=== PATIENT | male | born 1965 | race Caucasian/White ===

== ENCOUNTER → 2018-01-30 10:29 | Outpatient (POV) | payer MEDICAID, SELFPAY ==
[2018-01-30 10:38] VITALS: BP 127/84; PULSE 105; RESP 21; O2SAT 97; BMI 38.1
--- NOTE | 2018-01-30 11:01 | HMH.PAINSOAP ---
[facility] Pain Management SOAP Note Subjective:: Patient is a pleasant 51-year-old white male who returns for follow-up after his second lumbar epidural steroid injection. Patient states that he had moderate relief. Patient states that he had pain relief for up to 4 weeks before returning. Patient states that has not completely returned. Patient is currently being medically managed on gabapentin 800 mg 1 p.o. 3 times daily by his primary care physician he states that this helps him greatly. He is having some trouble sleeping at night due to pain. Patient has tried tramadol in the past but has had some side effects to that. Patient is wondering about pain medication. We had a long discussion about exhausting conservative therapies first. Patient has tried muscle relaxants in the past with good relief. Patient has had Flexeril in the past with good relief. Patient is he would like to continue with a third lumbar epidural steroid injection to see if he can get maximal relief. Patient is also currently experiencing neck pain radiating down into both arms and creating numbness and tingling in all 5 digits of both hands. Patient states there is not much that relieves this. Patient rates his pain today a 5 out of 10. ROS General: no recent weight change, no fever, no sleep disturbances Respiratory: no cough, no shortness of air, no recurring pulmonary infections Cardiovascular/Peripheral Vascular: No chest pain, No palpitations, no edema, no shortness of breath. Gastrointestinal: no incontinence, normal bowel movements reported Genitourinary: no incontinence Musculoskeletal: Neck pain, bilateral arm pain, back pain, bilateral leg pain Psychiatric: normal mood/ affect, Neurological: [denies weakness in extremities], [denies balance issues] Objective:: Physical Exam General: Alert and oriented x3, no acute distress, pleasant and cooperative, [on room air] Lungs: Resps E/U, Symmetrical chest expansion, Eyes: PERRL Musculoskeletal: Flexion and extension of cervical and lumbar spine somewhat guarded secondary to pain, deep tendon reflexes normal, strength in upper and lower extremities [5/5], antalgic gait noted, positive straight leg test at 30? bilaterally. Neurological: speech clear, director medical writing equal, no gross sensory deficits Assessment:: Degenerative disc disease of the lumbar spine, lumbar postlaminectomy syndrome, lumbar radiculopathy, neck pain Plan:: We will plan another L4-L5 lumbar epidural steroid injection to finish off his round of free. Patient has had good relief from the previous ones. We also call him in Flexeril 10 mg 1 p.o. 3 times daily as needed. I am hoping that this will help him sleep at night. We had a long discussion about taking it and not driving or doing any activities until he knows how to fix them. Patient has tried and failed physical therapy in the past. Patient would also like to discuss his cervical neck pain I told him that we would begin this process after his follow-up for his third lumbar epidural steroid injection. This note was dictated using voice recognition software and may contain errors or omissions
--- NOTE | 2018-01-30 11:06 | P.CONS_ITS ---
[facility] Pain Management SOAP Note Subjective:: Patient is a pleasant 51-year-old white male who returns for follow-up after his second lumbar epidural steroid injection. Patient states that he had moderate relief. Patient states that he had pain relief for up to 4 weeks before returning. Patient states that has not completely returned. Patient is currently being medically managed on gabapentin 800 mg 1 p.o. 3 times daily by his primary care physician he states that this helps him greatly. He is having some trouble sleeping at night due to pain. Patient has tried tramadol in the past but has had some side effects to that. Patient is wondering about pain medication. We had a long discussion about exhausting conservative therapies first. Patient has tried muscle relaxants in the past with good relief. Patient has had Flexeril in the past with good relief. Patient is he would like to continue with a third lumbar epidural steroid injection to see if he can get maximal relief. Patient is also currently experiencing neck pain radiating down into both arms and creating numbness and tingling in all 5 digits of both hands. Patient states there is not much that relieves this. Patient rates his pain today a 5 out of 10. ROS General: no recent weight change, no fever, no sleep disturbances Respiratory: no cough, no shortness of air, no recurring pulmonary infections Cardiovascular/Peripheral Vascular: No chest pain, No palpitations, no edema, no shortness of breath. Gastrointestinal: no incontinence, normal bowel movements reported Genitourinary: no incontinence Musculoskeletal: Neck pain, bilateral arm pain, back pain, bilateral leg pain Psychiatric: normal mood/ affect, Neurological: [denies weakness in extremities], [denies balance issues] Objective:: Physical Exam General: Alert and oriented x3, no acute distress, pleasant and cooperative, [ on room air] Lungs: Resps E/U, Symmetrical chest expansion, Eyes: PERRL Musculoskeletal: Flexion and extension of cervical and lumbar spine somewhat guarded secondary to pain, deep tendon reflexes normal, strength in upper and lower extremities [5/5], antalgic gait noted, positive straight leg test at 30? bilaterally. Neurological: speech clear, personal lines account manager equal, no gross sensory deficits Assessment:: Degenerative disc disease of the lumbar spine, lumbar postlaminectomy syndrome, lumbar radiculopathy, neck pain Plan:: We will plan another L4-L5 lumbar epidural steroid injection to finish off his round of free. Patient has had good relief from the previous ones. We also call him in Flexeril 10 mg 1 p.o. 3 times daily as needed. I am hoping that this will help him sleep at night. We had a long discussion about taking it and not driving or doing any activities until he knows how to fix them. Patient has tried and failed physical therapy in the past. Patient would also like to discuss his cervical neck pain I told him that we would begin this process after his follow-up for his third lumbar epidural steroid injection. This note was dictated using voice recognition software and may contain errors or omissions
--- NOTE | 2018-01-30 16:50 | PC.PHONENOTE ---
called in Rx for Flexeril 10mg TID with 2 refills to [facility] in [place]
== END ==
PROVIDERS: Family Provider Family Medicine; PCP Family Medicine; Visit Provider Clinical Nurse Specialist Family Health
DX: M54.16 Radiculopathy, lumbar region (principal)
CPT/HCPCS: 99212

== ENCOUNTER → 2018-02-27 11:36 | Outpatient (CLI) | payer MEDICAID, SELFPAY ==
[2018-02-27 12:19] LABS: Alanine Aminotransferase 27 U/L (12-78); Albumin Level 4.4 gm/dL (3.4-5.0); Albumin/Globulin Ratio 0.9 (1.1-1.8); Alkaline Phosphatase 71 U/L (46-116); Anion Gap 15.2 mEq/L (5-15); Aspartate Amino Transferase 19 U/L (15-37); Bilirubin,Total 0.4 mg/dL (0.2-1.0); Blood Urea Nitrogen 31 mg/dL (7-18); Carbon Dioxide 28 mmol/L (21.0-32.0); Chloride 98 mmol/L (98-107); Chol/HDL Ratio 4.6 (1-3.5); Cholesterol 166 mg/dL (140-200); Creatinine,Serum 1.68 mg/dL (0.70-1.30); Estimated Glomerular Filt Rate 43 ml/min (>60); GFR (African American) 52 ML/MIN (>60); Globulin 4.8 gm/dl (1.3-3.2); Glucose 212 mg/dL (74-106); HDL Cholesterol 36 mg/dL (27-67); LDL Cholesterol 57 mg/dL (0-130); Sodium 135 mmol/L (136-145); Total Protein,Serum 9.2 gm/dL (6.4-8.2); Triglycerides 367 mg/dL (30-200); VLDL Cholesterol 73 mg/dL (0-40)
[2018-02-27 12:32] LABS: Potassium 6.2 mmoL/L (3.5-5.1)
[2018-02-27 19:56] LABS: Thyroid Stimulating Hormone 5.69 uIU/ml (0.358-3.740)
== END ==
PROVIDERS: Visit Provider Physician Assistant
DX: I25.10 Atherosclerotic heart disease of native coronary artery without angina pectoris (principal); E78.1 Pure hyperglyceridemia; R00.0 Tachycardia, unspecified
CPT/HCPCS: 36415; 80053; 80061; 84443; 93005

== ENCOUNTER → 2018-03-06 07:08 | Outpatient (CLI) | payer MEDICAID, SELFPAY ==
--- NOTE | 2018-03-06 07:13 | NM_ITS ---
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 Resting blood pressure is 122/90. Stress blood pressure 122/85. FINDINGS: Ejection fraction is calculated to be 46%. SPECT and polar map images reviewed. No fixed defects are evident. There is only slight decrease activity in the inferior wall on the stress images however, this may very well be related to diaphragmatic attenuation. Previously there were reversible defects within the apex and inferior wall. This is not present on today's exam IMPRESSION: 1. Low ejection fraction of 46% 2. No definite fixed or reversible defects that would indicate ischemia or infarction
--- NOTE | 2018-03-06 07:40 | HMH.ITSHM ---
METFORMIN GLIPIZIDE GLIXAMBA GABAPENTIN LISINOPRIL RASTUVASTATIN PROZAC
[2018-03-06 09:50] LABS: Anion Gap 15.8 mEq/L (5-15); Blood Urea Nitrogen 35 mg/dL (7-18); Carbon Dioxide 24 mmol/L (21.0-32.0); Chloride 102 mmol/L (98-107); Estimated Glomerular Filt Rate 53 ml/min (>60); GFR (African American) 64 ML/MIN (>60); Glucose 208 mg/dL (74-106); Potassium 4.8 mmoL/L (3.5-5.1); Sodium 137 mmol/L (136-145)
== END ==
PROVIDERS: Family Provider Family Medicine; PCP Family Medicine; Visit Provider Physician Assistant
DX: E78.5 Hyperlipidemia, unspecified (principal); I10 Essential (primary) hypertension; I25.10 Atherosclerotic heart disease of native coronary artery without angina pectoris
CPT/HCPCS: 36415; 78452; 80048; 93017; A9502; J2785

== ENCOUNTER → 2018-03-24 14:52 | Outpatient (CLI) | payer MEDICAID, SELFPAY | PROVIDERS: PCP Family Medicine; Visit Provider Family Medicine | DX: I10 Essential (primary) hypertension (principal); R06.83 Snoring ==

== ENCOUNTER → 2018-03-27 08:29 | Outpatient (POV) | payer MEDICAID, SELFPAY ==
[2018-03-27 09:25] VITALS: BP 118/79; PULSE 91; RESP 18; TEMP 36.6; O2SAT 99; BMI 40.6
--- NOTE | 2018-03-27 09:36 | P.CONS_ITS ---
[facility] Pain Management SOAP Note Subjective:: This patient is a pleasant 51-year-old white male who we are treating for low back pain with lumbar radiculopathy symptoms. He had good relief after 3 lumbar epidural steroid injections however it was only temporary. He continues to have pain down both legs right greater than left going all the way down to his feet. Pain is worse while walking. He has had previous surgery by Dr. Fisher approximately 2-3 years ago. He has significant spinal stenosis at L4-L5 and L5-S1. He does have facet hypertrophy at both these levels. Objective:: Alert and oriented ?3 no acute distress. Patient does have an antalgic gait. Motor strength of the lower extremities is 5/5. There is no gross sensory deficit. There is some tenderness in the lower lumbar spine. Assessment:: Post laminectomy syndrome lumbar spine with degenerative disc disease of lumbar spine with facet hypertrophy at L4-L5 and L5-S1 and lumbar radicular symptoms. Plan:: I do believe this patient would be a candidate for the mild procedure given his facet hypertrophy at L4-L5 and L5-S1. We will see if his insurance will approve this procedure. If not then we may seek approval for cord stimulator trial. This will help with his radicular symptoms. Our third option would be intrathecal therapy. We will follow-up with him in 2 weeks. We will formulate a treatment plan based on insurance approval at that time.
== END ==
PROVIDERS: Family Provider Family Medicine; PCP Family Medicine; Visit Provider Anesthesiology
DX: M54.16 Radiculopathy, lumbar region (principal)
CPT/HCPCS: 99212

== ENCOUNTER → 2018-04-10 08:48 | Outpatient (POV) | payer MEDICAID, SELFPAY ==
[2018-04-10 09:09] VITALS: BP 123/87; PULSE 108; RESP 20; TEMP 36.7; O2SAT 99; BMI 37.7
--- NOTE | 2018-04-10 09:41 | HMH.PAINSOAP ---
[facility] Pain Management SOAP Note Subjective:: Patient is a pleasant 51-year-old white male who we are treating for low back pain with lumbar radiculopathy symptoms. Patient has had surgery in the past with Dr. Fisher. Patient states most of his pain is in his bilateral legs. Patient states that it is worse in the left. Patient states that his pain is a 8 out of 10 today. Patient has not had any recent MRI imaging however his leg pain has worsened and traveled into the right side. Patient is having sometimes a weakness in his extremities now. Patient is on anticoagulation therapy. Patient has had injections however he is not had long-term relief with it. Patient and I did discuss neuro stimulation along with a mild procedure. I believe that it would be beneficial to get a new MRI and establish any new pathology. ROS General: no recent weight change, no fever, no sleep disturbances Respiratory: no cough, no shortness of air, no recurring pulmonary infections Cardiovascular/Peripheral Vascular: No chest pain, No palpitations, no edema, no shortness of breath. Gastrointestinal: no incontinence, normal bowel movements reported Genitourinary: no incontinence Musculoskeletal: Back pain, bilateral leg pain Psychiatric: normal mood/ affect Neurological: Patient has intermittent weakness in bilateral lower extremities, [denies balance issues] Objective:: Physical Exam General: Alert and oriented x3, no acute distress, pleasant and cooperative, [on room air] Lungs: Resps E/U, Symmetrical chest expansion Eyes: PERRL Musculoskeletal: Flexion and extension of lumbar spine somewhat guarded secondary to pain, deep tendon reflexes normal, strength in upper and lower extremities [5/5], slightly antalgic gait noted, straight leg raise test bilaterally at 30? Neurological: speech clear, electrical checkout mechanic equal, no gross sensory deficits Assessment:: Postlaminectomy syndrome of the lumbar spine with degenerative disc disease of the lumbar spine with facet hypertrophy at L4-L5 and L5-S1 and lumbar radicular symptoms, spinal stenosis Plan:: We will schedule MRI of the lumbar spine for the patient. I will review the results with him at his next visit. We will then discuss further treatment plan. Patient's tried and failed physical therapy, medications, anti-inflammatories, injections. This note was dictated using voice recognition software and may contain errors or omissions
--- NOTE | 2018-04-10 09:44 | P.CONS_ITS ---
[facility] Pain Management SOAP Note Subjective:: Patient is a pleasant 51-year-old white male who we are treating for low back pain with lumbar radiculopathy symptoms. Patient has had surgery in the past with Dr. Fisher. Patient states most of his pain is in his bilateral legs. Patient states that it is worse in the left. Patient states that his pain is a 8 out of 10 today. Patient has not had any recent MRI imaging however his leg pain has worsened and traveled into the right side. Patient is having sometimes a weakness in his extremities now. Patient is on anticoagulation therapy. Patient has had injections however he is not had long-term relief with it. Patient and I did discuss neuro stimulation along with a mild procedure. I believe that it would be beneficial to get a new MRI and establish any new pathology. ROS General: no recent weight change, no fever, no sleep disturbances Respiratory: no cough, no shortness of air, no recurring pulmonary infections Cardiovascular/Peripheral Vascular: No chest pain, No palpitations, no edema, no shortness of breath. Gastrointestinal: no incontinence, normal bowel movements reported Genitourinary: no incontinence Musculoskeletal: Back pain, bilateral leg pain Psychiatric: normal mood/ affect Neurological: Patient has intermittent weakness in bilateral lower extremities, [denies balance issues] Objective:: Physical Exam General: Alert and oriented x3, no acute distress, pleasant and cooperative, [ on room air] Lungs: Resps E/U, Symmetrical chest expansion Eyes: PERRL Musculoskeletal: Flexion and extension of lumbar spine somewhat guarded secondary to pain, deep tendon reflexes normal, strength in upper and lower extremities [5/5], slightly antalgic gait noted, straight leg raise test bilaterally at 30? Neurological: speech clear, skin care specialist equal, no gross sensory deficits Assessment:: Postlaminectomy syndrome of the lumbar spine with degenerative disc disease of the lumbar spine with facet hypertrophy at L4-L5 and L5-S1 and lumbar radicular symptoms, spinal stenosis Plan:: We will schedule MRI of the lumbar spine for the patient. I will review the results with him at his next visit. We will then discuss further treatment plan. Patient's tried and failed physical therapy, medications, anti- inflammatories, injections. This note was dictated using voice recognition software and may contain errors or omissions
== END ==
PROVIDERS: Family Provider Family Medicine; PCP Family Medicine; Visit Provider Clinical Nurse Specialist Family Health
DX: M54.16 Radiculopathy, lumbar region (principal); M48.00 Spinal stenosis, site unspecified
CPT/HCPCS: 99212

== ENCOUNTER → 2018-04-28 15:50 | Outpatient (CLI) | payer MEDICAID, SELFPAY ==
--- NOTE | 2018-04-28 15:52 | MR_ITS ---
MR lumbar spine wo con, MR 3-d myelogram/MRCP HISTORY: PT has neuropathy. Bilateral Leg pain, numbness and tingling. Prior back surgery ITS.REASON: BACK PAIN ORDERING PHYSICIAN: David Moreno MD PATIENT AGE: 52 years Comparison: MRI 05-03-14 TECHNIQUE: Standard multiplanar multiecho sequences are performed without contrast. 3-D MIP and myelographic images are also rendered and reviewed FINDINGS: There is normal alignment. The spinal cord ends at the T12-L1 level. There is mild lumbar scoliosis convex left. Multilevel lumbar spondylosis noted as described below. Along the superior edge of the image there is degenerative disc disease noted at T11-T12 which is not adequately included on the sagittal images and not included on axial images. There is narrowing of the canal at this level measuring approximately 9 mm. This was present previously. L1-L2: Mild degenerative disc disease with minimal left paracentral disc protrusion with mild left lateral recess narrowing. L2-L3: Mild facet and ligamentum flavum hypertrophy. L3-L4: Degenerative disc disease with broad-based bulging disc centrally and toward the left facet and ligamentum flavum hypertrophy. There is transverse canal narrowing of 9 mm. There are minimal endplate hypertrophic changes. There is moderate bilateral lateral recess and foraminal narrowing. The bulging disc has developed since the previous exam. The canal stenosis is worse on today's exam than when compared to the previous study. The ligamentum hypertrophic change slightly worse on the right. L4-5: Degenerative disc disease with broad-based bulging disc somewhat eccentric toward the right along with facet hypertrophic change. There is moderate to severe right-sided foraminal narrowing and moderate left foraminal narrowing. Small central disc protrusion is present. Prior laminectomy at L5. There is persistent canal stenosis at L4-5 at 9 mm L5-S1: Mild degenerative disc disease with minimal right paracentral disc protrusion not significantly changed along with mild facet and ligamentum flavum hypertrophy. Cannot adequately evaluate for epidural fibrosis on this unenhanced exam. IMPRESSION: 1. Abnormal MRI of the lumbar spine with multilevel lumbar spondylosis. Please see above for detailed description at each level 2. Degenerative disc disease L3-L4 with broad-based bulging disc centrally and toward the left facet and ligamentum flavum hypertrophy. There is transverse canal narrowing of 9 mm. There are minimal endplate hypertrophic changes. There is moderate bilateral lateral recess and foraminal narrowing. The bulging disc has developed since the previous exam. The canal stenosis is worse on today's exam than when compared to the previous study. The ligamentum hypertrophic change slightly worse on the right 3. Degenerative disc disease L4-5 with broad-based bulging disc somewhat eccentric toward the right along with facet hypertrophic change. There is moderate to severe right-sided foraminal narrowing and moderate left foraminal narrowing. Small central disc protrusion is present. Prior laminectomy at L5. There is persistent canal stenosis at L4-5 at 9 mm
== END ==
PROVIDERS: Family Provider Family Medicine; PCP Family Medicine; Visit Provider Anesthesiology
DX: M54.5 Low back pain (principal)
CPT/HCPCS: 72148; 76376

== ENCOUNTER → 2018-05-22 08:46 | Outpatient (POV) | payer MEDICAID, SELFPAY ==
[2018-05-22 09:10] VITALS: BP 139/99; PULSE 98; RESP 18; TEMP 36.7; O2SAT 95; BMI 29.9
--- NOTE | 2018-05-22 09:15 | HMH.PAINSOAP ---
[facility] Pain Management SOAP Note Subjective:: Patient is a pleasant 52-year-old white male who presents today for follow-up after MRI. Patient rates his pain an 8 out of 10 today. Patient states his pain is worsening. Patient's MRI does show worsening pathology. Patient's been seen by Dr. Fisher in the past. Patient would like to get a second opinion from a different neurosurgeon. I believe that this will be beneficial. Patient is on anticoagulation therapy. Patient has had injections however he has not had any long-term relief with it. Patient I did discuss neuro stimulation along with potentially the vertiflex procedure. However I feel like we need to consult a neurosurgeon prior to making any decision regarding this. ROS General: no recent weight change, no fever, no sleep disturbances Respiratory: no cough, no shortness of air, no recurring pulmonary infections Cardiovascular/Peripheral Vascular: No chest pain, No palpitations, no edema, no shortness of breath. Gastrointestinal: no incontinence, normal bowel movements reported Genitourinary: no incontinence Musculoskeletal: Back pain, bilateral leg pain Psychiatric: normal mood/ affect Neurological: [denies weakness in extremities], [denies balance issues] Objective:: Physical Exam General: Alert and oriented x3, no acute distress, pleasant and cooperative, [on room air] Lungs: Resps E/U, Symmetrical chest expansion, Eyes: PERRL Musculoskeletal: Flexion and extension of lumbar spine somewhat guarded secondary to pain, deep tendon reflexes normal, strength in upper and lower extremities [5/5], [abnormal gait noted] Neurological: speech clear, director machine equal, no gross sensory deficits Assessment:: Postlaminectomy syndrome of the lumbar spine with degenerative disc disease of the lumbar spine, facet arthropathy, lumbar radicular symptoms, spinal stenosis Plan:: We will send the patient to Dr. Johnson for second opinion. We will follow-up with him after this consultation. Patient's tried and failed physical therapy, medications, anti-inflammatories, injections. He may be a candidate for a vertiflex received her neurostimulator. This note was dictated using voice recognition software and may contain errors or omissions
--- NOTE | 2018-05-22 09:18 | P.CONS_ITS ---
[facility] Pain Management SOAP Note Subjective:: Patient is a pleasant 52-year-old white male who presents today for follow-up after MRI. Patient rates his pain an 8 out of 10 today. Patient states his pain is worsening. Patient's MRI does show worsening pathology. Patient's been seen by Dr. Fisher in the past. Patient would like to get a second opinion from a different neurosurgeon. I believe that this will be beneficial. Patient is on anticoagulation therapy. Patient has had injections however he has not had any long-term relief with it. Patient I did discuss neuro stimulation along with potentially the vertiflex procedure. However I feel like we need to consult a neurosurgeon prior to making any decision regarding this. ROS General: no recent weight change, no fever, no sleep disturbances Respiratory: no cough, no shortness of air, no recurring pulmonary infections Cardiovascular/Peripheral Vascular: No chest pain, No palpitations, no edema, no shortness of breath. Gastrointestinal: no incontinence, normal bowel movements reported Genitourinary: no incontinence Musculoskeletal: Back pain, bilateral leg pain Psychiatric: normal mood/ affect Neurological: [denies weakness in extremities], [denies balance issues] Objective:: Physical Exam General: Alert and oriented x3, no acute distress, pleasant and cooperative, [ on room air] Lungs: Resps E/U, Symmetrical chest expansion, Eyes: PERRL Musculoskeletal: Flexion and extension of lumbar spine somewhat guarded secondary to pain, deep tendon reflexes normal, strength in upper and lower extremities [5/5], [abnormal gait noted] Neurological: speech clear, assembler bonding equal, no gross sensory deficits Assessment:: Postlaminectomy syndrome of the lumbar spine with degenerative disc disease of the lumbar spine, facet arthropathy, lumbar radicular symptoms, spinal stenosis Plan:: We will send the patient to Dr. Johnson for second opinion. We will follow-up with him after this consultation. Patient's tried and failed physical therapy, medications, anti-inflammatories, injections. He may be a candidate for a vertiflex received her neurostimulator. This note was dictated using voice recognition software and may contain errors or omissions
--- NOTE | 2018-06-02 15:40 | PC.NURSE ---
pt informed of appointment with NEUROSURGERY,Scheduled june 26 at 830am. pt v/u
== END ==
PROVIDERS: Family Provider Family Medicine; PCP Family Medicine; Visit Provider Clinical Nurse Specialist Family Health
DX: M48.061 Spinal stenosis, lumbar region without neurogenic claudication (principal)
CPT/HCPCS: 99212

== ENCOUNTER → 2018-05-25 19:54 | Outpatient (CLI) | payer MEDICAID, SELFPAY | PROVIDERS: PCP Family Medicine; Visit Provider Family Medicine | DX: G47.33 Obstructive sleep apnea (adult) (pediatric) (principal); I10 Essential (primary) hypertension; R06.83 Snoring; E66.9 Obesity, unspecified; I25.10 Atherosclerotic heart disease of native coronary artery without angina pectoris; E11.9 Type 2 diabetes mellitus without complications | CPT/HCPCS: 95810 ==

== ENCOUNTER → 2018-11-27 13:37 | Outpatient (CLI) | payer MEDICAID, SELFPAY ==
--- NOTE | 2018-11-27 13:41 | XR_ITS ---
XR cervical spine 5V Ordering Physician: Dipak Barrientos MD Patient Age: 53 years: Male HISTORY: ITS.REASON: CERVICAL RADICULOPATHY Cervical related to myelopathy. No injury. TECHNIQUE: Five-view cervical spine series. COMPARISON :No previous studies for comparison. FINDINGS The cervical vertebral bodies are intact. With no fracture nor subluxation evident. Degenerative disc changes and cervical spondylosis evident. Disc space narrowing most evident C5/6. Minor posterior hypertrophic ridging at this level noted. Spurs yield mild encroachment upon the neural foramen bilaterally at C5-C6. Borderline narrowing C4/5.. Other disc spaces fairly well maintained. ,. Anterior marginal osteophytes most evident C6/7, C5/6 and to lesser degree C3/4 C2/3. The facets facets appear intact with normal relationships only mild degenerative changes. C1-C2 relationships appear normal. There is normal alignment C-spine with prevertebral soft tissues normal. Apices the lungs are clear. CABG noted. Dental disease noted. IMPRESSION: . ............ . Degenerative disc changes and cervical spondylosis C-spine, most evident at C5/6 . Mild posterior spurring yields mild bilateral foraminal encroachment at this level .
== END ==
PROVIDERS: PCP Family Medicine; Visit Provider Family Medicine
DX: M53.82 Other specified dorsopathies, cervical region (principal); M54.12 Radiculopathy, cervical region
CPT/HCPCS: 72050

== ENCOUNTER 2019-01-12 14:00 | Outpatient (RCR) | payer MEDICAID, SELFPAY ==
--- NOTE | 2018-12-08 14:37 | HMH.PTOPEV ---
PT Outpatient Evaluation Rehab PT Outpatient Evaluation Start: 12/08/18 13:40 Freq: Status: Active Protocol: Document 12/08/18 14:04 EMELYALEX (Rec: 12/08/18 14:36 EMELYROGELIONELSON [id number]) Electronically Signed By Angelito Oliveros, PT 12/08/18 14:04 Outpatient Therapy Subjective History Subjective History Patient is a 53 year old male presenting to outpatient PT with reports of chronic cervical spine pain with associated bilateral shoulder pain. Radiculopathy to bilateral hands as well. Most recent diagnostics indicate significant DDD pronounced at C 5/6 with multiple posterior bone spurs as well. Pt reports hx of R shoulder partial rotator cuff tear. He received injections previously that did not provide any relief. Comorbidities include hx of bypass x 5, stent placement x 5 and diabetes. Chief Complaint Pain Stiff Paresthesia Symptom Type Ache Throb Sharp Dull Burning Numbness Tingling Shooting Symptoms Relieved By Rest/Positioning Prescription Meds Symptoms Aggravated By Sitting Physical Activity Lifting Prior Functional Limitations None Current Functional Limitations Reaching Lifting Housework Driving Sleeping Recreation Activity Symptom Description Constant but Variable Level of pain today (0-10) 5 Pain scale - at its best (0-10) 4 Pain scale - at its worst (0-10) 9 Cervical Eval Palpation Cervical Muscles R Cervical Paraspinal L Cervical Paraspinal R CT Junction L CT Junction R Upper Trapezius L Upper Trapezius
== END 2019-01-12 14:05 | disposition home or self-care (01) ==
LOC: PT 14:00
PROVIDERS: Visit Provider Family Medicine
DX: M54.12 Radiculopathy, cervical region (principal); M53.82 Other specified dorsopathies, cervical region
CPT/HCPCS: 97010; 97012; 97014; 97110; 97163; G0283

== ENCOUNTER → 2020-02-02 10:54 | Outpatient (CLI) | payer SELFPAY ==
--- NOTE | 2020-02-02 12:23 | XR_ITS ---
PROCEDURE: XR FINGER LT MIN 2V Patient Age:54Y CLINICAL INDICATION: FELON OF FINGER Patient states he had a piece of metal go into his finger and it has been swollen and infected COMPARISON: No exams were available for comparison FINDINGS: soft tissue swelling of most pronounced at the tip and surrounding the distal phalanx of the long, 3rd finger. There is some irregularity in the contour of the soft tissues most evident on lateral view. Close inspection of bone at distal tuft reveals subtle discontinuity of cortex with suspect small less than 1 mm focal area erosion at the radial margin of distal tuft towards its base.-. This is suspect for a osseous involvement with the infection resulting in this small focal erosion.. Findings suspect for early osteomyelitis. MR may be of benefit to further evaluate. It could also reflect a site of bone injury and fracture but still osteomyelitis remains of concern also in this setting. No metallic foreign body is seen in this area on today's study. The middle phalanx appears intact. DIP and PIP joint appear intact. Mild arthritic changes at the 3rd MCP joint with minimal marginal osteophytes noted here IMPRESSION: 1. Prominent soft tissue swelling at the tip of 3rd finger-with mild irregularity of soft tissues here which may likely associated soft tissue injury and laceration. But no radiopaque foreign body evident 2. Suggestion small focal osseous erosion along radial aspect distal tuft-it is suspect for early osteomyelitis . Requires treatment and close follow-up. Consider hand consult or MRI for more further evaluation Dictated by: Esequiel Cowan MD 02/02/2020 22:11 Electronically signed by Esequiel Cowan MD in [place] 02/02/2020 22:11
== END ==
PROVIDERS: PCP Family Medicine; Visit Provider Family Medicine
DX: L03.019 Cellulitis of unspecified finger (principal)
CPT/HCPCS: 73140

== ENCOUNTER → 2020-11-01 11:13 | Outpatient (CLI) | payer MEDICAID, SELFPAY ==
--- NOTE | 2020-11-01 11:34 | XR_ITS ---
PROCEDURE: XR THORACIC SPINE 2V CLINICAL INDICATION: UPPER BACK PAIN ON RIGHT SIDE COMPARISON: No exams were available for comparison FINDINGS: Normal alignment. No fracture or dislocation. No lytic or blastic change. There is multilevel thoracic spondylosis with multilevel degenerative disc disease. Anterior osteophytes are present in the mid lower thoracic spine. Other findings:There are degenerative changes of the cervical spine also noted. There has been a prior median sternotomy IMPRESSION: Degenerative changes, no acute finding Dictated by: Damon Dowd MD 11/01/2020 15:38 Damon Dowd MD in [place] 11/01/2020 15:38
== END ==
PROVIDERS: PCP Family Medicine; Visit Provider Family Medicine
DX: M54.6 Pain in thoracic spine (principal)
CPT/HCPCS: 72070

== ENCOUNTER → 2021-08-31 08:27 | Outpatient (CLI) | payer OTHER, SELFPAY ==
[2021-08-31 10:11] LABS: Thyroid Stimulating Hormone 4.78 uIU/mL (0.465-4.68)
[2021-09-05 08:51] LABS: Testosterone, Total, LC/MS 234.3 ng/dL (264.0-916.0); Testosterone,Free 10.6 pg/mL (7.2-24.0)
== END ==
PROVIDERS: Visit Provider Urology
DX: E34.9 Endocrine disorder, unspecified (principal); N52.9 Male erectile dysfunction, unspecified
CPT/HCPCS: 36415; 84402; 84403; 84443

== ENCOUNTER → 2022-01-07 12:36 | Outpatient (CLI) | payer OTHER, SELFPAY ==
--- NOTE | 2022-01-07 | CA_ITS ---
APPROVED REPORT Exam: Pharmacologic Technologist: Myra Hardwick, Ht: 6 ft 2 in Wt: 298 lbs BSA: 2.58 m2 HR: 84 bpm BP: 150/89 mmHg Rhythm: NSR, NSSTTW ABNORMALITIES INF-LAT, FREQ PVCS Medical History Medical History: Diabetes Medications: Lisinopril,,,,, Asa,,,,, Metformin,,,,, Glipizide,,,,, INSULIN,,,,, Pregabalin,,,,, Testosterone,,,,, RoSUVASTATIN,,,,, Ergocalciferol,,,,, DulaGLUTIDE,,,,, EMpagliflozin,,,,, Allergies: No known drug allergies Cardiac Risk Factors: Diabetes Stress Test Details Test: Crowd ScienceISCAN HR Resting HR: 88 bpm Max Heart Rate (APMHR): 162.905270 bpm Max HR Achieved: 101 bpm Target HR (85% APMHR): 137.292809 bpm % of APMHR: 62.35 Recovery HR: 89 bpm BP Resting BP: 150/89 mmHg Max BP: 150/89 mmHg Recovery BP: 134.0/97.0 mmHg ECG Resting ECG: NSR, NSSTTW ABNORMALITIES INF-LAT, FREQ PVCS Clinical Reason for Termination: Completed Protocol Exercise duration: 04:01 min Highest Stage Achieved: Stress ECG Conclusion PT HAD NO SYMPTOMS. FREQ PVCS, TRIGEMINY <1.[address] SEGMENT CHANGES NON-DIAGNOSTIC Test Summary RECOVERY 04:00 . . 90 . 149/ 83 . . REST . . . . . . . Sitting REST 08:15 . . 88 . 150/ 89 . . Stage 1 . . . . . . . Cardiolite injected Stage 1 01:00 . . 95 . . . . Stage 2 01:00 . . 98 . 141/ 92 . . Stage 3 01:00 . . 95 . . . . Stage 4 01:00 . . 93 . 144/ 93 . . Stage 4 01:01 . . 93 . 144/ 93 . Stop exercise at 04:01 RECOVERY 01:00 . . 93 . . . . RECOVERY 02:00 . . 93 . 148/100 . . RECOVERY 03:00 . . 90 . 148/100 . . RECOVERY 04:00 . . 90 . 149/ 83 . . RECOVERY 04:46 . . 89 . 134/ 97 . . Electronically signed by : Sharan Mireles MD 01/08/2022 08:59:54
--- NOTE | 2022-01-07 12:36 | NM_ITS ---
APPROVED REPORT Exam: Nuclear Stress Test Indication: CAD, CABG, HTN, DM, High cholesterol Patient Location: Outpatient Stress Tech: Kelly Apontenkson [place] Tech:Giana Fry, ARRT, RT (R)(N) Ht: 6 ft 2 in Wt: 290 lbs HR: 84 bpm BP: 150/89 mmHg BSA: 2.54 m2 BMI: 37.2 History: CAD, CABG, HTN, DM, High cholesterol Procedure: Patient received a 0.4 mg of intravenous Lexiscan, resting heart rate 84 bpm, resting blood pressure 150/89 mmHg, with Lexiscan maximum heart rate achived was 94 bpm which is Less than 85 % of the maximum predicted heart rate and blood pressure was 144/93 mmHg. With Lexiscan, patient denied any complaint of chest pain. Electrocardiogram Resting electrocardiogram shows sinus rhythm nonspecific ST-T changes, with Lexiscan there is less than 1.[address] segment depression noted from the baseline EKG. The EKG portion of the Lexiscan is nondiagnostic. Cardiac Stress and Resting SPECT Images: Cardiac Stress and Resting SPECT images were obtained using technetium 99m Myoview 28.1 mCi stress and 10.57 mCi at rest. Gated SPECT for analysis of segmental wall motion and calculation of the ejection fraction also done. Cardiac stress and rest SPECT images show mixed ischemia and scar involving the inferior and posterior basal wall, computer derived ejection fraction is 42% with moderate inferior and posterior basal wall hypokinesis, right ventricle is mildly enlarged with normal contractility. Conclusion: 1. The EKG portion of the Lexiscan is nondiagnostic. 2. Scintigraphic evidence of mixed ischemia and scar involving the inferior and posterior basal wall, compared right ejection fraction is 42% with segmental wall motion abnormality described above, right ventricle is mildly enlarged with normal contractility. 3. Abnormal Lexiscan Myoview study. Electronically signed by : Sharan Mireles MD 01/08/2022 09:03:25
--- NOTE | 2022-01-07 15:38 | HMH.ITSHM ---
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 [TESTOSTERONE PREGABALIN LISINOPRIL INSULIN GLIPIZIDE VITAMIN D2 EMPAGLIFLOZIN DULOGLUTIDE CARVEDILOL ASA ROSUVASTATIN METFORMIN
== END ==
PROVIDERS: PCP Family Medicine; Visit Provider Nurse Practitioner Family
DX: R06.00 Dyspnea, unspecified (principal); R07.89 Other chest pain; R00.0 Tachycardia, unspecified; I25.10 Atherosclerotic heart disease of native coronary artery without angina pectoris; R94.31 Abnormal electrocardiogram [ECG] [EKG]; Z02.4 Encounter for examination for driving license; Z95.1 Presence of aortocoronary bypass graft
CPT/HCPCS: 78452; 93017; A9502; J2785

== ENCOUNTER → 2022-01-11 09:09 | Outpatient (CLI) | payer OTHER, SELFPAY ==
[2022-01-11 09:27] LABS: Coronavirus 19, PCR Not Detected (NotDetected); Influenza A, PCR Not Detected (NotDetected); Influenza B, PCR Not Detected (NotDetected)
[2022-01-11 10:10] LABS: Basophils # 0.1 K/mm3 (0-0.2); Eosinophils # 0.3 K/mm3 (0.0-0.4); Eosinophils % 3.8 % (0.1-12.0); Hematocrit 52.1 % (42.0-52.0); Hemoglobin 16.5 g/dL (14.1-18.0); Lymphocytes # 1.2 K/mm3 (0.7-4.5); Lymphocytes % 15.2 % (10-50); Mean Corpuscular HGB Conc 31.7 g/dL (31.8-35.4); Mean Corpuscular Hemoglobin 27.2 pg (27.0-31.2); Mean Platelet Volume 8.7 fl (7.4-10.4); Monocytes # 0.5 K/mm3 (0.1-1.0); Neutrophils # 5.5 K/mm3 (1.8-7.8); Neutrophils % 72.9 % (37.0-80.0); Platelet Count 206 K/mm3 (142-424); Red Blood Count 6.06 M/mm3 (4.60-6.20); Red Cell Distribution Width 15.8 % (11.5-17.5); White Blood Count 7.6 K/mm3 (4.8-10.8)
[2022-01-11 10:14] LABS: Chloride 98 mmol/L (98-107)
[2022-01-11 10:15] LABS: Potassium 4.4 mmoL/L (3.5-5.1); Sodium 137 mmol/L (136-145)
[2022-01-11 10:18] LABS: Anion Gap 11.4 mEq/L (5-15); Blood Urea Nitrogen 25 mg/dl (9-20); Calcium 9.3 mg/dl (8.4-10.2); Carbon Dioxide 32 mmol/L (22.0-30.0); Estimated Glomerular Filt Rate 57 ml/min (>60); GFR (African American) 69 ML/MIN (>60); Glucose 149 mg/dl (74-100)
== END ==
PROVIDERS: PCP Family Medicine; Visit Provider Physician Assistant
DX: Z01.812 Encounter for preprocedural laboratory examination (principal); Z11.52 Encounter for screening for COVID-19; R06.00 Dyspnea, unspecified; I20.8 Other forms of angina pectoris; R94.39 Abnormal result of other cardiovascular function study; R94.31 Abnormal electrocardiogram [ECG] [EKG]; E11.69 Type 2 diabetes mellitus with other specified complication; E78.2 Mixed hyperlipidemia; I10 Essential (primary) hypertension; Z95.1 Presence of aortocoronary bypass graft; Z79.4 Long term (current) use of insulin
CPT/HCPCS: 36415; 80048; 85025; C9803; U0003; U0005

== ENCOUNTER 2022-01-12 09:14 | Day surgery (SDC) | payer OTHER, SELFPAY ==
[2022-01-12] VITALS (14 sets, daily range): BP systolic 118–187; BP diastolic 82–125; PULSE 81–91; RESP 16–20; TEMP 36.6–36.9; O2SAT 93–100; BMI 38.9
--- NOTE | 2022-01-12 07:06 | IR_ITS ---
APPROVED REPORT Patient Location: Outpatient Child Development Instructor: SAMEER Medina RT (R) PROCEDURES Left heart catheterization Left ventriculogram Selective coronary angiogram Left internal mammary angiography Selective engagement of the saphenous vein graft to the circumflex artery Selective engage in the saphenous vein graft to the right coronary Bilateral selective renal angiography INDICATION Coronary artery disease, History of coronary bypass surgery, Abnormal Myoview, Renal insufficiency creatinine 1.3, Severe hypertension suspect renal artery stenosis Informed consent was obtained prior to the procedure. COMPLICATIONS None Estimated Blood Loss: Less than 10 mls TECHNIQUE One percent lidocaine used to anesthetize the right groin. The right femoral artery was accessed via the Seldinger technique and a 5 Polish sheath was placed in the right femoral artery. A JL 4, JR4 catheter were used to perform left heart catheterization, left ventriculogram selective coronary angiography as well as selective engagement of the 2 vein grafts and the left internal mammary artery. Because of the renal insufficiency and hypertension the JR4 catheter was used to perform bilateral selective renal angiography. ANGIOGRAPHIC RESULTS The left main artery Normal The left anterior descending artery Is proximally patent accompanied by MONTRELL II flow and then occluded at mid segment The circumflex artery Dominant and ostially occluded The right coronary artery Nondominant and ostially occluded The SPEAR ventriculogram reveals Dilated ventricle ejection fraction 40% The left ventricular end-diastolic pressure 20 mmHg MONTANO to LAD is widely patent Saphenous vein graft to the first obtuse marginal artery is widely patent. The skip graft portion is also widely patent to the second obtuse marginal artery Saphenous vein graft to the right coronary is widely patent. The distal right coronary artery is a small vessel but does receive antegrade flow from the vein graft Right renal artery singular normal Left renal artery singular and normal. There appears to be a mid segment nodularity which is not hypervascular IMPRESSION Coronary disease as described above Poorly controlled hypertension Mildly elevated LVEDP Abnormal angiographic appearance of the left kidney PLAN 1. Increase lisinopril 20 mg a day to lisinopril HCT 20/12.52 tablets daily 2. Increase carvedilol from 12.5 twice daily up to 25 mg p.o. twice daily 3. Continue with Crestor 40 mg daily 4. Continue medical management 5. Avoidance of diet Mountain Dew products 6. Obtain a renal ultrasound to rule out possible renal cell carcinoma Electronically signed by : Trace Salguero MD 01/12/2022 13:37:42
== END 2022-01-12 13:51 | disposition home or self-care (01) ==
LOC: CATHLAB 09:15
PROVIDERS: PCP Family Medicine; Visit Provider Internal Medicine
DX: I25.118 Atherosclerotic heart disease of native coronary artery with other forms of angina pectoris (principal); E11.69 Type 2 diabetes mellitus with other specified complication; E78.2 Mixed hyperlipidemia; I10 Essential (primary) hypertension; Z95.1 Presence of aortocoronary bypass graft; R94.31 Abnormal electrocardiogram [ECG] [EKG]; R94.39 Abnormal result of other cardiovascular function study; Z79.4 Long term (current) use of insulin; Z79.899 Other long term (current) drug therapy
CPT/HCPCS: 36252; 93459; 99152; C1725; C1760; C1769; C1894; J1644; Q9967

== ENCOUNTER → 2022-01-15 10:46 | Outpatient (CLI) | payer OTHER, SELFPAY ==
--- NOTE | 2022-01-15 10:47 | US_ITS ---
FINAL REPORT TECHNIQUE: Sonographic images were obtained of the retroperitoneum. CLINICAL HISTORY: I10 - Essential (primary) hypertension FINDINGS: The right kidney measures 11.4 cm. The left kidney measures 10.2 cm. There is no evidence of renal mass or hydronephrosis. The spleen is mildly enlarged measuring 14 cm. IMPRESSION: Mildly enlarged spleen at 14 cm. Reviewed, Interpreted and Dictated by Norm Mederos III, MD Transcribed by Yao De La Vega Authenticated by Norm Mederos III, MD on 01/15/2022 01:20:34 PM [facility]
== END ==
PROVIDERS: PCP Family Medicine; Visit Provider Internal Medicine
DX: E11.9 Type 2 diabetes mellitus without complications (principal); E78.5 Hyperlipidemia, unspecified; I10 Essential (primary) hypertension; I20.8 Other forms of angina pectoris; R06.00 Dyspnea, unspecified; R94.31 Abnormal electrocardiogram [ECG] [EKG]; R94.39 Abnormal result of other cardiovascular function study; Z95.1 Presence of aortocoronary bypass graft; Z79.4 Long term (current) use of insulin
CPT/HCPCS: 76770

== ENCOUNTER → 2022-02-13 11:05 | Outpatient (CLI) | payer OTHER, SELFPAY ==
--- NOTE | 2022-02-13 11:12 | XR_ITS ---
PROCEDURE INFORMATION: Exam: XR Left Foot Exam date and time: 02/13/2022 11:13 AM Age: 56 years old Clinical indication: Other: Open wound; Additional info: Open wound of left foot TECHNIQUE: Imaging protocol: XR Left foot. Views: 3 or more views. COMPARISON: VENOUS LOWER EXT LT 12/31/2016 2:20 PM FINDINGS: Bones/joints: No acute fracture. No dislocation. Soft tissues: Mild skin deformity along the plantar aspect distal metatarsal bones. No radiopaque foreign body. IMPRESSION: No acute osseous findings. Mild skin deformity along the plantar aspect distal metatarsal bones. No radiopaque foreign body.
== END ==
PROVIDERS: PCP Family Medicine; Referring Provider Family Medicine; Visit Provider Family Medicine
DX: S91.302A Unspecified open wound, left foot, initial encounter (principal)
CPT/HCPCS: 73630

== ENCOUNTER → 2022-02-18 12:56 | Outpatient (CLI) | payer OTHER, SELFPAY | PROVIDERS: Visit Provider Podiatrist | DX: Z51.89 Encounter for other specified aftercare (principal); E11.621 Type 2 diabetes mellitus with foot ulcer; L97.525 Non-pressure chronic ulcer of other part of left foot with muscle involvement without evidence of necrosis | CPT/HCPCS: 87070; 87077; 87186; 87205 ==

== ENCOUNTER → 2022-03-04 14:39 | Outpatient (CLI) | payer OTHER, SELFPAY ==
[2022-03-04 15:35] LABS: Basophils # 0.1 K/mm3 (0-0.2); Basophils % 1.2 % (0.1-2.0); Eosinophils # 0.2 K/mm3 (0.0-0.4); Eosinophils % 2.5 % (0.1-12.0); Hematocrit 49.7 % (42.0-52.0); Hemoglobin 15.9 g/dL (14.1-18.0); Lymphocytes % 11.3 % (10-50); Mean Corpuscular HGB Conc 32.1 g/dL (31.8-35.4); Mean Corpuscular Volume 84.1 fl (80-94); Mean Platelet Volume 9.8 fl (7.4-10.4); Monocytes # 0.6 K/mm3 (0.1-1.0); Monocytes % 6.7 % (1.7-9.3); Neutrophils # 6.8 K/mm3 (1.8-7.8); Neutrophils % 78.3 % (37.0-80.0); Platelet Count 219 K/mm3 (142-424); Red Blood Count 5.91 M/mm3 (4.60-6.20); Red Cell Distribution Width 17.1 % (11.5-17.5); White Blood Count 8.6 K/mm3 (4.8-10.8)
[2022-03-04 16:16] LABS: Chloride 103 mmol/L (98-107); Potassium 5.6 mmoL/L (3.5-5.1); Sodium 139 mmol/L (136-145)
[2022-03-04 16:19] LABS: Alanine Aminotransferase 24 U/L (12-78); Albumin Level 4.5 g/dl (3.5-5.0); Albumin/Globulin Ratio 1.5 (1.1-1.8); Alkaline Phosphatase 63 U/L (38-126); Anion Gap 16.6 mEq/L (5-15); Aspartate Amino Transferase 39 U/L (17-59); Bilirubin,Total 0.5 mg/dl (0.2-1.3); Blood Urea Nitrogen 38 mg/dl (9-20); Calcium 9.6 mg/dl (8.4-10.2); Carbon Dioxide 25 mmol/L (22.0-30.0); Estimated Glomerular Filt Rate 48 ml/min (>60); GFR (African American) 58 ML/MIN (>60); Globulin 3.1 g/dL (1.3-3.2); Glucose 242 mg/dl (74-100); Total Protein,Serum 7.6 g/dl (6.3-8.2)
[2022-03-04 16:25] LABS: C-Reactive Protein 10.1 mg/L (0-4)
[2022-03-04 16:49] LABS: Hemoglobin A1C 7.8 % (4.0-6.0)
[2022-03-04 17:23] LABS: Erythrocyte Sedimentation Rate 9 mm/hr (0-20)
== END ==
PROVIDERS: Visit Provider Podiatrist
DX: E11.628 Type 2 diabetes mellitus with other skin complications (principal); L03.116 Cellulitis of left lower limb; L08.9 Local infection of the skin and subcutaneous tissue, unspecified; Z79.84 Long term (current) use of oral hypoglycemic drugs
CPT/HCPCS: 80053; 83036; 85025; 85651; 86140

== ENCOUNTER → 2022-03-05 09:06 | Outpatient (CLI) | payer OTHER, SELFPAY ==
--- NOTE | 2022-03-05 09:06 | MR_ITS ---
FINAL REPORT CLINICAL HISTORY: left foot infection, pain. ulcer on plantar side of distal foot. hole, pain and burning. pt states he stepping on a piece of glass 1 month ago. FINDINGS: Multiplanar MR imaging of the left foot was performed with and without contrast. There is no evidence of fracture, bone bruise or marrow edema. There are no areas to suggest marrow replacement or osteomyelitis. No bony mass is identified. The musculature is intact. There are multiple hammertoes noted. A focus of magnetic susceptibility artifact seen overlying the plantar aspect of the 4th metatarsal head worrisome for foreign body. This is best seen on series 3, image number 19. There is forefoot soft tissue edema and contrast enhancement which is likely inflammatory. There is no focal fluid collection to suggest abscess. There are mild degenerative changes of the 1st MTP with several subchondral cysts. IMPRESSION: Findings worrisome at the plantar aspect of the 4th metatarsal head for foreign body with forefoot soft tissue edema and contrast enhancement, likely inflammatory. No evidence of abscess or osteomyelitis. Reviewed, Interpreted and Dictated by Norm Mederos III, MD Transcribed by Doris Mustafa Authenticated by Norm Mederos III, MD on 03/05/2022 11:28:21 AM [facility]
--- NOTE | 2022-03-05 10:15 | US_ITS ---
FINAL REPORT CLINICAL HISTORY: NON HEALING ULCER LT FOOT,DM,HLD,HTN,PVD,CAD,EX SMOKER FINDINGS: Ankle brachial indices were obtained bilaterally. The ABIs are normal measuring 1.29 on the right and 1.03 on the left. IMPRESSION: Normal ABIs bilaterally. Reviewed, Interpreted and Dictated by Norm Mederos III, MD Transcribed by Cortney Mobley Authenticated by Norm Mederos III, MD on 03/05/2022 12:17:56 PM [facility]
== END ==
PROVIDERS: PCP Family Medicine; Visit Provider Podiatrist
DX: M79.672 Pain in left foot (principal); L97.529 Non-pressure chronic ulcer of other part of left foot with unspecified severity; L08.9 Local infection of the skin and subcutaneous tissue, unspecified; R09.89 Other specified symptoms and signs involving the circulatory and respiratory systems; I73.9 Peripheral vascular disease, unspecified; E11.621 Type 2 diabetes mellitus with foot ulcer; E11.628 Type 2 diabetes mellitus with other skin complications; Z79.4 Long term (current) use of insulin
CPT/HCPCS: 73720; 93923; A9576

== ENCOUNTER → 2022-03-18 14:15 | Outpatient (CLI) | payer OTHER, SELFPAY ==
--- NOTE | 2022-03-18 14:21 | XR_ITS ---
FINAL REPORT CLINICAL HISTORY: HTN COMPARISON: 08/24/2019 FINDINGS: 2 views of the chest were obtained. The heart size is normal. The patient is status post median sternotomy. There is mild right base atelectasis or scarring. There are no pleural effusions. There is no pneumothorax. There are moderate degenerative changes of the thoracic spine. IMPRESSION: Mild right base atelectasis or scarring. Reviewed, Interpreted and Dictated by Norm Mederos III, MD Transcribed by Joan Swain Authenticated by Norm Mederos III, MD on 03/18/2022 03:40:09 PM [facility]
--- NOTE | 2022-03-18 14:51 | ECG_ITS ---
APPROVED REPORT Exam: Resting ECG HR:93 bpm ECG Measurements Heart Rate 93 AXES TX 176 P 59 QRSd 100 QRS 78 QT 341 T 182 QTc 391 Conclusion SINUS RHYTHM MODERATE T-WAVE ABNORMALITY, CONSIDER INFERIOR ISCHEMIA [-0.1+ mV T-WAVE IN II/aVF] ABNORMAL ECG UNCONFIRMED REPORT Electronically signed by : Tray Dill MD 03/20/2022 12:20:15
[2022-03-18 15:25] LABS: Basophils # 0.1 K/mm3 (0-0.2); Basophils % 1.5 % (0.1-2.0); Eosinophils # 0.3 K/mm3 (0.0-0.4); Eosinophils % 3.2 % (0.1-12.0); Hematocrit 46.4 % (42.0-52.0); Hemoglobin 15.1 g/dL (14.1-18.0); Lymphocytes # 1.1 K/mm3 (0.7-4.5); Lymphocytes % 14.1 % (10-50); Mean Corpuscular HGB Conc 32.6 g/dL (31.8-35.4); Mean Corpuscular Hemoglobin 27.4 pg (27.0-31.2); Mean Platelet Volume 8.9 fl (7.4-10.4); Monocytes # 0.4 K/mm3 (0.1-1.0); Monocytes % 5.2 % (1.7-9.3); Neutrophils # 5.8 K/mm3 (1.8-7.8); Platelet Count 192 K/mm3 (142-424); Red Blood Count 5.52 M/mm3 (4.60-6.20); Red Cell Distribution Width 17.4 % (11.5-17.5); White Blood Count 7.7 K/mm3 (4.8-10.8)
[2022-03-18 15:49] LABS: Alanine Aminotransferase 23 U/L (12-78); Albumin Level 4.4 g/dl (3.5-5.0); Albumin/Globulin Ratio 1.5 (1.1-1.8); Alkaline Phosphatase 60 U/L (38-126); Anion Gap 17.3 mEq/L (5-15); Aspartate Amino Transferase 30 U/L (17-59); Bilirubin,Total 0.6 mg/dl (0.2-1.3); Blood Urea Nitrogen 53 mg/dl (9-20); Calcium 9.4 mg/dl (8.4-10.2); Carbon Dioxide 21 mmol/L (22.0-30.0); Chloride 104 mmol/L (98-107); Estimated Glomerular Filt Rate 45 ml/min (>60); GFR (African American) 54 ML/MIN (>60); Globulin 2.9 g/dL (1.3-3.2); Glucose 289 mg/dl (74-100); Potassium 5.3 mmoL/L (3.5-5.1); Sodium 137 mmol/L (136-145); Total Protein,Serum 7.3 g/dl (6.3-8.2)
[2022-03-18 15:55] LABS: C-Reactive Protein 6.3 mg/L (0-4)
[2022-03-18 16:30] LABS: Erythrocyte Sedimentation Rate 8 mm/hr (0-20)
[2022-03-18 18:08] LABS: Hemoglobin A1C 7.9 % (4.0-6.0)
== END ==
PROVIDERS: PCP Family Medicine; Visit Provider Podiatrist
DX: E11.621 Type 2 diabetes mellitus with foot ulcer (principal); L97.523 Non-pressure chronic ulcer of other part of left foot with necrosis of muscle
CPT/HCPCS: 36415; 71046; 80053; 83036; 85025; 85651; 86140; 93005

== ENCOUNTER → 2022-03-22 09:43 | Outpatient (CLI) | payer OTHER, SELFPAY | PROVIDERS: Visit Provider Podiatrist | DX: Z01.812 Encounter for preprocedural laboratory examination (principal); Z11.52 Encounter for screening for COVID-19 | CPT/HCPCS: C9803; U0003; U0005 ==

== ENCOUNTER 2022-03-24 07:06 | Day surgery (SDC) | payer OTHER, SELFPAY ==
[2022-03-24 07:26] VITALS: BP 138/78; PULSE 82; RESP 16; TEMP 36.3; O2SAT 97; BMI 38.2
--- NOTE | 2022-03-24 08:40 | P.PN_ITS ---
[facility] Anesthesia Checklist - Patient Identification Patient Identification: Arm Band, Verbal (Name & ) - Structural Data Admitted From: Home Planned Operative Procedure/s: Removal of foreign body to left foot Consent for Planned Operative Procedure(s) Verified: Yes Verified Documents: Surgical Consent - NPO Status Verified Time NPO: 00:00 - Additional verifications Anesthesia Reactions: No Hx Blood Transfusions: No Blood Transfusion Reaction: No - Airway Assessment C-Spine Mobility Assessed: Yes TMJ Mobility Assessed: Yes Dentition: Good Dentition - Neurological Assessment Level of Consciousness: Awake, Alert, Appropriate - Anesthesia Plan Anesthesia Risk discussed: Yes ASA Class: III Anesthesia Type: MAC [facility] History I have reviewed the patient's past medical history: Yes Medical History: Reports:: Carotid Stenosis, Coronary Artery Disease, Diabetes Mellitus Type 2 Denies:: Cancer, Diabetes Mellitus Type 1, Internal Pacemaker, MRSA, Seizures *Have you ever received a pneumonia vaccine?: No *Have you received a flu vaccine this season?: Yes Other Medical History: Reports: Arthritis. Denies: Blood Transfusion Reaction Anesthesia experience/problems:: none Other Surgeries: Yes: No Previous Surgery, Appendectomy, CABG, Cardiac Catheterization, Coronary Stent. No: Pacemaker Amputation: No - *Social History Last grade of school completed: High school graduate Smoking Status: Never smoker Tobacco Type: cigarettes # Packs/Day (cigarettes): 1 #Yrs smoked (if former smoker): 30 Alcohol Intake: current Alcohol Intake Frequency:: a few times a month Substance Use Type: denies use *Occupational Status:: employed Housing: house Household Members: significant other *Travel in the last 8 weeks: None Family Hx:: Diabetes, Kidney Disease
--- NOTE | 2022-03-24 08:40 | HMH.OPNOTE ---
Date of procedure: 03/24/22 Pre-op Diagnosis:: 1. Left foot diabetic ulcer 2. Diabetic infection of left foot 3. Left foot retained deep foreign body 4. Cellulitis of left foot 5. Left foot pain 6. Type 2 diabetes mellitus with diabetic neuropathy, with long-term current use of insulin 7. PAD (peripheral artery disease) 8. Obesity, Class II, BMI 35-39.9 Post-op Diagnosis:: Same Procedure performed:: 1. Left foot wound debridement, ulcer excision 2. Left foot foreign body removal 3. Left foot incision and drainage 4. Delayed primary closure with adjacent soft tissue rearrangement 5. Left foot open bone biopsy Surgeon:: Bailey Vasquez DPM DIRECTOR SOFTWARE DEVELOPMENT:: Oli Samuel Anesthesia: MAC, local (20cc 0.5% marcaine plain) Estimated blood loss (mL): 30 Clinical Note:: Patient is a 56-year-old diabetic male with hemoglobin A1c of 7.9% who recalls stepping on glass exact date unknown, but suspects October or November. He saw PCP, Dr. Barrientos 02/13/22 and has been on oral antibiotics including Clinda, Levo x14d (02/18-03/04/22, ), Augmentin x14d (03/09-03/23/22). He has been doing Betadine dry sterile dressing changes at home. The wound has not has not fully closed. Imaging obtained. MRI confirms foreign body left sub 4-5th metatarsal and BOB to access healing potential reviewed. New images were discussed with the patient. We discussed conservative versus surgical treatment options. We discussed conservative care including continued oral vs IV antibiotics and local wound care versus surgical incision and drainage, wound debridement, ulcer excision, foreign body removal. Patient understands that they could have wound healing complications including delayed healing and infection. We discussed that if the wound does not heal, it is possible that they may need further debridement. Patient understands if infection spreads into the bone, it may warrant proximal amputation and could result in further loss of digits, loss of partial foot or loss of leg. We discussed the risks and benefits in great detail. Other surgical risks include: prolonged pain and swelling, further infection requiring oral or IV antibiotics, delay in healing of soft tissue or bone, nerve or blood vessel damage, CRPS/RSD, DVT, anesthesia complications, and even . All questions answered. Patient verbalized understanding. Consent obtained. Medical clearance per Dr. Barrientos. Cardiac clearance per Ori Stanley and Dr. Salguero. Operative findings:: Dorsal incision made over the left fourth MPJ. No tho purulence noted. Some serous fluid, deep wound culture taken. Plantar subfourth metatarsal ulcer noted, 1x0.5 x 1 cm full-thickness deeply to capsule over the fourth metatarsal bone. Ulcer excised full-thickness. A small black less than 0.3 cm object was noted deep in the wound bed. In discussion with the patient postoperatively suspicious for piece of metal. Bone appeared intact with no obvious signs of osteomyelitis noted. Operative note:: On this date and time patient was deemed an appropriate surgical candidate. With informed consent signed, the patient was taken to the operating theater. The patient was positioned supine. MAC anesthesia was induced. No tourniquet was inflated. The left extremity was prepped and draped in normal sterile fashion. Pre-op left lateral foot/ankle block given with 20cc 0.5% marcaine plain. IV Vanco, Clinda infused. Left foot incision and drainage: Attention was directed to the dorsal left fourth MPJ where a linear incision was mapped out. Dissection carried down full-thickness to the joint. No tho purulence noted. There is some serous drainage from the joint. Deep wound cultures taken. 15 blade used to make an incision in the joint capsule. No glass was noted. Wound was flushed with 1 L gentamicin irrigation and the pulse lavage. Wound reexplored and no signs of infection or foreign body noted dorsally. Left wound debridement, ulcer excision: Attention was dire
--- NOTE | 2022-03-24 10:06 | XR_ITS ---
FINAL REPORT CLINICAL HISTORY: FOREIGN BODY REMOVAL .14 fluoro FINDINGS: Fluoroscopic guidance was provided for the operating services. A single spot film was provided. 14 seconds of fluoroscopy time was utilized. IMPRESSION: 14 seconds of fluoroscopy time. Reviewed, Interpreted and Dictated by Marco Ariza MD Transcribed by Yao De La Vega Authenticated by Marco Ariza MD on 03/24/2022 11:37:01 AM [facility]
[2022-03-24 11:00] VITALS: BP 107/49; PULSE 91; RESP 16; TEMP 36.1; O2SAT 96
[2022-03-24 11:15] VITALS: BP 104/74; PULSE 86; RESP 16; TEMP 36.1; O2SAT 96
[2022-03-24 11:30] VITALS: BP 108/72; PULSE 81; RESP 18; TEMP 36.1; O2SAT 97
[2022-03-24 11:50] VITALS: BP 112/67; PULSE 83; RESP 18; TEMP 36.1; O2SAT 96
[2022-08-26 10:59] LABS: POC Glucose,Bedside 141 (70-110)
== END 2022-03-24 11:50 | disposition home or self-care (01) ==
LOC: OR 07:07
PROVIDERS: PCP Family Medicine; Visit Provider Podiatrist
PROC: (CPT 11043; principal; 2022-03-24 08:45)
DX: E11.621 Type 2 diabetes mellitus with foot ulcer (principal); L97.523 Non-pressure chronic ulcer of other part of left foot with necrosis of muscle; I25.10 Atherosclerotic heart disease of native coronary artery without angina pectoris; L03.116 Cellulitis of left lower limb; E11.628 Type 2 diabetes mellitus with other skin complications; Z79.4 Long term (current) use of insulin; Z79.899 Other long term (current) drug therapy
CPT/HCPCS: 11043; 14041; 20240; 73620; 76000; 82962; 87070; 87075; 87077; 87186; 87205; 88304; 96374; J3370

== ENCOUNTER → 2022-04-06 12:09 | Outpatient (CLI) | payer OTHER, SELFPAY ==
[2022-04-06 12:45] LABS: Basophils # 0.1 K/mm3 (0-0.2); Basophils % 0.9 % (0.1-2.0); Eosinophils # 0.3 K/mm3 (0.0-0.4); Eosinophils % 3.5 % (0.1-12.0); Hematocrit 44.9 % (42.0-52.0); Hemoglobin 15.6 g/dL (14.1-18.0); Lymphocytes # 0.9 K/mm3 (0.7-4.5); Lymphocytes % 12.2 % (10-50); Mean Corpuscular HGB Conc 34.7 g/dL (31.8-35.4); Mean Corpuscular Hemoglobin 28.3 pg (27.0-31.2); Mean Corpuscular Volume 81.5 fl (80-94); Mean Platelet Volume 8.8 fl (7.4-10.4); Monocytes # 0.5 K/mm3 (0.1-1.0); Monocytes % 6.4 % (1.7-9.3); Neutrophils # 5.9 K/mm3 (1.8-7.8); Neutrophils % 77.1 % (37.0-80.0); Platelet Count 237 K/mm3 (142-424); Red Cell Distribution Width 17.1 % (11.5-17.5); White Blood Count 7.7 K/mm3 (4.8-10.8)
[2022-04-06 13:06] LABS: Chloride 102 mmol/L (98-107)
[2022-04-06 13:07] LABS: Potassium 4.7 mmoL/L (3.5-5.1); Sodium 139 mmol/L (136-145)
[2022-04-06 13:09] LABS: Alanine Aminotransferase 31 U/L (12-78); Aspartate Amino Transferase 31 U/L (17-59); Bilirubin,Total 0.6 mg/dl (0.2-1.3); Blood Urea Nitrogen 24 mg/dl (9-20); Estimated Glomerular Filt Rate 69 ml/min (>60); GFR (African American) 83 ML/MIN (>60)
[2022-04-06 13:10] LABS: Albumin Level 4.4 g/dl (3.5-5.0); Albumin/Globulin Ratio 1.4 (1.1-1.8); Alkaline Phosphatase 78 U/L (38-126); Anion Gap 15.7 mEq/L (5-15); Calcium 10.5 mg/dl (8.4-10.2); Carbon Dioxide 26 mmol/L (22.0-30.0); Globulin 3.1 g/dL (1.3-3.2); Glucose 253 mg/dl (74-100); Total Protein,Serum 7.5 g/dl (6.3-8.2)
[2022-04-06 13:16] LABS: C-Reactive Protein 6.2 mg/L (0-4)
[2022-04-06 14:17] LABS: Erythrocyte Sedimentation Rate 54 mm/hr (0-20)
== END ==
PROVIDERS: Visit Provider Nurse Practitioner Family
DX: E11.40 Type 2 diabetes mellitus with diabetic neuropathy, unspecified (principal); E11.621 Type 2 diabetes mellitus with foot ulcer; L97.529 Non-pressure chronic ulcer of other part of left foot with unspecified severity; Z79.4 Long term (current) use of insulin; Z98.890 Other specified postprocedural states
CPT/HCPCS: 36415; 80053; 85025; 85651; 86140

== ENCOUNTER → 2022-04-15 13:20 | Outpatient (CLI) | payer OTHER, SELFPAY | PROVIDERS: Visit Provider Podiatrist | DX: M79.672 Pain in left foot (principal) ==

== ENCOUNTER → 2022-04-15 15:19 | Outpatient (CLI) | payer OTHER, SELFPAY ==
--- NOTE | 2022-04-15 15:25 | XR_ITS ---
FINAL REPORT CLINICAL HISTORY: left foot pain, DFU, infection COMPARISON: February 13, 2022 FINDINGS: LEFT FOOT: Three views of the left foot were obtained. There is no acute fracture or dislocation. There is mild degenerative change. There is osteopenia at the head of the 4th metatarsal and proximal 4th proximal phalanx with questionable erosions in this region. Calcaneal spurs are identified. There is no soft tissue abnormality. IMPRESSION: Osteopenia as above with questionable erosions. If indicated, MRI could further evaluate. Mild degenerative change peer Reviewed, Interpreted and Dictated by Norm Mederos III, MD Transcribed by Mari Brown Authenticated by Norm Mederos III, MD on 04/15/2022 04:37:00 PM [facility]
[2022-04-15 16:33] LABS: Basophils # 0.1 K/mm3 (0-0.2); Basophils % 1.3 % (0.1-2.0); Eosinophils # 0.2 K/mm3 (0.0-0.4); Eosinophils % 2.1 % (0.1-12.0); Hematocrit 44.9 % (42.0-52.0); Lymphocytes # 1.5 K/mm3 (0.7-4.5); Lymphocytes % 13.5 % (10-50); Mean Corpuscular HGB Conc 33.3 g/dL (31.8-35.4); Mean Corpuscular Hemoglobin 28.1 pg (27.0-31.2); Mean Corpuscular Volume 84.2 fl (80-94); Mean Platelet Volume 8.8 fl (7.4-10.4); Monocytes # 0.6 K/mm3 (0.1-1.0); Monocytes % 5.8 % (1.7-9.3); Neutrophils # 8.2 K/mm3 (1.8-7.8); Neutrophils % 77.2 % (37.0-80.0); Platelet Count 267 K/mm3 (142-424); Red Blood Count 5.34 M/mm3 (4.60-6.20); Red Cell Distribution Width 17.5 % (11.5-17.5); White Blood Count 10.7 K/mm3 (4.8-10.8)
[2022-04-15 17:13] LABS: Alanine Aminotransferase 28 U/L (12-78); Albumin Level 4.5 g/dl (3.5-5.0); Albumin/Globulin Ratio 1.5 (1.1-1.8); Alkaline Phosphatase 77 U/L (38-126); Anion Gap 18.7 mEq/L (5-15); Aspartate Amino Transferase 36 U/L (17-59); Bilirubin,Total 0.3 mg/dl (0.2-1.3); Blood Urea Nitrogen 26 mg/dl (9-20); Calcium 9.5 mg/dl (8.4-10.2); Carbon Dioxide 26 mmol/L (22.0-30.0); Chloride 99 mmol/L (98-107); Estimated Glomerular Filt Rate 52 ml/min (>60); GFR (African American) 63 ML/MIN (>60); Globulin 3.1 g/dL (1.3-3.2); Glucose 182 mg/dl (74-100); Potassium 4.7 mmoL/L (3.5-5.1); Sodium 139 mmol/L (136-145); Total Protein,Serum 7.6 g/dl (6.3-8.2)
[2022-04-15 17:18] LABS: C-Reactive Protein 2.9 mg/L (0-4)
[2022-04-15 17:43] LABS: Erythrocyte Sedimentation Rate 13 mm/hr (0-20)
[2022-04-15 18:48] LABS: Hemoglobin A1C 8.5 % (4.0-6.0)
== END ==
PROVIDERS: PCP Family Medicine; Visit Provider Podiatrist
DX: E11.621 Type 2 diabetes mellitus with foot ulcer (principal); E11.628 Type 2 diabetes mellitus with other skin complications; L08.9 Local infection of the skin and subcutaneous tissue, unspecified; L97.529 Non-pressure chronic ulcer of other part of left foot with unspecified severity; M79.672 Pain in left foot; T81.31XD Disruption of external operation (surgical) wound, not elsewhere classified, subsequent encounter; Z98.890 Other specified postprocedural states
CPT/HCPCS: 36415; 73630; 80053; 83036; 85025; 85651; 86140; 87070; 87077; 87081; 87186; 87205

== ENCOUNTER 2022-04-21 08:45 | Outpatient (CLI) | payer OTHER, SELFPAY ==
--- NOTE | 2022-04-21 | XR_ITS ---
FINAL REPORT CLINICAL HISTORY: picc line placement COMPARISON: March 18, 2022 FINDINGS: A portable view of the chest was obtained. There has been sternotomy. The left-sided PICC line tip is not well seen but likely terminates in the SVC. Cardiac and mediastinal silhouettes are within normal limits. The lungs are clear. There is no pleural effusion or pneumothorax. IMPRESSION: Poorly visualized left PICC line tip likely terminates in the SVC. Reviewed, Interpreted and Dictated by Luzmaria Hicks MD Transcribed by Yao De La Vega Authenticated by Luzmaria Hicks MD on 04/21/2022 02:36:12 PM [facility]
[2022-04-21 09:43] VITALS: BMI 33.6
[2022-04-21 11:11] VITALS: BP 113/79; PULSE 89; RESP 18; TEMP 36.4; O2SAT 100
[2022-04-21 11:17] LABS: Alanine Aminotransferase 26 U/L (12-78); Albumin Level 4.2 g/dl (3.5-5.0); Albumin/Globulin Ratio 1.3 (1.1-1.8); Alkaline Phosphatase 63 U/L (38-126); Anion Gap 13.1 mEq/L (5-15); Aspartate Amino Transferase 35 U/L (17-59); Basophils # 0.1 K/mm3 (0-0.2); Basophils % 1.3 % (0.1-2.0); Bilirubin,Total 0.4 mg/dl (0.2-1.3); Blood Urea Nitrogen 22 mg/dl (9-20); Calcium 9.5 mg/dl (8.4-10.2); Carbon Dioxide 27 mmol/L (22.0-30.0); Chloride 104 mmol/L (98-107); Creatine Kinase 315 U/L (55-170); Creatinine Clearance Estimated 123 mL/min (50-200); Eosinophils # 0.3 K/mm3 (0.0-0.4); Estimated Glomerular Filt Rate 69 ml/min (>60); GFR (African American) 83 ML/MIN (>60); Globulin 3.3 g/dL (1.3-3.2); Glucose 104 mg/dl (74-100); Hematocrit 42.8 % (42.0-52.0); Hemoglobin 14.3 g/dL (14.1-18.0); Lymphocytes # 1.2 K/mm3 (0.7-4.5); Lymphocytes % 13.2 % (10-50); Mean Corpuscular HGB Conc 33.4 g/dL (31.8-35.4); Mean Corpuscular Hemoglobin 28.3 pg (27.0-31.2); Mean Corpuscular Volume 84.5 fl (80-94); Mean Platelet Volume 8.5 fl (7.4-10.4); Monocytes # 0.5 K/mm3 (0.1-1.0); Monocytes % 5.4 % (1.7-9.3); Neutrophils # 7.2 K/mm3 (1.8-7.8); Neutrophils % 77.2 % (37.0-80.0); Platelet Count 195 K/mm3 (142-424); Potassium 4.1 mmoL/L (3.5-5.1); Red Blood Count 5.07 M/mm3 (4.60-6.20); Red Cell Distribution Width 17.8 % (11.5-17.5); Sodium 140 mmol/L (136-145); Total Protein,Serum 7.5 g/dl (6.3-8.2); White Blood Count 9.3 K/mm3 (4.8-10.8)
[2022-04-21 11:23] LABS: C-Reactive Protein 1.7 mg/L (0-4)
[2022-04-21 12:10] VITALS: BP 103/62; PULSE 84; TEMP 36.4; O2SAT 99
[2022-04-21 13:19] LABS: Erythrocyte Sedimentation Rate 70 mm/hr (0-20)
== END 2022-04-21 12:10 | disposition home or self-care (01) ==
LOC: INF 08:46
PROVIDERS: PCP Family Medicine; Visit Provider Podiatrist
DX: L03.116 Cellulitis of left lower limb (principal); Z86.14 Personal history of Methicillin resistant Staphylococcus aureus infection
CPT/HCPCS: 36569; 71045; 80053; 82550; 85025; 85651; 86140; 96365; C1751; G0463; J0878

== ENCOUNTER 2022-04-22 10:40 | Outpatient (CLI) | payer OTHER, SELFPAY ==
[2022-04-22 11:30] VITALS: BP 124/84; PULSE 72; TEMP 36.4; O2SAT 100
[2022-04-22 11:40] VITALS: BP 124/82; PULSE 73; O2SAT 99
== END 2022-04-22 11:40 | disposition home or self-care (01) ==
LOC: INF 10:41
PROVIDERS: PCP Family Medicine; Visit Provider Podiatrist
DX: L03.116 Cellulitis of left lower limb (principal); Z86.14 Personal history of Methicillin resistant Staphylococcus aureus infection
CPT/HCPCS: 96365; J0878

== ENCOUNTER 2022-04-23 10:18 | Outpatient (CLI) | payer OTHER, SELFPAY ==
[2022-04-23 10:45] VITALS: BP 95/73; PULSE 68; RESP 18; O2SAT 97
[2022-04-23 11:40] VITALS: BP 128/77; PULSE 94; RESP 18
== END 2022-04-23 11:40 | disposition home or self-care (01) ==
LOC: INF 10:18
PROVIDERS: PCP Family Medicine; Visit Provider Podiatrist
DX: L03.116 Cellulitis of left lower limb (principal); Z86.14 Personal history of Methicillin resistant Staphylococcus aureus infection
CPT/HCPCS: 96365; G0463; J0878

== ENCOUNTER 2022-04-24 09:30 | Outpatient (CLI) | payer OTHER, SELFPAY ==
[2022-04-24 09:50] VITALS: BP 127/64; PULSE 85; RESP 20; O2SAT 96
--- NOTE | 2022-04-24 11:10 | PC.NURSE ---
1000 pt old dressing to bottom or left foot was removed. cleansed with saline, collagen applied. 4x4 kerlix and tylor applied. pt tolerated well.
== END 2022-04-24 10:50 | disposition home or self-care (01) ==
LOC: INF 09:31
PROVIDERS: PCP Family Medicine; Visit Provider Podiatrist
DX: L03.116 Cellulitis of left lower limb (principal); Z86.14 Personal history of Methicillin resistant Staphylococcus aureus infection
CPT/HCPCS: 96365; G0463; J0878

== ENCOUNTER 2022-04-25 09:05 | Outpatient (CLI) | payer OTHER, SELFPAY ==
[2022-04-25 09:54] VITALS: BP 114/76; PULSE 87; RESP 20; TEMP 36.6; O2SAT 95
--- NOTE | 2022-04-25 10:20 | PC.NURSE ---
old dressing including partially dissolved collagen, new dressing with new collagen applied. pt tolerated well.
== END 2022-04-25 11:09 | disposition home or self-care (01) ==
LOC: INF 09:06
PROVIDERS: PCP Family Medicine; Visit Provider Podiatrist
DX: L03.116 Cellulitis of left lower limb (principal); Z86.14 Personal history of Methicillin resistant Staphylococcus aureus infection
CPT/HCPCS: 96365; G0463; J0878

== ENCOUNTER 2022-04-26 09:17 | Outpatient (CLI) | payer OTHER, SELFPAY ==
--- NOTE | 2022-04-26 10:03 | PC.NURSE ---
OLD DRESSING REMOVED. CLEANSED WITH NS AND DRIED. SMALL PIECE OF PUROCOL PLACED DIRECTLY OVER THE WOUND, COVERED WITH STERILE 4X4, KERLIX AND TALIB WRAP. PATIENT TOLERATED DRESSING CHANGE WELL.
== END 2022-04-26 11:15 | disposition home or self-care (01) ==
LOC: INF 09:18
PROVIDERS: PCP Family Medicine; Visit Provider Podiatrist
DX: L03.116 Cellulitis of left lower limb (principal); Z86.14 Personal history of Methicillin resistant Staphylococcus aureus infection
CPT/HCPCS: 96365; G0463; J0878

== ENCOUNTER 2022-04-27 10:13 | Outpatient (CLI) | payer OTHER, SELFPAY ==
[2022-04-27 10:19] VITALS: BMI 31.0
[2022-04-27 10:40] LABS: Basophils # 0.1 K/mm3 (0-0.2); Basophils % 1.5 % (0.1-2.0); Eosinophils # 0.3 K/mm3 (0.0-0.4); Eosinophils % 4.6 % (0.1-12.0); Hematocrit 44.6 % (42.0-52.0); Hemoglobin 14.8 g/dL (14.1-18.0); Lymphocytes # 1.1 K/mm3 (0.7-4.5); Lymphocytes % 15.4 % (10-50); Mean Corpuscular HGB Conc 33.1 g/dL (31.8-35.4); Mean Corpuscular Volume 84.5 fl (80-94); Mean Platelet Volume 8.4 fl (7.4-10.4); Monocytes # 0.4 K/mm3 (0.1-1.0); Monocytes % 5.5 % (1.7-9.3); Neutrophils # 5.2 K/mm3 (1.8-7.8); Platelet Count 199 K/mm3 (142-424); Red Blood Count 5.28 M/mm3 (4.60-6.20); Red Cell Distribution Width 17.6 % (11.5-17.5); White Blood Count 7.2 K/mm3 (4.8-10.8)
[2022-04-27 10:41] LABS: Chloride 105 mmol/L (98-107)
[2022-04-27 10:42] LABS: Sodium 139 mmol/L (136-145)
[2022-04-27 10:44] VITALS: BP 132/82; PULSE 83; TEMP 36.4; O2SAT 99
[2022-04-27 10:44] LABS: Alanine Aminotransferase 24 U/L (12-78); Alkaline Phosphatase 65 U/L (38-126); Aspartate Amino Transferase 40 U/L (17-59); Bilirubin,Total 0.7 mg/dl (0.2-1.3); Blood Urea Nitrogen 22 mg/dl (9-20); Creatinine Clearance Estimated 114 mL/min (50-200); Estimated Glomerular Filt Rate 69 ml/min (>60); GFR (African American) 83 ML/MIN (>60)
[2022-04-27 10:45] LABS: Albumin Level 4.4 g/dl (3.5-5.0); Albumin/Globulin Ratio 1.3 (1.1-1.8); Calcium 9.5 mg/dl (8.4-10.2); Carbon Dioxide 24 mmol/L (22.0-30.0); Creatine Kinase 416 U/L (55-170); Globulin 3.3 g/dL (1.3-3.2); Glucose 172 mg/dl (74-100); Total Protein,Serum 7.7 g/dl (6.3-8.2)
[2022-04-27 10:50] LABS: C-Reactive Protein 2.6 mg/L (0-4)
[2022-04-27 11:35] VITALS: BP 132/72; PULSE 81; O2SAT 99
[2022-04-27 11:37] LABS: Erythrocyte Sedimentation Rate 40 mm/hr (0-20)
== END 2022-04-27 11:35 | disposition home or self-care (01) ==
LOC: INF 10:13
PROVIDERS: PCP Family Medicine; Visit Provider Podiatrist
DX: L03.116 Cellulitis of left lower limb (principal); Z86.14 Personal history of Methicillin resistant Staphylococcus aureus infection; Z48.01 Encounter for change or removal of surgical wound dressing
CPT/HCPCS: 80053; 82550; 85025; 85651; 86140; 96365; G0463; J0878

== ENCOUNTER 2022-04-28 09:52 | Outpatient (CLI) | payer OTHER, SELFPAY ==
[2022-04-28 10:12] VITALS: BP 99/75; PULSE 88; RESP 18; TEMP 36.6; O2SAT 97
[2022-04-28 11:10] VITALS: BP 103/68; PULSE 90; RESP 18; O2SAT 98
== END 2022-04-28 11:10 | disposition home or self-care (01) ==
LOC: INF 09:52
PROVIDERS: PCP Family Medicine; Visit Provider Podiatrist
DX: L03.116 Cellulitis of left lower limb (principal); Z86.14 Personal history of Methicillin resistant Staphylococcus aureus infection
CPT/HCPCS: 96365; G0463; J0878

== ENCOUNTER 2022-04-29 09:47 | Outpatient (CLI) | payer OTHER, SELFPAY ==
[2022-04-29 10:03] VITALS: BP 96/77; PULSE 78; TEMP 36.4; O2SAT 99
[2022-04-29 10:45] VITALS: BP 103/84; PULSE 76; TEMP 36.5; O2SAT 99
== END 2022-04-29 10:45 | disposition home or self-care (01) ==
LOC: INF 09:47
PROVIDERS: Visit Provider Podiatrist
DX: L03.116 Cellulitis of left lower limb (principal); Z86.14 Personal history of Methicillin resistant Staphylococcus aureus infection
CPT/HCPCS: 96365; J0878

== ENCOUNTER 2022-04-30 09:34 | Outpatient (CLI) | payer OTHER, SELFPAY ==
[2022-04-30 09:55] VITALS: BP 97/76; PULSE 94; RESP 18; O2SAT 95
[2022-04-30 10:40] VITALS: BP 99/68; PULSE 90; RESP 16
--- NOTE | 2022-04-30 12:15 | PC.NURSE ---
1030-REMOVED DRESSING FROM PT'S LEFT FOOT AND CLEANED WOUND WITH NS. APPLIED XYLITOL SPRAY FOLLOWED BY KETOCONAZOLE 2% CREAM AND GENTAMICIN 0.1% CREAM TO WOUND. APPLIED COLLAGEN TO WOUND FOLLOWED WITH DRY 4X4, KERLEX, AND TALIB BANDAGE.
== END 2022-04-30 11:05 | disposition home or self-care (01) ==
LOC: INF 09:36
PROVIDERS: PCP Family Medicine; Visit Provider Podiatrist
DX: L03.116 Cellulitis of left lower limb (principal); Z86.14 Personal history of Methicillin resistant Staphylococcus aureus infection
CPT/HCPCS: 96365; G0463; J0878

== ENCOUNTER 2022-05-01 09:39 | Outpatient (CLI) | payer OTHER, SELFPAY ==
[2022-05-01 10:29] VITALS: BP 128/66; PULSE 85; RESP 16; TEMP 36.6; O2SAT 95
== END 2022-05-01 11:10 | disposition home or self-care (01) ==
LOC: INF 09:40
PROVIDERS: PCP Family Medicine; Visit Provider Podiatrist
DX: L03.116 Cellulitis of left lower limb (principal); Z86.14 Personal history of Methicillin resistant Staphylococcus aureus infection
CPT/HCPCS: 96365; 96367; G0463; J0878

== ENCOUNTER 2022-05-02 09:22 | Outpatient (CLI) | payer OTHER, SELFPAY | END 2022-05-02 11:05 | disposition home or self-care (01) | LOC: INF 09:23 | PROVIDERS: PCP Family Medicine; Visit Provider Podiatrist | DX: L03.116 Cellulitis of left lower limb (principal); Z86.14 Personal history of Methicillin resistant Staphylococcus aureus infection | CPT/HCPCS: 96365; 96367; G0463; J0878 ==

== ENCOUNTER 2022-05-03 09:01 | Outpatient (CLI) | payer OTHER, SELFPAY ==
[2022-05-03 09:06] VITALS: BP 125/75; PULSE 84; TEMP 36.4; O2SAT 99; BMI 31.0
[2022-05-03 09:24] LABS: Basophils # 0.1 K/mm3 (0-0.2); Basophils % 1.4 % (0.1-2.0); Eosinophils # 0.4 K/mm3 (0.0-0.4); Hematocrit 43.6 % (42.0-52.0); Hemoglobin 14.3 g/dL (14.1-18.0); Lymphocytes # 1.4 K/mm3 (0.7-4.5); Lymphocytes % 19.3 % (10-50); Mean Corpuscular HGB Conc 32.9 g/dL (31.8-35.4); Mean Corpuscular Hemoglobin 27.9 pg (27.0-31.2); Mean Corpuscular Volume 84.9 fl (80-94); Mean Platelet Volume 8.6 fl (7.4-10.4); Monocytes # 0.5 K/mm3 (0.1-1.0); Monocytes % 7.6 % (1.7-9.3); Neutrophils # 4.7 K/mm3 (1.8-7.8); Neutrophils % 66.7 % (37.0-80.0); Platelet Count 188 K/mm3 (142-424); Red Blood Count 5.13 M/mm3 (4.60-6.20); Red Cell Distribution Width 17.3 % (11.5-17.5)
[2022-05-03 09:32] LABS: Chloride 104 mmol/L (98-107); Potassium 4.3 mmoL/L (3.5-5.1); Sodium 139 mmol/L (136-145)
[2022-05-03 09:34] LABS: Blood Urea Nitrogen 28 mg/dl (9-20); Creatinine Clearance Estimated 96 mL/min (50-200); Estimated Glomerular Filt Rate 57 ml/min (>60); GFR (African American) 69 ML/MIN (>60)
[2022-05-03 09:35] LABS: Alanine Aminotransferase 31 U/L (12-78); Albumin Level 4.3 g/dl (3.5-5.0); Albumin/Globulin Ratio 1.3 (1.1-1.8); Alkaline Phosphatase 56 U/L (38-126); Anion Gap 12.3 mEq/L (5-15); Aspartate Amino Transferase 70 U/L (17-59); Bilirubin,Total 0.7 mg/dl (0.2-1.3); Calcium 9.9 mg/dl (8.4-10.2); Carbon Dioxide 27 mmol/L (22.0-30.0); Creatine Kinase 1243 U/L (55-170); Globulin 3.2 g/dL (1.3-3.2); Glucose 188 mg/dl (74-100); Total Protein,Serum 7.5 g/dl (6.3-8.2)
[2022-05-03 09:41] LABS: C-Reactive Protein 1.5 mg/L (0-4)
[2022-05-03 09:59] LABS: Erythrocyte Sedimentation Rate 20 mm/hr (0-20)
[2022-05-03 10:50] VITALS: BP 131/76; PULSE 86; RESP 18; TEMP 36.4; O2SAT 100
--- NOTE | 2022-05-03 11:04 | PC.NURSE ---
contacted [facility] office about elevated CPK of 1243. Andrzej in pharmacy called to request another CPK be drawn on Monday 05/07 to reevaluate. Pt did not complain of any muscle aches at this time.
== END 2022-05-03 10:50 | disposition home or self-care (01) ==
LOC: INF 09:02
PROVIDERS: PCP Family Medicine; Visit Provider Podiatrist
DX: L03.116 Cellulitis of left lower limb (principal); Z86.14 Personal history of Methicillin resistant Staphylococcus aureus infection; Z45.2 Encounter for adjustment and management of vascular access device; Z48.01 Encounter for change or removal of surgical wound dressing
CPT/HCPCS: 80053; 82550; 85025; 85651; 86140; 96365; G0463; J0878

== ENCOUNTER 2022-05-04 09:22 | Outpatient (CLI) | payer OTHER, SELFPAY ==
[2022-05-04 09:31] VITALS: BMI 31.0
[2022-05-04 09:56] LABS: Creatine Kinase 1289 U/L (55-170)
--- NOTE | 2022-05-04 10:14 | PC.NURSE ---
Andrzej in pharmacy was updated about most recent CPK. pt was ok for todays dose of daptomycin. ordered level be redrawn tomorrow prior to next dose.
[2022-05-04 10:15] VITALS: BP 132/84; PULSE 74; RESP 18; O2SAT 100
[2022-05-04 11:10] VITALS: BP 130/75; PULSE 74; RESP 18; O2SAT 100
== END 2022-05-04 11:10 | disposition home or self-care (01) ==
LOC: INF 09:22
PROVIDERS: PCP Family Medicine; Visit Provider Podiatrist
DX: L03.116 Cellulitis of left lower limb (principal); Z86.14 Personal history of Methicillin resistant Staphylococcus aureus infection; Z48.01 Encounter for change or removal of surgical wound dressing
CPT/HCPCS: 82550; 96365; G0463; J0878

== ENCOUNTER 2022-05-05 09:34 | Outpatient (CLI) | payer OTHER, SELFPAY ==
[2022-05-05 09:39] VITALS: BMI 31.0
[2022-05-05 10:12] LABS: Creatine Kinase 1579 U/L (55-170)
--- NOTE | 2022-05-05 10:15 | PC.NURSE ---
1015-notified Andrzej, pharmacist with cpk level 1579; will call back after he talks to .
--- NOTE | 2022-05-05 10:20 | PC.NURSE ---
1020-notified by Andrzej, pharmacist hold daptomycin dose today; pt to follow up with md in clinic tomorrow will wait for new orders.
== END 2022-05-05 10:25 | disposition home or self-care (01) ==
LOC: INF 09:35
PROVIDERS: PCP Family Medicine; Visit Provider Podiatrist
DX: L03.116 Cellulitis of left lower limb (principal); Z86.14 Personal history of Methicillin resistant Staphylococcus aureus infection
CPT/HCPCS: 36592; 82550

== ENCOUNTER 2022-05-07 09:05 | Outpatient (CLI) | payer OTHER, SELFPAY ==
[2022-05-07 09:13] VITALS: BMI 31.0
[2022-05-07 09:51] LABS: Creatine Kinase 838 U/L (55-170)
[2022-05-07 10:08] VITALS: BP 115/79; PULSE 88; RESP 18; O2SAT 98
[2022-05-07 11:00] VITALS: BP 138/78; PULSE 82; RESP 18
== END 2022-05-07 11:00 | disposition home or self-care (01) ==
LOC: INF 09:05
PROVIDERS: PCP Family Medicine; Visit Provider Podiatrist
DX: L03.116 Cellulitis of left lower limb (principal); Z86.14 Personal history of Methicillin resistant Staphylococcus aureus infection
CPT/HCPCS: 82550; 96365; J0878

== ENCOUNTER 2022-05-08 10:02 | Outpatient (CLI) | payer OTHER, SELFPAY ==
[2022-05-08 10:26] VITALS: BMI 38.2
[2022-05-08 11:12] VITALS: BP 136/95; PULSE 84; RESP 18; TEMP 36.9; O2SAT 97
[2022-05-08 11:17] VITALS: BP 136/95; PULSE 84; RESP 18; TEMP 36.9; O2SAT 97
== END 2022-05-08 11:20 | disposition home or self-care (01) ==
LOC: INF 10:02
PROVIDERS: PCP Family Medicine; Visit Provider Podiatrist
DX: L03.116 Cellulitis of left lower limb (principal); Z86.14 Personal history of Methicillin resistant Staphylococcus aureus infection
CPT/HCPCS: 96365; J0878

== ENCOUNTER → 2022-05-09 09:07 | Outpatient (CLI) | payer OTHER, SELFPAY ==
[2022-05-09 09:17] VITALS: BP 99/63; PULSE 94; RESP 18; TEMP 37.1; O2SAT 94; BMI 37.8
== END ==
PROVIDERS: PCP Family Medicine; Visit Provider Podiatrist
DX: L03.116 Cellulitis of left lower limb (principal); Z86.14 Personal history of Methicillin resistant Staphylococcus aureus infection
CPT/HCPCS: J0878

== ENCOUNTER 2022-05-10 08:57 | Outpatient (CLI) | payer OTHER, SELFPAY ==
[2022-05-10 09:01] VITALS: BMI 31.0
[2022-05-10 09:18] LABS: Basophils # 0.1 K/mm3 (0-0.2); Basophils % 1.3 % (0.1-2.0); Eosinophils # 0.4 K/mm3 (0.0-0.4); Eosinophils % 4.6 % (0.1-12.0); Hematocrit 45.1 % (42.0-52.0); Hemoglobin 14.7 g/dL (14.1-18.0); Lymphocytes # 1.3 K/mm3 (0.7-4.5); Lymphocytes % 15.3 % (10-50); Mean Corpuscular HGB Conc 32.6 g/dL (31.8-35.4); Mean Corpuscular Hemoglobin 27.9 pg (27.0-31.2); Mean Corpuscular Volume 85.6 fl (80-94); Mean Platelet Volume 8.6 fl (7.4-10.4); Monocytes # 0.6 K/mm3 (0.1-1.0); Monocytes % 6.9 % (1.7-9.3); Neutrophils # 5.9 K/mm3 (1.8-7.8); Neutrophils % 71.9 % (37.0-80.0); Platelet Count 221 K/mm3 (142-424); Red Blood Count 5.27 M/mm3 (4.60-6.20); Red Cell Distribution Width 16.9 % (11.5-17.5); White Blood Count 8.2 K/mm3 (4.8-10.8)
[2022-05-10 09:21] LABS: Chloride 104 mmol/L (98-107)
[2022-05-10 09:22] LABS: Potassium 4.6 mmoL/L (3.5-5.1); Sodium 141 mmol/L (136-145)
[2022-05-10 09:24] LABS: Alanine Aminotransferase 29 U/L (12-78); Anion Gap 15.6 mEq/L (5-15); Aspartate Amino Transferase 40 U/L (17-59); Blood Urea Nitrogen 23 mg/dl (9-20); Carbon Dioxide 26 mmol/L (22.0-30.0); Creatinine Clearance Estimated 96 mL/min (50-200); Estimated Glomerular Filt Rate 57 ml/min (>60); GFR (African American) 69 ML/MIN (>60)
[2022-05-10 09:25] LABS: Albumin Level 4.5 g/dl (3.5-5.0); Albumin/Globulin Ratio 1.3 (1.1-1.8); Alkaline Phosphatase 58 U/L (38-126); Bilirubin,Total 0.6 mg/dl (0.2-1.3); Calcium 10.1 mg/dl (8.4-10.2); Creatine Kinase 455 U/L (55-170); Globulin 3.4 g/dL (1.3-3.2); Glucose 267 mg/dl (74-100); Total Protein,Serum 7.9 g/dl (6.3-8.2)
[2022-05-10 09:30] VITALS: BP 125/79; PULSE 90; RESP 18; TEMP 36.4; O2SAT 96
[2022-05-10 09:30] LABS: C-Reactive Protein 2.2 mg/L (0-4)
[2022-05-10 10:15] LABS: Erythrocyte Sedimentation Rate 20 mm/hr (0-20)
[2022-05-10 10:20] VITALS: BP 124/78; PULSE 85; O2SAT 100
== END 2022-05-10 10:20 | disposition home or self-care (01) ==
LOC: INF 08:57
PROVIDERS: PCP Family Medicine; Visit Provider Podiatrist
DX: L03.116 Cellulitis of left lower limb (principal); Z86.14 Personal history of Methicillin resistant Staphylococcus aureus infection
CPT/HCPCS: 80053; 82550; 85025; 85651; 86140; 96365; J0878

== ENCOUNTER 2022-05-11 09:24 | Outpatient (CLI) | payer OTHER, SELFPAY ==
[2022-05-11 09:40] VITALS: BP 118/56; PULSE 91; RESP 20; TEMP 36.9; O2SAT 95
[2022-05-11 10:35] VITALS: BP 116/60; PULSE 84; RESP 20
== END 2022-05-11 10:35 | disposition home or self-care (01) ==
LOC: INF 09:25
PROVIDERS: Visit Provider Podiatrist
DX: L03.116 Cellulitis of left lower limb (principal); Z86.14 Personal history of Methicillin resistant Staphylococcus aureus infection
CPT/HCPCS: 96365; J0878

== ENCOUNTER 2022-05-12 09:13 | Outpatient (CLI) | payer OTHER, SELFPAY ==
[2022-05-12 09:30] VITALS: BP 109/72; PULSE 72; RESP 18; O2SAT 99
--- NOTE | 2022-05-12 09:42 | XR_ITS ---
FINAL REPORT CLINICAL HISTORY: WOUND, Infection COMPARISON: April 15, 2022 FINDINGS: 3 simulated weight-bearing views of the left foot were obtained. There is chronic appearing irregularity of the proximal 2nd, 3rd, and 4th metatarsals that may represent prior fractures. There is no acute fracture or dislocation. There are mild degenerative changes. There are multiple hammertoe deformities. There is calcaneal spurring. The soft tissues are unremarkable. IMPRESSION: Mild degenerative change with multiple hammertoe deformities. Reviewed, Interpreted and Dictated by Norm Mederos III, MD Transcribed by Yao De La Vega Authenticated and . [facility]
[2022-05-12 10:10] VITALS: BP 110/74; PULSE 75; O2SAT 99
== END 2022-05-12 10:10 | disposition home or self-care (01) ==
LOC: INF 09:13
PROVIDERS: PCP Family Medicine; Visit Provider Podiatrist
DX: L03.116 Cellulitis of left lower limb (principal); Z86.14 Personal history of Methicillin resistant Staphylococcus aureus infection
CPT/HCPCS: 73630; 96365; J0878

== ENCOUNTER 2022-05-13 09:10 | Outpatient (CLI) | payer OTHER, SELFPAY ==
[2022-05-13 09:16] VITALS: BMI 31.0
[2022-05-13 09:33] VITALS: BP 111/73; PULSE 83; RESP 18; TEMP 36.4; O2SAT 99
[2022-05-13 09:49] LABS: Creatine Kinase 535 U/L (55-170)
[2022-05-13 10:13] VITALS: BP 114/76; PULSE 79; RESP 16; TEMP 36.4; O2SAT 100
--- NOTE | 2022-05-13 10:35 | CT_ITS ---
FINAL REPORT TECHNIQUE: Thin section axial CT images with coronal and sagittal reformats were performed. 3D reformatted images were also submitted. This study was performed with techniques to keep radiation doses as low as reasonably achievable (ALARA). Individualized dose reduction techniques using automated exposure control or adjustment of mA and/or kV according to the patient''s size were employed. CLINICAL HISTORY: NON HEALING Infected wound. wound vac FINDINGS: CT LEFT FOOT WITHOUT CONTRAST There are no fractures. There is mild degenerative change. There are 2 bony erosions of the 4th metatarsal head which are worrisome for osteomyelitis. There are multiple hammertoes. There are calcaneal spurs. There are no masses or fluid collections. There are no soft tissue abnormalities. IMPRESSION: 2 bony erosions of the 4th metatarsal head, worrisome for osteomyelitis. Reviewed, Interpreted and Dictated by Norm Mederos III, MD Transcribed by Georgiana Dillard Authenticated and [facility]
== END 2022-05-13 10:15 | disposition home or self-care (01) ==
PROVIDERS: PCP Family Medicine; Visit Provider Podiatrist
DX: L03.116 Cellulitis of left lower limb (principal); M86.9 Osteomyelitis, unspecified; Z86.14 Personal history of Methicillin resistant Staphylococcus aureus infection
CPT/HCPCS: 73700; 82550; 96365; J0878

== ENCOUNTER 2022-05-14 09:28 | Outpatient (CLI) | payer OTHER, SELFPAY ==
[2022-05-14 09:50] VITALS: BP 119/72; PULSE 91; RESP 18; O2SAT 97
[2022-05-14 10:20] VITALS: BP 114/62; PULSE 94; RESP 16
== END 2022-05-14 10:20 | disposition home or self-care (01) ==
LOC: INF 09:29
PROVIDERS: PCP Family Medicine; Visit Provider Podiatrist
DX: L03.116 Cellulitis of left lower limb (principal); Z86.14 Personal history of Methicillin resistant Staphylococcus aureus infection
CPT/HCPCS: 96365; J0878

== ENCOUNTER 2022-05-15 09:35 | Outpatient (CLI) | payer OTHER, SELFPAY | END 2022-05-15 10:34 | disposition home or self-care (01) | LOC: INF 09:35 | PROVIDERS: PCP Family Medicine; Visit Provider Podiatrist | DX: L03.116 Cellulitis of left lower limb (principal); Z86.14 Personal history of Methicillin resistant Staphylococcus aureus infection | CPT/HCPCS: J0878 ==

== ENCOUNTER 2022-05-16 09:19 | Outpatient (CLI) | payer OTHER, SELFPAY | END 2022-05-16 10:25 | disposition home or self-care (01) | PROVIDERS: PCP Family Medicine; Visit Provider Podiatrist | DX: L03.116 Cellulitis of left lower limb (principal); Z86.14 Personal history of Methicillin resistant Staphylococcus aureus infection | CPT/HCPCS: J0878 ==

== ENCOUNTER 2022-05-17 12:20 | Outpatient (CLI) | payer OTHER, SELFPAY ==
[2022-05-17 12:26] VITALS: BMI 31.0
[2022-05-17 12:50] VITALS: BP 105/72; PULSE 78; RESP 18; TEMP 36.4; O2SAT 98
[2022-05-17 12:56] LABS: Hematocrit 43.2 % (42.0-52.0); Hemoglobin 14.3 g/dL (14.1-18.0); Mean Corpuscular Volume 83.4 fl (80-94); Red Blood Count 5.18 M/mm3 (4.60-6.20); White Blood Count 9.5 K/mm3 (4.8-10.8)
[2022-05-17 12:57] LABS: Basophils # 0.1 K/mm3 (0-0.2); Basophils % 1.1 % (0.1-2.0); Eosinophils # 0.3 K/mm3 (0.0-0.4); Eosinophils % 3.5 % (0.1-12.0); Lymphocytes # 1.1 K/mm3 (0.7-4.5); Lymphocytes % 11.5 % (10-50); Mean Corpuscular HGB Conc 33.2 g/dL (31.8-35.4); Mean Corpuscular Hemoglobin 27.7 pg (27.0-31.2); Monocytes # 0.7 K/mm3 (0.1-1.0); Monocytes % 7.1 % (1.7-9.3); Neutrophils # 7.3 K/mm3 (1.8-7.8); Neutrophils % 76.8 % (37.0-80.0); Platelet Count 214 K/mm3 (142-424); Red Cell Distribution Width 16.9 % (11.5-17.5)
[2022-05-17 13:07] LABS: Alanine Aminotransferase 26 U/L (12-78); Albumin Level 4.2 g/dl (3.5-5.0); Albumin/Globulin Ratio 1.2 (1.1-1.8); Alkaline Phosphatase 61 U/L (38-126); Anion Gap 11.3 mEq/L (5-15); Aspartate Amino Transferase 36 U/L (17-59); Bilirubin,Total 0.4 mg/dl (0.2-1.3); Blood Urea Nitrogen 26 mg/dl (9-20); Calcium 9.8 mg/dl (8.4-10.2); Carbon Dioxide 26 mmol/L (22.0-30.0); Chloride 105 mmol/L (98-107); Creatine Kinase 506 U/L (55-170); Creatinine Clearance Estimated 96 mL/min (50-200); Estimated Glomerular Filt Rate 57 ml/min (>60); GFR (African American) 69 ML/MIN (>60); Globulin 3.5 g/dL (1.3-3.2); Glucose 152 mg/dl (74-100); Potassium 4.3 mmoL/L (3.5-5.1); Sodium 138 mmol/L (136-145); Total Protein,Serum 7.7 g/dl (6.3-8.2)
[2022-05-17 13:12] LABS: C-Reactive Protein 8.1 mg/L (0-4)
[2022-05-17 13:20] LABS: Erythrocyte Sedimentation Rate 20 mm/hr (0-20)
[2022-05-17 13:32] VITALS: BP 107/71; PULSE 79; RESP 18; O2SAT 99
== END 2022-05-17 13:36 | disposition home or self-care (01) ==
LOC: INF 12:21
PROVIDERS: Visit Provider Podiatrist
DX: L03.116 Cellulitis of left lower limb (principal); Z20.822 Contact with and (suspected) exposure to COVID-19; Z86.14 Personal history of Methicillin resistant Staphylococcus aureus infection
CPT/HCPCS: 80053; 82550; 85025; 85651; 86140; 96365; C9803; J0878; U0003; U0005

== ENCOUNTER 2022-05-18 09:22 | Outpatient (CLI) | payer OTHER, SELFPAY ==
[2022-05-18 09:30] VITALS: BP 134/80; PULSE 82; RESP 18; O2SAT 99
[2022-05-18 10:25] VITALS: BP 133/71; PULSE 89; RESP 18
== END 2022-05-18 10:25 | disposition home or self-care (01) ==
LOC: INF 09:22
PROVIDERS: PCP Family Medicine; Visit Provider Podiatrist
DX: L03.116 Cellulitis of left lower limb (principal); Z86.14 Personal history of Methicillin resistant Staphylococcus aureus infection
CPT/HCPCS: 96365; J0878

== ENCOUNTER 2022-05-19 08:11 | Day surgery (SDC) | payer OTHER, SELFPAY ==
[2022-05-17 14:58] VITALS: BMI 38.9
[2022-05-19] VITALS (11 sets, daily range): BP systolic 118–139; BP diastolic 79–92; PULSE 88–103; RESP 16–18; TEMP 36.3–38; O2SAT 87–99
--- NOTE | 2022-05-19 09:32 | HMH.ANESCL ---
[facility] Anesthesia Checklist - Patient Identification Patient Identification: Arm Band, Verbal (Name & ) - Structural Data Admitted From: Home Planned Operative Procedure/s: Left Foot Wound Debridement Consent for Planned Operative Procedure(s) Verified: Yes Verified Documents: Surgical Consent - Chart Verification Results Verified: CBC, BMP - Additional verifications Anesthesia Reactions: No Hx Blood Transfusions: No Blood Transfusion Reaction: No - Airway Assessment C-Spine Mobility Assessed: Yes TMJ Mobility Assessed: Yes Dentition: Good Dentition - Neurological Assessment Level of Consciousness: Awake, Alert, Appropriate - Anesthesia Plan ASA Class: III Anesthesia Type: General w/block [facility] History I have reviewed the patient's past medical history: Yes Medical History: Reports:: Aneurysm, Carotid Stenosis, Coronary Artery Disease, Diabetes Mellitus Type 2, Hyperlipidemia, Hypertension, Peripheral Artery Disease, Supraventricular Tachycardia Denies:: Cancer, Diabetes Mellitus Type 1, Internal Pacemaker, MRSA, Seizures *Have you ever received a pneumonia vaccine?: No *Have you received a flu vaccine this season?: No Other Medical History: Reports: Arthritis. Denies: Blood Transfusion Reaction Anesthesia experience/problems:: none Other Surgeries: Yes: No Previous Surgery, Appendectomy, CABG, Cardiac Catheterization, Cardiac Surgery, Colonoscopy, Coronary Stent, Other (left foot I&D). No: Pacemaker Amputation: No Fractures: No - *Social History Smoking Status: Current every day smoker Tobacco Type: cigarettes # Packs/Day (cigarettes): 1 #Yrs smoked (if former smoker): 30 Alcohol Intake: current Alcohol Intake Frequency:: holidays/special occasions only Substance Use Type: denies use *Occupational Status:: employed Housing: house Household Members: none *Travel in the last 8 weeks: None Family Hx:: Diabetes, Kidney Disease
--- NOTE | 2022-05-19 12:00 | XR_ITS ---
FINAL REPORT CLINICAL HISTORY: Post op amp 4th metatarsal COMPARISON: May 12, 2022 FINDINGS: LEFT FOOT Three views of the left foot demonstrate interval postoperative changes from amputation of the 4th digit at the mid 4th metatarsal. There is mild degenerative change of the great toe. There are calcaneal spurs. The soft tissues are unremarkable. IMPRESSION: Postoperative change as above. Reviewed, Interpreted and Dictated by Norm Mederos III, MD Transcribed by Georgiana Dillard Authenticated and . [facility]
--- NOTE | 2022-05-19 12:05 | PC.NURSE ---
L pinky toe is light pink in color. OR nurse said toe was very pale immediately after surgery and has improved. toes and foot warm to touch and light pink in color. Pt denies pain at this time. radiology notified of 3 v xrays.
--- NOTE | 2022-05-19 12:11 | HMH.ANESI ---
[facility] Anesthesia Record Part I Intake, IV Amount: 800 Estimated blood loss (mL): 5 Urine output (mL): 0 Blood Pressure: 130/86 SaO2: 91 Pulse Rate: 101 Respiratory Rate: 16 Temperature: 98.2 F Patient is:: Drowsy, Stable Stable to PACU at:: 12:05
--- NOTE | 2022-05-19 12:26 | HMH.OPNOTE ---
Date of procedure: 05/19/22 Pre-op Diagnosis:: 1. Left foot osteomyelitis 2. MRSA (methicillin resistant staph aureus) culture positive 3. VRE (vancomycin resistant enterococcus) culture positive 4. Diabetic infection of left foot 5. DM left foot ulcer 6. Status post foot surgery: 03/24/22 7. Type 2 diabetes mellitus with diabetic neuropathy, with long-term current use of insulin 8. PAD (peripheral artery disease) 9. Non-compliance with treatment 10. Obesity, Class II, BMI 35-39.9 Post-op Diagnosis:: Same Procedure performed:: Modifier 78 1. Left 4th ray amputation (95741) 2. Left foot adjacent tissue transfer/rearrangment (48199) 3. Left foot open bone biopsy () 4. I&D foot bone cortex (20394) 5. Left foot ulcer excision 6. Left foot 5th metatarsal wound debridement 7. Nail debridement x10 Surgeon:: Bailey Vasquez DPM Anesthesia: GETA, local (20cc 0.5% marcaine plain) Estimated blood loss (mL): 10 Clinical Note:: Surgery, 03/24/22: Procedure performed:1. Left foot wound debridement, ulcer excision 2. Left foot foreign body removal 3. Left foot incision and drainage. 4.Delayed primary closure with adjacent soft tissue rearrangement 5. Left foot open bone biopsy. This is an unplanned return to the OR due to patient's noncompliance with postop protocol after prior procedure. Patient is a 56-year-old diabetic male who presents with left wound with osteomyelitis. We discussed conservative versus surgical treatment options. Conservative treatment options include local wound care, oral and IV antibiotics, change in shoe wear, taping/padding, and off-loading. He has failed oral antibiotics. Currently has PICC line with IV daptomycin started 04/21/2022. We discussed surgical intervention for amputation of the left fourth metatarsal head with possible toe. Patient understands that there is a chance that the toes can migrate to fill the gap or the foot may change shape after surgery. Patient also understands that they could have wound healing complications including delayed healing and infection. We discussed that if the wound does not heal, it is possible that they may need a more proximal amputation and could result in further loss of digits, loss of partial foot or loss of leg. We discussed the risks and benefits in great detail. Other surgical risks include: prolonged pain and swelling, further infection requiring oral or IV antibiotics, delay in healing of soft tissue or bone, nerve or blood vessel damage, CRPS/RSD, DVT, anesthesia complications, and even . All questions answered. Patient verbalized understanding. Consent obtained. Operative findings:: Left foot diabetic ulcer noted to the plantar side fourth metatarsal region. There is exposed fourth metatarsal head noted. The ulcer was fibrotic with yellow slough and predebridement measured over 5 x 2.5 x 1.5 cm, probe to bone fourth metatarsal. Base of the proximal phalanx had some cortical erosions. The fourth metatarsal head had cortical erosions. The neck was soft with changes consistent with osteomyelitis. Bone was soft and easy to break. Bone was cut to the level of the shaft. The margin was hard in texture. New abrasion noted to the left plantar lateral fifth metatarsal. It was sharply excisionally debrided with a 15 blade and forceps through skin into but not involving full-thickness subcutaneous level. Post: Wound 100% granular and measured 2 x 1.2 x 0.0 cm. Modifier: This is an unplanned return to the operating room due to complications and patient's noncompliance from surgery 03/24/2022. Case took 30 minutes longer than normal due to prior surgical fibrotic scar tissue requiring more extensive dissection and debridement, having to rearrange soft tissue to cover a large defect. Operative note:: On this date and time patient was deemed an appropriate surgical candidate. With informed consent signed, the patient was taken to the operating theater. The patient was positioned supine. Gene
[2022-05-19 13:16] LABS: POC Glucose,Bedside 154 (70-110)
--- NOTE | 2022-05-19 13:17 | SUR.OPER ---
1155 family given an update via Matilde Morris RN
[2022-05-21 08:26] VITALS: BP 130/85; PULSE 97; TEMP 36.8
--- NOTE | 2022-05-21 08:26 | P.PN_ITS ---
[facility] Anesthesia Record Part II Discharge Time: 12:34 Destination: Surgical Day Care (OP Surgery) PACU nurse assessment reviewed?: Yes Patient Condition:: Good Anesthesia Complications:: None Swallowing reflex intact?: Yes Cyanosis?: No Blood Pressure: 130/85 Pulse Rate: 97 Temperature: 98.2 F Mental Status: Alert & Oriented Pain level:: 0 Nausea and/or vomitting:: None Intake, IV Amount: 0
== END 2022-05-19 13:15 | disposition home or self-care (01) ==
LOC: OR 08:12
PROVIDERS: PCP Family Medicine; Visit Provider Podiatrist
PROC: (CPT 28810; principal; 2022-05-19 10:00)
DX: M86.172 Other acute osteomyelitis, left ankle and foot (principal); M86.672 Other chronic osteomyelitis, left ankle and foot; L97.524 Non-pressure chronic ulcer of other part of left foot with necrosis of bone; B95.62 Methicillin resistant Staphylococcus aureus infection as the cause of diseases classified elsewhere; E11.621 Type 2 diabetes mellitus with foot ulcer; Z91.19 Patient's noncompliance with other medical treatment and regimen; Z79.4 Long term (current) use of insulin; E11.69 Type 2 diabetes mellitus with other specified complication; Z16.21 Resistance to vancomycin; F17.210 Nicotine dependence, cigarettes, uncomplicated
CPT/HCPCS: 28810; 14301; 20240; 11042; 73630; 82962; 87077; 87186; 88304; 96374; J0878; J2405; J3370

== ENCOUNTER 2022-05-20 09:02 | Outpatient (CLI) | payer OTHER, SELFPAY ==
[2022-05-20 10:17] VITALS: BP 120/78; PULSE 89; RESP 18; TEMP 36.6; O2SAT 99
[2022-05-20 11:00] VITALS: BP 119/72; PULSE 84; RESP 18; TEMP 36.6; O2SAT 99
== END 2022-05-20 11:00 | disposition home or self-care (01) ==
LOC: INF 09:03
PROVIDERS: PCP Family Medicine; Visit Provider Podiatrist
DX: L03.116 Cellulitis of left lower limb (principal); Z86.14 Personal history of Methicillin resistant Staphylococcus aureus infection
CPT/HCPCS: 96365; G0463; J0878

== ENCOUNTER 2022-05-20 10:00 | Outpatient (RCR) | payer OTHER, SELFPAY ==
--- NOTE | 2022-04-20 09:29 | HMH.PTOPWND ---
Rehab Outpt Wound Evaluation Rehab OP Wound Evaluation Start: 04/20/22 09:20 Freq: Status: Active Protocol: Document 04/20/22 09:20 ABI (Rec: 04/20/22 09:29 PWKATHRINE [id number]) Electronically Signed By Woodrow Rouse, ARABELLA 04/20/22 09:20 Subjective/History History History This is the initial Wound care evaluation for Jewel Jara. Pt is a 56 y/o male referred to wound care s/p L foot I&D. Pt has diaetic neuropathy and believes he got a piece of gunpowder in his foot. Pt reports he was unaware of wound due to neuropathy. Pt states he had his girlfriend look at the bottom of his foot and that is when he became aware of wound. Pt states DPM surgically removed foreign body and has een seeing pt for follow up care Subjective Subjective Pt reports wound occurred last part of January to the best of his knowledge Wound Eval Wound Left Upper Distal Foot Wound Type Incision Wound Length (cm) 1.0 Wound Width (cm) 0.5 Wound Bed Appearance Beefy Red Percentage Granulated (%) 100 Primary Dressing Biosynthetic Dressing Comment purocol Wound Secondary Dressing Type Absorbant Pad Comment polymem dot Left Lower Proximal Foot Wound Type Diabetic Foot Ulcer Wound Length (cm) 3.5 Wound Width (cm) 2.0 Wound Depth (cm) 1.0 Wound Bed Appearance Dusky Red,Yellow Percentage of Slough (%) 100 Percentage of Eschar (Yellow) (%) 100 Wound Margins Description Well Defined Surrounding Tissue Appearance Shiny Drainage Description Serous Drainage Amount Scant Drainage Odor No Odor Dressing Status Soiled Wound Topical Solution/Irrigant Saline Irrigant Packing Type Impregnated Gauze Pads Comment tegederm ag mesh Primary Dressing Biosynthetic Dressing Comment pruocol Wound Secondary Dressing Type Absorbant Pad Comment optifoam SA 4x4 Wound Debridement Method Sharps Wound Debridement Amount of Tissue Minimal Removed Wound Debridement Res
== END 2022-05-20 10:05 | disposition home or self-care (01) ==
LOC: PT 10:00
PROVIDERS: PCP Family Medicine; Visit Provider Podiatrist
DX: E11.628 Type 2 diabetes mellitus with other skin complications (principal); L08.9 Local infection of the skin and subcutaneous tissue, unspecified; E11.621 Type 2 diabetes mellitus with foot ulcer; L97.529 Non-pressure chronic ulcer of other part of left foot with unspecified severity; Z98.890 Other specified postprocedural states
CPT/HCPCS: 97162; 97597; 97598; 97605

== ENCOUNTER 2022-05-21 09:53 | Outpatient (CLI) | payer OTHER, SELFPAY ==
[2022-05-21 09:55] VITALS: BMI 38.5
[2022-05-21 10:18] LABS: Creatine Kinase 415 U/L (55-170)
[2022-05-21 10:36] VITALS: BP 127/75; PULSE 82; RESP 16; TEMP 36.5; O2SAT 97
[2022-05-21 11:35] VITALS: BP 124/75; PULSE 85; RESP 18; TEMP 36.5; O2SAT 98
== END 2022-05-21 11:45 | disposition home or self-care (01) ==
LOC: INF 09:54
PROVIDERS: PCP Family Medicine; Visit Provider Podiatrist
DX: L03.116 Cellulitis of left lower limb (principal); Z86.14 Personal history of Methicillin resistant Staphylococcus aureus infection
CPT/HCPCS: 82550; 96365; J0878

== ENCOUNTER 2022-05-22 09:12 | Outpatient (CLI) | payer OTHER, SELFPAY ==
[2022-05-22 09:30] VITALS: BP 119/76; PULSE 94; RESP 20; TEMP 36.9; O2SAT 96
== END 2022-05-22 10:25 | disposition home or self-care (01) ==
LOC: INF 09:13
PROVIDERS: PCP Family Medicine; Visit Provider Podiatrist
DX: L03.116 Cellulitis of left lower limb (principal); Z86.14 Personal history of Methicillin resistant Staphylococcus aureus infection
CPT/HCPCS: 96365; J0878

== ENCOUNTER → 2022-05-23 08:46 | Outpatient (CLI) | payer OTHER, SELFPAY ==
[2022-05-23 09:17] VITALS: BP 118/87; PULSE 97; RESP 20; O2SAT 97; BMI 38.5
== END ==
PROVIDERS: PCP Family Medicine; Visit Provider Podiatrist
DX: L03.116 Cellulitis of left lower limb (principal); Z86.14 Personal history of Methicillin resistant Staphylococcus aureus infection
CPT/HCPCS: 96365; J0878

== ENCOUNTER 2022-05-24 09:03 | Outpatient (CLI) | payer OTHER, SELFPAY ==
[2022-05-24 09:07] VITALS: BMI 39.1
[2022-05-24 09:25] LABS: Basophils # 0.1 K/mm3 (0-0.2); Basophils % 1.1 % (0.1-2.0); Eosinophils # 0.5 K/mm3 (0.0-0.4); Eosinophils % 4.7 % (0.1-12.0); Hematocrit 45.8 % (42.0-52.0); Hemoglobin 14.6 g/dL (14.1-18.0); Lymphocytes # 1.3 K/mm3 (0.7-4.5); Lymphocytes % 11.2 % (10-50); Mean Corpuscular HGB Conc 31.8 g/dL (31.8-35.4); Mean Corpuscular Hemoglobin 27.2 pg (27.0-31.2); Mean Corpuscular Volume 85.7 fl (80-94); Mean Platelet Volume 8.8 fl (7.4-10.4); Monocytes # 0.7 K/mm3 (0.1-1.0); Neutrophils # 8.7 K/mm3 (1.8-7.8); Neutrophils % 77.1 % (37.0-80.0); Platelet Count 271 K/mm3 (142-424); Red Blood Count 5.34 M/mm3 (4.60-6.20); Red Cell Distribution Width 16.7 % (11.5-17.5); White Blood Count 11.3 K/mm3 (4.8-10.8)
[2022-05-24 09:33] LABS: Chloride 101 mmol/L (98-107); Potassium 4.2 mmoL/L (3.5-5.1)
[2022-05-24 09:34] LABS: Creatine Kinase 503 U/L (55-170)
[2022-05-24 09:35] LABS: Alanine Aminotransferase 24 U/L (12-78); Aspartate Amino Transferase 47 U/L (17-59); Blood Urea Nitrogen 28 mg/dl (9-20); Carbon Dioxide 27 mmol/L (22.0-30.0); Creatinine Clearance Estimated 89 mL/min (50-200); Estimated Glomerular Filt Rate 52 ml/min (>60); GFR (African American) 63 ML/MIN (>60)
[2022-05-24 09:36] LABS: Albumin Level 4.4 g/dl (3.5-5.0); Albumin/Globulin Ratio 1.3 (1.1-1.8); Alkaline Phosphatase 69 U/L (38-126); Bilirubin,Total 0.7 mg/dl (0.2-1.3); Globulin 3.4 g/dL (1.3-3.2); Glucose 195 mg/dl (74-100); Total Protein,Serum 7.8 g/dl (6.3-8.2)
[2022-05-24 09:42] LABS: C-Reactive Protein 30.3 mg/L (0-4)
[2022-05-24 09:55] LABS: Erythrocyte Sedimentation Rate 24 mm/hr (0-20)
[2022-05-24 10:02] LABS: Anion Gap 14.2 mEq/L (5-15); Sodium 138 mmol/L (136-145)
[2022-05-24 10:04] VITALS: BP 106/71; PULSE 89; RESP 16; TEMP 36.5; O2SAT 98
[2022-05-24 11:10] VITALS: BP 104/68; PULSE 84; RESP 16; TEMP 36.5; O2SAT 98
== END 2022-05-24 11:10 | disposition home or self-care (01) ==
LOC: INF 09:03
PROVIDERS: Visit Provider Podiatrist
DX: L03.116 Cellulitis of left lower limb (principal); Z86.14 Personal history of Methicillin resistant Staphylococcus aureus infection
CPT/HCPCS: 80053; 82550; 85025; 85651; 86140; 96365; G0463; J0878

== ENCOUNTER 2022-05-25 09:14 | Outpatient (CLI) | payer OTHER, SELFPAY ==
[2022-05-25 09:28] VITALS: BP 97/65; PULSE 83; RESP 18; TEMP 36.4; O2SAT 99
[2022-05-25 10:15] VITALS: BP 105/69; PULSE 88; RESP 18; O2SAT 99
== END 2022-05-25 10:15 | disposition home or self-care (01) ==
LOC: INF 09:14
PROVIDERS: Visit Provider Podiatrist
DX: L03.116 Cellulitis of left lower limb (principal); Z86.14 Personal history of Methicillin resistant Staphylococcus aureus infection
CPT/HCPCS: 96365; J0878

== ENCOUNTER 2022-05-26 09:01 | Outpatient (CLI) | payer OTHER, SELFPAY ==
[2022-05-26 09:30] VITALS: BP 93/66; PULSE 89; RESP 18; O2SAT 97
[2022-05-26 10:15] VITALS: BP 90/62; PULSE 91; RESP 16; O2SAT 96
== END 2022-05-26 10:30 | disposition home or self-care (01) ==
LOC: INF 09:02
PROVIDERS: PCP Family Medicine; Visit Provider Podiatrist
DX: L03.116 Cellulitis of left lower limb (principal); Z86.14 Personal history of Methicillin resistant Staphylococcus aureus infection
CPT/HCPCS: 96365; J0878

== ENCOUNTER 2022-05-27 12:01 | Outpatient (CLI) | payer OTHER, SELFPAY ==
[2022-05-27 12:15] VITALS: BP 96/63; PULSE 103; RESP 18; O2SAT 99
[2022-05-27 13:00] VITALS: BP 91/63; PULSE 100; RESP 18; O2SAT 98
== END 2022-05-27 13:00 | disposition home or self-care (01) ==
LOC: INF 12:01
PROVIDERS: PCP Family Medicine; Visit Provider Podiatrist
DX: L03.116 Cellulitis of left lower limb (principal); Z86.14 Personal history of Methicillin resistant Staphylococcus aureus infection
CPT/HCPCS: 96365; J0878

== ENCOUNTER 2022-05-28 08:49 | Outpatient (CLI) | payer OTHER, SELFPAY ==
[2022-05-28 08:53] VITALS: BP 88/62; PULSE 98; RESP 18; O2SAT 97; BMI 39.1
[2022-05-28 09:25] LABS: Creatine Kinase 688 U/L (55-170)
[2022-05-28 10:30] VITALS: BP 103/64; PULSE 95; RESP 18; O2SAT 99
== END 2022-05-28 10:30 | disposition home or self-care (01) ==
LOC: INF 08:49
PROVIDERS: PCP Family Medicine; Visit Provider Podiatrist
DX: L03.116 Cellulitis of left lower limb (principal); Z86.14 Personal history of Methicillin resistant Staphylococcus aureus infection
CPT/HCPCS: 82550; 96365; G0463; J0878

== ENCOUNTER 2022-05-29 09:41 | Outpatient (CLI) | payer OTHER, SELFPAY | END 2022-05-29 10:55 | disposition home or self-care (01) | PROVIDERS: PCP Family Medicine; Visit Provider Podiatrist | DX: L03.116 Cellulitis of left lower limb (principal); Z86.14 Personal history of Methicillin resistant Staphylococcus aureus infection | CPT/HCPCS: 96365; G0463; J0878 ==

== ENCOUNTER 2022-05-30 08:17 | Outpatient (CLI) | payer OTHER, SELFPAY ==
[2022-05-30 08:29] VITALS: BMI 38.5
== END 2022-05-30 09:21 | disposition home or self-care (01) ==
PROVIDERS: PCP Family Medicine; Visit Provider Podiatrist
DX: L03.116 Cellulitis of left lower limb (principal); Z86.14 Personal history of Methicillin resistant Staphylococcus aureus infection
CPT/HCPCS: 96365; G0463; J0878

== ENCOUNTER → 2022-05-31 08:53 | Outpatient (CLI) | payer OTHER, SELFPAY ==
[2022-05-31 09:15] VITALS: BP 136/81; PULSE 83; RESP 18; TEMP 36.9; O2SAT 97
[2022-05-31 10:10] VITALS: BP 135/84; PULSE 79; RESP 16; TEMP 36.8; O2SAT 97
== END ==
PROVIDERS: PCP Family Medicine; Visit Provider Podiatrist
DX: L03.116 Cellulitis of left lower limb (principal); Z86.14 Personal history of Methicillin resistant Staphylococcus aureus infection
CPT/HCPCS: 96365; G0463; J0878

== ENCOUNTER 2022-06-01 09:45 | Outpatient (CLI) | payer OTHER, SELFPAY ==
[2022-06-01 09:46] VITALS: BMI 39.1
[2022-06-01 10:04] LABS: Basophils # 0.1 K/mm3 (0-0.2); Basophils % 0.8 % (0.1-2.0); Eosinophils # 0.4 K/mm3 (0.0-0.4); Eosinophils % 4.8 % (0.1-12.0); Hemoglobin 14.2 g/dL (14.1-18.0); Lymphocytes # 1.1 K/mm3 (0.7-4.5); Lymphocytes % 12.4 % (10-50); Mean Corpuscular Hemoglobin 26.5 pg (27.0-31.2); Mean Corpuscular Volume 80.2 fl (80-94); Mean Platelet Volume 7.9 fl (7.4-10.4); Monocytes # 0.7 K/mm3 (0.1-1.0); Monocytes % 7.9 % (1.7-9.3); Neutrophils # 6.8 K/mm3 (1.8-7.8); Neutrophils % 74.1 % (37.0-80.0); Platelet Count 269 K/mm3 (142-424); Red Blood Count 5.37 M/mm3 (4.60-6.20); Red Cell Distribution Width 15.1 % (11.5-17.5); White Blood Count 9.2 K/mm3 (4.8-10.8)
[2022-06-01 10:10] LABS: Chloride 102 mmol/L (98-107)
[2022-06-01 10:11] LABS: Potassium 4.6 mmoL/L (3.5-5.1); Sodium 137 mmol/L (136-145)
[2022-06-01 10:13] LABS: Alanine Aminotransferase 29 U/L (12-78); Aspartate Amino Transferase 46 U/L (17-59); Blood Urea Nitrogen 26 mg/dl (9-20); Creatinine Clearance Estimated 113 mL/min (50-200); Estimated Glomerular Filt Rate 52 ml/min (>60); GFR (African American) 63 ML/MIN (>60)
[2022-06-01 10:14] LABS: Albumin Level 4.4 g/dl (3.5-5.0); Albumin/Globulin Ratio 1.2 (1.1-1.8); Alkaline Phosphatase 72 U/L (38-126); Anion Gap 13.6 mEq/L (5-15); Bilirubin,Total 0.5 mg/dl (0.2-1.3); Calcium 9.8 mg/dl (8.4-10.2); Carbon Dioxide 26 mmol/L (22.0-30.0); Creatine Kinase 584 U/L (55-170); Globulin 3.7 g/dL (1.3-3.2); Glucose 151 mg/dl (74-100); Total Protein,Serum 8.1 g/dl (6.3-8.2)
[2022-06-01 10:20] LABS: C-Reactive Protein 11.7 mg/L (0-4)
[2022-06-01 10:29] LABS: Erythrocyte Sedimentation Rate 13 mm/hr (0-20)
[2022-06-01 10:50] VITALS: BP 130/85; PULSE 95; RESP 18; O2SAT 99
[2022-06-01 11:30] VITALS: BP 149/91; PULSE 89; RESP 18; O2SAT 99
== END 2022-06-01 11:30 | disposition home or self-care (01) ==
LOC: INF 09:45
PROVIDERS: PCP Family Medicine; Visit Provider Podiatrist
DX: L03.116 Cellulitis of left lower limb (principal); Z86.14 Personal history of Methicillin resistant Staphylococcus aureus infection
CPT/HCPCS: 80053; 82550; 85025; 85651; 86140; 96365; G0463; J0878

== ENCOUNTER → 2022-06-01 15:40 | Outpatient (CLI) | payer OTHER, SELFPAY | PROVIDERS: PCP Family Medicine; Visit Provider Internal Medicine | DX: Z01.812 Encounter for preprocedural laboratory examination (principal); Z20.822 Contact with and (suspected) exposure to COVID-19; I73.9 Peripheral vascular disease, unspecified | CPT/HCPCS: C9803; U0003; U0005 ==

== ENCOUNTER 2022-06-02 08:09 | Day surgery (SDC) | payer OTHER, SELFPAY ==
[2022-06-02] VITALS (12 sets, daily range): BP systolic 107–163; BP diastolic 68–93; PULSE 85–94; RESP 18–19; TEMP 36.8; O2SAT 95–99; BMI 38.5
--- NOTE | 2022-06-02 | IR_ITS ---
APPROVED REPORT Patient Location: Outpatient PROCEDURES Right radial arterial access Catheter placed in the left external iliac artery Left external iliac artery antegrade angiogram with unilateral runoff to the left foot INDICATION Jackelin claudication class IV-V, Poorly healing left foot with previous amputation and gangrenous area, Osteomyelitis Informed consent was obtained prior to the procedure. COMPLICATIONS None Estimated Blood Loss: Less than 10 mls TECHNIQUE 1% lidocaine used anesthetize right anterior aspect of the right wrist. The right radial artery was accessed via the sounder technique and a 6 [place] hydrophilic sheath was placed in the right radial artery. An arterial cocktail using heparin lidocaine nitroglycerin and verapamil were administered intra-arterially. A PV multi curve was placed under fluoroscopic guidance into the left common and external iliac artery where unilateral runoff was performed. After perform unilateral runoff the apparatus was removed the sheath was removed and hemostasis was achieved using TR banding patient was transferred to the postop putting in stable condition ANGIOGRAPHIC RESULTS Left common internal and external iliac arteries are widely patent Left common femoral artery has a 20% eccentric stenosis Left profunda femoris artery is widely patent Left superficial femoral artery and left popliteal artery are widely patent Below the knee there is initially three-vessel runoff. The anterior and posterior tibialis arteries are patent as is the peroneal artery. The posterior tibialis artery and anterior tibialis artery are then subtotally occluded proximally and simply taper out into small vessels. The peroneal artery does provide inline flow into the left ankle. There are scant collaterals distally from the posterior and anterior tibialis artery at the ankle level IMPRESSION Peripheral artery disease as described above PLAN 1. Patient has small vessel diabetic vasculopathy not amenable to percutaneous revascularization. I do believe patient could tolerate a TMA and likely he will the incision site based on the single-vessel runoff in the left foot. 2. Aggressive risk factor modification 3. Xarelto 2.5 twice daily 4. LDL less than 55 to be achieved with high intensity statin 5. Aggressive risk factor modification 6. Continue wound care per foot and ankle surgery Electronically signed by : Trace Salguero MD 06/02/2022 13:43:42
[2022-06-02 14:21] LABS: CATHL Activated Clotting Time 253 SEC (74-125)
== END 2022-06-02 13:32 | disposition home or self-care (01) ==
LOC: CATHLAB 08:12
PROVIDERS: PCP Family Medicine; Visit Provider Internal Medicine
PROC: (CPT 36246; principal; 2022-06-02 10:15)
DX: I70.222 Atherosclerosis of native arteries of extremities with rest pain, left leg (principal); Z79.4 Long term (current) use of insulin; Z79.899 Other long term (current) drug therapy; I25.10 Atherosclerotic heart disease of native coronary artery without angina pectoris; E11.621 Type 2 diabetes mellitus with foot ulcer; M86.172 Other acute osteomyelitis, left ankle and foot; M86.672 Other chronic osteomyelitis, left ankle and foot; I77.1 Stricture of artery; I10 Essential (primary) hypertension; L97.528 Non-pressure chronic ulcer of other part of left foot with other specified severity
CPT/HCPCS: 36246; 75710; 85347; 96365; 99152; C1725; C1760; C1769; G0463; J0878; J1644; Q9966

== ENCOUNTER 2022-06-04 09:24 | Outpatient (CLI) | payer OTHER, SELFPAY | END 2022-06-04 10:00 | disposition home or self-care (01) | PROVIDERS: PCP Family Medicine; Visit Provider Podiatrist | DX: L03.116 Cellulitis of left lower limb (principal); Z86.14 Personal history of Methicillin resistant Staphylococcus aureus infection | CPT/HCPCS: G0463 ==

== ENCOUNTER 2022-06-05 09:50 | Outpatient (CLI) | payer OTHER, SELFPAY ==
[2022-06-05 10:41] VITALS: BP 110/92; PULSE 98; RESP 20; TEMP 36.8; O2SAT 97
--- NOTE | 2022-06-05 10:42 | PC.NURSE ---
DRESSING CHANGE WITH LOPLEX, 4X4, AND KERLIX PERFORMED ON LEFT FOOT. WOUND CLEANSED WITH BETADINE PRIOR TO NEW DRESSING. TOLERATED WELL.
== END 2022-06-05 10:40 | disposition home or self-care (01) ==
LOC: INF 09:50
PROVIDERS: PCP Family Medicine; Visit Provider Podiatrist
DX: L03.116 Cellulitis of left lower limb (principal); Z86.14 Personal history of Methicillin resistant Staphylococcus aureus infection; Z48.01 Encounter for change or removal of surgical wound dressing
CPT/HCPCS: G0463

== ENCOUNTER 2022-06-06 09:26 | Outpatient (CLI) | payer OTHER, SELFPAY ==
--- NOTE | 2022-06-06 09:40 | PC.NURSE ---
Old dressing removed from Lt foot 4th toe. Pacolet intact. Site irrigated with NS and cleaned with betadine and 4x4's. Site dried and Loplex dressing applied. 4x4's applied and Lt foot wrapped with kerlix and secured with tape. Site remained C/D/I
[2022-06-06 09:55] VITALS: BP 118/76; PULSE 88; RESP 18; TEMP 36.9; O2SAT 98
== END 2022-06-06 09:50 | disposition home or self-care (01) ==
LOC: INF 09:27
PROVIDERS: PCP Family Medicine; Visit Provider Podiatrist
DX: L03.116 Cellulitis of left lower limb (principal); Z86.14 Personal history of Methicillin resistant Staphylococcus aureus infection; Z48.01 Encounter for change or removal of surgical wound dressing
CPT/HCPCS: G0463

== ENCOUNTER 2022-06-07 12:27 | Outpatient (CLI) | payer OTHER, SELFPAY ==
[2022-06-07 12:47] VITALS: BMI 39.1
[2022-06-07 13:04] LABS: Basophils # 0.1 K/mm3 (0-0.2); Basophils % 1.1 % (0.1-2.0); Eosinophils # 0.3 K/mm3 (0.0-0.4); Eosinophils % 2.8 % (0.1-12.0); Hematocrit 44.7 % (42.0-52.0); Lymphocytes # 1.1 K/mm3 (0.7-4.5); Lymphocytes % 12.3 % (10-50); Mean Corpuscular HGB Conc 31.4 g/dL (31.8-35.4); Mean Corpuscular Hemoglobin 26.4 pg (27.0-31.2); Mean Corpuscular Volume 84.1 fl (80-94); Mean Platelet Volume 8.3 fl (7.4-10.4); Monocytes # 0.6 K/mm3 (0.1-1.0); Monocytes % 6.7 % (1.7-9.3); Neutrophils # 6.9 K/mm3 (1.8-7.8); Neutrophils % 77.1 % (37.0-80.0); Platelet Count 267 K/mm3 (142-424); Red Blood Count 5.32 M/mm3 (4.60-6.20); Red Cell Distribution Width 16.1 % (11.5-17.5)
[2022-06-07 13:16] LABS: Chloride 104 mmol/L (98-107); Potassium 4.7 mmoL/L (3.5-5.1); Sodium 137 mmol/L (136-145)
[2022-06-07 13:18] LABS: Blood Urea Nitrogen 27 mg/dl (9-20); Creatine Kinase 296 U/L (55-170); Creatinine Clearance Estimated 93 mL/min (50-200); Estimated Glomerular Filt Rate 42 ml/min (>60); GFR (African American) 50 ML/MIN (>60)
[2022-06-07 13:19] LABS: Alanine Aminotransferase 30 U/L (12-78); Albumin Level 4.3 g/dl (3.5-5.0); Albumin/Globulin Ratio 1.3 (1.1-1.8); Alkaline Phosphatase 70 U/L (38-126); Anion Gap 14.7 mEq/L (5-15); Aspartate Amino Transferase 48 U/L (17-59); Bilirubin,Total 0.7 mg/dl (0.2-1.3); Calcium 9.2 mg/dl (8.4-10.2); Carbon Dioxide 23 mmol/L (22.0-30.0); Globulin 3.4 g/dL (1.3-3.2); Glucose 141 mg/dl (74-100); Total Protein,Serum 7.7 g/dl (6.3-8.2)
[2022-06-07 13:24] LABS: C-Reactive Protein 3.7 mg/L (0-4)
[2022-06-07 13:33] LABS: Erythrocyte Sedimentation Rate 14 mm/hr (0-20)
== END 2022-06-07 13:28 | disposition home or self-care (01) ==
LOC: INF 12:27
PROVIDERS: PCP Family Medicine; Visit Provider Podiatrist
DX: L03.116 Cellulitis of left lower limb (principal); Z86.14 Personal history of Methicillin resistant Staphylococcus aureus infection; Z48.01 Encounter for change or removal of surgical wound dressing
CPT/HCPCS: 36592; 80053; 82550; 85025; 85651; 86140; G0463

== ENCOUNTER 2022-06-08 08:59 | Outpatient (CLI) | payer OTHER, SELFPAY | END 2022-06-08 09:45 | disposition home or self-care (01) | PROVIDERS: PCP Family Medicine; Visit Provider Podiatrist | DX: L03.116 Cellulitis of left lower limb (principal); Z86.14 Personal history of Methicillin resistant Staphylococcus aureus infection; Z48.01 Encounter for change or removal of surgical wound dressing | CPT/HCPCS: G0463 ==

== ENCOUNTER 2022-06-09 09:40 | Outpatient (CLI) | payer OTHER, SELFPAY | END 2022-06-09 10:31 | disposition home or self-care (01) | LOC: INF 09:40 | PROVIDERS: PCP Family Medicine; Visit Provider Podiatrist | DX: L03.116 Cellulitis of left lower limb (principal); Z86.14 Personal history of Methicillin resistant Staphylococcus aureus infection; Z48.01 Encounter for change or removal of surgical wound dressing | CPT/HCPCS: G0463 ==

== ENCOUNTER 2022-06-11 08:44 | Outpatient (CLI) | payer OTHER, SELFPAY | END 2022-06-11 09:30 | disposition home or self-care (01) | LOC: INF 08:45 | PROVIDERS: PCP Family Medicine; Visit Provider Podiatrist | DX: L03.116 Cellulitis of left lower limb (principal); Z86.14 Personal history of Methicillin resistant Staphylococcus aureus infection; Z48.01 Encounter for change or removal of surgical wound dressing | CPT/HCPCS: G0463 ==

== ENCOUNTER 2022-06-12 09:38 | Outpatient (CLI) | payer OTHER, SELFPAY | END 2022-06-12 10:15 | disposition home or self-care (01) | LOC: INF 09:38 | PROVIDERS: PCP Family Medicine; Visit Provider Podiatrist | DX: L03.116 Cellulitis of left lower limb (principal); Z86.14 Personal history of Methicillin resistant Staphylococcus aureus infection; Z48.01 Encounter for change or removal of surgical wound dressing | CPT/HCPCS: G0463 ==

== ENCOUNTER 2022-06-13 09:52 | Outpatient (CLI) | payer OTHER, SELFPAY | END 2022-06-13 10:35 | disposition home or self-care (01) | LOC: INF 09:53 | PROVIDERS: PCP Family Medicine; Visit Provider Podiatrist | DX: L03.116 Cellulitis of left lower limb (principal); Z86.14 Personal history of Methicillin resistant Staphylococcus aureus infection; Z48.01 Encounter for change or removal of surgical wound dressing | CPT/HCPCS: G0463 ==

== ENCOUNTER 2022-06-14 09:36 | Outpatient (CLI) | payer OTHER, SELFPAY ==
[2022-06-14 10:00] VITALS: BMI 37.3
[2022-06-14 10:34] LABS: Basophils # 0.1 K/mm3 (0-0.2); Basophils % 1.1 % (0.1-2.0); Eosinophils # 0.4 K/mm3 (0.0-0.4); Eosinophils % 4.5 % (0.1-12.0); Hematocrit 43.1 % (42.0-52.0); Hemoglobin 14.6 g/dL (14.1-18.0); Lymphocytes # 0.9 K/mm3 (0.7-4.5); Mean Corpuscular HGB Conc 33.8 g/dL (31.8-35.4); Mean Corpuscular Hemoglobin 26.9 pg (27.0-31.2); Mean Corpuscular Volume 79.6 fl (80-94); Mean Platelet Volume 7.1 fl (7.4-10.4); Monocytes # 0.5 K/mm3 (0.1-1.0); Monocytes % 6.3 % (1.7-9.3); Neutrophils # 6.6 K/mm3 (1.8-7.8); Neutrophils % 77.2 % (37.0-80.0); Platelet Count 169 K/mm3 (142-424); Red Blood Count 5.41 M/mm3 (4.60-6.20); Red Cell Distribution Width 15.2 % (11.5-17.5); White Blood Count 8.5 K/mm3 (4.8-10.8)
[2022-06-14 10:49] LABS: Chloride 103 mmol/L (98-107); Sodium 138 mmol/L (136-145)
[2022-06-14 10:50] LABS: Potassium 4.1 mmoL/L (3.5-5.1)
[2022-06-14 10:52] LABS: Alanine Aminotransferase 32 U/L (12-78); Albumin Level 4.4 g/dl (3.5-5.0); Alkaline Phosphatase 63 U/L (38-126); Aspartate Amino Transferase 39 U/L (17-59); Bilirubin,Total 0.5 mg/dl (0.2-1.3); Blood Urea Nitrogen 34 mg/dl (9-20); Creatinine Clearance Estimated 116 mL/min (50-200); Estimated Glomerular Filt Rate 57 ml/min (>60); GFR (African American) 69 ML/MIN (>60)
[2022-06-14 10:53] LABS: Albumin/Globulin Ratio 1.3 (1.1-1.8); Anion Gap 13.1 mEq/L (5-15); Calcium 9.9 mg/dl (8.4-10.2); Carbon Dioxide 26 mmol/L (22.0-30.0); Globulin 3.4 g/dL (1.3-3.2); Glucose 135 mg/dl (74-100); Total Protein,Serum 7.8 g/dl (6.3-8.2)
[2022-06-14 10:58] LABS: Creatine Kinase 115 U/L (55-170)
[2022-06-14 11:01] LABS: Erythrocyte Sedimentation Rate 12 mm/hr (0-20)
[2022-06-14 11:05] LABS: C-Reactive Protein 3.1 mg/L (0-4)
== END 2022-06-14 10:35 | disposition home or self-care (01) ==
PROVIDERS: PCP Family Medicine; Visit Provider Podiatrist
DX: L03.116 Cellulitis of left lower limb (principal); Z86.14 Personal history of Methicillin resistant Staphylococcus aureus infection; Z48.01 Encounter for change or removal of surgical wound dressing
CPT/HCPCS: 36592; 80053; 82550; 85025; 85651; 86140; G0463

== ENCOUNTER → 2022-06-14 15:53 | Outpatient (CLI) | payer OTHER, SELFPAY | PROVIDERS: PCP Family Medicine; Visit Provider Podiatrist | DX: E11.621 Type 2 diabetes mellitus with foot ulcer (principal); L97.529 Non-pressure chronic ulcer of other part of left foot with unspecified severity; Z20.822 Contact with and (suspected) exposure to COVID-19; Z79.4 Long term (current) use of insulin | CPT/HCPCS: 83036; C9803; U0003; U0005 ==

== ENCOUNTER 2022-06-16 07:13 | Day surgery (SDC) | payer OTHER, SELFPAY ==
[2022-06-15 10:04] VITALS: BMI 37.2
[2022-06-16] VITALS (10 sets, daily range): BP systolic 110–145; BP diastolic 65–97; PULSE 63–98; RESP 14–20; TEMP 36.1–36.3; O2SAT 94–98
[2022-06-16 07:47] LABS: POC Glucose,Bedside 102 (70-110)
--- NOTE | 2022-06-16 08:13 | HMH.ANESCL ---
[facility] Anesthesia Checklist - Patient Identification Patient Identification: Arm Band - Structural Data Admitted From: Home Planned Operative Procedure/s: Left Transmetatarsal Amputation Consent for Planned Operative Procedure(s) Verified: Yes Verified Documents: Surgical Consent, History and Physical - NPO Status Verified Time NPO: 00:00 - Additional verifications Anesthesia Reactions: No Hx Blood Transfusions: No Blood Transfusion Reaction: No - Airway Assessment C-Spine Mobility Assessed: Yes (mp2) TMJ Mobility Assessed: Yes Dentition: Good Dentition - Neurological Assessment Level of Consciousness: Awake, Alert - Anesthesia Plan Anesthesia Risk discussed: Yes Anesthesia Plan: Verified ASA Class: III Anesthesia Type: MAC [facility] History I have reviewed the patient's past medical history: Yes Medical History: Reports:: Aneurysm, Carotid Stenosis, Coronary Artery Disease, Diabetes Mellitus Type 2, Hyperlipidemia, Hypertension, MRSA, Peripheral Artery Disease, Supraventricular Tachycardia Denies:: Cancer, Diabetes Mellitus Type 1, Internal Pacemaker, Seizures *Have you ever received a pneumonia vaccine?: No *Have you received a flu vaccine this season?: No Other Medical History: Reports: Arthritis. Denies: Blood Transfusion Reaction Anesthesia experience/problems:: nac Other Surgeries: Yes: Appendectomy, CABG, Cardiac Catheterization, Cardiac Surgery, Colonoscopy, Coronary Stent, Other. No: Pacemaker Amputation: Yes (4th toe left foot) Fractures: No - *Social History Last grade of school completed: High school graduate Smoking Status: Never smoker Tobacco Type: cigarettes # Packs/Day (cigarettes): 1 #Yrs smoked (if former smoker): 30 Alcohol Intake: never Alcohol Intake Frequency:: holidays/special occasions only Substance Use Type: denies use *Occupational Status:: unemployed Housing: house Household Members: none *Travel in the last 8 weeks: None Family Hx:: Diabetes, Kidney Disease
[2022-06-16 08:24] LABS: POC Glucose,Bedside 79 (70-110)
--- NOTE | 2022-06-16 08:53 | XR_ITS ---
FINAL REPORT CLINICAL HISTORY: Post op TMA COMPARISON: 05/19/2022 FINDINGS: LEFT FOOT Three views were obtained. There is no acute fracture or dislocation. There has been interval amputation of the 1st, 2nd, 3rd, and 5th digits at the level of the metatarsals. A drain is present. IMPRESSION: Interval amputation as above. Reviewed, Interpreted and Dictated by Norm Mederos III, MD Transcribed by Cortney Mobley Authenticated and [facility]
[2022-06-16 09:24] LABS: POC Glucose,Bedside 159 (70-110)
--- NOTE | 2022-06-16 09:42 | XR_ITS ---
FINAL REPORT CLINICAL HISTORY: LEFT TRANSMETATARSAL AMPUTATION FINDINGS: FLUORO TIME PROCEDURE: Fluoroscopy in the operating room. Fluoroscopy time was provided by the radiology department for the clinical service. One spot film was obtained. Fluoroscopy exposure time: 0:05 minute IMPRESSION: See above Reviewed, Interpreted and Dictated by Norm Mederos III, MD Transcribed by Georgiana Dillard Authenticated and [facility]
--- NOTE | 2022-06-16 10:40 | SUR.OPER ---
1040-family updated at this time
--- NOTE | 2022-06-16 10:52 | P.PN_ITS ---
[facility] Anesthesia Record Part I Intake, IV Amount: 450 Estimated blood loss (mL): 25 Urine output (mL): 0 Blood Pressure: 145/97 SaO2: 94 Pulse Rate: 63 Respiratory Rate: 18 Temperature: 97.0 F Patient is:: Drowsy Stable to PACU at:: 10:47
--- NOTE | 2022-06-16 11:05 | HMH.OPNOTE ---
Date of procedure: 06/16/22 Pre-op Diagnosis:: 1. S/p left foot surgery, gangrene non-healing wound 2. Ulcer of left foot due to type 2 diabetes mellitus 3. Non-compliance with treatment 4. Hx of MRSA, VRE 5. Type 2 diabetes mellitus with diabetic neuropathy, with long-term current use of insulin 6. PAD, gangrene 7. Obesity, Class II, BMI 35-39.9 Post-op Diagnosis:: Same Procedure performed:: 1. Left TMA (transmetatarsal amputation) 2. Left open bone biospy 3. Left adjacent soft tissue rearrangement 4. Secondary wound closure with use of skin closure device (Suturegard Hemigard-adhesive suture retention device) 5. Application of MARINA drain Surgeon:: Bailey Vasquez DPM SENIOR SAS DEVELOPER:: Other ([place]ama) Anesthesia: local (25cc 0.5% marcaine plain), LMA Estimated blood loss (mL): 20 Clinical Note:: Patient is a 56-year-old diabetic male who presents with worsening gangrene to the left foot. He has had several surgical procedures including biopsies, debridement and partial fourth ray amputation, on 03/24/22 and 05/19/22. Unfortunately due to the circulation in his incision to the partial fourth ray amputation site has not healed and is now gangrene. He has a diabetic foot ulcer subfifth metatarsal. Patient has been noncompliant with weightbearing. He has had oral antibiotics, most recently Zyvox. He had PICC line with IV Dapto for MRSA and VRE. We discussed conservative versus surgical treatment options. Conservative treatment options include local wound care, oral and IV antibiotics, change in shoe wear, taping/padding, and off-loading. We discussed surgical intervention for transmetatarsal amputation. Patient understands that there is a chance that the foot may change shape after surgery. Patient understands that they could have wound healing complications including delayed healing and infection. We discussed that if the wound does not heal, it is possible that they may need a more proximal amputation and could result in further loss of partial foot or loss of leg. We discussed the risks and benefits in great detail. Other surgical risks include: prolonged pain and swelling, further infection requiring oral or IV antibiotics, delay in healing of soft tissue or bone, nerve or blood vessel damage, CRPS/RSD, DVT, anesthesia complications, and even . All questions answered. Patient verbalized understanding. Consent obtained. Pre-op labs: ESR, CRP, Ha1c, CBC, CMP, covid reviewed. Operative findings:: This is a return to the operating room for a nonhealing ulcer with gangrene of a prior left fourth partial ray amputation. Since that surgery there has been a new diabetic foot ulcer subfifth metatarsal. Some dusky discoloration along with dark black eschar. No purulent drainage. Mild maceration noted to plantar incision and interspace. There is an ulcer noted to left plantar lateral fifth metatarsal. Wound base 20% yellow, 80% brown/black eschar and measured 1.5 x 0.2 x 0.1cm. Toes removed without complication. No purulence or recurrent signs of osteomyelitis to the toes. Metatarsals were evaluated. Metatarsals 1, 2, 3 and 5 were within normal limits hard in texture and normal color. There is significant scarring over the prior amputation site with skin some skin contracture noted plantarly along previous fourth metatarsal amputation site. There was minimal bleeding distally. Once the TMA had been performed there was blood flow noted from the bone and the tissue. However no tourniquet was utilized and no electrocautery as a bleeding was minimal. Some of the small blood vessels were evaluated and noted to be clotted off by the end of the case. modifier: Case is related to a prior surgery. Patient's history of noncompliance, diabetes and peripheral arterial disease status post revascularization have contributed to the nonhealing incision and formation of a new diabetic wound. This case took 40-45 minutes longer than normal due to new diabetic ulcer, significant scar contracture a
[2022-06-16 11:08] LABS: POC Glucose,Bedside 106 (70-110)
[2022-06-16 11:08] LABS: POC Glucose,Bedside 73 (70-110)
--- NOTE | 2022-06-16 11:15 | SUR.PHASEI ---
1046- blood sugar taken via finger stick - 73 danielle administered 15ml of d50 and wanted to recheck in 15 minutes. 1103- blood sugar taken at this time- 106. padma Stapleton notified and is okay with this.
--- NOTE | 2022-06-16 11:56 | SUR.PHASEI ---
1120- detailed report called to kulwinder kendall in post op at this time.
[2022-06-17 07:18] VITALS: BP 145/95; PULSE 95; TEMP 36.2
--- NOTE | 2022-06-17 07:18 | HMH.ANESII ---
[facility] Anesthesia Record Part II Discharge Time: 11:16 Destination: Surgical Day Care (OP Surgery) PACU nurse assessment reviewed?: Yes Patient Condition:: Good Anesthesia Complications:: None Swallowing reflex intact?: Yes Cyanosis?: No Blood Pressure: 145/95 Pulse Rate: 95 Temperature: 97.2 F Mental Status: Alert & Oriented Pain level:: 0 Nausea and/or vomitting:: None Intake, IV Amount: 0
== END 2022-06-16 12:05 | disposition home or self-care (01) ==
LOC: OR 07:17
PROVIDERS: PCP Family Medicine; Visit Provider Podiatrist
PROC: (CPT 28805; principal; 2022-06-16 08:45)
DX: E11.621 Type 2 diabetes mellitus with foot ulcer (principal); E11.628 Type 2 diabetes mellitus with other skin complications; L98.493 Non-pressure chronic ulcer of skin of other sites with necrosis of muscle; Z79.01 Long term (current) use of anticoagulants; Z79.4 Long term (current) use of insulin; Z79.899 Other long term (current) drug therapy; T81.31XA Disruption of external operation (surgical) wound, not elsewhere classified, initial encounter; I25.10 Atherosclerotic heart disease of native coronary artery without angina pectoris; I10 Essential (primary) hypertension; I65.23 Occlusion and stenosis of bilateral carotid arteries; E11.40 Type 2 diabetes mellitus with diabetic neuropathy, unspecified; L03.116 Cellulitis of left lower limb; Z91.19 Patient's noncompliance with other medical treatment and regimen
CPT/HCPCS: 28805; 20240; 27685; 11981; 73620; 73630; 76000; 82962; 88304; 96374; J0878; J2405

== ENCOUNTER 2022-06-21 10:57 | Outpatient (CLI) | payer OTHER, SELFPAY ==
[2022-06-21 10:58] VITALS: BMI 37.3
[2022-06-21 11:19] LABS: Basophils % 0.4 % (0.1-2.0); Eosinophils # 0.2 K/mm3 (0.0-0.4); Eosinophils % 2.6 % (0.1-12.0); Hematocrit 33.8 % (42.0-52.0); Hemoglobin 11.3 g/dL (14.1-18.0); Lymphocytes # 0.9 K/mm3 (0.7-4.5); Lymphocytes % 9.7 % (10-50); Mean Corpuscular HGB Conc 33.6 g/dL (31.8-35.4); Mean Corpuscular Hemoglobin 26.5 pg (27.0-31.2); Mean Corpuscular Volume 78.9 fl (80-94); Monocytes # 0.5 K/mm3 (0.1-1.0); Monocytes % 5.1 % (1.7-9.3); Neutrophils # 7.5 K/mm3 (1.8-7.8); Neutrophils % 82.3 % (37.0-80.0); Platelet Count 211 K/mm3 (142-424); Red Blood Count 4.28 M/mm3 (4.60-6.20); Red Cell Distribution Width 15.7 % (11.5-17.5); White Blood Count 9.1 K/mm3 (4.8-10.8)
[2022-06-21 11:24] LABS: Chloride 102 mmol/L (98-107); Potassium 4.6 mmoL/L (3.5-5.1); Sodium 138 mmol/L (136-145)
[2022-06-21 11:27] LABS: Alanine Aminotransferase 23 U/L (12-78); Albumin Level 4.1 g/dl (3.5-5.0); Albumin/Globulin Ratio 1.1 (1.1-1.8); Alkaline Phosphatase 80 U/L (38-126); Anion Gap 15.6 mEq/L (5-15); Aspartate Amino Transferase 33 U/L (17-59); Bilirubin,Total 0.7 mg/dl (0.2-1.3); Blood Urea Nitrogen 30 mg/dl (9-20); Calcium 9.4 mg/dl (8.4-10.2); Carbon Dioxide 25 mmol/L (22.0-30.0); Creatine Kinase 138 U/L (55-170); Creatinine Clearance Estimated 94 mL/min (50-200); Estimated Glomerular Filt Rate 45 ml/min (>60); GFR (African American) 54 ML/MIN (>60); Globulin 3.6 g/dL (1.3-3.2); Glucose 125 mg/dl (74-100); Total Protein,Serum 7.7 g/dl (6.3-8.2)
[2022-06-21 11:33] LABS: C-Reactive Protein 94.9 mg/L (0-4)
[2022-06-21 11:56] LABS: Erythrocyte Sedimentation Rate 92 mm/hr (0-20)
== END 2022-06-21 11:15 | disposition home or self-care (01) ==
LOC: INF 10:58
PROVIDERS: PCP Family Medicine; Visit Provider Podiatrist
DX: L03.116 Cellulitis of left lower limb (principal); Z86.14 Personal history of Methicillin resistant Staphylococcus aureus infection; Z48.01 Encounter for change or removal of surgical wound dressing
CPT/HCPCS: 80053; 82550; 85025; 85651; 86140; G0463

== ENCOUNTER → 2022-06-28 16:47 | Outpatient (CLI) | payer MEDICAID, SELFPAY ==
[2022-06-28 11:38] LABS: Basophils # 0.1 K/mm3 (0-0.2); Basophils % 0.6 % (0.1-2.0); Eosinophils # 0.3 K/mm3 (0.0-0.4); Eosinophils % 3.3 % (0.1-12.0); Hemoglobin 11.8 g/dL (14.1-18.0); Lymphocytes % 10.1 % (10-50); Mean Corpuscular Hemoglobin 25.9 pg (27.0-31.2); Mean Corpuscular Volume 80.9 fl (80-94); Mean Platelet Volume 7.9 fl (7.4-10.4); Monocytes # 0.5 K/mm3 (0.1-1.0); Monocytes % 5.3 % (1.7-9.3); Neutrophils # 8.2 K/mm3 (1.8-7.8); Neutrophils % 80.7 % (37.0-80.0); Platelet Count 314 K/mm3 (142-424); Red Blood Count 4.58 M/mm3 (4.60-6.20); Red Cell Distribution Width 17.3 % (11.5-17.5); White Blood Count 10.2 K/mm3 (4.8-10.8)
[2022-06-28 11:44] LABS: Chloride 103 mmol/L (98-107); Potassium 4.4 mmoL/L (3.5-5.1); Sodium 139 mmol/L (136-145)
[2022-06-28 11:46] LABS: Blood Urea Nitrogen 36 mg/dl (9-20); Estimated Glomerular Filt Rate 45 ml/min (>60); GFR (African American) 54 ML/MIN (>60)
[2022-06-28 11:47] LABS: Alanine Aminotransferase 30 U/L (12-78); Albumin Level 4.4 g/dl (3.5-5.0); Albumin/Globulin Ratio 1.1 (1.1-1.8); Alkaline Phosphatase 125 U/L (38-126); Anion Gap 13.4 mEq/L (5-15); Aspartate Amino Transferase 36 U/L (17-59); Bilirubin,Total 0.3 mg/dl (0.2-1.3); Calcium 9.6 mg/dl (8.4-10.2); Carbon Dioxide 27 mmol/L (22.0-30.0); Glucose 95 mg/dl (74-100); Total Protein,Serum 8.4 g/dl (6.3-8.2)
[2022-06-28 11:53] LABS: C-Reactive Protein 56.6 mg/L (0-4)
[2022-06-28 13:13] LABS: Erythrocyte Sedimentation Rate 68 mm/hr (0-20)
== END ==
PROVIDERS: Visit Provider Podiatrist
DX: Z98.890 Other specified postprocedural states (principal)
CPT/HCPCS: 80053; 85025; 85651; 86140

== ENCOUNTER → 2022-07-12 15:23 | Outpatient (CLI) | payer MEDICAID, SELFPAY ==
--- NOTE | 2022-07-12 15:26 | XR_ITS ---
FINAL REPORT CLINICAL HISTORY: pain, wound COMPARISON: 06/16/2022 FINDINGS: LEFT FOOT Three views of the left foot were obtained. Postoperative changes are again seen from transmetatarsal amputation. The drain has been removed. A calcaneal spur is noted. Mild degenerative changes are seen. There is no acute bony erosion. There is soft tissue air in the distal foot of uncertain significance and may represent postoperative change or infection. IMPRESSION: Postoperative changes from transmetatarsal amputation with interval drain removal. Soft tissue air in the distal foot of uncertain significance, postoperative change versus infection. Reviewed, Interpreted and Dictated by Norm Mederos III, MD Transcribed by Joan Swain Authenticated and . [facility]
--- NOTE | 2022-07-12 16:08 | ECG_ITS ---
APPROVED REPORT Exam: Resting ECG HR:89 bpm ECG Measurements Heart Rate 89 AXES CA 179 P 45 QRSd 92 QRS 85 QT 344 T -31 QTc 391 Conclusion SINUS RHYTHM WITH OCCASIONAL VENTRICULAR PREMATURE COMPLEXES INCOMPLETE RIGHT BUNDLE BRANCH BLOCK [90+ ms QRS DURATION, TERMINAL R IN V1/V2, 40+ ms S IN I/aVL/V4/V5/V6] POSSIBLE INFERIOR MYOCARDIAL INFARCTION , OF INDETERMINATE AGE [30 ms Q WAVE IN II/aVF] ABNORMAL ECG UNCONFIRMED REPORT Electronically signed by : Tray Dill MD 07/13/2022 13:52:13
[2022-07-12 16:55] LABS: Basophils # 0.1 K/mm3 (0-0.2); Basophils % 0.7 % (0.1-2.0); Eosinophils # 0.3 K/mm3 (0.0-0.4); Eosinophils % 2.6 % (0.1-12.0); Hematocrit 41.9 % (42.0-52.0); Hemoglobin 12.7 g/dL (14.1-18.0); Lymphocytes # 1.1 K/mm3 (0.7-4.5); Lymphocytes % 11.4 % (10-50); Mean Corpuscular HGB Conc 30.3 g/dL (31.8-35.4); Mean Corpuscular Hemoglobin 25.3 pg (27.0-31.2); Mean Corpuscular Volume 83.3 fl (80-94); Mean Platelet Volume 8.1 fl (7.4-10.4); Monocytes # 0.6 K/mm3 (0.1-1.0); Monocytes % 6.3 % (1.7-9.3); Neutrophils # 7.6 K/mm3 (1.8-7.8); Neutrophils % 79.1 % (37.0-80.0); Platelet Count 326 K/mm3 (142-424); Red Blood Count 5.02 M/mm3 (4.60-6.20); Red Cell Distribution Width 17.9 % (11.5-17.5); White Blood Count 9.6 K/mm3 (4.8-10.8)
[2022-07-12 18:22] LABS: Alanine Aminotransferase 19 U/L (12-78); Albumin Level 4.2 g/dl (3.5-5.0); Albumin/Globulin Ratio 1.2 (1.1-1.8); Alkaline Phosphatase 92 U/L (38-126); Anion Gap 14.8 mEq/L (5-15); Aspartate Amino Transferase 26 U/L (17-59); Bilirubin,Total 0.3 mg/dl (0.2-1.3); Blood Urea Nitrogen 23 mg/dl (9-20); Calcium 9.6 mg/dl (8.4-10.2); Carbon Dioxide 28 mmol/L (22.0-30.0); Chloride 104 mmol/L (98-107); Estimated Glomerular Filt Rate 45 ml/min (>60); GFR (African American) 54 ML/MIN (>60); Globulin 3.4 g/dL (1.3-3.2); Glucose 99 mg/dl (74-100); Potassium 4.8 mmoL/L (3.5-5.1); Sodium 142 mmol/L (136-145); Total Protein,Serum 7.6 g/dl (6.3-8.2)
[2022-07-12 18:27] LABS: C-Reactive Protein 8.2 mg/L (0-4)
[2022-07-12 19:03] LABS: Erythrocyte Sedimentation Rate 65 mm/hr (0-20)
== END ==
PROVIDERS: PCP Family Medicine; Visit Provider Podiatrist
DX: Z98.890 Other specified postprocedural states (principal); Z20.822 Contact with and (suspected) exposure to COVID-19
CPT/HCPCS: 36415; 73630; 80053; 85025; 85651; 86140; 87070; 87077; 87186; 87205; 93005; C9803; U0003; U0005

== ENCOUNTER 2022-07-14 10:27 | Day surgery (SDC) | payer MEDICAID, SELFPAY ==
[2022-07-13 09:37] VITALS: BMI 37.2
[2022-07-14] VITALS (20 sets, daily range): BP systolic 89–168; BP diastolic 53–84; PULSE 89–98; RESP 9–19; TEMP 36.1–43; O2SAT 94–97
--- NOTE | 2022-07-14 11:51 | HMH.ANESCL ---
[facility] Anesthesia Checklist - Patient Identification Patient Identification: Arm Band - Structural Data Admitted From: Home Planned Operative Procedure/s: Left Foot Wound Debridement, Transmetatarsal Amputation Consent for Planned Operative Procedure(s) Verified: Yes Verified Documents: Surgical Consent, History and Physical - NPO Status Verified Time NPO: 00:00 - Additional verifications Anesthesia Reactions: No Hx Blood Transfusions: No Blood Transfusion Reaction: No - Airway Assessment C-Spine Mobility Assessed: Yes (mp2) TMJ Mobility Assessed: Yes Dentition: Good Dentition - Neurological Assessment Level of Consciousness: Awake, Alert - Anesthesia Plan Anesthesia Risk discussed: Yes Anesthesia Plan: Verified ASA Class: III Anesthesia Type: General [facility] History I have reviewed the patient's past medical history: Yes Medical History: Reports:: Aneurysm, Carotid Stenosis, Coronary Artery Disease, Diabetes Mellitus Type 2, Hyperlipidemia, Hypertension, Peripheral Artery Disease, Supraventricular Tachycardia Denies:: Cancer, Diabetes Mellitus Type 1, Internal Pacemaker, MRSA, Seizures *Have you ever received a pneumonia vaccine?: No *Have you received a flu vaccine this season?: Yes Other Medical History: Reports: Arthritis. Denies: Blood Transfusion Reaction Anesthesia experience/problems:: nac Other Surgeries: Yes: Appendectomy, CABG, Cardiac Catheterization, Cardiac Surgery, Colonoscopy, Coronary Stent, Other. No: Pacemaker Amputation: Yes (4th toe left foot) Fractures: No - *Social History Last grade of school completed: High school graduate Smoking Status: Never smoker Tobacco Type: cigarettes # Packs/Day (cigarettes): 1 #Yrs smoked (if former smoker): 30 Alcohol Intake: never Alcohol Intake Frequency:: holidays/special occasions only Substance Use Type: denies use *Occupational Status:: employed Housing: house Household Members: none *Travel in the last 8 weeks: None Family Hx:: No significant family history
--- NOTE | 2022-07-14 13:04 | XR_ITS ---
FINAL REPORT CLINICAL HISTORY: REVISIONAL 4th TRANSMETATARSAL AMPUTATION Fluoro time: 0.02 FINDINGS: FLUORO TIME PROCEDURE: Fluoroscopy in the operating room. Fluoroscopy time was provided by the radiology department for the clinical service. One spot film was obtained. Fluoroscopy exposure time: 0:02 minute IMPRESSION: See above Reviewed, Interpreted and Dictated by Norm Mederos III, MD Transcribed by Georgiana Dillard Authenticated and [facility]
--- NOTE | 2022-07-14 14:15 | XR_ITS ---
FINAL REPORT CLINICAL HISTORY: Post op revision TMA COMPARISON: 07/12/2022 FINDINGS: LEFT FOOT Three views of the left foot demonstrate interval postoperative changes with further resection of the metatarsals. There are mild degenerative changes and calcaneal spurs. Multiple antibiotic beads are now seen at the stump. IMPRESSION: Postoperative change as described. Reviewed, Interpreted and Dictated by Norm Mederos III, MD Transcribed by Georgiana Dillard Authenticated and . [facility]
--- NOTE | 2022-07-14 15:09 | HMH.ANESI ---
[facility] Anesthesia Record Part I Intake, IV Amount: 1,500 Estimated blood loss (mL): 0 Urine output (mL): 0 Blood Pressure: 125/83 SaO2: 94 Pulse Rate: 95 Respiratory Rate: 12 Temperature: 97.4 F Patient is:: Awake, Stable Stable to PACU at:: 15:05
[2022-07-14 15:23] LABS: POC Glucose,Bedside 97 (70-110)
--- NOTE | 2022-07-14 15:25 | HMH.OPNOTE ---
Date of procedure: 07/14/22 Pre-op Diagnosis:: Status post foot surgery on 05/19/22 Post op healing, wound dehiscence and gangrene Gangrene due to peripheral vascular disease Other chronic osteomyelitis of left foot Cellulitis of left foot Hx of MRSA PAD (peripheral artery disease) Type 2 diabetes mellitus with diabetic neuropathy, with long-term current use of insulin Non-compliance with treatment Obesity, Class II, BMI 35-39.9 Post-op Diagnosis:: Same Procedure performed:: Modifier 78 1. Left TMA (45916) revision 2. Left foot adjacent tissue transfer/rearrangment (42183) 3. Secondary closure of surgical wound (19007) 4. Left foot I&D bone cortex (26034) 5. Left dorsal foot wound debridement 6. Left foot open bone biopsy () 7. PMMA bead insertion (98473) 8. Application of wound vac (06446) Surgeon:: Bailey Vasquez DPM BLASTING MINER:: Oli Samuel Anesthesia: LMA Estimated blood loss (mL): 20 Clinical Note:: Patient is a 56-year-old diabetic male who presents with left TMA wound dehiscence with 2 new wound openings and gangrene. Explained these are tracks potential portals of infection and he can get recurrent cellulitis or OM if not closed/coverage. Discussed treatment including local wound care for surgical debridement with wound VAC application. He has agreed to surgery. Shira the need for possible oral versus IV antibiotics. History of multidrug-resistant bacteria and PICC line with daptomycin usage. Patient understands that there is a chance that the foot may change shape after surgery. Patient also understands that they could have wound healing complications including delayed healing and infection. We discussed that if the wound does not heal, it is possible that they may need a more proximal amputation and could result in further loss of partial foot or loss of leg. We discussed the risks and benefits in great detail. Other surgical risks include: prolonged pain and swelling, further infection requiring oral or IV antibiotics, delay in healing of soft tissue or bone, nerve or blood vessel damage, CRPS/RSD, DVT, anesthesia complications, and even . All questions answered. Patient verbalized understanding. Consent obtained. Pre-op labs: ESR, CRP, Ha1c, CBC, CMP, EKG, covid. Operative findings:: Hx surgery, 06/16/22: s/p 1. Left TMA, 2. Left open bone biospy, 3. Left adjacent soft tissue rearrangement, 4. Secondary wound closure with use of skin closure device (Suturegard Hemigard-adhesive suture retention device). This is an unplanned return to the OR due to patient's comorbidities including diabetes and PAD with previous revascularization attempt. Due to his poor circulation the flap and there is now gangrene. Left foot prior TMA with gangrene and wound dehiscence noted to the dorsal medial incisional flap. Ulcer noted to the inferior aspect of the prior flap 100% yellow fibrotic tissue and measuring approximately 3 x 1.5 x 0.1 cm. The dorsal medial wound dehiscence had gangrenous black eschar with necrotic yellow sloughing and probes to 1st metatarsal bone capsule. Lateral incision: 2.2 x 1.0 x 1.5cm, thru skin, subq, into deep fascia, 25% yellow and 75% brown-black tissue. Both ulcers excised full-thickness through skin subcu and deep fascia. Bone right under the medial wound appeared intact but was soft in texture. All previous sutures and aliyah were removed, flap reopened, ulcer was excised and nonviable tissue sharply excisionally debrided as above. Once all nonviable soft tissue was sharply excisionally debrided with 15 blade and forceps there is a large defect of over [id number] cm full-thickness extending to the metatarsal bones 1-5. No purulence noted from the bones. Resection of the meds 1?5, revisional transmetatarsal amputation due to diabetes, small vessel disease, peripheral arterial disease and history of cellulitis with osteomyelitis. Modifier: This case took 1 hour longer than normal due to the revisional nature including more extensive
--- NOTE | 2022-07-14 16:14 | SUR.PHASEI ---
1613- detailed report given to kulwinder arreaga in post op at this time. 1614- pt left in stable condition with kulwinder arreaga
[2022-07-14 22:54] LABS: POC Glucose,Bedside 121 (70-110)
[2022-07-15 08:04] VITALS: BP 98/64; PULSE 89; TEMP 36.2
--- NOTE | 2022-07-15 08:04 | P.PN_ITS ---
[facility] Anesthesia Record Part II Discharge Time: 16:13 Destination: Surgical Day Care (OP Surgery) PACU nurse assessment reviewed?: Yes Patient Condition:: Good Anesthesia Complications:: None Swallowing reflex intact?: Yes Cyanosis?: No Blood Pressure: 98/64 Pulse Rate: 89 Temperature: 97.2 F Mental Status: Alert & Oriented Pain level:: 4 Nausea and/or vomitting:: None Intake, IV Amount: 0
== END 2022-07-14 17:06 | disposition home or self-care (01) ==
LOC: OR 10:28
PROVIDERS: PCP Family Medicine; Visit Provider Podiatrist
PROC: (CPT 28805; principal; 2022-07-14 12:15)
DX: T81.31XA Disruption of external operation (surgical) wound, not elsewhere classified, initial encounter (principal); Z79.4 Long term (current) use of insulin; Z79.899 Other long term (current) drug therapy; I70.262 Atherosclerosis of native arteries of extremities with gangrene, left leg; E11.621 Type 2 diabetes mellitus with foot ulcer; E11.628 Type 2 diabetes mellitus with other skin complications; L03.116 Cellulitis of left lower limb; I25.10 Atherosclerotic heart disease of native coronary artery without angina pectoris; I10 Essential (primary) hypertension; I65.23 Occlusion and stenosis of bilateral carotid arteries; L98.493 Non-pressure chronic ulcer of skin of other sites with necrosis of muscle; Z91.19 Patient's noncompliance with other medical treatment and regimen; E11.40 Type 2 diabetes mellitus with diabetic neuropathy, unspecified; F17.210 Nicotine dependence, cigarettes, uncomplicated
CPT/HCPCS: 28805; 73620; 73630; 82962; 87070; 87077; 87186; 87205; 88304; 96374; C1713; J0878; J2405; J3370

== ENCOUNTER 2022-07-19 17:00 | Outpatient (RCR) | payer MEDICAID, SELFPAY ==
--- NOTE | 2022-07-15 15:14 | HMH.PTOPWND ---
Rehab Outpt Wound Evaluation Rehab OP Wound Evaluation Start: 07/15/22 15:07 Freq: Status: Active Protocol: Document 07/15/22 15:07 RHEAKATHRINE (Rec: 07/15/22 15:13 RHEAKATHRINE [id number]) Electronically Signed By Woodrow Rouse, ARABELLA 07/15/22 15:07 Subjective/History History History This is the initial wound clinic evaluation for Jewel Jara II. Pt is a 56 y/o male referred to PT wound clinic for wound care s/p L TMA, w/ post sugical I&D and recent bone biopsy. Pt had TMA ~ 3 weeks ago and developed necrotic flap which required surgical debridement and irrigation. Subjective Subjective Pt reports c/o TTP along incision and lower leg Wound Eval Wound Left Distal Foot Wound Type Incision Is This a Chronic Wound Yes Wound Length (cm) 16 Wound Width (cm) 1 Wound Bed Appearance Dusky Red,Yellow,Sutures, Necrotic Percentage Granulated (%) 50 Percentage of Slough (%) 50 Percentage of Eschar (Purple) (%) 25 Percentage of Necrosis ([place]) (%) 25 Wound Margins Description Well Defined Surrounding Tissue Appearance Purple,Indurated,Macerated Surrounding Tissue Temperature Cool Drainage Description Serosanguineous Drainage Amount Large Drainage Odor No Odor Dressing Status Changed Packing Type Woundvac Sponge Primary Dressing Silver Dressing Comment opticall ag Wound Secondary Dressing Type Film Dressing Comment woundvac film Wound Debridement Method Sharps Wound Debridement Amount of Tissue Minimal Removed Wound Debridement Result Yellow Sloughing Remains, Necrotic Tissue Remains Dressing Change Patient Tolerance Tolerated Well Wound Problems/Impairments Impairments Problems/Impairmments Palpation Tenderness,Wound Care Needs,Subjective C/O Pain ,Impaired Self Care/Self Management Prognosis Rehab Potential Poor Comment Pt has hx of non-compliance Clinical Impression Consistent with Diagnosis Yes Short Term Goals Number of Weeks 6 Decrease Wound Area Yes: 25 Decrease Yellow/White Slough % 10 Increase Red
== END 2022-07-19 17:05 | disposition home or self-care (01) ==
LOC: PT 17:00
PROVIDERS: PCP Family Medicine; Visit Provider Podiatrist
DX: L03.116 Cellulitis of left lower limb (principal); T81.31XA Disruption of external operation (surgical) wound, not elsewhere classified, initial encounter; E11.40 Type 2 diabetes mellitus with diabetic neuropathy, unspecified; I73.9 Peripheral vascular disease, unspecified; Z79.4 Long term (current) use of insulin; Z98.890 Other specified postprocedural states
CPT/HCPCS: 97163; 97597; 97598; 97605

== ENCOUNTER 2022-07-22 08:46 | Outpatient (CLI) | payer MEDICAID, SELFPAY ==
[2022-07-22 10:42] VITALS: BMI 38.1
--- NOTE | 2022-07-22 10:43 | XR_ITS ---
FINAL REPORT CLINICAL HISTORY: PICC line placement FINDINGS: A portable view of the chest was obtained. Comparison is made to a prior exam dated April 21, 2022. There is a new left PICC line with tip in the SVC. The patient is again noted to be status post median sternotomy. Cardiac and mediastinal silhouettes are within normal limits. The lungs are clear. There is no pleural effusion or pneumothorax. IMPRESSION: No acute process on this portable exam. New left PICC line with tip in the SVC. Reviewed, Interpreted and Dictated by Luzmaria Hicks MD Transcribed by Ibeth Baer Authenticated and [facility]
[2022-07-22 12:20] VITALS: BP 102/58; PULSE 81; RESP 18; TEMP 36.3; O2SAT 100
[2022-07-22 13:10] VITALS: BP 105/61; PULSE 83; RESP 18; O2SAT 99
== END 2022-07-22 13:10 | disposition home or self-care (01) ==
LOC: INF 08:47
PROVIDERS: PCP Registered Nurse; Visit Provider Podiatrist
DX: M86.672 Other chronic osteomyelitis, left ankle and foot (principal); Z89.512 Acquired absence of left leg below knee; Z48.01 Encounter for change or removal of surgical wound dressing
CPT/HCPCS: 36569; 71045; 96365; C1751; J0696

== ENCOUNTER 2022-07-23 09:42 | Outpatient (CLI) | payer MEDICAID, SELFPAY ==
[2022-07-23 10:05] VITALS: BP 99/72; PULSE 90; RESP 18; O2SAT 100
[2022-07-23 10:55] VITALS: BP 102/64; PULSE 85; RESP 18; O2SAT 99
== END 2022-07-23 10:55 | disposition home or self-care (01) ==
LOC: INF 09:42
PROVIDERS: PCP Family Medicine; Visit Provider Podiatrist
DX: M86.672 Other chronic osteomyelitis, left ankle and foot (principal)
CPT/HCPCS: 96365; J0696

== ENCOUNTER 2022-07-24 11:11 | Outpatient (CLI) | payer OTHER, SELFPAY | END 2022-07-24 12:40 | disposition home or self-care (01) | LOC: INF 11:13 | PROVIDERS: PCP Family Medicine; Visit Provider Podiatrist | DX: M86.172 Other acute osteomyelitis, left ankle and foot (principal) | CPT/HCPCS: 96365; G0463; J0696 ==

== ENCOUNTER 2022-07-26 10:31 | Outpatient (CLI) | payer OTHER, SELFPAY ==
[2022-07-26 10:35] VITALS: BMI 38.1
[2022-07-26 10:52] LABS: Basophils # 0.1 K/mm3 (0-0.2); Basophils % 0.6 % (0.1-2.0); Eosinophils # 0.3 K/mm3 (0.0-0.4); Eosinophils % 2.3 % (0.1-12.0); Hemoglobin 10.1 g/dL (14.1-18.0); Lymphocytes # 1.2 K/mm3 (0.7-4.5); Lymphocytes % 9.3 % (10-50); Mean Corpuscular HGB Conc 30.6 g/dL (31.8-35.4); Mean Corpuscular Hemoglobin 24.6 pg (27.0-31.2); Mean Corpuscular Volume 80.4 fl (80-94); Monocytes # 0.5 K/mm3 (0.1-1.0); Neutrophils # 10.5 K/mm3 (1.8-7.8); Neutrophils % 83.8 % (37.0-80.0); Platelet Count 542 K/mm3 (142-424); Red Blood Count 4.11 M/mm3 (4.60-6.20); Red Cell Distribution Width 18.2 % (11.5-17.5); White Blood Count 12.6 K/mm3 (4.8-10.8)
[2022-07-26 11:02] LABS: Anion Gap 12.9 mEq/L (5-15); Blood Urea Nitrogen 25 mg/dl (9-20); Carbon Dioxide 27 mmol/L (22.0-30.0); Chloride 102 mmol/L (98-107); Creatinine Clearance Estimated 81 mL/min (50-200); Estimated Glomerular Filt Rate 39 ml/min (>60); GFR (African American) 47 ML/MIN (>60); Glucose 117 mg/dl (74-100); Potassium 3.9 mmoL/L (3.5-5.1); Sodium 138 mmol/L (136-145)
[2022-07-26 11:07] LABS: C-Reactive Protein 117.4 mg/L (0-4)
[2022-07-26 11:17] VITALS: BP 78/53; PULSE 76; RESP 18; O2SAT 98
[2022-07-26 11:17] LABS: Erythrocyte Sedimentation Rate 118 mm/hr (0-20)
[2022-07-26 11:30] VITALS: BP 83/61; PULSE 75; RESP 18
--- NOTE | 2022-07-26 11:36 | PC.NURSE ---
1136-notified cardiology office of pt condition with symptomatic hypotension; spoke with kulwinder gunderson;pt to be seen when infusion complete
--- NOTE | 2022-07-26 11:40 | PC.NURSE ---
1140-called and left a message about pt foot; will wait for call back
[2022-07-26 11:55] VITALS: BP 95/56; PULSE 72; RESP 18; O2SAT 98
== END 2022-07-26 11:55 | disposition home or self-care (01) ==
LOC: INF 10:32
PROVIDERS: PCP Family Medicine; Visit Provider Podiatrist
DX: M86.672 Other chronic osteomyelitis, left ankle and foot (principal)
CPT/HCPCS: 80048; 85025; 85651; 86140; 96365; G0463; J0696

== ENCOUNTER 2022-07-26 12:33 | Inpatient (IN) | payer MEDICAID, SELFPAY ==
[2022-07-26] VITALS (11 sets, daily range): BP systolic 93–123; BP diastolic 53–84; PULSE 77–82; RESP 14–18; TEMP 36.6–37.2; O2SAT 95–100; BMI 36.6; BMI 34.0
--- NOTE | 2022-07-26 12:31 | ECG_ITS ---
APPROVED REPORT Exam: Resting ECG HR:81 bpm ECG Measurements Heart Rate 81 AXES VA 177 P 11 QRSd 97 QRS 11 QT 378 T 26 QTc 415 Conclusion SINUS RHYTHM WITH FREQUENT VENTRICULAR PREMATURE COMPLEXES NONSPECIFIC T-WAVE ABNORMALITY ABNORMAL RHYTHM ECG UNCONFIRMED REPORT Electronically signed by : Tray Dill MD 07/26/2022 20:07:29
--- NOTE | 2022-07-26 12:37 | PC.NURSE ---
Obtained ECG and gave pt a blanket and pillow
--- NOTE | 2022-07-26 12:46 | PC.NURSE ---
MANOJ HOWARD at for philip
--- NOTE | 2022-07-26 13:06 | HMH.EDGENADL ---
Discharge Plan Disposition Patient Disposition: Admitted As Inpatient Clinical Impressions Clinical Impression: Hypotension Discharge ED Provider: Henri Metcalf General Adult HPI General Stated complaint: Hypotension Time Seen by Provider: 07/26/22 12:40 History of Present Illness HPI narrative: This is a 56-year-old male with history of CAD, OR status post CABG currently on Eliquis and aspirin, diabetes status post left lower extremity amputations, hyperlipidemia, hypertension who is presenting with hypotension. Patient states that he was in an infusion clinic for antibiotics given concern for infection in his left foot. At infusion clinic he was noted to be hypotensive, so he was told to come to the ED for further evaluation. On arrival, patient denies any symptoms other than generalized fatigue. Related Data Home Medications Medication Instructions Recorded Confirmed metformin 1,000 mg tablet 1,000 mg PO BID Diabetes 01/10/19 07/26/22 rosuvastatin 40 mg tablet 40 mg PO HS Cholesterol 01/10/19 07/26/22 pregabalin 100 mg capsule 100 mg PO BID nerve pain 01/29/21 07/26/22 dulaglutide 1.5 mg/0.5 mL 1.5 mg SQ WEEKLY Diabetes 12/10/21 07/26/22 subcutaneous pen injector (Trulicity) insulin lispro protamine-lispro 40 - 50 unit SQ BID Diabetes 12/10/21 07/26/22 100 unit/mL (75-25) subcutaneous pen (Humalog Mix 75-25 KwikPen) carvedilol 25 mg tablet 25 mg PO BID blood pressure 06/02/22 07/26/22 cholecalciferol (vitamin D3) 1,250 1,250 mcg PO WEEKLY Supplement 06/07/22 07/26/22 mcg (50,000 unit) capsule ertugliflozin 15 mg tablet 15 mg PO DAILY Diabetes 06/07/22 07/26/22 (Steglatro) aspirin 81 mg tablet,delayed 81 mg PO DAILY Heart disease 07/14/22 07/26/22 release collagenase clostridium histo. 250 1 applic topical DAILY Pain 07/14/22 07/26/22 unit/gram topical ointment losartan 50 mg-hydrochlorothiazide 1 tab PO DAILY blood pressure 07/14/22 07/26/22 12.5 mg tablet nitroglycerin 0.2 mg/hr 1 patch transdermal DAILY Chest 07/14/22 07/26/22 transdermal 24 hour patch pain furosemide 40 mg tablet 40 mg PO DAILYP PRN Edema 07/26/22 07/26/22 rivaroxaban 2.5 mg tablet (Xarelto) 2.5 mg PO BID Blood thinner 07/26/22 07/26/22 Previous Rx's Medication Instructions Recorded promethazine 25 mg tablet 50 mg PO Q4-6H PRN nausea 2 weeks 06/28/22 #40 tabs hydrocodone 10 mg-acetaminophen 1 tab PO Q4-6H PRN pain 7 days #40 07/22/22 325 mg tablet tabs Allergies Allergy/AdvReac Type Severity Reaction Status Date / Time oxycodone Allergy Unknown Verified 07/26/22 12:13 allergy reaction PFSH PFSH Medical History (Updated 07/26/22 @ 17:24 by Dipak Barrientos MD) Abnormal cardiovascular stress test Abnormal electrocardiography Atypical angina CAD (coronary artery disease) Carotid stenosis Diabetes mellitus Dyspnea 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 HLD (hyperlipidemia) HTN (hypertension) Osteomyelitis of left foot Sinus tachycardia Surgical History (Updated 07/26/22 @ 16:53 by Cortney Hoang APRN) H/O colonoscopy H/O heart artery stent History of appendectomy History of lumbar laminectomy History of transmetatarsal amputation of left foot Hx of CABG Family History No significant family history Social History (Updated 07/26/22 @ 17:03 by Cortney Hoang APRN) Smoking Status: Former smoker pack-years: 30 second hand exposure: No alcohol intake: never substance use type: denies use current occupational status: employed and other Travel in the last 8 weeks: None household members: none housing: house lives independently: Yes marital status: education level: high school 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
[2022-07-26 13:18] LABS: Basophils # 0.1 K/mm3 (0-0.2); Basophils % 0.5 % (0.1-2.0); Eosinophils # 0.2 K/mm3 (0.0-0.4); Eosinophils % 1.5 % (0.1-12.0); Hematocrit 32.1 % (42.0-52.0); Hemoglobin 9.9 g/dL (14.1-18.0); Lymphocytes # 0.9 K/mm3 (0.7-4.5); Mean Corpuscular Hemoglobin 24.9 pg (27.0-31.2); Mean Corpuscular Volume 80.5 fl (80-94); Monocytes # 0.6 K/mm3 (0.1-1.0); Monocytes % 4.1 % (1.7-9.3); Neutrophils # 13.5 K/mm3 (1.8-7.8); Neutrophils % 87.9 % (37.0-80.0); Platelet Count 497 K/mm3 (142-424); Red Blood Count 3.98 M/mm3 (4.60-6.20); Red Cell Distribution Width 18.2 % (11.5-17.5); White Blood Count 15.4 K/mm3 (4.8-10.8)
[2022-07-26 13:19] LABS: Alanine Aminotransferase 58 U/L (12-78); Albumin Level 3.5 g/dl (3.5-5.0); Albumin/Globulin Ratio 0.9 (1.1-1.8); Alkaline Phosphatase 305 U/L (38-126); Aspartate Amino Transferase 61 U/L (17-59); Blood Urea Nitrogen 25 mg/dl (9-20); Calcium 8.8 mg/dl (8.4-10.2); Carbon Dioxide 27 mmol/L (22.0-30.0); Chloride 101 mmol/L (98-107); Creatinine Clearance Estimated 82 mL/min (50-200); Estimated Glomerular Filt Rate 39 ml/min (>60); GFR (African American) 47 ML/MIN (>60); Glucose 161 mg/dl (74-100); Sodium 136 mmol/L (136-145); Total Protein,Serum 7.5 g/dl (6.3-8.2)
[2022-07-26 13:20] LABS: Lactic Acid 1.8 mmol/L (0.7-2.1)
[2022-07-26 13:23] LABS: Bilirubin,Total 0.1 mg/dl (0.2-1.3)
[2022-07-26 13:25] LABS: MANUAL DIFFERENTIAL MANUAL DIFFERENTIAL (MANUAL DIFF)
--- NOTE | 2022-07-26 13:35 | PC.NURSE ---
Contacted lab and spoke with Anni regarding troponin add on
[2022-07-26 13:43] LABS: Coronavirus 19, PCR Not Detected (NotDetected); Influenza A, PCR Not Detected (NotDetected); Influenza B, PCR Not Detected (NotDetected)
[2022-07-26 13:59] LABS: Troponin I < 0.01 ng/ml (0.00-0.034)
[2022-07-26 14:13] LABS: Eosinophils % 1 % (0-3); Hypochromasia 2+; Lymphocytes % 9 % (10-50); Monocytes % 2 % (2-9); Neutrophils % 88 % (42-76); Platelet Estimate Slight Increase; Total Cells Counted 100
[2022-07-26 14:14] LABS: Microcytosis 1+
--- NOTE | 2022-07-26 14:23 | EXP.PHA.CONS ---
Pharmacy Consult Date: 07/26/22 Time: 14:23 Referring provider: DR. DOMINGUEZ Reason for Consult:: VANCOMYCIN DOSING Allergies Allergy/AdvReac Type Severity Reaction Status Date / Time oxycodone Allergy Unknown Verified 07/26/22 12:13 allergy reaction Home Medications Medication Instructions Recorded Confirmed Type metformin 1,000 mg tablet 1,000 mg PO BID DM 01/10/19 07/26/22 History rosuvastatin 40 mg tablet 40 mg PO HS Cholesterol 01/10/19 07/26/22 History pregabalin 100 mg capsule 100 mg PO BID Pain 01/29/21 07/26/22 History dulaglutide 1.5 mg/0.5 mL 0.5 ml SQ WEEKLY Diabetes 12/10/21 07/26/22 History subcutaneous pen injector (Trulicity) ergocalciferol (vitamin D2) 1,250 1,250 mcg PO WEEKLY Supplement 12/10/21 07/26/22 History mcg (50,000 unit) capsule insulin lispro protamine-lispro 40 - 50 unit SQ BID Diabetes 12/10/21 07/26/22 History 100 unit/mL (75-25) subcutaneous pen (Humalog Mix 75-25 KwikPen) carvedilol 25 mg tablet See Rx Instructions .Route 06/02/22 07/26/22 History .COMPLEX . cholecalciferol (vitamin D3) 1,250 1,250 mcg PO WEEKLY Supplement 06/07/22 07/26/22 History mcg (50,000 unit) capsule ertugliflozin 15 mg tablet 15 mg PO DAILY Diabetes 06/07/22 07/26/22 History (Steglatro) promethazine 25 mg tablet 50 mg PO Q4-6H PRN nausea 2 weeks 06/28/22 07/26/22 Rx #40 tabs aspirin 81 mg tablet,delayed See Rx Instructions .Route 07/14/22 07/26/22 History release .COMPLEX Blood thinner collagenase clostridium histo. 250 1 applic topical DAILY Pain 07/14/22 07/26/22 History unit/gram topical ointment losartan 50 mg-hydrochlorothiazide See Rx Instructions .Route 07/14/22 07/26/22 History 12.5 mg tablet .COMPLEX bp nitroglycerin 0.2 mg/hr 1 patch transdermal DAILY Chest 07/14/22 07/26/22 History transdermal 24 hour patch pain hydrocodone 10 mg-acetaminophen 1 tab PO Q4-6H PRN pain 7 days #40 07/22/22 07/26/22 Rx 325 mg tablet tabs New Prescriptions to Start Prescriptions: Height: 1.88 m Weight: 129.274 kg Laboratory Results:: Laboratory Results - last 24 hr 07/26/22 12:50: WBC 15.4 H, RBC 3.98 L, Hgb 9.9 L, Hct 32.1 L, MCV 80.5, MCH 24.9 L, MCHC 31.0 L, RDW 18.2 H, Plt Count 497 H, MPV 8.0, Neut % (Auto) 87.9 H, Lymph % (Auto) 6.0 L, [place] % (Auto) 4.1, Eos % (Auto) 1.5, Baso % (Auto) 0.5, Neut # (Auto) 13.5 H, Lymph # (Auto) 0.9, [place] # (Auto) 0.6, Eos # (Auto) 0.2, Baso # (Auto) 0.1, Total Counted 100, Neutrophils % (Manual) 88 H, Lymphocytes % (Manual) 9 L, Monocytes % (Manual) 2, Eosinophils % (Manual) 1, Platelet Estimate Slight increase, Hypochromasia 2+, Microcytosis 1+ 07/26/22 12:50: Sodium 136, Potassium 4.0, Chloride 101, Carbon Dioxide 27, Anion Gap 12.0, BUN 25 H, Creatinine 1.80 H, Estimated Creat Clear 82, Estimated GFR 39 L, Est GFR ( Amer) 47 L, Glucose 161 H D, Calcium 8.8, Total Bilirubin 0.1 L, AST 61 H, ALT 58, Alkaline Phosphatase 305 H, Total Protein 7.5, Albumin 3.5, Globulin 4.0 H, Albumin/Globulin Ratio 0.9 L 07/26/22 12:50: Lactate 1.8 07/26/22 12:50: Troponin I < 0.01 Medical History: Medical History (Updated 07/22/22 @ 12:35 by Elizabeth Tellez RN) Abnormal cardiovascular stress test Abnormal electrocardiography Atypical angina CAD (coronary artery disease) Carotid stenosis Diabetes mellitus Dyspnea 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 Drug
--- NOTE | 2022-07-26 14:27 | PC.NURSE ---
MANOJ HOWARD speaking with Dr. Barrientos at this time
--- NOTE | 2022-07-26 14:36 | PC.NURSE ---
Spoke with Joanne regarding patient admission
--- NOTE | 2022-07-26 15:27 | PC.NURSE ---
report called to floor
--- NOTE | 2022-07-26 15:34 | EXP.PHA.VTE ---
[facility] Pharmacy VTE Monitoring Patient Demographics Patient Allergies oxycodone Allergy (Verified 07/26/22 12:13) Unknown allergy reaction Height: 1.88 m Weight: 129.274 kg VTE Risk Labs: VTE Related Lab Results Hgb 9.9 g/dL (14.1-18.0) L 07/26/22 12:50 Hct 32.1 % (42.0-52.0) L 07/26/22 12:50 Plt Count 497 K/mm3 (142-424) H 07/26/22 12:50 BUN 25 mg/dl (9-20) H 07/26/22 12:50 Creatinine 1.80 mg/dl (0.66-1.25) H 07/26/22 12:50 Estimated Creat Clear 82 mL/min (50-200) 07/26/22 12:50 Prophylaxis VTE Prophylaxis Ordered?: Yes Types of VTE Prophylaxis: TEDS Knee High
--- NOTE | 2022-07-26 15:54 | PC.NURSE ---
pt transferred to floor per wheelchair
--- NOTE | 2022-07-26 16:34 | EXP.HP ---
History of Present Illness *Admission Date: 07/26/22 *Reason for visit:: Hypotension. *History of present illness: Mr. Jara is a 56-year-old male patient with a history of coronary artery disease CABG in October 2016, myocardial infarction status post stenting x4 in March 2016, diabetes mellitus type 2, hypertension, allergic rhinitis, and diabetic neuropathy who when receiving IV antibiotic infusion (cefepime )was noted to have a low systolic blood pressure in the 90s during infusion. He also experienced some left shoulder discomfort which lasted about 15 minutes. He was evaluated in the emergency room and was admitted for further evaluation and treatment. Following or podiatry notes: HPI Postoperative (podiatry) History of Present Illness Procedure: Left TMA revision, bone biopsy Date of surgery: 07/14/22 Pain scale (0-10): 9 Dressing: intact Activity: non-weight bearing Immobilization: pneumatic fracture boot Compliance: non-compliant Surgery, 07/14/22: S/p 1. Left TMA revision 2. Left foot adjacent tissue transfer/rearrangment 3. Secondary closure of surgical wound? 4. Left foot I&D bone cortex. 5. Left dorsal foot wound debridement 6.? Left foot open bone biopsy 7. PMMA bead insertion 8. Application of wound vac. Intraop Specimens: Left foot tissue/ulcer culture: Klebsiella pneumoniae, Klebsiella aerogenes Left 2-5th met bone culture: Enterobacter cloacae Left 1st met bone culture: Klebsiella aerogenes Left 1st met bone path: Bone with necrosis and acute inflammation compatible with osteomyelitis.? Background reactive and degenerative changes with fibrosis. Left 1st met proximal margin: Bone with reactive and degenerative changes without significant inflammation or atypia. 07/22/22: POV #1, POD #8 -seeing Alin at [facility] -presents with wound vac -reports pain to left foot, refill Logan -discussed compliance with WB status and treatment, presents PWB to foot in boot with crutches -discussed risk factors and tx options including: oral/IV abx, local wound care, [facility] W[facility], [facility] infusion dsg changes, off loading with fx boot vs total contact casting, immobilization, importance of minimizing activity, DM glucose control, PAD -skin cleansed. no debridement in office today -concern of dark skin/gangrenous changes along incision and wound -explained these are tracks/potential portals of infection and he can get recurrent cellulitis or OM if not closed/coverage -reviewed bone cultures and path: explained OM with new bacteria, so recommend PICC, IV abx -discussed tx including: local wound care vs surgical debridement with wound vac application. We have attempted this twice and both times the flap has failed due to small vessel disease -continue Nitro patches to dorsal left foot to try to help skin healing although not hopeful this will help -hold vac, resume daily betadine to dry out the incision/wound -discussed HBO referral, he has agreed to a consult however given new openings and concern for new infection not sure he will be a candidate, defer to HBO clinic -discussed with Dr Salguero, he agrees given gangrenous changes and that more debridement would cause extensive tissue loss and likely expose talus, patient is high risk for BKA [facility] Infusion: -PICC, IV Cefepime q24h x6 wks (07/22-09/02/22) -daily dressing changes: cleansed foot with wound lamp cleaner street light. Apply betadine soaked gauze (or ioplex), dry gauze, kerlix, secure with tape or Edgar -NWB to left foot with DME At the time of this exam patient is comfortable. He denies chest and left arm pain, shortness of breath, palpitations, and nausea. 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
--- NOTE | 2022-07-26 17:47 | PC.WOUNDNOTE ---
ABRASION NOTED TO RIGHT KNEE SCATTERED ABRASIONS NOTED TO RIGHT JOSHI. DRESSING NOTED TO AMPUTATION ON THE LEFT FOOT. DRESSING IS DUE TO BE CHANGED TOMORROW.
--- NOTE | 2022-07-26 21:09 | PC.NURSE ---
notified night watch at this time regarding xarelto order, 10 mg is smallest dose available, 2.5 mg is ordered. they say it is ok to give 1/4 of a 10 mg pill
[2022-07-27] VITALS: BP 137/84; PULSE 83; RESP 18; TEMP 37.2; O2SAT 97
[2022-07-27 04:00] VITALS: BP 119/57; PULSE 81; RESP 18; TEMP 37.2; O2SAT 97
--- NOTE | 2022-07-27 04:23 | PC.NURSE ---
pt c/o pain and nausea this shift, medicated prn per jan. he is A&OX4. lung sounds clear. remains on RA. SBP has been 115-137. no edema noted. voids per urinal independently. bandage noted to left foot, scabs noted to right knee, interiano, ankle, and toes. PICC in DUANE patent and flushes well. call light within reach, no needs at this time.
[2022-07-27 06:00] VITALS: BMI 34.6
[2022-07-27 06:31] LABS: Basophils # 0.1 K/mm3 (0-0.2); Basophils % 0.5 % (0.1-2.0); Eosinophils # 0.4 K/mm3 (0.0-0.4); Eosinophils % 3.4 % (0.1-12.0); Hematocrit 25.2 % (42.0-52.0); Lymphocytes # 1.4 K/mm3 (0.7-4.5); Lymphocytes % 11.2 % (10-50); Mean Corpuscular HGB Conc 30.2 g/dL (31.8-35.4); Mean Corpuscular Hemoglobin 24.1 pg (27.0-31.2); Mean Corpuscular Volume 79.6 fl (80-94); Monocytes # 0.7 K/mm3 (0.1-1.0); Neutrophils # 9.5 K/mm3 (1.8-7.8); Neutrophils % 78.9 % (37.0-80.0); Platelet Count 470 K/mm3 (142-424); Red Blood Count 3.16 M/mm3 (4.60-6.20); Red Cell Distribution Width 16.9 % (11.5-17.5)
[2022-07-27 06:37] LABS: Chloride 103 mmol/L (98-107)
[2022-07-27 06:38] LABS: Potassium 4.1 mmoL/L (3.5-5.1); Sodium 140 mmol/L (136-145)
[2022-07-27 06:41] LABS: Anion Gap 12.1 mEq/L (5-15); Blood Urea Nitrogen 25 mg/dl (9-20); Calcium 8.7 mg/dl (8.4-10.2); Carbon Dioxide 29 mmol/L (22.0-30.0); Creatinine Clearance Estimated 82 mL/min (50-200); Estimated Glomerular Filt Rate 42 ml/min (>60); GFR (African American) 50 ML/MIN (>60); Glucose 112 mg/dl (74-100)
[2022-07-27 06:48] LABS: Hemoglobin 7.8 g/dL (14.1-18.0)
[2022-07-27 07:58] VITALS: BP 96/55; PULSE 88; RESP 17; TEMP 37; O2SAT 96
--- NOTE | 2022-07-27 08:52 | EXP.ACUTE.PN ---
Subjective *Date: 07/27/22 *Time: 08:54 Interval history: Patient with no new complaints today, did not sleep well last night. Medical Exam Vital signs and Labs for Last 24 Hours: Temp Pulse Resp BP Pulse Ox 98.6 F 88 17 96/55 L 96 07/27/22 07:58 07/27/22 07:58 07/27/22 07:58 07/27/22 07:58 07/27/22 07:58 Laboratory Results - last 24 hr 07/26/22 12:50: WBC 15.4 H, RBC 3.98 L, Hgb 9.9 L, Hct 32.1 L, MCV 80.5, MCH 24.9 L, MCHC 31.0 L, RDW 18.2 H, Plt Count 497 H, MPV 8.0, Neut % (Auto) 87.9 H, Lymph % (Auto) 6.0 L, Woodruff % (Auto) 4.1, Eos % (Auto) 1.5, Baso % (Auto) 0.5, Neut # (Auto) 13.5 H, Lymph # (Auto) 0.9, Woodruff # (Auto) 0.6, Eos # (Auto) 0.2, Baso # (Auto) 0.1, Total Counted 100, Neutrophils % (Manual) 88 H, Lymphocytes % (Manual) 9 L, Monocytes % (Manual) 2, Eosinophils % (Manual) 1, Platelet Estimate Slight increase, Hypochromasia 2+, Microcytosis 1+ 07/26/22 12:50: Sodium 136, Potassium 4.0, Chloride 101, Carbon Dioxide 27, Anion Gap 12.0, BUN 25 H, Creatinine 1.80 H, Estimated Creat Clear 82, Estimated GFR 39 L, Est GFR ( Amer) 47 L, Glucose 161 H D, Calcium 8.8, Total Bilirubin 0.1 L, AST 61 H, ALT 58, Alkaline Phosphatase 305 H, Total Protein 7.5, Albumin 3.5, Globulin 4.0 H, Albumin/Globulin Ratio 0.9 L 07/26/22 12:50: Lactate 1.8 07/26/22 12:50: Troponin I < 0.01 07/26/22 13:35: SARS-CoV-2 (PCR) Not detected, Influenza A Untype (PCR) Not detected, Influenza Type B (PCR) Not detected 07/27/22 06:13: WBC 12.0 H, RBC 3.16 L, Hgb 7.8 L D, Hct 25.2 L, MCV 79.6 L, MCH 24.1 L, MCHC 30.2 L, RDW 16.9, Plt Count 470 H, MPV 7.0 L, Neut % (Auto) 78.9, Lymph % (Auto) 11.2, Woodruff % (Auto) 6.0, Eos % (Auto) 3.4, Baso % (Auto) 0.5, Neut # (Auto) 9.5 H, Lymph # (Auto) 1.4, Woodruff # (Auto) 0.7, Eos # (Auto) 0.4, Baso # (Auto) 0.1 07/27/22 06:13: Sodium 140, Potassium 4.1, Chloride 103, Carbon Dioxide 29, Anion Gap 12.1, BUN 25 H, Creatinine 1.70 H, Estimated Creat Clear 82, Estimated GFR 42 L, Est GFR ( Amer) 50 L, Glucose 112 H D, Calcium 8.7 I & O for Labs for Last 24 Hours: Intake & Output 07/24/22 07/25/22 07/26/22 07/27/22 23:59 23:59 23:59 23:59 Intake Total 248 / 248 360 / 360 Output Total 250 / 650 1250 / 1250 Balance -2 / -402 -890 / -890 Weight 265 lb 3 oz 269 lb 14.4 oz Constitutional: no acute distress Respiratory: CTA bilaterally Cardiac: Reg Rate and Rhythm GI: soft, tenderness or normal bowel sounds Assessment and Plan *Assessment and plan (1) Hypotension: Status: Acute Category: Medical Code(s): I95.9 - Hypotension, unspecified (2) Obesity, Class II, BMI 35-39.9: Status: Acute Category: Medical Code(s): E66.9 - Obesity, unspecified (3) Status post foot surgery: Status: Acute Category: Surgical Code(s): Z98.890 - Other specified postprocedural states (4) Ulcer of left foot due to type 2 diabetes mellitus: Status: Acute Category: Medical Code(s): E11.621 - Type 2 diabetes mellitus with foot ulcer; L97.529 - Non-pressure chronic ulcer of other part of left foot with unspecified severity (5) Left foot pain: Status: Acute Category: Medical Code(s): M79.672 - Pain in left foot (6) Diabetic infection of left foot: Status: Acute Category: Medical Code(s): E11.628 - Type 2 diabetes mellitus with other skin complications; L08.9 - Local infection of the skin and subcutaneous tissue, unspecified (7) PAD (peripheral artery disease): Status: Acute Category: Medical Code(s): I73.9 - Peripheral vascular disease, unspecified (8) Type 2 diabetes mellitus with diabetic neuropathy, with long-term current use of insulin: Status: Acute Category: Medical Code(s): E11.40 - Type 2 diabetes mellitus with diabetic neuropathy, unspecified; Z79.4 - snf (current) use of insulin (9) Chronic osteomyelitis of left foot: Status: Acute Category
--- NOTE | 2022-07-27 10:12 | PC.NURSE ---
Rounded on pt, cleaned and straightened room. Pt in bed sleeping, no needs voiced at this time.
[2022-07-27 12:01] LABS: POC Glucose,Bedside 147 (70-110)
[2022-07-27 12:09] LABS: Hematocrit 30.9 % (42.0-52.0)
--- NOTE | 2022-07-27 13:58 | PC.NURSE ---
Rounded on patient. No concerns at this time. CB in reach. Blood cinthya from picc per sterile technique and sent to lab, flushed picc with NS. Urinal emptied, 400 cc.
--- NOTE | 2022-07-27 14:48 | PC.WOUNDNOTE ---
L foot/amputation of toes and partial foot.
--- NOTE | 2022-07-27 14:57 | PC.NURSE ---
Addendum entered by Yelena Villareal RN 07/27/22 16:53: AFTER PODIATRY VIEWED THE PICTURE OF PT'S LLE WAS NOTIFIED PER PODIATRY THAT IT WAS BEST FOR PT NOT TO BE DISCHARGED AND TO STAY FOR A ORTHO CONSULT FOR POSSIBLE LBKA. DISCHARGE WAS CANCELLED AND ORTHO WAS NOTIFIED ABOUT CONSULT. XRAY ORDERED PER . Original Note: PT WILL BE DISCHARGED HOME. DRESSING WAS CHANGED TO PARTIAL AMPUTATION OF THE LEFT FOOT. PT HAS DISCOLORATION AND PURULENT DRAINAGE NOTED. (SEE PICTURE) NOTIFIED PODIATRY. PT WILL NEED TO CONTINUE WITH OUTPATIENT ANTIBIOTICS AND DAILY DRESSING CHANGES. BP BEFORE DISCHARGE WAS 100/69. PT HAS BEEN EATING AND DRINKING WELL.
[2022-07-27 16:00] VITALS: BP 135/71; PULSE 84; RESP 17; TEMP 36.8; O2SAT 98
--- NOTE | 2022-07-27 16:20 | XR_ITS ---
PROCEDURE INFORMATION: Exam: XR Left Foot Exam date and time: 07/27/2022 4:29 PM Age: 56 years old Clinical indication: Pain; Foot; Left; Prior surgery; Surgery date: 3-7 days post-operative; Additional info: Osteo TECHNIQUE: Imaging protocol: Radiologic exam of the Left foot. Views: 3 or more views. COMPARISON: CR XR FOOT LT MIN 3V 07/14/2022 3:19 PM Findings/impression: Compared with July 14, 2022, the wound VAC system has been removed there is no significant osseous irregularity or erosive changes to the osseous amputation stump. Antibiotic beads seen throughout the soft tissues stump with mild swelling and suspected residual soft tissue emphysema. No acute fracture, dislocation, or aggressive skeletal lesion. Mild soft tissue swelling at the ankle. Stable plantar calcaneal spur and posterior calcaneal enthesophyte.
--- NOTE | 2022-07-27 16:29 | XR_ITS ---
PROCEDURE INFORMATION: Exam: XR Left Ankle Exam date and time: 07/27/2022 4:29 PM Age: 56 years old Clinical indication: Pain; Ankle; Left; Additional info: Osteo TECHNIQUE: Imaging protocol: Radiologic exam of the Left ankle. Views: 3 or more views. COMPARISON: CR XR FOOT LT MIN 3V 07/14/2022 3:19 PM Findings/impression: Compared with July 14, 2022, the wound VAC system has been removed there is no significant osseous irregularity or erosive changes to the osseous amputation stump. Antibiotic beads seen throughout the soft tissues stump with mild swelling and suspected residual soft tissue emphysema. No acute fracture, dislocation, or aggressive skeletal lesion. Mild soft tissue swelling at the ankle. Stable plantar calcaneal spur and posterior calcaneal enthesophyte.
[2022-07-27 17:03] LABS: POC Glucose,Bedside 237 (70-110)
[2022-07-27 20:00] VITALS: BP 132/77; PULSE 85; RESP 18; TEMP 37.3; O2SAT 100
[2022-07-27 20:48] LABS: POC Glucose,Bedside 166 (70-110)
[2022-07-28] VITALS: BP 102/69; PULSE 87; RESP 18; TEMP 37; O2SAT 99
[2022-07-28 03:00] LABS: Vancomycin,Trough 13.6 ug/mL (5.0-10.0)
--- NOTE | 2022-07-28 03:45 | [facility].PHAINT ---
0331 pharmacy nightwatch notified of vancomycin trough 13.6; no changes in current vancomycin dosing, states to give dose as ordered.
[2022-07-28 04:00] VITALS: BP 139/84; PULSE 91; RESP 17; TEMP 36.9; O2SAT 98
--- NOTE | 2022-07-28 04:38 | PC.NURSE ---
Pt is alert and oriented x4, pt has complained of pain 2 times this shift, treated prn per jan. Pt has received IV antibiotics this shift through PICC in DUANE. Pt dressing on L foot, CDI. Pt has been NPO since midnight. Pt has been sleeping intermittenly throughout shift. Pt lung sounds are clear, bowel sounds active. Pt is ACHS FS, covered per protocol. Pt remains on RA, O2 sat >90%. Call light in reach and working.
[2022-07-28 05:42] LABS: POC Glucose,Bedside 118 (70-110)
--- NOTE | 2022-07-28 06:03 | PC.NURSE ---
no changes from previous assessment, pt complained of pain rated 9/10 and medicated x2, dressing to LLE intact, PICC line dressing CDI and patent, pt is alert and oriented x4; vital signs stable, no other issues noted at this time.
[2022-07-28 07:25] VITALS: BP 144/83; PULSE 88; RESP 17; TEMP 37.1; O2SAT 98
[2022-07-28 07:39] LABS: Vancomycin,Peak 33.8 ug/ml (11-39)
--- NOTE | 2022-07-28 07:52 | EXP.PHA.CONS ---
Pharmacy Consult Date: 07/28/22 Time: 07:53 Referring provider: DR. BARRIENTOS Reason for Consult:: VANCOMYCIN TROUGH AND PEAK LEVEL Allergies Allergy/AdvReac Type Severity Reaction Status Date / Time oxycodone Allergy Unknown Verified 07/26/22 12:13 allergy reaction Home Medications Medication Instructions Recorded Confirmed Type metformin 1,000 mg tablet 1,000 mg PO BID Diabetes 01/10/19 07/26/22 History rosuvastatin 40 mg tablet 40 mg PO HS Cholesterol 01/10/19 07/26/22 History pregabalin 100 mg capsule 100 mg PO BID nerve pain 01/29/21 07/26/22 History dulaglutide 1.5 mg/0.5 mL 1.5 mg SQ WEEKLY Diabetes 12/10/21 07/26/22 History subcutaneous pen injector (Trulicity) insulin lispro protamine-lispro 40 - 50 unit SQ BID Diabetes 12/10/21 07/26/22 History 100 unit/mL (75-25) subcutaneous pen (Humalog Mix 75-25 KwikPen) carvedilol 25 mg tablet 25 mg PO BID blood pressure 06/02/22 07/26/22 History cholecalciferol (vitamin D3) 1,250 1,250 mcg PO WEEKLY Supplement 06/07/22 07/26/22 History mcg (50,000 unit) capsule ertugliflozin 15 mg tablet 15 mg PO DAILY Diabetes 06/07/22 07/26/22 History (Steglatro) aspirin 81 mg tablet,delayed 81 mg PO DAILY Heart disease 07/14/22 07/26/22 History release collagenase clostridium histo. 250 1 applic topical DAILY Pain 07/14/22 07/26/22 History unit/gram topical ointment losartan 50 mg-hydrochlorothiazide 1 tab PO DAILY blood pressure 07/14/22 07/26/22 History 12.5 mg tablet nitroglycerin 0.2 mg/hr 1 patch transdermal DAILY Chest 07/14/22 07/26/22 History transdermal 24 hour patch pain hydrocodone 10 mg-acetaminophen 1 tab PO Q4-6H PRN pain 7 days #40 07/22/22 07/26/22 Rx 325 mg tablet tabs furosemide 40 mg tablet 40 mg PO DAILYP PRN Edema 07/26/22 07/26/22 History rivaroxaban 2.5 mg tablet (Xarelto) 2.5 mg PO BID Blood thinner 07/26/22 07/26/22 History ceftriaxone 2 gram intravenous 2 g IV Q24H #38 ea 07/27/22 Rx solution ondansetron HCl 4 mg tablet 4 mg PO Q8H PRN nausea and 07/27/22 Rx vomiting #30 tabs New Prescriptions to Start Prescriptions: ceftriaxone Dipak Barrientos ondansetron HCl Dipak Barrientos Height: 1.88 m Weight: 122.425 kg Laboratory Results:: Laboratory Results - last 24 hr 07/27/22 11:52: POC Glucose 147 H 07/27/22 12:00: Hgb 9.0 L D, Hct 30.9 L 07/27/22 16:56: POC Glucose 237 H 07/27/22 20:40: POC Glucose 166 H 07/28/22 01:30: Vancomycin Trough 13.6 H 07/28/22 05:35: POC Glucose 118 H 07/28/22 05:53: Vancomycin Peak 33.8 Medical History: Medical History (Updated 07/27/22 @ 08:53 by Dipak Barrientos MD) Abnormal cardiovascular stress test Abnormal electrocardiography Atypical angina CAD (coronary artery disease) Carotid stenosis Diabetes mellitus Dyspnea 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 RECOMMEND PATIENT CONTINUE CURRENT DOSE OF VANCOMYCIN AT 2,000MG EVERY 18 HOURS. PHARMACY WILL CONTINUE TO MONITOR AND WILL ADJUST DOSE APPROPRIATE. -GODFREY HAUSER, MANJINDERD
--- NOTE | 2022-07-28 07:56 | EXP.ACUTE.PN ---
Subjective *Date: 07/28/22 *Time: 08:00 Interval history: Discharge yesterday was canceled after podiatry evaluated wound. Pt noted to have what appears to be gangrene over his distal left foot surgical wound. Medical Exam Vital signs and Labs for Last 24 Hours: Temp Pulse Resp BP Pulse Ox 98.7 F 88 17 144/83 H 98 07/28/22 07:25 07/28/22 07:25 07/28/22 07:25 07/28/22 07:25 07/28/22 07:25 Laboratory Results - last 24 hr 07/27/22 11:52: POC Glucose 147 H 07/27/22 12:00: Hgb 9.0 L D, Hct 30.9 L 07/27/22 16:56: POC Glucose 237 H 07/27/22 20:40: POC Glucose 166 H 07/28/22 01:30: Vancomycin Trough 13.6 H 07/28/22 05:35: POC Glucose 118 H 07/28/22 05:53: Vancomycin Peak 33.8 I & O for Labs for Last 24 Hours: Intake & Output 07/25/22 07/26/22 07/27/22 07/28/22 23:59 23:59 23:59 23:59 Intake Total 248 / 248 1090 / 1090 350 / 350 Output Total 250 / 650 4125 / 4125 1000 / 1000 Balance -2 / -402 -3035 / -3035 -650 / -650 Weight 265 lb 3 oz 269 lb 14.4 oz 269 lb 14.4 oz Constitutional: no acute distress Respiratory: CTA bilaterally Cardiac: Reg Rate and Rhythm Comment:: Pictures of wound reviewed, see chart. Assessment and Plan *Assessment and plan (1) Hypotension: Status: Acute Category: Medical Code(s): I95.9 - Hypotension, unspecified (2) Obesity, Class II, BMI 35-39.9: Status: Acute Category: Medical Code(s): E66.9 - Obesity, unspecified (3) Status post foot surgery: Status: Acute Category: Surgical Code(s): Z98.890 - Other specified postprocedural states (4) Ulcer of left foot due to type 2 diabetes mellitus: Status: Acute Category: Medical Code(s): E11.621 - Type 2 diabetes mellitus with foot ulcer; L97.529 - Non-pressure chronic ulcer of other part of left foot with unspecified severity (5) Left foot pain: Status: Acute Category: Medical Code(s): M79.672 - Pain in left foot (6) Diabetic infection of left foot: Status: Acute Category: Medical Code(s): E11.628 - Type 2 diabetes mellitus with other skin complications; L08.9 - Local infection of the skin and subcutaneous tissue, unspecified (7) PAD (peripheral artery disease): Status: Acute Category: Medical Code(s): I73.9 - Peripheral vascular disease, unspecified (8) Type 2 diabetes mellitus with diabetic neuropathy, with long-term current use of insulin: Status: Acute Category: Medical Code(s): E11.40 - Type 2 diabetes mellitus with diabetic neuropathy, unspecified; Z79.4 - shelter (current) use of insulin (9) Chronic osteomyelitis of left foot: Status: Acute Category: Medical Code(s): M86.672 - Other chronic osteomyelitis, left ankle and foot (10) Non-compliance: Status: Acute Category: Medical Code(s): Z91.19 - Patient's noncompliance with other medical treatment and regimen (11) CAD (coronary artery disease): Status: Chronic Qualifiers: Associated angina: without angina Coronary Disease-Associated Artery/Lesion type: rincon artery [place] vs. transplanted heart: rincon heart Qualified Code(s): I25.10 - Atherosclerotic heart disease of rincon coronary artery without angina pectoris Category: Medical Code(s): I25.10 - Atherosclerotic heart disease of rincon coronary artery without angina pectoris (12) Hx of CABG: Status: Chronic Category: Surgical Code(s): Z95.1 - Presence of aortocoronary bypass graft (13) HLD (hyperlipidemia): Status: Acute Qualifiers: Hyperlipidemia type: mixed hyperlipidemia Qualified Code(s): E78.2 - Mixed hyperlipidemia Category: Medical Code(s): E78.5 - Hyperlipidemia, unspecified (14) HTN (hypertension): Status: Acute Qualifiers: Hypertension type: primary hypertension Qualified Code(s): I10 - Essential (prima
[2022-07-28 09:04] LABS: Basophils # 0.1 K/mm3 (0-0.2); Basophils % 0.9 % (0.1-2.0); Eosinophils # 0.3 K/mm3 (0.0-0.4); Eosinophils % 3.1 % (0.1-12.0); Hematocrit 31.7 % (42.0-52.0); Hemoglobin 9.8 g/dL (14.1-18.0); Lymphocytes # 1.1 K/mm3 (0.7-4.5); Lymphocytes % 10.1 % (10-50); Mean Corpuscular HGB Conc 30.9 g/dL (31.8-35.4); Mean Corpuscular Hemoglobin 24.9 pg (27.0-31.2); Mean Corpuscular Volume 80.6 fl (80-94); Mean Platelet Volume 7.6 fl (7.4-10.4); Monocytes # 0.5 K/mm3 (0.1-1.0); Monocytes % 4.4 % (1.7-9.3); Neutrophils # 8.8 K/mm3 (1.8-7.8); Neutrophils % 81.5 % (37.0-80.0); Platelet Count 474 K/mm3 (142-424); Red Blood Count 3.93 M/mm3 (4.60-6.20); Red Cell Distribution Width 18.2 % (11.5-17.5); White Blood Count 10.8 K/mm3 (4.8-10.8)
[2022-07-28 09:05] LABS: Chloride 104 mmol/L (98-107); Potassium 4.4 mmoL/L (3.5-5.1); Sodium 140 mmol/L (136-145)
[2022-07-28 09:07] LABS: Blood Urea Nitrogen 23 mg/dl (9-20)
[2022-07-28 09:08] LABS: Anion Gap 11.4 mEq/L (5-15); Calcium 9.1 mg/dl (8.4-10.2); Carbon Dioxide 29 mmol/L (22.0-30.0); Creatinine Clearance Estimated 100 mL/min (50-200); Estimated Glomerular Filt Rate 52 ml/min (>60); GFR (African American) 63 ML/MIN (>60); Glucose 121 mg/dl (74-100)
[2022-07-28 11:04] VITALS: BMI 34.4
[2022-07-28 11:35] LABS: POC Glucose,Bedside 167 (70-110)
--- NOTE | 2022-07-28 12:46 | PC.NURSE ---
Have called and spoke with Dr. Lopez's office and this am and they stated Dr. Lopez still have approx 4 pt's to see prior to seeing pt. Pt made aware and updated. Pt stated ok,he was going to take a nap. 1129.
--- NOTE | 2022-07-28 13:43 | EXP.ORTH.CON ---
History of Present Illness *Admission Date: 07/26/22 *Reason for visit:: left foot gangrene *History of present illness: Mr. Jara is a 56-year-old male patient admitted to the inpatient service after being found to have hypotension and concerning cardiac symptoms during IV cefepime infusion. Orthopedic services were consulted in regards to the patient's left foot wound/gangrene. He was previously under the care of Dr. Vasquez/podiatry services and the wound care clinic following multiple surgeries including transmetatarsal amputation of the left foot. He states that in January of this year he stepped on an object unknowingly, causing a small wound on the bottom of his left foot. The patient is diabetic and has peripheral neuropathy at baseline. He states that the wound failed to heal despite regular dressing changes and multiple debridements in addition to close follow-up with podiatry, resulting in progressive amputations/debridements. The patient has also undergone revascularization with Dr. Salguero/cardiology services. He has a PICC line and has been receiving IV cefepime infusions. This afternoon the patient is lying comfortably in bed and his sister is present at the bedside. He reports some left foot pain, but states that it is well controlled with as needed pain medication and rest. He denies any history of fevers, chills, or rigors. 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 His past medical history is significant for diabetes, peripheral artery disease, coronary artery disease, hypertension, and hyperlipidemia. He denies any other symptoms or concerns at this time. 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 HLD (hyperlipidemia) HTN (hypertension) Osteomyelitis of left foot Sinus tachycardia Surgical History (Updated 07/26/22 @ 16:53 by Cortney Hoang APRN) H/O colonoscopy H/O heart artery stent History of appendectomy History of lumbar laminectomy History of transmetatarsal amputation of left foot Hx of CABG Family History No significant family history Social History (Updated 07/26/22 @ 17:03 by SAHRA Pulido Smoking Status: Former smoker pack-years: 30 second hand exposure: No alcohol intake: never substance use type: denies use current occupational status: employed and other household members: none housing: house lives independently: Yes marital status: education level: high school 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 current occupational exposures/hazards: No caffeine: Yes Review of Systems Constitutional Constitutional: Denies headache(s) ENT Ears, Nose, Mouth, and Throat: Denies dizziness and Denies headache(s) *Musculoskeletal Musculoskeletal: Reports abnormal gait *Neurologic Neurologic: Reports abnormal gait, Denies abnormal speech, Denies dizziness, Denies headache(s) and Denies lack of coordination Meds Home Medications and Allergies Home Medications Medication Instructions Recorded Confirmed Type metformin 1,000 mg tablet 1,000 mg PO BID Diabetes 01/10/19 07/26/22 History rosuvastatin 40 mg tablet 40 mg PO HS Cholesterol 01/10/19 07/26/22 History pregabalin 100 mg capsule 100 mg PO BID nerve pain 01/29/21 07/26/22 History dulaglutide 1.5 mg/0.5 mL 1.5 mg SQ WEEKLY Diabetes 12/10/21 07/26/22 History subcutaneous pen injector (Trulicity) insulin lispro protamine-lispro 40 - 50 unit SQ BID Diabetes 12/10/21 07/26/22 History 100 unit/mL (75-25) subcutaneous pen (Humalog Mix 75-25 Louann) carvedilol 25 mg tablet 25 mg PO BID blood pressure 06/02/22 07/26/22 History cholecalciferol (vitamin D3) 1,25
--- NOTE | 2022-07-28 14:03 | PC.NURSE ---
Addendum entered by Garfield Jauregui RN 07/28/22 18:37: Spoke w/ Plant Electrical Engineer and she stated PICC dsg would need to be changed tuesday. Addendum entered by Garfield Jauregui RN 07/28/22 18:30: Did cleanse scab to R knee with betadine, and remove hanging part of scab and applied non adherent dsg and tegaderm. Original Note: Pt's blood thinners on hold at this time for surgery planned for tomorrow. Pt a/o. Pt also states PICC dsg was changed tuesday, which is cdi. CB in reach. Meds given per jan. Dsg is cdi to LLE at this time.
--- NOTE | 2022-07-28 14:12 | PC.NURSE ---
rounded on patient. no concerns or questions noted. removed tray from room, patient stated he didnt like his lunch offered something else but stated he had family bringing him something else. emptied urinal. encouraged him to ring out with any needs
[2022-07-28 15:31] VITALS: BP 114/66; PULSE 90; RESP 16; TEMP 37; O2SAT 98
[2022-07-28 16:01] LABS: POC Glucose,Bedside 145 (70-110)
[2022-07-28 18:16] LABS: Hemoglobin A1C 6.4 % (4.0-6.0)
[2022-07-28 20:00] VITALS: O2SAT 98
[2022-07-28 21:19] LABS: POC Glucose,Bedside 105 (70-110)
[2022-07-29] VITALS (24 sets, daily range): BP systolic 124–159; BP diastolic 77–106; PULSE 86–100; RESP 12–20; TEMP 36.2–43; O2SAT 92–100; BMI 34.9
--- NOTE | 2022-07-29 05:39 | PC.NURSE ---
pt was restless through the night, verbalized some mixed emotions about upcoming surgery today, no acute distress noted, fsbs below 150, VSS, dressing to LLE intact, PICC line to DUANE with dressing intact, labs obtained from picc this am, pt is alert and oriented x4, no other issues noted at this time.
[2022-07-29 07:13] LABS: POC Glucose,Bedside 106 (70-110)
[2022-07-29 07:40] LABS: Basophils % 0.4 % (0.1-2.0); Eosinophils # 0.3 K/mm3 (0.0-0.4); Eosinophils % 2.7 % (0.1-12.0); Hematocrit 31.3 % (42.0-52.0); Hemoglobin 9.6 g/dL (14.1-18.0); Lymphocytes # 1.5 K/mm3 (0.7-4.5); Lymphocytes % 14.4 % (10-50); Mean Corpuscular HGB Conc 30.5 g/dL (31.8-35.4); Mean Corpuscular Hemoglobin 24.4 pg (27.0-31.2); Mean Corpuscular Volume 80.1 fl (80-94); Mean Platelet Volume 8.6 fl (7.4-10.4); Monocytes # 0.6 K/mm3 (0.1-1.0); Monocytes % 5.8 % (1.7-9.3); Neutrophils # 7.8 K/mm3 (1.8-7.8); Neutrophils % 76.7 % (37.0-80.0); Platelet Count 483 K/mm3 (142-424); Red Blood Count 3.91 M/mm3 (4.60-6.20); Red Cell Distribution Width 18.1 % (11.5-17.5); White Blood Count 10.2 K/mm3 (4.8-10.8)
[2022-07-29 07:50] LABS: Alanine Aminotransferase 40 U/L (12-78); Albumin Level 3.3 g/dl (3.5-5.0); Albumin/Globulin Ratio 0.9 (1.1-1.8); Alkaline Phosphatase 205 U/L (38-126); Aspartate Amino Transferase 33 U/L (17-59); Blood Urea Nitrogen 22 mg/dl (9-20); Carbon Dioxide 29 mmol/L (22.0-30.0); Chloride 104 mmol/L (98-107); Creatinine Clearance Estimated 100 mL/min (50-200); Estimated Glomerular Filt Rate 52 ml/min (>60); GFR (African American) 63 ML/MIN (>60); Globulin 3.7 g/dL (1.3-3.2); Glucose 109 mg/dl (74-100); Sodium 139 mmol/L (136-145)
[2022-07-29 07:56] LABS: C-Reactive Protein 46.4 mg/L (0-4)
[2022-07-29 07:59] LABS: Bilirubin,Total 0.1 mg/dl (0.2-1.3)
--- NOTE | 2022-07-29 08:21 | EXP.PHA.PN ---
Subjective *Date: 07/29/22 *Time: 08:21 Medical Exam Vital signs and Labs for Last 24 Hours: Temp Pulse Resp BP Pulse Ox 98.2 F 89 17 150/100 H 92 L 07/29/22 04:00 07/29/22 04:00 07/29/22 04:00 07/29/22 04:00 07/29/22 04:00 Laboratory Results - last 24 hr 07/28/22 08:36: Hemoglobin A1c 6.4 H 07/28/22 08:39: WBC 10.8, RBC 3.93 L, Hgb 9.8 L, Hct 31.7 L, MCV 80.6, MCH 24.9 L, MCHC 30.9 L, RDW 18.2 H, Plt Count 474 H, MPV 7.6, Neut % (Auto) 81.5 H, Lymph % (Auto) 10.1, [place] % (Auto) 4.4, Eos % (Auto) 3.1, Baso % (Auto) 0.9, Neut # (Auto) 8.8 H, Lymph # (Auto) 1.1, [place] # (Auto) 0.5, Eos # (Auto) 0.3, Baso # (Auto) 0.1 07/28/22 08:39: Sodium 140, Potassium 4.4, Chloride 104, Carbon Dioxide 29, Anion Gap 11.4, BUN 23 H, Creatinine 1.40 H, Estimated Creat Clear 100, Estimated GFR 52 L, Est GFR ( Amer) 63 D, Glucose 121 H, Calcium 9.1 07/28/22 11:27: POC Glucose 167 H 07/28/22 15:52: POC Glucose 145 H 07/28/22 20:41: POC Glucose 105 07/29/22 05:42: WBC 10.2, RBC 3.91 L, Hgb 9.6 L, Hct 31.3 L, MCV 80.1, MCH 24.4 L, MCHC 30.5 L, RDW 18.1 H, Plt Count 483 H, MPV 8.6, Neut % (Auto) 76.7, Lymph % (Auto) 14.4, [place] % (Auto) 5.8, Eos % (Auto) 2.7, Baso % (Auto) 0.4, Neut # (Auto) 7.8, Lymph # (Auto) 1.5, [place] # (Auto) 0.6, Eos # (Auto) 0.3, Baso # (Auto) 0.0 07/29/22 05:42: Sodium 139, Potassium 4.0, Chloride 104, Carbon Dioxide 29, Anion Gap 10.0, BUN 22 H, Creatinine 1.40 H, Estimated Creat Clear 100, Estimated GFR 52 L, Est GFR ( Amer) 63, Glucose 109 H, Calcium 9.0, Total Bilirubin 0.1 L, AST 33 D, ALT 40 D, Alkaline Phosphatase 205 H, C-Reactive Protein 46.4 H D, Total Protein 7.0, Albumin 3.3 L, Globulin 3.7 H, Albumin/Globulin Ratio 0.9 L 07/29/22 05:51: POC Glucose 106 I & O for Labs for Last 24 Hours: Intake & Output 07/26/22 07/27/22 07/28/22 07/29/22 23:59 23:59 23:59 23:59 Intake Total 248 / 248 1090 / 1090 590 / 590 350 / 350 Output Total 250 / 650 4125 / 4125 2049 / 2049 250 / 250 Balance -2 / -402 -3035 / -3035 -1460 / -1460 100 / 100 Weight 120.287 kg 122.425 kg 122 kg 123.4 kg Microbiology Reports for the Last 24 Hours: Microbiology 07/26/22 12:50 Blood Blood Culture - Preliminary NO GROWTH AFTER 48 HOURS 07/26/22 12:50 Blood Blood Culture - Preliminary NO GROWTH AFTER 48 HOURS Assessment and Plan Assessment and plan all Dx Plan of Treatment: Rounded with Dr. Lopez; we have discussed the clinical findings with the patient and his sister. Today we have discussed all management options including surgical as well as nonsurgical and the associated risks/benefits of each. We have discussed that further surgical intervention for his left persistent foot wound/gangrene would likely be in the form of a BKA. We have discussed the proposed procedure, risks/benefits, alternatives, and expected perioperative course in detail. Risks discussed include but are not limited to infection, bleeding, injury to adjacent structures, incomplete return of function, poor wound healing, DVT, PE, stroke, and even . We have discussed that the patient is at higher risk of wound healing complications given his prior history, diabetes, poor circulation, and former smoking status. We have discussed that further surgery including an agnyn-[id number]-[id number] amputation may be necessary if he continues to have difficulty with wound healing. The patient and his sister seem to understand and accept these risks and wish to proceed with a left below the knee amputation performed by Dr. Lopez; further surgical recommendations per Dr. Lopez. All questions were answered and the patient and his sister verbalized a good understanding. The patient is on long-term anticoagulation with aspirin and Xarelto, hold 48 hours prior to surgery. Continue rest, ice, elevation, and as needed pain medication. Begin n.p.o. status after midnight and tentatively plan for surgery tomorrow afternoon. C
--- NOTE | 2022-07-29 09:19 | EXP.ACUTE.PN ---
Subjective *Date: 07/29/22 *Time: 09:23 Interval history: Patient with no new complaints today. Saw Ortho yesterday, planning left BKA this afternoon. Medical Exam Vital signs and Labs for Last 24 Hours: Temp Pulse Resp BP Pulse Ox 98.4 F 86 17 131/80 97 07/29/22 08:00 07/29/22 08:00 07/29/22 08:00 07/29/22 08:00 07/29/22 08:00 Laboratory Results - last 24 hr 07/28/22 08:36: Hemoglobin A1c 6.4 H 07/28/22 08:39: WBC 10.8, RBC 3.93 L, Hgb 9.8 L, Hct 31.7 L, MCV 80.6, MCH 24.9 L, MCHC 30.9 L, RDW 18.2 H, Plt Count 474 H, MPV 7.6, Neut % (Auto) 81.5 H, Lymph % (Auto) 10.1, [place] % (Auto) 4.4, Eos % (Auto) 3.1, Baso % (Auto) 0.9, Neut # (Auto) 8.8 H, Lymph # (Auto) 1.1, [place] # (Auto) 0.5, Eos # (Auto) 0.3, Baso # (Auto) 0.1 07/28/22 11:27: POC Glucose 167 H 07/28/22 15:52: POC Glucose 145 H 07/28/22 20:41: POC Glucose 105 07/29/22 05:42: WBC 10.2, RBC 3.91 L, Hgb 9.6 L, Hct 31.3 L, MCV 80.1, MCH 24.4 L, MCHC 30.5 L, RDW 18.1 H, Plt Count 483 H, MPV 8.6, Neut % (Auto) 76.7, Lymph % (Auto) 14.4, [place] % (Auto) 5.8, Eos % (Auto) 2.7, Baso % (Auto) 0.4, Neut # (Auto) 7.8, Lymph # (Auto) 1.5, [place] # (Auto) 0.6, Eos # (Auto) 0.3, Baso # (Auto) 0.0 07/29/22 05:42: Sodium 139, Potassium 4.0, Chloride 104, Carbon Dioxide 29, Anion Gap 10.0, BUN 22 H, Creatinine 1.40 H, Estimated Creat Clear 100, Estimated GFR 52 L, Est GFR ( Amer) 63, Glucose 109 H, Calcium 9.0, Total Bilirubin 0.1 L, AST 33 D, ALT 40 D, Alkaline Phosphatase 205 H, C-Reactive Protein 46.4 H D, Total Protein 7.0, Albumin 3.3 L, Globulin 3.7 H, Albumin/Globulin Ratio 0.9 L 07/29/22 05:42: Blood Type B Positive, Antibody Screen Positive 07/29/22 05:51: POC Glucose 106 I & O for Labs for Last 24 Hours: Intake & Output 07/26/22 07/27/22 07/28/22 07/29/22 23:59 23:59 23:59 23:59 Intake Total 248 / 248 1090 / 1090 590 / 590 350 / 350 Output Total 250 / 650 4125 / 4125 2050 / 205 250 / 250 Balance -2 / -402 -3035 / -3035 -1460 / -1460 100 / 100 Weight 265 lb 3 oz 269 lb 14.4 oz 268 lb 15.423 oz 272 lb 0.807 oz Microbiology Reports for the Last 24 Hours: Microbiology 07/26/22 12:50 Blood Blood Culture - Preliminary NO GROWTH AFTER 48 HOURS 07/26/22 12:50 Blood Blood Culture - Preliminary NO GROWTH AFTER 48 HOURS Constitutional: no acute distress and cooperative Respiratory: CTA bilaterally Cardiac: Reg Rate and Rhythm Assessment and Plan *Assessment and plan (1) Hypotension: Status: Acute Category: Medical Code(s): I95.9 - Hypotension, unspecified (2) Obesity, Class II, BMI 35-39.9: Status: Acute Category: Medical Code(s): E66.9 - Obesity, unspecified (3) Status post foot surgery: Status: Acute Category: Surgical Code(s): Z98.890 - Other specified postprocedural states (4) Ulcer of left foot due to type 2 diabetes mellitus: Status: Acute Category: Medical Code(s): E11.621 - Type 2 diabetes mellitus with foot ulcer; L97.529 - Non-pressure chronic ulcer of other part of left foot with unspecified severity (5) Left foot pain: Status: Acute Category: Medical Code(s): M79.672 - Pain in left foot (6) Diabetic infection of left foot: Status: Acute Category: Medical Code(s): E11.628 - Type 2 diabetes mellitus with other skin complications; L08.9 - Local infection of the skin and subcutaneous tissue, unspecified (7) PAD (peripheral artery disease): Status: Acute Category: Medical Code(s): I73.9 - Peripheral vascular disease, unspecified (8) Type 2 diabetes mellitus with diabetic neuropathy, with long-term current use of insulin: Status: Acute Category: Medical Code(s): E11.40 - Type 2 diabetes mellitus with diabetic neuropathy, unspecified; Z79.4 - salvage determiner (current) use of insulin (9) Chronic osteomyelitis of left foot: Status:
--- NOTE | 2022-07-29 09:42 | EXP.PHA.CONS ---
Pharmacy Consult Date: 07/29/22 Time: 09:43 Referring provider: DR. BARRIENTOS Reason for Consult:: VANCOMYCIN DOSE/RENAL FUNCTION CHANGE Allergies Allergy/AdvReac Type Severity Reaction Status Date / Time oxycodone Allergy Unknown Verified 07/26/22 12:13 allergy reaction Home Medications Medication Instructions Recorded Confirmed Type metformin 1,000 mg tablet 1,000 mg PO BID Diabetes 01/10/19 07/26/22 History rosuvastatin 40 mg tablet 40 mg PO HS Cholesterol 01/10/19 07/26/22 History pregabalin 100 mg capsule 100 mg PO BID nerve pain 01/29/21 07/26/22 History dulaglutide 1.5 mg/0.5 mL 1.5 mg SQ WEEKLY Diabetes 12/10/21 07/26/22 History subcutaneous pen injector (Trulicity) insulin lispro protamine-lispro 40 - 50 unit SQ BID Diabetes 12/10/21 07/26/22 History 100 unit/mL (75-25) subcutaneous pen (Humalog Mix 75-25 KwikPen) carvedilol 25 mg tablet 25 mg PO BID blood pressure 06/02/22 07/26/22 History cholecalciferol (vitamin D3) 1,250 1,250 mcg PO WEEKLY Supplement 06/07/22 07/26/22 History mcg (50,000 unit) capsule ertugliflozin 15 mg tablet 15 mg PO DAILY Diabetes 06/07/22 07/26/22 History (Steglatro) aspirin 81 mg tablet,delayed 81 mg PO DAILY Heart disease 07/14/22 07/26/22 History release collagenase clostridium histo. 250 1 applic topical DAILY Pain 07/14/22 07/26/22 History unit/gram topical ointment losartan 50 mg-hydrochlorothiazide 1 tab PO DAILY blood pressure 07/14/22 07/26/22 History 12.5 mg tablet nitroglycerin 0.2 mg/hr 1 patch transdermal DAILY Chest 07/14/22 07/26/22 History transdermal 24 hour patch pain hydrocodone 10 mg-acetaminophen 1 tab PO Q4-6H PRN pain 7 days #40 07/22/22 07/26/22 Rx 325 mg tablet tabs furosemide 40 mg tablet 40 mg PO DAILYP PRN Edema 07/26/22 07/26/22 History rivaroxaban 2.5 mg tablet (Xarelto) 2.5 mg PO BID Blood thinner 07/26/22 07/26/22 History ceftriaxone 2 gram intravenous 2 g IV Q24H #38 ea 07/27/22 Rx solution ondansetron HCl 4 mg tablet 4 mg PO Q8H PRN nausea and 07/27/22 Rx vomiting #30 tabs New Prescriptions to Start Prescriptions: ceftriaxone Dipak Barrientos ondansetron HCl Dipak Barrientos Height: 1.88 m Weight: 123.4 kg Laboratory Results:: Laboratory Results - last 24 hr 07/28/22 08:36: Hemoglobin A1c 6.4 H 07/28/22 11:27: POC Glucose 167 H 07/28/22 15:52: POC Glucose 145 H 07/28/22 20:41: POC Glucose 105 07/29/22 05:42: WBC 10.2, RBC 3.91 L, Hgb 9.6 L, Hct 31.3 L, MCV 80.1, MCH 24.4 L, MCHC 30.5 L, RDW 18.1 H, Plt Count 483 H, MPV 8.6, Neut % (Auto) 76.7, Lymph % (Auto) 14.4, [place] % (Auto) 5.8, Eos % (Auto) 2.7, Baso % (Auto) 0.4, Neut # (Auto) 7.8, Lymph # (Auto) 1.5, [place] # (Auto) 0.6, Eos # (Auto) 0.3, Baso # (Auto) 0.0 07/29/22 05:42: Sodium 139, Potassium 4.0, Chloride 104, Carbon Dioxide 29, Anion Gap 10.0, BUN 22 H, Creatinine 1.40 H, Estimated Creat Clear 100, Estimated GFR 52 L, Est GFR ( Amer) 63, Glucose 109 H, Calcium 9.0, Total Bilirubin 0.1 L, AST 33 D, ALT 40 D, Alkaline Phosphatase 205 H, C-Reactive Protein 46.4 H D, Total Protein 7.0, Albumin 3.3 L, Globulin 3.7 H, Albumin/Globulin Ratio 0.9 L 07/29/22 05:42: Blood Type B Positive, Antibody Screen Positive 07/29/22 05:51: POC Glucose 106 Medical History: Medical History (Updated 07/27/22 @ 08:53 by Dipak Barrientos MD) Abnormal cardiovascular stress test Abnormal electrocardiography Atypical angina CAD (coronary artery disease) Carotid stenosis Diabetes mellitus Dyspnea 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
[2022-07-29 10:04] LABS: Erythrocyte Sedimentation Rate > 140 mm/hr (0-20)
[2022-07-29 15:01] LABS: POC Glucose,Bedside 125 (70-110)
--- NOTE | 2022-07-29 15:01 | PC.NURSE ---
Addendum entered by Ree Lao RN 07/29/22 15:01: sister at bedside. no concerns from her. Original Note: rounded on patient. no concerns or questions. patient awaiting surgery. encouraged him to ring out with any needs or questions.
--- NOTE | 2022-07-29 15:50 | PC.NURSE ---
Pt is off the floor for procedure
[2022-07-29 16:42] LABS: POC Glucose,Bedside 102 (70-110)
--- NOTE | 2022-07-29 17:31 | EXP.ANES.CKL ---
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 HLD (hyperlipidemia) HTN (hypertension) Osteomyelitis of left foot Sinus tachycardia Surgical History (Updated 07/26/22 @ 16:53 by Cortney Hoang APRN) H/O colonoscopy H/O heart artery stent History of appendectomy History of lumbar laminectomy History of transmetatarsal amputation of left foot Hx of CABG Family History No significant family history Social History (Updated 07/26/22 @ 17:03 by Cortney Hoang APRN) Smoking Status: Former smoker pack-years: 30 second hand exposure: No alcohol intake: never substance use type: denies use current occupational status: employed and other Travel in the last 8 weeks: None household members: none housing: house lives independently: Yes marital status: education level: high school 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 Anesthesia Checklist Patient Identification Patient Identification: Arm Band and Verbal (Name & ) Structural Data Admitted From: Inpatient Planned Operative Procedure/s: Left BKA Consent for Planned Operative Procedure(s) Verified: Yes Verified Documents: Surgical Consent NPO Status Verified Time NPO: 00:00 Chart Verification Results Verified: H & H Additional verifications Anesthesia Reactions: No Hx Blood Transfusions: No Blood Transfusion Reaction: No Cephalosporin Allergy: No Airway Assessment C-Spine Mobility Assessed: Yes TMJ Mobility Assessed: Yes Dentition: Poor Dentition Neurological Assessment Level of Consciousness: Awake, Alert and Appropriate Psychosocial Assessment Concerns Regarding Surgery: none Anesthesia Plan Anesthesia Risk discussed: Yes ASA Class: III Anesthesia Type: General
--- NOTE | 2022-07-29 20:01 | P.PNANES_ITS ---
[facility] Anesthesia Record Part I Anesthesia Record I Intake, IV Amount: 1,100 Estimated blood loss (mL): 100 Urine output (mL): 0 Blood Pressure: 143/106 SaO2: 97 Pulse Rate: 100 Respiratory Rate: 12 Temperature: 98.7 F Patient is:: Drowsy Stable to PACU at:: 19:57
--- NOTE | 2022-07-29 20:10 | SUR.PHASEI ---
2008-fsbs 133
--- NOTE | 2022-07-29 20:11 | EXP.OP.NOTE ---
Date of procedure: 07/29/22 Pre-op Diagnosis:: 1.? Nonhealing postoperative wound, left foot 2.? Chronic osteomyelitis, left foot 3.? Peripheral vascular disease 4.? Diabetes mellitus with foot ulcer Post-op Diagnosis:: Same Procedure performed:: Below-knee amputation, left leg Surgeon:: Rohit Lopez MD [employer] Helper(s):: Lizzie De La Fuente PA-C BINDER SELECTOR:: Other (Ari Gómez) Anesthesia: LMA Estimated blood loss (mL): 50 Clinical Note:: Mr. Jara is a 56-year-old male patient admitted to the inpatient service after being found to have hypotension and concerning cardiac symptoms during IV cefepime infusion.? Orthopedic services were consulted in regards to the patient's left foot wound/gangrene.? He was previously under the care of Dr. Vasquez/podiatry services and the wound care clinic following multiple surgeries including transmetatarsal amputation of? the left foot.? He states that in January of this year he stepped on an object unknowingly, causing a small wound on the bottom of his left foot.? The patient is a known diabetic and has peripheral neuropathy at baseline.? The postoperative wound failed to heal despite regular dressing changes and multiple debridements in addition to close follow-up with podiatry, resulting in progressive amputations/debridements.? Postoperatively patient has been having problems with wound breakdown and infection, skin necrosis/gangrene. In spite of regular wound care, IV and oral antibiotics the surgical incision failed to heal and progressively getting worse.? The patient has also undergone revascularization with Dr. Salguero/cardiology services.? He has a PICC line and has been receiving IV cefepime infusions.? He denies any history of fevers, chills, or rigors.? 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 His past medical history is significant for diabetes, peripheral artery disease, coronary artery disease, hypertension, and hyperlipidemia. Following evaluation yesterday, I had a detailed discussion regarding management options with the patient and his sister. Patient elected to proceed with a left below-knee amputation. I have discussed about the procedure, risks and benefits and alternatives. The patient and his sister expressed a full understanding and wished to proceed. I told him that we would plan on doing a left below-knee amputation but if the circulation is poor at this level, we would go ahead and perform an above-knee amputation. The complications discussed include but are not limited to infection, bleeding, injury to nerves and blood vessels, wound healing problems, prolonged pain and swelling, tender scar, further infection requiring oral or IV antibiotics, phantom pain, CRPS (complex regional pain syndrome- pain, sensory and temperature changes, swelling and stiffness), incomplete relief of pain, incomplete return of function, DVT, PE, ring sequestrum, likely need for further surgery in future and anesthetic problems including stroke, heart attack, and . I have discussed how there is a small but real possibility of loss of use of the limb, loss of the limb (proximal amputation) or loss of life itself. I have also explained how additional surgery may be required if there are any complications. We have also discussed the postoperative management, recovery and rehabilitation and the likely need for physical therapy, prosthetic limb fitting, the possibility of stiffness, osteomyelitis, chronic pain and we've also discussed the option of nonsurgical treatment. Patient and sister understand and have asked appropriate questions. All their questions were answered, and they verbalized a good understanding. He desires to proceed with the below knee amputation of the left lower extremity. Patient understood the risks, agreed to proceed with surgery, signed the consent form and no guarantees or assurances were given or implied. Operative findings:: Healthy well perfused mus
[2022-07-29 20:16] LABS: POC Glucose,Bedside 133 (70-110)
--- NOTE | 2022-07-29 20:45 | SUR.PHASEI ---
2007 pt reports pain 10/10 ICD 9 CODER. Administered dilaudid 0.5 mg. ivp 2012 pt continues to report pain 8/10 ICD 9 CODER. Administered dilaudid 0.5 mg ivp 2022. Pt reports pain 8/10 ICD 9 CODER. Administered dilaudid 0.5 mg ivp 2032 pt reports pain 8/10 poultry offal worker. Administered dilaudid 0.5 mg ivp. Pt will not describe pain. 2049 Repositioned pt to help ease pain. Pt reported improvement. Is calm and joking with staff. 2050 Detailed Report to Anu Strange RN
--- NOTE | 2022-07-29 20:59 | PC.NURSE ---
PT ARRIVED TO FLOOR VIA BED FROM OR AT THIS TIME
--- NOTE | 2022-07-29 21:03 | SUR.PHASEI ---
2049 pt reported decrease of pain 7/10 [facility] OR MEDICAL 2053 pt reported pain of 6/10 after repositioning prior to transferring to med/surg floor. Pt appears stable and in no distress.
[2022-07-30] VITALS (8 sets, daily range): BP systolic 121–154; BP diastolic 63–94; PULSE 81–98; RESP 16–20; TEMP 36.2–37.1; O2SAT 96–99; BMI 34.9
--- NOTE | 2022-07-30 05:01 | PC.NURSE ---
pt has complained of pain to op site 09/06; dressing to RLE CDI; j/p to bulb with blood tinged drainage noted, aprox 60cc; VSS, PICC line intact to DUANE, dressing due to be changed today, pt up to bsc and transfers self well from bed to commode, pt is alert and oriented x4, no other issues or concerns at this time.
--- NOTE | 2022-07-30 06:49 | PC.NURSE ---
Notes 07/29/22 20:45 Phase I Recovery Note by Case,Sharmila 2007 pt reports pain 10/10 COAL TRAMMER. Administered dilaudid 0.5 mg. ivp 2012 pt continues to report pain 8/10 COAL TRAMMER. Administered dilaudid 0.5 mg ivp 2022. Pt reports pain 8/10 COAL TRAMMER. Administered dilaudid 0.5 mg ivp 2032 pt reports pain 8/10 impregnating helper. Administered dilaudid 0.5 mg ivp. Pt will not describe pain. 2049 Repositioned pt to help ease pain. Pt reported improvement. Is calm and joking with staff. 2050 Detailed Report to Anu Strange RN 1-MARINA Drain 500 ml at discharge
[2022-07-30 06:52] LABS: POC Glucose,Bedside 140 (70-110)
[2022-07-30 06:56] LABS: Basophils # 0.1 K/mm3 (0-0.2); Basophils % 0.6 % (0.1-2.0); Eosinophils # 0.1 K/mm3 (0.0-0.4); Eosinophils % 1.1 % (0.1-12.0); Hematocrit 30.9 % (42.0-52.0); Hemoglobin 9.2 g/dL (14.1-18.0); Lymphocytes # 1.2 K/mm3 (0.7-4.5); Lymphocytes % 9.8 % (10-50); Mean Corpuscular HGB Conc 29.8 g/dL (31.8-35.4); Mean Corpuscular Hemoglobin 24.4 pg (27.0-31.2); Mean Corpuscular Volume 81.8 fl (80-94); Mean Platelet Volume 7.7 fl (7.4-10.4); Monocytes # 0.6 K/mm3 (0.1-1.0); Monocytes % 4.8 % (1.7-9.3); Neutrophils # 10.1 K/mm3 (1.8-7.8); Neutrophils % 83.6 % (37.0-80.0); Platelet Count 423 K/mm3 (142-424); Red Blood Count 3.77 M/mm3 (4.60-6.20); Red Cell Distribution Width 18.5 % (11.5-17.5); White Blood Count 12.1 K/mm3 (4.8-10.8)
[2022-07-30 07:26] LABS: Chloride 106 mmol/L (98-107); Potassium 4.8 mmoL/L (3.5-5.1); Sodium 140 mmol/L (136-145)
[2022-07-30 07:29] LABS: Anion Gap 12.8 mEq/L (5-15); Blood Urea Nitrogen 22 mg/dl (9-20); Carbon Dioxide 26 mmol/L (22.0-30.0); Creatinine Clearance Estimated 100 mL/min (50-200); Estimated Glomerular Filt Rate 52 ml/min (>60); GFR (African American) 63 ML/MIN (>60)
[2022-07-30 07:30] LABS: Calcium 8.9 mg/dl (8.4-10.2); Glucose 129 mg/dl (74-100)
--- NOTE | 2022-07-30 08:11 | P.PNANES_ITS ---
[facility] Anesthesia Record Part II Anesthesia Record Part II Discharge Time: 20:54 Destination: Medical Surgical Department PACU nurse assessment reviewed?: Yes Patient Condition:: Good Anesthesia Complications:: None Swallowing reflex intact?: Yes Cyanosis?: No Blood Pressure: 133/77 Pulse Rate: 97 Temperature: 97.2 F Mental Status: Alert & Oriented Pain level:: 6 Nausea and/or vomitting:: Nauseated Intake, IV Amount: 0
--- NOTE | 2022-07-30 08:26 | PC.NURSE ---
Spoke to Dr. Barrientos about starting pts Xarelto back for VTE. He stated that it was fine to start it back. I informed pharmacy.
--- NOTE | 2022-07-30 08:28 | EXP.ACUTE.PN ---
Subjective *Date: 07/30/22 *Time: 08:31 Interval history: Patient had left BKA last night. He has had pain over night and states he needs more pain medications. Medical Exam Vital signs and Labs for Last 24 Hours: Temp Pulse Resp BP Pulse Ox FiO2 97.2 F L 97 H 18 133/77 98 99 07/30/22 08:18 07/30/22 08:18 07/30/22 08:00 07/30/22 08:18 07/30/22 08:00 07/29/22 21:15 Laboratory Results - last 24 hr 07/29/22 05:42: ESR > 140 H 07/29/22 05:42: Blood Type B Positive, Antibody Screen Positive 07/29/22 12:13: POC Glucose 125 H 07/29/22 16:27: POC Glucose 102 07/29/22 20:08: POC Glucose 133 H 07/30/22 05:25: WBC 12.1 H, RBC 3.77 L, Hgb 9.2 L, Hct 30.9 L, MCV 81.8, MCH 24.4 L, MCHC 29.8 L, RDW 18.5 H, Plt Count 423, MPV 7.7, Neut % (Auto) 83.6 H, Lymph % (Auto) 9.8 L, [place] % (Auto) 4.8, Eos % (Auto) 1.1, Baso % (Auto) 0.6, Neut # (Auto) 10.1 H, Lymph # (Auto) 1.2, [place] # (Auto) 0.6, Eos # (Auto) 0.1, Baso # (Auto) 0.1 07/30/22 05:25: Sodium 140, Potassium 4.8, Chloride 106, Carbon Dioxide 26, Anion Gap 12.8, BUN 22 H, Creatinine 1.40 H, Estimated Creat Clear 100, Estimated GFR 52 L, Est GFR ( Amer) 63, Glucose 129 H, Calcium 8.9 07/30/22 05:25: POC Glucose 140 H I & O for Labs for Last 24 Hours: Intake & Output 07/27/22 07/28/22 07/29/22 07/30/22 23:59 23:59 23:59 23:59 Intake Total 1090 / 1090 590 / 590 2075 / 2075 871 / 871 Output Total 4125 / 4125 2049 / 2049 700 / 700 790 / 790 Balance -3035 / -3035 -1460 / -1460 1375 / 1375 81 / 81 Weight 269 lb 14.4 oz 268 lb 15.423 oz 272 lb 0.807 oz 272 lb 0.807 oz Constitutional: no acute distress (uncomfortable due to pain) Respiratory: CTA bilaterally Cardiac: Reg Rate and Rhythm Comment:: dressing and tylor wrap over the BKA site Assessment and Plan *Assessment and plan (1) Hypotension: Status: Acute Category: Medical Code(s): I95.9 - Hypotension, unspecified (2) Obesity, Class II, BMI 35-39.9: Status: Acute Category: Medical Code(s): E66.9 - Obesity, unspecified (3) Status post foot surgery: Status: Acute Category: Surgical Code(s): Z98.890 - Other specified postprocedural states (4) Ulcer of left foot due to type 2 diabetes mellitus: Status: Acute Category: Medical Code(s): E11.621 - Type 2 diabetes mellitus with foot ulcer; L97.529 - Non-pressure chronic ulcer of other part of left foot with unspecified severity (5) Left foot pain: Status: Acute Category: Medical Code(s): M79.672 - Pain in left foot (6) Diabetic infection of left foot: Status: Acute Category: Medical Code(s): E11.628 - Type 2 diabetes mellitus with other skin complications; L08.9 - Local infection of the skin and subcutaneous tissue, unspecified (7) PAD (peripheral artery disease): Status: Acute Category: Medical Code(s): I73.9 - Peripheral vascular disease, unspecified (8) Type 2 diabetes mellitus with diabetic neuropathy, with long-term current use of insulin: Status: Acute Category: Medical Code(s): E11.40 - Type 2 diabetes mellitus with diabetic neuropathy, unspecified; Z79.4 - 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 transplanted heart: [place] heart Qualified Code(s): I25.10 - Atherosclerotic heart disease of [place] coronary artery without angina pectoris Category: Medical Code(s): I25.10 - Atherosclerotic heart disease
--- NOTE | 2022-07-30 11:09 | HMH.PTEV ---
Physical Therapy Evaluation Rehab PT IP Evaluation Start: 07/29/22 20:06 Freq: ONCE Status: Active Protocol: Document 07/30/22 10:00 ANKIT (Rec: 07/30/22 11:09 PHOGURPREET [id number]) Subjective/History History History 56 yowm adm to [facility] with chronic L LE osteomyelitis, now S/P L BKA. He reports has 2-3 steps to enter the home and was previously independent with all mobility. Has axillary crutches at home. Subjective Subjective Pt reports pain in L LE, but otherwise no c/o. Rehab PT IP Eval Objective Appearance Patient Behavior Appropriate Patient Orientation Person,Place,Time Difficulty following instructions none Speech Pattern Clear Ambulation Patient Able to Ambulate No Balance Ability to Arise Able, uses arms to help Sitting Balance Steady, safe Dynamic Sitting Balance Ability Good Dynamic Standing Balance Ability Good Transfers Bed Transfer Ability Supervision/Stand by Chair Transfer Ability Supervision/Stand by Sit to Stand Bed Transfer Ability Contact Guard/Hand Hold Sit to Stand Chair Transfer Ability Contact Guard/Hand Hold Rehab PT IP prob,goals,plan Problems Date of Evaluation: 07/30/22 PT IP Problems Bed Mobility,Transfers,Gait Rehab Potential Rehab Potential Good Equipment Needs Assistive Devices Wheelchair Plan PT Intervention Plan Bed Mobility,Transfers,Gait PT Plan Frequency BID Duration LOS Discharge Goals Bed Transfer Ability Supervision/Stand by Sit to Stand Chair Transfer Ability Supervision/Stand by Ambulation Assistive Device Rolling Walker Ambulation Distance (feet) 5 Discharge Plan PT Discharge Plan Pt is currently most appropriate for rehab placement, but could return home with assist if necessary. If he returns home, recommend BSC and WC for home use. G -code Required No Eval Complexity Eval Charge Codes 78091 - Moderate Complexity PHYSICIAN CERTIFICATION: I certify the specified therapy services for Jewel Jara II are required, authorized, and reviewed every 30 days.
[2022-07-30 11:10] LABS: Vancomycin,Trough 28.1 ug/mL (5.0-10.0)
--- NOTE | 2022-07-30 11:10 | PC.NURSE ---
Spoke with lab about pts vanc troph critical.
--- NOTE | 2022-07-30 11:11 | PC.NURSE ---
Called pharm and made aware of critical vanc troph
--- NOTE | 2022-07-30 11:18 | EXP.ORTH.PN ---
Subjective *Date: 07/30/22 *Time: 11:25 Interval history: Patient is 56-year-old male who underwent an uneventful left below the knee amputation performed by Dr. Lopez yesterday 07/29/2022. Today the patient is postop day #1. This morning he is lying comfortably in bed. He reports pain in his left residual limb as to be expected, but states that it is improved with rest and as needed pain medication. He reports that he does not have much of an appetite, but denies any episodes of nausea or vomiting. No history of fevers, chills, or rigors. He denies any other symptoms or concerns at this time. Ortho Exam (Inpt) Vital signs and Labs for Last 24 Hours: Temp Pulse Resp BP Pulse Ox FiO2 97.2 F L 97 H 18 133/77 98 99 07/30/22 08:18 07/30/22 08:18 07/30/22 08:00 07/30/22 08:18 07/30/22 08:00 07/29/22 21:15 Laboratory Results - last 24 hr 07/29/22 12:13: POC Glucose 125 H 07/29/22 16:27: POC Glucose 102 07/29/22 20:08: POC Glucose 133 H 07/30/22 05:25: WBC 12.1 H, RBC 3.77 L, Hgb 9.2 L, Hct 30.9 L, MCV 81.8, MCH 24.4 L, MCHC 29.8 L, RDW 18.5 H, Plt Count 423, MPV 7.7, Neut % (Auto) 83.6 H, Lymph % (Auto) 9.8 L, [place] % (Auto) 4.8, Eos % (Auto) 1.1, Baso % (Auto) 0.6, Neut # (Auto) 10.1 H, Lymph # (Auto) 1.2, [place] # (Auto) 0.6, Eos # (Auto) 0.1, Baso # (Auto) 0.1 07/30/22 05:25: Sodium 140, Potassium 4.8, Chloride 106, Carbon Dioxide 26, Anion Gap 12.8, BUN 22 H, Creatinine 1.40 H, Estimated Creat Clear 100, Estimated GFR 52 L, Est GFR ( Amer) 63, Glucose 129 H, Calcium 8.9 07/30/22 05:25: POC Glucose 140 H 07/30/22 10:27: Vancomycin Trough 28.1 H I & O for Labs for Last 24 Hours: Intake & Output 07/27/22 07/28/22 07/29/22 07/30/22 23:59 23:59 23:59 23:59 Intake Total 1090 / 1090 590 / 590 2074 / 2075 1111 / 1111 Output Total 4125 / 4125 2049 / 2049 700 / 700 790 / 790 Balance -3035 / -3035 -1460 / -1460 1375 / 1375 321 / 321 Weight 269 lb 14.4 oz 268 lb 15.423 oz 272 lb 0.807 oz 272 lb 0.807 oz Head: normocephalic and atraumatic Eyes: as per HPI ENT: normal exam Neck: normal inspection, full ROM, trachea midline and lymphadenopathy Respiratory: accessory muscle use, normal respiratory effort, able to speak in complete sentences and symmetric chest movement Cardiac: Reg Rate and Rhythm GI: soft and tenderness Comment:: Upon examination of the left residual limb: Dressings present are clean, dry, and intact. There is a surgical drain in place with approximately 25 cc of serosanguineous fluid present. Thigh is soft and nontender. Distal neurovascular status is grossly intact. Skin: intact, cyanosis, erythema, warm, lesions, jaundice or normal turgor Neuro: Cranial Nerve 2-12 Intact, Numbness, Motor Function Intact, Tingling, Sensory Function Intact, alert, awake, oriented x 3, tone normal and moves all extremities Assessment and Plan Assessment and plan all Dx Assessment and Plan All Dx:: Rounded with Dr. Lopez; overall the patient is doing well from an orthopedic standpoint this morning. Dressings present over the left residual limb are clean, dry, and intact. There is a surgical drain in place with approximately 25 cc of serosanguineous fluid present. Continue rest, ice, and as needed pain medication. Continue IV antibiotics. Plan to remove surgical drain prior to discharge. Keep sugar-tong splint in place for 2 weeks until patient is seen in the office for his first postoperative visit; plan for follow-up in our office in 2 weeks for wound inspection/reevaluation. Case management team coordinating discharge planning; patient has expressed an interest in placement for short-term rehabilitation. Continue medical management as per primary care team
--- NOTE | 2022-07-30 11:41 | EXP.PHA.CONS ---
Pharmacy Consult Date: 07/30/22 Time: 11:41 Referring provider: DR. BARRIENTOS Reason for Consult:: VANCOMYCIN LEVEL Allergies Allergy/AdvReac Type Severity Reaction Status Date / Time oxycodone Allergy Unknown Verified 07/26/22 12:13 allergy reaction Home Medications Medication Instructions Recorded Confirmed Type metformin 1,000 mg tablet 1,000 mg PO BID Diabetes 01/10/19 07/26/22 History rosuvastatin 40 mg tablet 40 mg PO HS Cholesterol 01/10/19 07/26/22 History pregabalin 100 mg capsule 100 mg PO BID nerve pain 01/29/21 07/26/22 History dulaglutide 1.5 mg/0.5 mL 1.5 mg SQ WEEKLY Diabetes 12/10/21 07/26/22 History subcutaneous pen injector (Trulicity) insulin lispro protamine-lispro 40 - 50 unit SQ BID Diabetes 12/10/21 07/26/22 History 100 unit/mL (75-25) subcutaneous pen (Humalog Mix 75-25 KwikPen) carvedilol 25 mg tablet 25 mg PO BID blood pressure 06/02/22 07/26/22 History cholecalciferol (vitamin D3) 1,250 1,250 mcg PO WEEKLY Supplement 06/07/22 07/26/22 History mcg (50,000 unit) capsule ertugliflozin 15 mg tablet 15 mg PO DAILY Diabetes 06/07/22 07/26/22 History (Steglatro) aspirin 81 mg tablet,delayed 81 mg PO DAILY Heart disease 07/14/22 07/26/22 History release collagenase clostridium histo. 250 1 applic topical DAILY Pain 07/14/22 07/26/22 History unit/gram topical ointment losartan 50 mg-hydrochlorothiazide 1 tab PO DAILY blood pressure 07/14/22 07/26/22 History 12.5 mg tablet nitroglycerin 0.2 mg/hr 1 patch transdermal DAILY Chest 07/14/22 07/26/22 History transdermal 24 hour patch pain hydrocodone 10 mg-acetaminophen 1 tab PO Q4-6H PRN pain 7 days #40 07/22/22 07/26/22 Rx 325 mg tablet tabs furosemide 40 mg tablet 40 mg PO DAILYP PRN Edema 07/26/22 07/26/22 History rivaroxaban 2.5 mg tablet (Xarelto) 2.5 mg PO BID Blood thinner 07/26/22 07/26/22 History ceftriaxone 2 gram intravenous 2 g IV Q24H #38 ea 07/27/22 Rx solution ondansetron HCl 4 mg tablet 4 mg PO Q8H PRN nausea and 07/27/22 Rx vomiting #30 tabs New Prescriptions to Start Prescriptions: ceftriaxone Dipak Barrientos ondansetron HCl Dipak Barrientos Height: 1.88 m Weight: 123.4 kg Laboratory Results:: Laboratory Results - last 24 hr 07/29/22 12:13: POC Glucose 125 H 07/29/22 16:27: POC Glucose 102 07/29/22 20:08: POC Glucose 133 H 07/30/22 05:25: WBC 12.1 H, RBC 3.77 L, Hgb 9.2 L, Hct 30.9 L, MCV 81.8, MCH 24.4 L, MCHC 29.8 L, RDW 18.5 H, Plt Count 423, MPV 7.7, Neut % (Auto) 83.6 H, Lymph % (Auto) 9.8 L, [place] % (Auto) 4.8, Eos % (Auto) 1.1, Baso % (Auto) 0.6, Neut # (Auto) 10.1 H, Lymph # (Auto) 1.2, [place] # (Auto) 0.6, Eos # (Auto) 0.1, Baso # (Auto) 0.1 07/30/22 05:25: Sodium 140, Potassium 4.8, Chloride 106, Carbon Dioxide 26, Anion Gap 12.8, BUN 22 H, Creatinine 1.40 H, Estimated Creat Clear 100, Estimated GFR 52 L, Est GFR ( Amer) 63, Glucose 129 H, Calcium 8.9 07/30/22 05:25: POC Glucose 140 H 07/30/22 10:27: Vancomycin Trough 28.1 H Medical History: Medical History (Updated 07/27/22 @ 08:53 by Dipak Barrientos MD) Abnormal cardiovascular stress test Abnormal electrocardiography Atypical angina CAD (coronary artery disease) Carotid stenosis Diabetes mellitus Dyspnea 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
--- NOTE | 2022-07-30 13:41 | SW/DCPLANNER ---
Addendum entered by Ree [place] 08/03/22 14:22: [facility] is able to accept this patient tomorrow. I will call and update patient/sister and I will inform [facility]. Addendum entered by Ree Alicia 08/03/22 10:29: Patient is residing with is sister at [address] in [facility] [phone]. I did speak with patient and his sister this AM via phone: they have expressed an interest in placement. I explained that patient will be [facility] pendin days and payment is monthly income minus $40. Patient is agreeable to placement under [facility] pending: patient information has been faxed to [facility] and [facility]. I have left a message with Dr Barrientos regarding situation. Addendum entered by Ree [place] 08/03/22 10:09: Patient information/order has been faxed to [facility]/ [facility]. Addendum entered by Ree [place] 07/30/22 14:04: Ro estrada/ [facility] stated that DME will be delivered to [facility] today. Original Note: I spoke with this patient regarding discharge plans. Patient stated that he is discharging home with his sister in [facility] at time of discharge. Patient expressed an interest in home health services:Michell estrada/ [facility] stated they could accept this patient in [facility] area at time of discharge. Patient stated that he will need a wheel chair and bedside commode at time of discharge: patient information/order has been faxed to [facility]. Discharge date is unknown at this time.
--- NOTE | 2022-07-30 13:42 | CARE MANAGER ---
Patient will require a w/c rather than a cane or walker, r/t recent BKA. He will also require a BSC due to distance to bathroom in the home.
[2022-07-30 17:01] LABS: POC Glucose,Bedside 128 (70-110)
--- NOTE | 2022-07-30 20:16 | PC.NURSE ---
Pt is A/ox4. He has tolerated diabetic diet well. He has gotten to the BSC to use the restroom just fine with help. I drained 50 MLs from his MARINA drain.
--- NOTE | 2022-07-30 21:03 | PC.NURSE ---
Pt's PICC line dressing was changed and dated.
[2022-07-31] VITALS: BP 123/71; PULSE 91; RESP 20; TEMP 36.6; O2SAT 96
[2022-07-31 00:11] LABS: POC Glucose,Bedside 139 (70-110)
[2022-07-31 04:00] VITALS: BP 145/57; PULSE 59; RESP 20; TEMP 36.9; O2SAT 96
[2022-07-31 05:00] VITALS: BMI 35.1
[2022-07-31 05:18] VITALS: PULSE 92
--- NOTE | 2022-07-31 05:31 | PC.NURSE ---
pt has c/o pain in left leg several times t/o the night, as well as nausea. medicated for pain and nausea per mar. he has used wheelchair to go to the toilet with standby assist, and used the bsc independently. he has not required insulin this shift. he is a&oX4, call light within reach, no needs at this time.
[2022-07-31 06:16] LABS: Basophils # 0.1 K/mm3 (0-0.2); Basophils % 0.7 % (0.1-2.0); Eosinophils # 0.3 K/mm3 (0.0-0.4); Eosinophils % 2.5 % (0.1-12.0); Hematocrit 31.7 % (42.0-52.0); Hemoglobin 9.5 g/dL (14.1-18.0); Lymphocytes # 1.3 K/mm3 (0.7-4.5); Lymphocytes % 11.3 % (10-50); Mean Corpuscular HGB Conc 30.1 g/dL (31.8-35.4); Mean Corpuscular Volume 79.7 fl (80-94); Mean Platelet Volume 7.5 fl (7.4-10.4); Monocytes # 0.5 K/mm3 (0.1-1.0); Monocytes % 4.5 % (1.7-9.3); Neutrophils # 9.4 K/mm3 (1.8-7.8); Neutrophils % 80.9 % (37.0-80.0); Platelet Count 440 K/mm3 (142-424); Red Blood Count 3.98 M/mm3 (4.60-6.20); Red Cell Distribution Width 18.3 % (11.5-17.5); White Blood Count 11.6 K/mm3 (4.8-10.8)
--- NOTE | 2022-07-31 06:17 | PC.NURSE ---
20 ml sanguineous drainage emptied from MARINA drain at this time
[2022-07-31 06:26] LABS: Anion Gap 11.3 mEq/L (5-15); Blood Urea Nitrogen 19 mg/dl (9-20); Calcium 8.8 mg/dl (8.4-10.2); Carbon Dioxide 26 mmol/L (22.0-30.0); Chloride 106 mmol/L (98-107); Creatinine Clearance Estimated 109 mL/min (50-200); Estimated Glomerular Filt Rate 57 ml/min (>60); GFR (African American) 69 ML/MIN (>60); Glucose 134 mg/dl (74-100); Potassium 4.3 mmoL/L (3.5-5.1); Sodium 139 mmol/L (136-145)
[2022-07-31 08:00] VITALS: BP 137/82; PULSE 95; RESP 16; TEMP 36.7; O2SAT 98
--- NOTE | 2022-07-31 08:52 | EXP.ACUTE.PN ---
Subjective *Date: 07/31/22 *Time: 08:57 Interval history: Patient continues to have some pain in his left leg, no other new complaints. Medical Exam Vital signs and Labs for Last 24 Hours: Temp Pulse Resp BP Pulse Ox FiO2 98.0 F 95 H 16 137/82 98 99 07/31/22 08:00 07/31/22 08:00 07/31/22 08:00 07/31/22 08:00 07/31/22 08:00 07/29/22 21:15 Laboratory Results - last 24 hr 07/30/22 10:27: Vancomycin Trough 28.1 H 07/30/22 16:48: POC Glucose 128 H 07/30/22 21:21: POC Glucose 139 H 07/31/22 06:07: WBC 11.6 H, RBC 3.98 L, Hgb 9.5 L, Hct 31.7 L, MCV 79.7 L, MCH 24.0 L, MCHC 30.1 L, RDW 18.3 H, Plt Count 440 H, MPV 7.5, Neut % (Auto) 80.9 H, Lymph % (Auto) 11.3, [place] % (Auto) 4.5, Eos % (Auto) 2.5, Baso % (Auto) 0.7, Neut # (Auto) 9.4 H, Lymph # (Auto) 1.3, [place] # (Auto) 0.5, Eos # (Auto) 0.3, Baso # (Auto) 0.1 07/31/22 06:07: Sodium 139, Potassium 4.3, Chloride 106, Carbon Dioxide 26, Anion Gap 11.3, BUN 19, Creatinine 1.30 H, Estimated Creat Clear 109, Estimated GFR 57 L, Est GFR ( Amer) 69, Glucose 134 H, Calcium 8.8 I & O for Labs for Last 24 Hours: Intake & Output 07/28/22 07/29/22 07/30/22 07/31/22 23:59 23:59 23:59 23:59 Intake Total 590 / 590 2075 / 2075 2609 / 2609 791 / 791 Output Total 2049 / 2049 700 / 700 1390 / 1540 620 / 620 Balance -1460 / -1460 1375 / 1375 1219 / 1069 171 / 171 Weight 268 lb 15.423 oz 272 lb 0.807 oz 272 lb 0.807 oz 273 lb 12.8 oz Constitutional: no acute distress (uncomfortable due to pain) Respiratory: CTA bilaterally Cardiac: Reg Rate and Rhythm Comment:: dressing and tylor wrap over the BKA site Assessment and Plan *Assessment and plan (1) Hypotension: Status: Acute Category: Medical Code(s): I95.9 - Hypotension, unspecified (2) Obesity, Class II, BMI 35-39.9: Status: Acute Category: Medical Code(s): E66.9 - Obesity, unspecified (3) Status post foot surgery: Status: Acute Category: Surgical Code(s): Z98.890 - Other specified postprocedural states (4) Ulcer of left foot due to type 2 diabetes mellitus: Status: Acute Category: Medical Code(s): E11.621 - Type 2 diabetes mellitus with foot ulcer; L97.529 - Non-pressure chronic ulcer of other part of left foot with unspecified severity (5) Left foot pain: Status: Acute Category: Medical Code(s): M79.672 - Pain in left foot (6) Diabetic infection of left foot: Status: Acute Category: Medical Code(s): E11.628 - Type 2 diabetes mellitus with other skin complications; L08.9 - Local infection of the skin and subcutaneous tissue, unspecified (7) PAD (peripheral artery disease): Status: Acute Category: Medical Code(s): I73.9 - Peripheral vascular disease, unspecified (8) Type 2 diabetes mellitus with diabetic neuropathy, with long-term current use of insulin: Status: Acute Category: Medical Code(s): E11.40 - Type 2 diabetes mellitus with diabetic neuropathy, unspecified; 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 transplanted heart: [place] heart Qualified Code(s): I25.10 - Atherosclerotic heart disease of [place] coronary artery without angina pectoris Category: Medical Code(s): I25.10 - Atherosclerotic heart disease of [place] coronary artery without angina pectoris (12) Hx of CABG: Status: Chronic Category: Surgical Code(s): Z95.1 - Pres
--- NOTE | 2022-07-31 10:19 | PC.NURSE ---
Pt has had 2 unmeasured voids since 0830 this morning
[2022-07-31 16:00] VITALS: BP 130/77; PULSE 101; RESP 18; TEMP 37; O2SAT 97
[2022-07-31 17:20] LABS: POC Glucose,Bedside 205 (70-110)
--- NOTE | 2022-07-31 19:05 | PC.NURSE ---
Pt is A/Ox4. He has complained of pain in the BKA. He has slept a few hours today. He also ate a diabetic diet and has tolerated it well.
[2022-07-31 20:00] VITALS: BP 131/62; PULSE 95; RESP 20; TEMP 37; O2SAT 97
[2022-08-01] VITALS: BP 111/61; PULSE 95; RESP 20; TEMP 37.1; O2SAT 99
[2022-08-01 04:00] VITALS: BP 142/76; PULSE 91; RESP 20; TEMP 36.8; O2SAT 94
[2022-08-01 04:36] VITALS: BMI 34.8
--- NOTE | 2022-08-01 04:37 | PC.NURSE ---
pt has c/o pain in left leg several times t/o the night, and was medicated per jan. he has used wheelchair to go to the toilet independently. he is a&oX4, call light within reach, no needs at this time.
--- NOTE | 2022-08-01 05:28 | PC.NURSE ---
10 ml sanguineous drainage drained from MARINA drain to left BKA
--- NOTE | 2022-08-01 07:50 | EXP.ACUTE.PN ---
Subjective *Date: 08/01/22 *Time: 07:53 Interval history: Patient states his pain is better today, no new complaints. Medical Exam Vital signs and Labs for Last 24 Hours: Temp Pulse Resp BP Pulse Ox FiO2 98.2 F 91 H 20 142/76 H 94 L 99 08/01/22 04:00 08/01/22 04:00 08/01/22 04:00 08/01/22 04:00 08/01/22 04:00 07/29/22 21:15 Laboratory Results - last 24 hr 07/31/22 17:03: POC Glucose 205 H I & O for Labs for Last 24 Hours: Intake & Output 07/29/22 07/30/22 07/31/22 08/01/22 23:59 23:59 23:59 23:59 Intake Total 2075 / 2075 2609 / 2609 1751 / 1751 446 / 446 Output Total 700 / 700 1390 / 1540 845 / 845 210 / 210 Balance 1375 / 1375 1219 / 1069 906 / 906 236 / 236 Weight 272 lb 0.807 oz 272 lb 0.807 oz 273 lb 12.8 oz 271 lb 9 oz Microbiology Reports for the Last 24 Hours: Microbiology 07/26/22 12:50 Blood Blood Culture - Final NO GROWTH AFTER 5 DAYS 07/26/22 12:50 Blood Blood Culture - Final NO GROWTH AFTER 5 DAYS Constitutional: no acute distress (uncomfortable due to pain) Respiratory: CTA bilaterally Cardiac: Reg Rate and Rhythm Comment:: dressing and tylor wrap over the BKA site Assessment and Plan *Assessment and plan (1) Hypotension: Status: Acute Category: Medical Code(s): I95.9 - Hypotension, unspecified (2) Obesity, Class II, BMI 35-39.9: Status: Acute Category: Medical Code(s): E66.9 - Obesity, unspecified (3) Status post foot surgery: Status: Acute Category: Surgical Code(s): Z98.890 - Other specified postprocedural states (4) Ulcer of left foot due to type 2 diabetes mellitus: Status: Acute Category: Medical Code(s): E11.621 - Type 2 diabetes mellitus with foot ulcer; L97.529 - Non-pressure chronic ulcer of other part of left foot with unspecified severity (5) Left foot pain: Status: Acute Category: Medical Code(s): M79.672 - Pain in left foot (6) Diabetic infection of left foot: Status: Acute Category: Medical Code(s): E11.628 - Type 2 diabetes mellitus with other skin complications; L08.9 - Local infection of the skin and subcutaneous tissue, unspecified (7) PAD (peripheral artery disease): Status: Acute Category: Medical Code(s): I73.9 - Peripheral vascular disease, unspecified (8) Type 2 diabetes mellitus with diabetic neuropathy, with long-term current use of insulin: Status: Acute Category: Medical Code(s): E11.40 - Type 2 diabetes mellitus with diabetic neuropathy, unspecified; Z79.4 - penitentiary (current) use of insulin (9) Chronic osteomyelitis of left foot: Status: Acute Category: Medical Code(s): M86.672 - Other chronic osteomyelitis, left ankle and foot (10) Non-compliance: Status: Acute Category: Medical Code(s): Z91.19 - Patient's noncompliance with other medical treatment and regimen (11) CAD (coronary artery disease): Status: Chronic Qualifiers: Associated angina: without angina Coronary Disease-Associated Artery/Lesion type: [place] artery [place] vs. transplanted heart: [place] heart Qualified Code(s): I25.10 - Atherosclerotic heart disease of [place] coronary artery without angina pectoris Category: Medical Code(s): I25.10 - Atherosclerotic heart disease of [place] coronary artery without angina pectoris (12) Hx of CABG: Status: Chronic Category: Surgical Code(s): Z95.1 - Presence of aortocoronary bypass graft (13) HLD (hyperlipidemia): Status: Acute Qualifiers: Hyperlipidemia type: mixed hyperlipidemia Qualified Code(s): E78.2 - Mixed hyperlipidemia Category: Medical Code(s): E78.5 - Hyperlipidemia, unspecified (14) HTN (hypertension): Status: Acute Qualifiers: Hypertension type: primary hyperten
[2022-08-01 08:00] VITALS: BP 128/74; PULSE 90; RESP 20; TEMP 36.8; O2SAT 97
--- NOTE | 2022-08-01 09:07 | PC.NURSE ---
pt had 1 unmeasured void
--- NOTE | 2022-08-01 11:55 | PC.NURSE ---
dressing change completed to left bka. MARINA drain removed. pt tolerated well. aware. pt will be discahrged with home health. has bedside commode and wheelchair and will be staying @ his sisters house. home health will be there tuesday. I have educated him on follow up appts and medication management. PICC to E remains intact
--- NOTE | 2022-08-01 12:28 | PC.NURSE ---
pt is being discahrged from [facility]. Took all belongings with him and voiced understanding of all disachrge education and follow up appts.
--- NOTE | 2022-08-02 15:16 | EXP.DC.SUM ---
General Admission date:: 07/27/22 Discharge date: 08/01/22 HPI HPI HPI: Mr. Jara is a 56-year-old male patient with a history of coronary artery disease CABG in October 2016, myocardial infarction status post stenting x4 in March 2016, diabetes mellitus type 2, hypertension, allergic rhinitis, and? diabetic neuropathy who when receiving IV antibiotic infusion (cefepime )was noted to have a low systolic blood pressure in the 90s during infusion.? He also experienced some left shoulder discomfort which lasted about 15 minutes.? He was evaluated in the emergency room and was admitted for further evaluation and treatment. Following are podiatry notes: HPI Postoperative (podiatry) History of Present Illness Procedure: Left TMA revision, bone biopsy Date of surgery: 07/14/22 Pain scale (0-10): 9 Dressing: intact Activity: non-weight bearing Immobilization: pneumatic fracture boot Compliance: non-compliant Surgery, 07/14/22: S/p 1. Left TMA revision 2. Left foot adjacent tissue transfer/rearrangment 3. Secondary closure of surgical wound? 4. Left foot I&D bone cortex. 5. Left dorsal foot wound debridement 6.? Left foot open bone biopsy 7. PMMA bead insertion 8. Application of wound vac. Intraop Specimens: Left foot tissue/ulcer culture: Klebsiella pneumoniae, Klebsiella aerogenes Left 2-5th met bone culture: Enterobacter cloacae Left 1st met bone culture: Klebsiella aerogenes Left 1st met bone path: Bone with necrosis and acute inflammation compatible with osteomyelitis.? Background reactive and degenerative changes with fibrosis. Left 1st met proximal margin: Bone with reactive and degenerative changes without significant inflammation or atypia. 07/22/22: POV #1, POD #8 -seeing Alin at [facility] -presents with wound vac -reports pain to left foot, refill [place] -discussed compliance with WB status and treatment, presents PWB to foot in boot with crutches -discussed risk factors and tx options including: oral/IV abx, local wound care, [facility] WCC, [facility] infusion dsg changes, off loading with fx boot vs total contact casting, immobilization, importance of minimizing activity, DM glucose control, PAD -skin cleansed. no debridement in office today -concern of dark skin/gangrenous changes along incision and wound -explained these are tracks/potential portals of infection and he can get recurrent cellulitis or OM if not closed/coverage -reviewed bone cultures and path: explained OM with new bacteria, so recommend PICC, IV abx -discussed tx including: local wound care vs surgical debridement with wound vac application. We have attempted this twice and both times the flap has failed due to small vessel disease -continue Nitro patches to dorsal left foot to try to help skin healing although not hopeful this will help -hold vac, resume daily betadine to dry out the incision/wound -discussed [facility] referral, he has agreed to a consult however given new openings and concern for new infection not sure he will be a candidate, defer to HBO clinic -discussed with Dr Salguero, he agrees given gangrenous changes and that more debridement would cause extensive tissue loss and likely expose talus, patient is high risk for BKA [facility] Infusion: -PICC, IV Cefepime q24h x6 wks (07/22-09/02/22) -daily dressing changes: cleansed foot with wound cesspool cleaner. Apply betadine soaked gauze (or ioplex), dry gauze, kerlix, secure with tape or Edgar -NWB to left foot with DME At the time of this exam after admission from the ER patient was comfortable.? He denied chest and left arm pain, shortness of breath, palpitations, and nausea. The following is Note by orthopedic consult: Mr. Jara is a 56-year-old male patient admitted to the inpatient service after being found to have hypotension and concerning cardiac symptoms during IV cefepime infusion. Orthopedic services were consulted in regards to the patient's left foot wound/gangrene. He was previously under the care of Dr. Vasquez/podiatry services and the [facility]
== END 2022-08-01 12:35 | disposition home health service (06) | DRG 240 ==
LOC: ER 13:29 → 2ND 15:25
PROVIDERS: Nurse Practitioner Family; Orthopaedic Surgery; Admitting Provider Family Medicine; Emergency Provider Emergency Medicine; Visit Provider Family Medicine
PROC: 0Y6H0Z3 Detachment at Right Lower Leg, Low, Open Approach (ICD-10-PCS; CPT 27880; principal; 2022-07-29 15:15)
DX: E11.52 Type 2 diabetes mellitus with diabetic peripheral angiopathy with gangrene (principal); I96 Gangrene, not elsewhere classified; M86.672 Other chronic osteomyelitis, left ankle and foot; L97.529 Non-pressure chronic ulcer of other part of left foot with unspecified severity; M79.672 Pain in left foot; E11.621 Type 2 diabetes mellitus with foot ulcer; E11.628 Type 2 diabetes mellitus with other skin complications; L08.9 Local infection of the skin and subcutaneous tissue, unspecified; E11.40 Type 2 diabetes mellitus with diabetic neuropathy, unspecified; Z91.19 Patient's noncompliance with other medical treatment and regimen; I25.10 Atherosclerotic heart disease of native coronary artery without angina pectoris; E11.69 Type 2 diabetes mellitus with other specified complication; Z87.891 Personal history of nicotine dependence; Z95.1 Presence of aortocoronary bypass graft; Z95.5 Presence of coronary angioplasty implant and graft; I95.9 Hypotension, unspecified; E78.2 Mixed hyperlipidemia
CPT/HCPCS: 27880 ×2; 36415; 73610; 73630; 80048; 80053; 80202; 82962; 83036; 83605; 84484; 85007; 85014; 85018; 85025; 85651; 86140; 86850; 86870; 87040; 88307; 88311; 93005; 96365; 97162; 99285; C1713; C9803; G0463; J0696; J2405; J3370; U0003; U0005

== ENCOUNTER → 2022-08-04 15:47 | Outpatient (CLI) | payer MEDICAID, SELFPAY ==
[2022-08-04 16:51] LABS: Basophils # 0.1 K/mm3 (0-0.2); Basophils % 0.5 % (0.1-2.0); Eosinophils # 0.2 K/mm3 (0.0-0.4); Hematocrit 32.7 % (42.0-52.0); Hemoglobin 9.6 g/dL (14.1-18.0); Lymphocytes # 0.9 K/mm3 (0.7-4.5); Lymphocytes % 8.9 % (10-50); Mean Corpuscular HGB Conc 29.5 g/dL (31.8-35.4); Mean Corpuscular Hemoglobin 23.8 pg (27.0-31.2); Mean Corpuscular Volume 80.6 fl (80-94); Mean Platelet Volume 8.1 fl (7.4-10.4); Monocytes # 0.5 K/mm3 (0.1-1.0); Monocytes % 4.9 % (1.7-9.3); Neutrophils # 8.1 K/mm3 (1.8-7.8); Neutrophils % 83.8 % (37.0-80.0); Platelet Count 401 K/mm3 (142-424); Red Blood Count 4.05 M/mm3 (4.60-6.20); Red Cell Distribution Width 18.5 % (11.5-17.5); White Blood Count 9.6 K/mm3 (4.8-10.8)
[2022-08-04 17:13] LABS: Anion Gap 12.5 mEq/L (5-15); Blood Urea Nitrogen 24 mg/dl (9-20); Calcium 8.9 mg/dl (8.4-10.2); Carbon Dioxide 27 mmol/L (22.0-30.0); Chloride 103 mmol/L (98-107); Estimated Glomerular Filt Rate 48 ml/min (>60); GFR (African American) 58 ML/MIN (>60); Glucose 82 mg/dl (74-100); Potassium 4.5 mmoL/L (3.5-5.1); Sodium 138 mmol/L (136-145)
== END ==
PROVIDERS: PCP Family Medicine; Visit Provider Family Medicine
DX: E11.621 Type 2 diabetes mellitus with foot ulcer (principal); L97.529 Non-pressure chronic ulcer of other part of left foot with unspecified severity; Z79.4 Long term (current) use of insulin
CPT/HCPCS: 80048; 85025

== ENCOUNTER → 2022-08-17 08:29 | Outpatient (CLI) | payer MEDICAID, SELFPAY ==
--- NOTE | 2022-08-17 08:35 | XR_ITS ---
FINAL REPORT CLINICAL HISTORY: left BKA, post op X 3 weeks COMPARISON: August 24, 2019 FINDINGS: LEFT KNEE 3 views of the left knee were obtained. There is an overlying bandage. There has been interval below-knee amputation. Surgical clips are seen adjacent to the resected tibia. There may be some small bony fragments distal to the resected fibula. There is no acute fracture or dislocation. Visualized joint spaces are normally aligned. There is a moderate chondrocalcinosis in the joint space. IMPRESSION: Postoperative changes from interval below-knee amputation. Reviewed, Interpreted and Dictated by Marco Ariza MD Transcribed by Georgiana Dillard Authenticated and [facility]
== END ==
PROVIDERS: PCP Family Medicine; Visit Provider Orthopaedic Surgery
DX: M25.562 Pain in left knee (principal); Z89.512 Acquired absence of left leg below knee
CPT/HCPCS: 73562

== ENCOUNTER 2022-08-31 13:48 | Outpatient (RCR) | payer MEDICAID, SELFPAY ==
--- NOTE | 2022-08-31 14:48 | HMH.PTOPEV ---
PT Outpatient Evaluation Rehab PT Outpatient Evaluation Start: 08/31/22 14:27 Freq: Status: Active Protocol: Document 08/31/22 14:27 ZEN (Rec: 08/31/22 14:48 ZEN [id number]) E-signed By Dez Gastelum, PT Outpatient Therapy Subjective History Subjective History Pt presents s/p left BKA ~ 6 weeks post-op. Pt reports h/o DM neuropathy, left foot wound occurred and worsened without his knowledge. Pt reports failed surgical debridement, failed Left 5th toe amputation , and failed 1st-4th left toe amputation d/t poor circulation. Pt reports left BKA has healed well since sx., small 'dog-ear' artifact on medial aspect of left LE stump , 'that I hope goes down'. Pt reports intermittent LLE phantom limb pain, and appt tomorrow for stump shinker and prothesis for LLE. PMH:DM , right SH RTC tear Chief Complaint Pain,Paresthesia Symptom Type Ache,Sharp,Dull,Stabbing Symptoms Relieved By Rest/Positioning,Prescription Meds Symptoms Aggravated By Standing,Walking Prior Functional Limitations Standing,Walking Current Functional Limitations Standing,Walking Symptom Description Constant but Variable Level of pain today (0-10) 4 Pain scale - at its best (0-10) 3 Pain scale - at its worst (0-10) 8 Hip/Knee Eval Assistive Device Assistive Devices Wheelchair Palpation Tenderness left Knee Palpation Finding Tenderness Knee Palpation Overall Comment distal aspect BKA stump 2-3/4 MMT Hip Flexion Strength Grade 4 Good Hip Abduction Strength Grade 4 Good Hip Adduction Strength Grade 4 Good Hip Extension Strength Grade 4 Good Knee Extension Strength Grade 4 Good Knee Flexion Strength Grade 4 Good ROM Knee Flexion Active Range of Motion ( 0-125 degrees) Outpatient Therapy Assessment Impairments Problems/Impairmments Palpation Tenderness,Impaired Range of Motion,Impaired Strength,Impaired Walking, Impaired Standing,Impaired Driving,Increased Edema, Subjective C/O Pain,Impaired Self Care/Self Ma
== END 2022-08-31 13:50 | disposition home or self-care (01) ==
LOC: PT 13:48
PROVIDERS: PCP Family Medicine; Visit Provider Family Medicine
DX: S88.112A Complete traumatic amputation at level between knee and ankle, left lower leg, initial encounter (principal)
CPT/HCPCS: 97163

== ENCOUNTER 2022-08-31 13:50 | Outpatient (RCR) | payer OTHER, SELFPAY | END 2022-08-31 13:55 | disposition home or self-care (01) | LOC: OT 13:50 | PROVIDERS: PCP Family Medicine; Visit Provider Family Medicine | DX: S88.112A Complete traumatic amputation at level between knee and ankle, left lower leg, initial encounter (principal) ==

== ENCOUNTER 2023-03-22 07:38 | Day surgery (SDC) | payer OTHER, SELFPAY ==
[2023-03-22 08:27] VITALS: BP 133/88; PULSE 89; RESP 18; TEMP 36.1; O2SAT 97; BMI 38.5
[2023-03-22 09:21] VITALS: BP 132/84; PULSE 83; RESP 17; O2SAT 99
[2023-03-22 09:30] VITALS: BP 123/85; PULSE 80; RESP 16; O2SAT 98
[2023-03-22 09:35] VITALS: BP 137/76; PULSE 78; RESP 16; O2SAT 100
[2023-03-22 09:40] VITALS: BP 129/74; PULSE 79; RESP 17; O2SAT 100
[2023-03-22 09:44] VITALS: BP 121/78; PULSE 83; RESP 17; TEMP 36.3; O2SAT 97
[2023-03-22 13:20] LABS: POC Glucose,Bedside 117 (70-110)
== END 2023-03-22 09:44 | disposition home or self-care (01) ==
PROVIDERS: PCP Family Medicine; Visit Provider Ophthalmology
PROC: (CPT 66984; principal; 2023-03-22 10:00)
DX: E11.36 Type 2 diabetes mellitus with diabetic cataract (principal); H25.9 Unspecified age-related cataract
CPT/HCPCS: 66984; 82962; V2632

== ENCOUNTER 2023-04-05 07:48 | Day surgery (SDC) | payer OTHER, SELFPAY ==
[2023-04-05] VITALS (7 sets, daily range): BP systolic 129–151; BP diastolic 66–90; PULSE 80–85; RESP 17–18; TEMP 36.2–36.4; O2SAT 94–97; BMI 38.5
[2023-04-05 09:02] LABS: POC Glucose,Bedside 122 (70-110)
== END 2023-04-05 10:00 | disposition home or self-care (01) ==
PROVIDERS: PCP Family Medicine; Visit Provider Ophthalmology
PROC: (CPT 66984; principal; 2023-04-05 10:00)
DX: E11.36 Type 2 diabetes mellitus with diabetic cataract (principal); H25.9 Unspecified age-related cataract
CPT/HCPCS: 66984; 82962; V2632

== ENCOUNTER → 2023-09-16 07:39 | Outpatient (CLI) | payer OTHER, SELFPAY ==
--- NOTE | 2023-09-16 07:42 | FL_ITS ---
FINAL REPORT CLINICAL HISTORY: . dysphagia, gastric bypass may 2023 4:19 fluoro time 6752.77DAP FINDINGS: UPPER GI SERIES (SINGLE CONTRAST) AND SMALL BOWEL FOLLOW THROUGH HISTORY: Status post gastric bypass in May 2023, epigastric pain now after eating. TECHNIQUE: The patient ingested thick and thin barium contrast. Additional barium was administered for small bowel follow-through. Spot and overhead films were performed. A total of 66 images were saved. FINDINGS: UPPER GI: The esophagus demonstrates no morphologic abnormalities. No mucosal defects are seen. There is esophageal dysmotility. There are postoperative changes of gastric bypass. There is no evidence of leak. No G-G fistula is identified. There is gastroesophageal reflux to the midesophagus. 13 mm barium tablet passes easily through the esophagus and into the stomach. SBFT: The hearing aid assembly supervisor film demonstrates moderate stool in the right colon. The transit time to the colon is normal. Contrast reaches the colon at 30 minutes. The mucosal fold pattern is normal. Spot images of the terminal ileum are grossly unremarkable. FLUOROSCOPY TIME: 4 minutes 19 seconds. Radiation exposure in Total DAP: 6752.77 uGym2 IMPRESSION: Esophageal dysmotility. Postoperative changes of gastric bypass without evidence of leak or G-G fistula. Gastroesophageal reflux. Otherwise, unremarkable upper GI and small bowel follow-through. Reviewed, Interpreted and Dictated by Norm Mederos III, MD Transcribed by Edwige Andino PA-C Authenticated and [facility]
== END ==
PROVIDERS: PCP Family Medicine; Visit Provider Nurse Practitioner Family
DX: R13.10 Dysphagia, unspecified (principal)
CPT/HCPCS: 74246; 74248

== ENCOUNTER → 2023-10-05 11:54 | Outpatient (CLI) | payer OTHER, SELFPAY ==
[2023-10-05 12:23] LABS: Basophils % 0.6 % (0.1-2.0); Eosinophils # 0.2 K/mm3 (0.0-0.4); Eosinophils % 3.2 % (0.1-12.0); Hematocrit 39.2 % (42.0-52.0); Hemoglobin 13.2 g/dL (14.1-18.0); Lymphocytes # 1.2 K/mm3 (0.7-4.5); Lymphocytes % 18.3 % (10-50); Mean Corpuscular HGB Conc 33.7 g/dL (31.8-35.4); Mean Corpuscular Hemoglobin 30.3 pg (27.0-31.2); Mean Platelet Volume 9.3 fl (7.4-10.4); Monocytes # 0.4 K/mm3 (0.1-1.0); Monocytes % 6.3 % (1.7-9.3); Neutrophils # 4.8 K/mm3 (1.8-7.8); Neutrophils % 71.6 % (37.0-80.0); Platelet Count 169 K/mm3 (142-424); Red Blood Count 4.35 M/mm3 (4.60-6.20); White Blood Count 6.7 K/mm3 (4.8-10.8)
[2023-10-05 13:07] LABS: Hemoglobin A1C 5.9 % (4.0-6.0)
[2023-10-05 13:39] LABS: Alanine Aminotransferase 56 U/L (12-78); Albumin Level 3.5 g/dl (3.5-5.0); Alkaline Phosphatase 106 U/L (38-126); Anion Gap 12.8 mEq/L (5-15); Aspartate Amino Transferase 68 U/L (17-59); Bilirubin,Indirect 0.4 mg/dL (0.0-0.9); Bilirubin,Total 0.4 mg/dl (0.2-1.3); Bilirubin,Unconjugated 0.3 mg/dL (0.0-1.1); Blood Urea Nitrogen 14 mg/dl (9-20); Calcium 8.6 mg/dl (8.4-10.2); Carbon Dioxide 25 mmol/L (22.0-30.0); Chloride 110 mmol/L (98-107); Chol/HDL Ratio 3.2 (1-3.5); Cholesterol 81 mg/dl (140-200); Estimated Glomerular Filt Rate 57 ml/min (>60); GFR (African American) 68 ML/MIN (>60); Glucose 97 mg/dl (74-100); HDL Cholesterol 25 mg/dl (40-60); Magnesium 1.3 mg/dl (1.6-2.3); Potassium 3.8 mmoL/L (3.5-5.1); Sodium 144 mmol/L (136-145); Total Protein,Serum 6.4 g/dl (6.3-8.2); Triglycerides 165 mg/dl (30-150); VLDL Cholesterol 33 mg/dL (0-40)
[2023-10-05 13:55] LABS: Direct LDL Cholesterol < 30.00 mg/dL (100-129)
[2023-10-05 13:56] LABS: Free T4 (Free Thyroxine) 0.88 ng/dl (0.78-2.19)
[2023-10-05 14:09] LABS: Thyroid Stimulating Hormone 2.25 uIU/mL (0.465-4.68)
== END ==
PROVIDERS: PCP Family Medicine; Visit Provider Physician Assistant
DX: I25.10 Atherosclerotic heart disease of native coronary artery without angina pectoris (principal); I11.9 Hypertensive heart disease without heart failure; E78.5 Hyperlipidemia, unspecified; I73.9 Peripheral vascular disease, unspecified; R09.89 Other specified symptoms and signs involving the circulatory and respiratory systems; E11.9 Type 2 diabetes mellitus without complications; Z87.891 Personal history of nicotine dependence; E66.9 Obesity, unspecified; Z68.33 Body mass index [BMI] 33.0-33.9, adult; Z79.84 Long term (current) use of oral hypoglycemic drugs
CPT/HCPCS: 36415; 80048; 80061; 80076; 83036; 83735; 84439; 84443; 85025

== ENCOUNTER → 2023-10-07 13:49 | Outpatient (CLI) | payer OTHER, SELFPAY ==
--- NOTE | 2023-10-07 14:05 | CA_ITS ---
FINAL REPORT TECHNIQUE: Real-time imaging was performed of the extracranial carotid arteries in transverse and longitudinal planes, with color duplex evaluation of blood flow velocity. Spectral analysis was performed. The cervical vertebral arteries were also examined. CLINICAL HISTORY: PVD, Bilateral bruit COMPARISON: None FINDINGS: NASCET technique is utilized for stenosis evaluation. Right carotid system (centimeters/second): CCA: 86 ICA: 64 ECA: 74 Vertebral artery: Antegrade ICA/CCA ratio: 0.8 Mild plaque is identified at the bifurcation. Left carotid system (centimeters/second): CCA: 84 ICA: 77 ECA: 81 Vertebral artery: Antegrade ICA/CCA ratio: 1.1 Mild plaque is identified at the bifurcation. IMPRESSION: 0-29% right ICA stenosis. 0-29% left ICA stenosis. Bilateral antegrade flow vertebral arteries. Reviewed, Interpreted and Dictated by Marco Ariza MD Transcribed by Arlene Fabian Authenticated and [facility]
== END ==
PROVIDERS: PCP Family Medicine; Visit Provider Physician Assistant
DX: R09.89 Other specified symptoms and signs involving the circulatory and respiratory systems (principal); I25.10 Atherosclerotic heart disease of native coronary artery without angina pectoris; I10 Essential (primary) hypertension; E78.5 Hyperlipidemia, unspecified; I73.9 Peripheral vascular disease, unspecified; E11.9 Type 2 diabetes mellitus without complications; E66.9 Obesity, unspecified; Z68.33 Body mass index [BMI] 33.0-33.9, adult; Z79.84 Long term (current) use of oral hypoglycemic drugs
CPT/HCPCS: 93880

== ENCOUNTER 2024-07-06 11:52 | Outpatient (CLI) | payer OTHER, SELFPAY ==
[2024-07-06 12:22] LABS: Basophils % 0.4 % (0.1-2.0); Eosinophils # 0.1 K/mm3 (0.0-0.4); Eosinophils % 0.8 % (0.1-12.0); Hematocrit 41.6 % (42.0-52.0); Hemoglobin 13.1 g/dL (14.1-18.0); Lymphocytes # 0.7 K/mm3 (0.7-4.5); Lymphocytes % 10.9 % (10-50); Mean Corpuscular HGB Conc 31.3 g/dL (31.8-35.4); Mean Corpuscular Hemoglobin 27.5 pg (27.0-31.2); Mean Corpuscular Volume 87.7 fl (80-94); Mean Platelet Volume 8.7 fl (7.4-10.4); Monocytes # 0.3 K/mm3 (0.1-1.0); Monocytes % 4.4 % (1.7-9.3); Neutrophils # 5.4 K/mm3 (1.8-7.8); Neutrophils % 83.6 % (37.0-80.0); Platelet Count 157 K/mm3 (142-424); Red Blood Count 4.75 M/mm3 (4.60-6.20); Red Cell Distribution Width 17.2 % (11.5-17.5); White Blood Count 6.4 K/mm3 (4.8-10.8)
[2024-07-06 13:28] LABS: Albumin Level 3.7 g/dl (3.5-5.0); Chloride 112 mmol/L (98-107)
[2024-07-06 13:29] LABS: Potassium 3.2 mmoL/L (3.5-5.1); Sodium 141 mmol/L (136-145)
[2024-07-06 13:31] LABS: Alanine Aminotransferase 35 U/L (12-78); Anion Gap 7.2 mEq/L (5-15); Aspartate Amino Transferase 37 U/L (17-59); Bilirubin,Unconjugated 0.2 mg/dL (0.0-1.1); Blood Urea Nitrogen 21 mg/dl (9-20); Carbon Dioxide 25 mmol/L (22.0-30.0); Estimated Glomerular Filt Rate 48 ml/min (>60); GFR (African American) 58 ML/MIN (>60); Total Protein,Serum 6.5 g/dl (6.3-8.2)
[2024-07-06 13:32] LABS: Alkaline Phosphatase 100 U/L (38-126); Bilirubin,Direct 0.4 mg/dl (0.0-0.4); Bilirubin,Indirect 0.2 mg/dL (0.0-0.9); Bilirubin,Total 0.6 mg/dl (0.2-1.3); Calcium 8.6 mg/dl (8.4-10.2); Chol/HDL Ratio 2.8 (1-3.5); Cholesterol 74 mg/dl (140-200); Glucose 90 mg/dl (74-100); HDL Cholesterol 26 mg/dl (40-60); Magnesium 1.3 mg/dl (1.6-2.3); Triglycerides 120 mg/dl (30-150); VLDL Cholesterol 24 mg/dL (0-40)
[2024-07-06 13:49] LABS: Direct LDL Cholesterol < 30.00 mg/dL (100-129); Troponin I < 0.01 ng/ml (0.00-0.034)
[2024-07-06 13:52] LABS: Free T4 (Free Thyroxine) 0.71 ng/dl (0.78-2.19)
[2024-07-06 14:07] LABS: Thyroid Stimulating Hormone 1.32 uIU/mL (0.465-4.68)
[2024-07-18 03:27] LABS: 1,25 Dihydroxy Vitamin D 75 pg/mL (.); 1,25-Dihydroxy, Vitamin D-2 <10 pg/mL (.); 1,25-Dihydroxy, Vitamin D-3 69 pg/mL (.)
== END 2024-07-06 23:59 | disposition home or self-care (01) ==
LOC: LAB 11:53
PROVIDERS: PCP Family Medicine; Visit Provider Physician Assistant
DX: I11.9 Hypertensive heart disease without heart failure (principal); I25.10 Atherosclerotic heart disease of native coronary artery without angina pectoris; G47.33 Obstructive sleep apnea (adult) (pediatric); I73.9 Peripheral vascular disease, unspecified; E78.2 Mixed hyperlipidemia; R94.31 Abnormal electrocardiogram [ECG] [EKG]; E11.9 Type 2 diabetes mellitus without complications; Z79.84 Long term (current) use of oral hypoglycemic drugs; Z87.891 Personal history of nicotine dependence
CPT/HCPCS: 36415; 80048; 80061; 80076; 82652; 83735; 84439; 84443; 84484; 85025

== ENCOUNTER 2024-07-09 13:35 | Outpatient (CLI) | payer OTHER, SELFPAY ==
--- NOTE | 2024-07-09 13:35 | CA_ITS ---
APPROVED REPORT EXAM: Comprehensive 2D, Doppler, and color-flow Echocardiogram Senior Mechanical Technician: Latisha Carcamo RT(R) Ht: 6 ft 2 in Wt: 222lbs BSA: 2.27 BP: 96/71 mmHg Indications: CP, ex smoker, fatigue, HTN, DM, SOB, CABG x 5, HELGA, dizziness 2D Dimensions Left Atrium 4.28 cm M: 3.0 - 4.0 LA Volume 45.20 mL LVOT 2.37 cm (M/F) 1.5-2.5 LA Volume Index 19.91 mL/m2 (M/F) 16-34 EF AP4 56.00 % GL Strain -19.7 % M-Mode Dimensions RVDd 2.85 cm (0.9-2.6) LVDd 5.09 cm (3.5-5.7) Ao Diam 3.20 cm (2.0-3.7) LVDs 3.88 cm (3.5-5.7) IVSd 1.12 cm (0.6-1.1) PWd 0.93 cm (0.6-1.1) EF (Teich) 47.20% FS 23.80% EDV (Teich) 123.20 mL TAPSE 1.60 (<1.7) ESV (Teich) 65.10 mL LV Diastology E Decel Time 150 (160-240 msec) E/A Ratio 0.8 MED E' 8.5 (>= 7 cm/sec) E'/MED E' Ratio 9.45 (<= 14) LAT E' 15.1 (>= 10 cm/sec) E/LAT E' Ratio 5.32 (<= 14) Aortic Valve LVOT Max 96.0 (70-110 cm/s) GIANCARLO Index 1.01 cm2/m2 LVOT VTI 20.77 cm AoV Peak Derrek. 230.0 (50-130 cm/s) AO Mean GR. 10.40 (<5 mmHg) AO VTI 39.8 (18-25 cm) GIANCARLO (VTI) 2.30 (2.5-4.5 cm2) Mitral Valve MV E Max Derrek. 80.0 (40-130 cm/s) MV A Velocity 105.0 (40-130 cm/s) E/A Ratio 0.77 MV Decel. Time 150 (160-240 ms) Left Ventricle The left ventricle is normal size. The left ventricular systolic function is normal. The left ventricular ejection fraction is within the normal range. There is increased LV wall thickness. There is normal LV segmental wall motion. Transmitral Doppler flow pattern suggests impaired LV relaxation. LVEF is 55%. Right Ventricle The right ventricle is normal size. The right ventricular systolic function is normal. Atria Left atrium is mildly dilated. Right atrium is mildly dilated. There is no Doppler evidence of interatrial shunt. Aortic Valve The aortic valve is moderately thickened. The aortic valve is possibly bicuspid. Mild aortic stenosis. Mean AV gradient 11 mmHg. Max AV gradient 25 mmHg. Peak velocity 2.8 m/s. GIANCARLO by continuity equation is 1.8 cm2. Trace aortic regurgitation. Mitral Valve The mitral valve is mildly thickened. No evidence of mitral valve stenosis. Trace mitral regurgitation. Tricuspid Valve The tricuspid valve leaflets are thin and pliable. Trace tricuspid regurgitation. There is insufficient TR jet to estimate RVSP. Pulmonic Valve The pulmonary valve is normal in structure. Trace pulmonic regurgitation. Great Vessels The aortic root is normal in size. The ascending aorta is not well visualized. IVC is normal in size and collapses >50% with inspiration. Pericardium There is no pericardial effusion. Other Information Study Quality: Technically Difficult Conclusion Technically difficult study due to poor accoustic windows. Normal biventricular systolic function. Mild biatrial dilation. Possibly bicuspid, and moderately thickened AV. Mild (mean AV gradient 11 mmHg. Max AV gradient 25 mmHg. Peak velocity 2.8 m/s. GIANCARLO by continuity equation is 1.8 cm2). Electronically signed by : Leeann Ram MD 07/11/2024 11:52:44
== END 2024-07-09 23:59 | disposition home or self-care (01) ==
LOC: RT 13:35
PROVIDERS: PCP Family Medicine; Visit Provider Internal Medicine
DX: I25.10 Atherosclerotic heart disease of native coronary artery without angina pectoris (principal); R42 Dizziness and giddiness; R53.83 Other fatigue; R94.31 Abnormal electrocardiogram [ECG] [EKG]; Z87.891 Personal history of nicotine dependence
CPT/HCPCS: 93306

== ENCOUNTER 2025-07-05 09:56 | Outpatient (CLI) | payer OTHER, SELFPAY ==
--- OUTSIDE RECORDS SUMMARY | 2024-12-17 10:45 | XMS_ITS ---
Author Organization [facility] Address [address] [phone] Care Team Providers Care Motor Tune Up Specialist Name Role Phone Dipak Barrientos Primary Care Provider [phone] Allergies No Known Allergies Reason For Referral Diagnosis 1 Unspecified hearing loss (H91.90) Referral Organization [facility] Referring Provider First Name Dipak Referring Provider Last Name Iliana Referring Provider Speciality Family Pra ctice Referred Provider Specialty Audiologists General Notes Steffi Samuel 12/19/19 25 1:37:03 PM > [facility] [place] [place] Referral Priority Routine REASON FOR VISIT Ringing in ear Medications Medication SIG (Take, Route, Frequency, Duration) Notes Start Date End Date Status Pregabalin 150 MG 1 cap(s) orally 2 ti mes a day 12/06/2024 Active Montelukast Sodium 10 mg 1 tablet Orally Once a day; Duration: 30 days Active Vitamin D3 1.25 MG (40980 UT) TAKE ONE CAPSULE BY MOUTH ONCE [...] Problem Status W/U Status Risk Notes Problem Unspecified hearing loss (H91.90) Active confirmed Vital Signs Blood pressure systolic 120 mm Hg 12/17/19 Blood pressure diastolic 70 mm Hg 025 Heart Rate 83 /min 12/17/2024 Height 73 in 12/17/2024 Weight 238.2 lbs 12/17/2024 BMI 31.42 kg/m2 12/17/2024 Encounters Encounter Location Date Provider Diagnosis [facility] [address] [place], [place] [phone] 12/17/2024 Dipak Barrientos Unspecified hearing loss H91.90 ; Type 2 diabetes mellitus without complication, unspecified whether senior care insulin use E11.9 ; Coronary artery disease involving [place] coronary artery of [place] heart without angina pectoris I25.10 and Chronic diarrhea K52.9 Assessments Encounter Date Diagnosis (ICD Code) Assessment Notes Treatment Notes Treatment Clinical Notes Section Notes 12/17/2024 Unspecified hearing loss (ICD-10 - H91.90) 12/17/2024 Type 2 diabetes mellitus without complication, unspecified whether senior care insulin use (ICD-10 - E11.9) 12/17/2024 Coronary artery disease involving [place] coronary artery of [place] heart without angina pectoris (ICD-10 - I25.10) [...] phone to repo rt test results, Reason: Progress Notes * Shantanu JARAneDOB:1965 (59 yo M)Acc No.[id number]:12/17/2024 Progress Notes Patient: Jewel ESPINO Provider: Hans Barrientos M.D. :1965 A ge:59 Y S ex:Male Date:12/17/2024 Address:[address] [place] [address], [place], [id number] Subjective: * Chief Complaints: * 1 . [...] - Dr. Fisher 05/2014, Open Heart Surgery- [place] 11/16/2016, Laminectomy, L4-L5, 08/2018, LT TMA Revision 07/14/2022, left BKA 08/19, Bariatric surgey . * Hospitalization/Major Diagno stic Procedure: B ack Pain- [facility] 02/26/2014, Shoulder- [facility] 01/15/2016. * Family History: F ather: [...] day , Taking Vitamin D3 1.25 MG (52647 UT) Capsule TAKE ONE CAPSULE BY MOUTH ONCE A WEEK , Taking Montelukast Sodium 10 mg Tablet 1 tablet Orally Once a day , Taking Pregabalin 150 MG Capsule 1 cap(s) orally 2 times a day , Medication List reviewed and reconciled with the patient * Allergies: N .K.D.A. Objective: * Vitals: W t:238.2, Temp:97.8, BP:120/70, HR:83, Nurse:ANA PAULA, Ht: 73, BMI:31.42. * Examination: E NT/Respiratory: General Appearance: N AD. E ars: a uditory canals normal bilaterally, TM's WNL. H eart : R RR. L ungs: c lear to auscultation bilaterally. A bdomen : BS present, soft, nontender. Assessment: * Assessment: 1. U nspecified hearing loss - H91.90 (Primary) 2 . T ype 2 diabetes mellitus without complication, unspecified whether continuous churn buttermaker insulin use - E11.9 3 . C oronary artery disease involving [place] coronary artery of [place] heart without angina pectoris - I25.10 4 . C hronic diarrhea - K52.9 Plan: * Treatment: 2. T ype 2 diabetes mellitus without complication, unspecified whether continuous churn buttermaker insulin use Stop metFORMIN HCl ER (MOD) Tablet Extended Release 24 Hour, 1000 MG, 1 tab(s), orally, Two times a day; S tart Jardiance Tablet, 25 MG, 1 tablet, Orally, Once a day, 30 day(s), 30, Refills 5.? * Follow Up: v ia phone to report test results * Images: Billing Information: * Visit Code: 28246 Office Visit, Est Pt., Level 3. * Procedure Codes: * Electronic signature of Valentina Barrientos MD on 07/05/2025 at 09:58 AM EDT Sign off status: Pending * Provider: Hans Barrientos M.D. Date: 0 12/17/2024 Generated for Lena canales/Faenriqueg/eTransmitting on: 0 07/05/2025 09:58 AM EDT History and Physical Notes * HPI (History [...] Referred Provider Not es 12/17/2024 Dipak Barrientos ,
--- OUTSIDE RECORDS SUMMARY | 2025-01-23 07:15 | XMS_ITS ---
Author Organization [facility] Address [address] [facility] 36 [facility] [address] [place] [phone] Care Team Providers Care Explosive Ordnance Manager Name Role Phone Dipak Barrientos Primary Care [...] 0.1 Performing Lab: Notes/Report: Test performed by [facility] [address] [place] [address] , [address], [place] [address] James Alonso MD, Supervisor Fish Hatchery CLIA: [id number] Protein 7.2 6.0-8.3 g/dL Albumin 4.2 3.5-5.3 [...] day 01/23/2025 Active Vitamin D3 1.25 MG (00474 UT) TAKE ONE CAPSULE BY MOUTH ONCE [...] Encounter Location Date Provider Diagnosis A-[facility] 1210 [facility] [address], [place] [phone] 01/23/2025 Dipak Barrientos Type 2 diabetes mellitus without complication, unspecified whether 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 Patient already has Rx at home for Flexeril 01/23/2025 [facility] use of drug (ICD-10 - Z79.899) Plan [...] Details Follow Up: 3 Months fasting, Reason: Progress Notes * Shantanu JARAneDOB:1965 (59 yo M)Acc No.[id number]:01/23/2025 Progress Notes Patient: Jewel ESPINO Provider: Hans Barrientos M.D. :1965 A ge:59 Y S ex:Male Date:01/23/2025 Address:[address] [place] [address] [place], [id number] Subjective: * Chief Complaints: * 1 . [...] Hospitalization/Major Diagno stic Procedure: B ack Pain- [facility] ER 02/26/2014, Shoulder- [facility] ER 01/15/2016. * Family History: F ather: [...] day , Taking Vitamin D3 1.25 MG (67670 UT) Capsule TAKE ONE CAPSULE BY MOUTH [...] complication, unspecified whether senior care insulin use - E11.9 (Primary) 2 . [...] day.Patient already has Rx at home for Flexeril??4.?[facility] use of drug?LAB: P-Hepatic Function Panel (Collection [...] 3036 GLYCATED HEMOGLOBIN TEST, Modifiers: QW , 36315 GLUCOSE TEST, 3044F HG A1C LEVEL LT 7.0%, 3075F SYST BP GE 130 - 139MM HG, 3078F DIAST BP < 80 MM HG * Follow Up: 3 Months fasting * Images: Billing Information: * Visit Code: 12602 Office Visit, Est Pt., Level 4. * Procedure Codes: 10139 GLYCATED HEMOGLOBIN TEST. Modifiers: QW 33826 GLUCOSE TEST. 3044F HG A1C LEVEL LT 7.0%. 3075F SYST BP GE 130 - 139MM HG. 3078F DIAST BP < 80 MM HG. * Electronic signature of Valentina Barrientos MD on 07/05/2025 at 09:58 AM EDT Sign off status: Pending * Provider: Hans Barrientos M.D. Date: 0 01/23/2025 Generated for Lena canales/Emily/Benyitting on: 0 07/05/2025 09:58 AM EDT History [...]
--- OUTSIDE RECORDS SUMMARY | 2025-02-04 10:00 | XMS_ITS ---
Author Organization [facility] Address [address] [id number] Care Team Providers Care Electrician Rectifier Maintenance Name Role Phone Enmanuel Barrientosian Primary Care [...] day 12/06/2024 Active Vitamin D3 1.25 MG (81261 UT) TAKE ONE CAPSULE BY MOUTH ONCE [...] 02/04/2025 Encounters Encounter Location Date Provider Diagnosis [facility] [address] [place] [id number] 02/04/2025 Dipak Barrientos 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 Z02.4 Assessments Encounter Date Diagnosis (ICD Code) Assessment Notes Treatment Notes Treatment Clinical Notes Section Notes 02/04/2025 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 ro[place] license (ICD-10 - Z02.4) Plan Of Treatment Next Appt Details Follow Up: prn, Reason: Progress Notes * PASTOR ErnstOB:1965 (59 yo M)Acc No.[id number]:02/04/2025 Physical Patient: Shantanu ESPINOne Provider: Hans Barrientos M.D. :1965 A ge:59 Y S ex:Male Date:02/04/2025 Address:[address] [place] [address] [id number] Subjective: * Chief Complaints: * [...] Hospitalization/Major Diagno stic Procedure: B ack Pain- [facility] ER 02/26/2014, Shoulder- [facility] ER 01/15/2016. * Family History: F ather: [...] period , Taking Vitamin D3 1.25 MG (89991 UT) Capsule TAKE ONE CAPSULE BY MOUTH [...] Procedure Codes: 8 1002 Urinalysis, no micro, 27327 VISUAL ACUITY SCREEN * Follow Up: p rn * Images: Billing Information: * Visit Code: 17791 Preventive Care Est Pt Age 40-64. * Procedure Codes: 46593 Urinalysis, [place] micro. 85756 VISUAL ACUITY SCREEN. * Electronic signature of Valentina Barrientos MD on 07/05/2025 at 09:58 AM EDT Sign off status: Pending * Provider: Hans Barrientos M.D. Date: 0 02/04/2025 Generated for Lena canales/Emily/Lory on: 0 07/05/2025 09:58 AM EDT History [...]
--- OUTSIDE RECORDS SUMMARY | 2025-07-05 09:59 | XMS_ITS ---
Author Organization [facility] Care Team Providers Care Assembler Semiconductor Name Role Phone Dipak Barrientos Unavailable Unavailable Randall Turner Unavailable Unavaila ble Allergies and adverse reactions Code CodeSystem Substance Reaction Severity StartDate Concern Status 7804 RXNORM oxyCODONE Unknown 08/04/2022 active Care Team Name Role Address Phone Organization Dates Dipak Barrientos PCP [address], [place], [address], [place] (Office): [facility] 08/04/2022 - 08/30/2022 Randall Turner [address], [place], [address], [place] (Office): [facility] 08/04/2022 - 08/30/2022 Immunizations Immunization Status Vaccine Details Vaccine Code CodeSystem Date Notes Influenza completed Influenza, high-dose, split virus, quadrivalent, injectable, preservative free lotNumber: [id number] expiry: 05/27/2023 Mfg: concha jacobs Given 0.5 ml Right Deltoid intramuscularly 197 CVX created date: 08/25/2022 consent date: 08/25/2022 administer ed date: 08/25/2022 Influenza completed Influenza, high-dose, split virus, quadrivalent, injectable, preservative free 197 CVX created date: 08/04/2022 administer ed date: 08/10/2021 TB 1 Step Mantoux (PPD) completed tuberculin skin test; unspecified formulation lotNumber: [id number] expiry: 03/19/2023 Mfg: Sandfi-pasteur Given 0.1 ml Right Forearm intradermally 98 CVX created date: 08/04/2022 consent date: 08/04/2022 administer ed date: 08/04/2022 neg TB 2 Step Mantoux Skin Test completed tuberculin skin test; unspecified formulation lotNumber: [id number] expiry: 01/30/2024 Mfg: sanofi pasteur inc. Given 0.1 ml Left Forearm intradermally Step 1 of Multi-step 98 CVX created date: 08/12/2022 consent date: 08/12/2022 administer ed date: 08/12/2022 Educated by Pema Gaviria LPN on 08/12/2022 Prevnar 13 cancelled pneumococcal conjugate vaccine, 13 valent 133 CVX created date: 08/25/2022 consent date: 08/25/2022 TDap completed Diphtheria and Tetanus Toxoids and Acellular Pertussis Adsorbed, Inactivated Poliovirus, Haemophilus b Conjugate (Meningococcal Protein Conjugate), and Hepatitis B (Recombinant) Vaccine. 146 CVX created date: 08/04/2022 administer ed date: 01/23/2020 Zostavax completed zoster vaccine recombinant 187 CVX created date: 08/04/2022 administer ed date: 12/08/2018 Hepatitis A completed hepatitis A vaccine, adult dosage 52 CVX created date: 08/04/2022 administer ed date: 12/08/2018 Mental Status Section Date Assessment Total Score Description 08/30/2022 BIMS 15 cognitively int act CAM 0 No delirium ind icated PHQ-9 00 08/10/2022 BIMS 15 cognitively int act CAM 0 No delirium ind icated PHQ-9 02 minimal depress ion Problems Problem # Description Date of onset Resolved Date Code CodeSystem Concern Status 1 ACQUIRED ABSENCE OF LEFT LEG BELOW KNEE 08/04/[address] active 2 ATHEROSCLEROTIC HEART DISEASE OF [place] CORONARY ARTERY WITHOUT ANGINA PECTORIS 08/04/[address] active 3 ENCOUNTER FOR ORTHOPEDIC AFTERCARE FOLLOWING SURGICAL AMPUTATION 08/04/[address] active 4 ESSENTIAL (PRIMARY) HYPERTENSION 08/04/[address] active 5 HYPERLIPIDEMIA, UNSPECIFIED 08/04/[address] active 6 HYPOTENSION, UNSPECIFIED 08/04/[address] active 7 INFECTION FOLLOWING A PROCEDURE, DEEP INCISIONAL SURGICAL SITE, SUBSEQUENT ENCOUNTER 08/04/[address] active 8 OBESITY, UNSPECIFIED 08/04/[address] active 9 OTHER CHRONIC OSTEOMYELITIS, LEFT ANKLE AND FOOT 08/04/[address] active 10 PATIENT'S NONCOMPLIANCE WITH OTHER MEDICAL TREATMENT AND REGIMEN 08/04/[address] active 11 PRESENCE OF AORTOCORONARY BYPASS GRAFT 08/04/[address] active 12 TYPE 2 DIABETES MELLITUS WITH DIABETIC NEUROPATHY, UNSPECIFIED 08/04/[address] active 13 TYPE 2 DIABETES MELLITUS WITH DIABETIC PERIPHERAL ANGIOPATHY WITH GANGRENE 08/04/[address] active 14 TYPE 2 DIABETES MELLITUS WITH FOOT ULCER 08/04/[address] active 15 TYPE 2 DIABETES MELLITUS WITH OTHER DIABETIC NEUROLOGICAL COMPLICATION 08/04/[address] active 16 TYPE 2 DIABETES MELLITUS WITH OTHER SKIN COMPLICATIONS 08/04/[address] active Reason for Referral No Reasons for Referral Entered Social History Social History Observation Description Start Date End Date Code Code System Current Smoking Status Tobacco smoking consumption unknown 286411764 SNOMED CT Sex Assigned At Male 1965 16672-7 [facility] Gender Identity Vital Signs Code Code System Vitals Name Values and Units Timing Information 2339-0 [facility] Blood Sugar Wfkvu=224.0 Units=mg/dL 08/30/2022 03286-4 [facility] Pain Level Value=0.0 08/30/2022 8310-5 [facility] Body Temperature Value=97.3 Units= F 08/30/2022 92180-1 [facility] O2 % BldC Oximetry Value=96.0 Units= % 08/30/2022 86771-7 [facility] Weight Btejw=629.0 Units=Lbs 12/2021 9279-1 [facility] Respiratory Rate Value=20.0 Units=/m in 08/26/2022 8462-4 [facility] Blood Pressure-Diastolic Value=72 Un its=mmHg 08/26/2022 8480-6 [facility] Blood Pressure-Systolic Wkgww=781 Un its=mmHg 08/26/2022 8867-4 [facility] Heart rate Value=82.0 Units=/min 8302-2 [facility] Height Value=74.0 Units=Inches 08/04/2022
--- OUTSIDE RECORDS SUMMARY | 2025-07-05 09:59 | XMS_ITS | Encounter Summary ---
Author Organization [facility] Address [address] [place] [address] Care Team Providers Care Melter Supervisor Name Role Phone Dipak Barrientos MD Primary Care Provider + [phone] Reason for Visit * Reason Comments Med Refill Encounter Details Date Type Department Care Team (Late st Contact Info) Description 05/01/2024 [facility] [address] [place] [address] Mabel Chapman, CIRCULAR SAWYER STONE [address] [facility] [address] [place] [address] Social History Tobacco Use Types Packs/Day Years Used Date Smoking Tobacco: Former Cigarettes Q uit: 2014 Smokeless Tobacco: Never Alcohol Use Standard Drinks/Week Comments No 0 (1 standard drink = 0.6 oz pur e alcohol) Sex and Gender Information Value Date Recorded Sex Assigned at Not on file Legal Sex Male 8:00 PM EDT Gender Identity Not on file Sexual Orientation Not on file documented as of this encounter Miscellaneous Notes * Telephone Encounter - Antoni Reyes, PharmD - 05/01/2024 2:37 PM EDT Refill request does not meet protocol. Sending to clinic for review. Additional info: Latest clinic note says patient is only using metformin, please review if appropriate to refill insulin documented in this encounter Plan of Treatment Not on file documented as of this encounter Visit Diagnoses Not on filedocumented in this encounter Additional Health Concerns Assessment Noted Time A fall risk assessment has been complete d for the patient 12/15/2022 3:05 PM EST A Body Mass Index follow-up plan has been documented for the patient 03/29/2024 8:41 AM EDT documented as of this encounter Care Teams Melter Supervisor Relationship Specialty Start Date End Date Dipak Barrientos MD [address] [place] [address] PCP - General 04/10/21 documented as of this encounter
--- OUTSIDE RECORDS SUMMARY | 2025-07-05 09:59 | XMS_ITS | Patient Health Record ---
Author Organization [facility] Address [address] [facility] [address] [facility] [address] [place] [id number] Care Team Providers Care Picc Nurse Name Role Phone Dipak Barrientos Primary Care [...] 0.1 Performing Lab: Notes/Report: Test performed by [employer] ([employer] [address] [place] [address] , [address], [place] [address] James Alonso MD, Vmware Administrator CLIA: [id number] Protein 7.2 6.0-8.3 g/dL Albumin 4.2 3.5-5.3 g/dL Alkaline Phosphatase 113 40-129 IU/L ALT (SGPT) 26 <5-55 IU/L AST (SGOT) 32 <5-46 IU/L Bilirubin, Total 0.3 <0.2-1.2 mg/dL Bilirubin, Direct 0.2 <0.07-0.2 mg/dL Bilirubin, Indirect 0.1 0.2-1.3 mg/dL Urinalysis - Inhouse Reviewed date:02/04/2025 03:27:19 PM Interpretation: Performing Lab: Notes/Report: Color/Clarity yellow/clear Leuk Neg Nitrite Neg Urobili 3.2 Protein 1+ pH 5.5 Blood Trace-Lysed Sp. Gr. 1.015 Ketone Neg Bili Neg Gluc 2+ Glycohemoglobin A1c (in hous e) Reviewed date:08/06/2024 03:07:18 PM Interpretation:5.8 Performing Lab: Notes/Report: 5.8 glycohemoglobin 5.8% 5 - 6.5 % Glucose (In-House) Reviewed date:08/06/2024 03:07:18 PM Interpretation:111 Performing Lab: Notes/Report: 111 blood glucose 111 74 - 106 mg/dL Medications Medication SIG (Take, Route, Frequency, Duration) Notes Start Date End Date Status Vitamin D3 1.25 MG (51064 UT) TAKE ONE CAPSULE BY MOUTH ONCE A WEEK; Duration: 28 Active Terbinafine HCl 250 MG 1 tablet Orally O nce a day; Duration: 90 days Active Pregabalin 150 MG 1 cap(s) orally 2 ti mes a day; Duration: 30 days 06/05/2025 Active Dexcom G7 Heel Nailing Machine Operator - as directed; Durati on: 90 days Active Jardiance 25 MG 1 tablet Orally Once a day; Duration: 30 days Active Dexcom G7 Sensor - as directed; Duratio n: 30 days Active Cetirizine HCl 10 mg TAKE ONE TABLET BY MOUTH EVERY DAY; Duration: 30 Active Rosuvastatin Calcium 40 MG 1 tab(s) oral ly once a day (at bedtime) Active Nortriptyline HCl 50 MG 1 cap(s) Orally Two times a day Active Montelukast Sodium 10 mg TAKE ONE TABLET BY MOUTH EVERY DAY; Duration: 30 Active Metoprolol Succinate ER 50 MG 1 tablet Orally Once a day; Duration: 30 day(s) Active Cyclobenzaprine HCl 5 MG 1 tablet as nee ded Orally Three times a day 01/23/2025 Active Nitroglycerin 0.2 MG/HR apply 1 PATCH to pically EVERY DAY allow FOR nitrate-free interval of approximately 10-12 hours PER 24 hour period; Duration: 30 Active Immunizations Vaccine Route Administration Date Status Comme nts Fluzone Quad (6months&older) IM Intramuscular 08/10/2021 Administered given by Jerry Lala Hepatitis A (adult) IM Intramuscular 12/08/2018 Administered Shingrix IM Intramuscular 12/08/2018 Administered Tetanus Tdap-Adacel (over 7yrs) IM Intramuscular 01/23/2020 Administered Problems Problem Type SNOMED Code ICD Code Onset Dates Problem Status W/U Status Risk Notes Problem Tobacco abuse (1524573549) Tobacco abuse (Z72.0) Active confirmed Problem Hypothyroidism (63760962) Hypothyroidism (acquired) (E03.9) Active confirmed Problem Essential hypertension (20228508) Essential hypertension (I10) Active confirmed Problem Morbid obesity (683914479) Morbid obesity (E66.01) Active confirmed Problem Diabetic neuropathy (660413716) Diabetic neuropathy (E11.40) Active confirmed Problem Sciatica (90155897) Lumbago with sciatica, right side (M54.41) Active confirmed Problem Neurologic disorder associated with type II diabetes mellitus (424748938) Type 2 diabetes mellitus with other diabetic neurological complication (E11.49) Active confirmed Problem Mixed hyperlipidemia (246556367) Mixed hyperlipidemia (E78.2) Active confirmed Problem Hyperlipidemia (70349610) Other hyperlipidemia (E78.4) Active confirmed Problem Primary insomnia (5129313) Primary insomnia (F51.01) Active confirmed Problem Chronic pain (95192154) Other chronic pain (G89.29) Active confirmed Problem Sciatica (66375982) Lumbago with sciatica, left side (M54.42) Active confirmed Problem Chronic osteomyelitis of ankle and/or foot (481416238) Other chronic osteomyelitis, left ankle and foot (M86.672) Active confirmed Problem Encounter for orthopedic aftercare following surgical amputation (Z47.81) Active confirmed Problem Amputated below knee (147147222) Acquired absence of left leg below knee (Z89.512) Active confirmed Problem Degeneration of lumbar intervertebral disc (75660066) Lumbar degenerative disc disease (M51.36) Active confirmed Problem Mood disorder (18672862) Mood disorder (F39) Active confirmed Problem Acquired hypothyroidism (926775827) Acquired hypothyroidism (E03.9) Active confirmed Problem Atherosclerotic heart disease of [place] coronary artery without angina pectoris (521946661585599) Coronary artery disease involving [place] coronary artery of [place] heart without angina pectoris (I25.10) Active confirmed Problem Erectile dysfunction (disorder) (319572293) Erectile dysfunction, unspecified erectile dysfunction type (N52.9) Active confirmed Problem Polyneuropathy due to type 2 diabetes mellitus (326449397) Diabetic polyneuropathy associated with type 2 diabetes mellitus (E11.42) Active confirmed Problem Diabetes mellitus type 2 (disorder) (70588136) DM2 (diabetes mellitus, type 2) (E11.9) Active confirmed Problem Dyslipidemia (881568835) Dyslipidemia (E78.5) Active confirmed Problem Atherosclerotic heart disease of [place] coronary artery without angina pectoris (788711382325544) Arteriosclerosis of coronary artery (I25.10) Active confirmed Problem Allergic rhinitis (47552553) Allergic rhinitis, unspecified allergic rhinitis trigger, unspecified rhinitis seasonality (J30.9) Active confirmed Problem Polyneuropathy due to type 2 diabetes mellitus (849324880) Type 2 diabetes mellitus with diabetic polyneuropathy, without long-term current use of insulin (E11.42) Active confirmed Problem Lower urinary tract symptoms due to benign prostatic hypertrophy (78850215574138) Benign prostatic hyperplasia with lower urinary tract symptoms (N40.1) Active confirmed Problem Sleep apnea (19887633) Sleep apnea in adult (G47.30) Active confirmed Problem History of coronary artery bypass grafting (304599950) History of coronary artery bypass graft (Z95.1) Active confirmed Problem Obesity (848264097) Non morbid obesity (E66.9) Active confirmed Problem Type II diabetes mellitus without complication (985479711) Type 2 diabetes mellitus without complication, unspecified whether longwall shearer operator insulin use (E11.9) Active confirmed Problem Cellulitis of finger (76163615) Felon of finger (L03.019) Active confirmed Problem Amputated below knee (663696605) 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) Active confirmed Problem Hearing loss (60027693) Unspecified hearing loss (H91.90) Active confirmed Vital Signs Heart Rate 99 /min 02/04/2025 Blood pressure diastolic 94 mm Hg 02/04/2025 Height 73 in 02/04/2025 Blood pressure systolic 142 mm Hg 02/04/2025 Weight 235 lbs 02/04/2025 BMI 31.00 kg/m2 02/04/2025 Encounters Encounter Location Date Provider Diagnosis [facility] [address] [facility] [address] [place] [id number] 08/03/2024 Dipak Barrientos Type 2 diabetes lizeth itus with diabetic polyneuropathy, without long-term current use of insulin E11.42 ; Allergic rhinitis, unspecified allergic rhinitis trigger, unspecified rhinitis seasonality J30.9 and Status post below-knee amputation of left lower extremity Z89.512 [facility] [address] [place], [place] [id number] 08/13/2024 Dipak [place]bury Superficial foreign body of unspecified finger, initial encounter S60.459A [facility] [address] [place], [place] [id number] 12/17/2024 Dipak [place] Unspecified hearing loss H91.90 ; Type 2 diabetes mellitus without complication, unspecified whether mcc insulin use E11.9 ; Coronary artery disease involving [place] coronary artery of [place] heart without angina pectoris I25.10 and Chronic diarrhea K52.9 [facility] [address] [place], [place] [id number] 01/23/2025 Dipak [place] Type 2 diabetes lizeth itus without complication, unspecified whether longwall shearer operator insulin use E11.9 ; Onycholysis L60.1 ; Neck muscle spasm M62.838 and MCFP use of drug Z79.899 [facility] [address] [place], [place] [id number] 02/04/2025 Dipak Danbury 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 Z02.4 [facility] [address] [place], [place] [id number] 06/05/2025 Dipak Danbury [facility] [address] [place], [place] [id number] 09/08/2024 Dipak [place] Diabetic polyneuropa thy associated with type 2 diabetes mellitus E11.42 [facility] [address] [place], [place] [id number] 12/06/2024 Dipak [place] Diabetic polyneuropa thy associated with type 2 diabetes mellitus E11.42 [facility] [address] [place], [place] [id number] 12/18/2024 Dipak [place] [facility] [address] [place] [id number] 01/24/2025 Dipak [place] [facility] [address] [place] [id number] 02/27/2025 Dipak [place] [facility] [address] [place] [id number] 02/27/2025 Dipak [place] [facility] [address] [place], [place] [id number] 03/04/2025 Dipak [place] Diabetic polyneuropa thy associated with type 2 diabetes mellitus E11.42 [facility] [address] [place], [place] [id number] 06/03/2025 Dipak [place] Diabetic polyneuropa thy associated with type 2 diabetes mellitus E11.42 Assessments Encounter Date Diagnosis (ICD Code) Assessment Notes Treatment Notes Treatment Clinical Notes Section Notes 08/13/2024 Superficial foreign body of unspecified finger, initial encounter (ICD-10 - S60.459A) Area prepped with alcohol, #11 blade and fine tweezers used to remove the metal 09/08/2024 Diabetic polyneuropathy associated with type 2 diabetes mellitus (ICD-10 - E11.42) 12/06/2024 Diabetic polyneuropathy associated with type 2 diabetes mellitus (ICD-10 - E11.42) 12/17/2024 Type 2 diabetes mellitus without complication, unspecified whether mcc insulin use (ICD-10 - E11.9) 12/17/2024 Unspecified hearing loss (ICD-10 - H91.90) 01/23/2025 Onycholysis (ICD-10 - L60.1) 01/23/2025 Type 2 diabetes mellitus without complication, unspecified whether longwall shearer operator insulin use (ICD-10 - E11.9) 02/04/2025 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 [place] license (ICD-10 - Z02.4) 03/04/2025 Diabetic polyneuropathy associated with type 2 diabetes mellitus (ICD-10 - E11.42) 06/03/2025 Diabetic polyneuropathy associated with type 2 diabetes mellitus (ICD-10 - E11.42) 08/03/2024 Allergic rhinitis, unspecified allergic rhinitis trigger, unspecified rhinitis seasonality (ICD-10 - J30.9) 08/03/2024 Type 2 diabetes mellitus with diabetic polyneuropathy, without long-term current use of insulin (ICD-10 - E11.42) 08/03/2024 Status post below-knee amputation of left [...] independent function and improved quality of life. 01/23/2025 Neck muscle spasm (ICD-10 - M62.838) Home exercise program provided to patient, heating pad to affected areas 2 to 3 times a day. 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 (ICD-10 - Z79.899) Plan Of Treatment No Information Insurance Providers Payer Name Payer Address Payer Phone Subscriber Number Group Number Insured Name Patient Relationship to Insured Coverage Start Date Coverage End Date [employer] [facility] [id number] [place], [place] [id number] Jewel Jara Self - patient is the insured Medications Administered Medication Instructions Date of Administration Dosage Notes rocephin one gram IM 01/23/2020 1 g Medical (General) History Medical History History ICD Code Coronary Artery Disease, CABG, 10/2016 Myocardial Infarction s/p Stenting x 4 V essels, 03/2016 Type 2 Diabetes Hypertension Allergic Rhinitis Cardiac Stress Test EF = 46%, 03/06/2018 Diabetic Neuropathy Surgical History Surgery Date(Month/Year) Stents x4 06/2008 Appendectomy Heart Cath 09/13/2013 Lumbar Laminectomy - Dr. Fisher 05/2014 Open Heart Surgery- [facility] 11/16/2016 Laminectomy, L4-L5, [place] 08/2018 LT TMA Revision 07/14/2022 left BKA 07/2022 Bariatric surgey Hospitalization History Reason Date(Month/Year) Back Pain- [facility] ER 02/26/2014 Shoulder- [facility] ER 01/15/2016
--- OUTSIDE RECORDS SUMMARY | 2025-07-05 09:59 | XMS_ITS | Encounter Summary ---
Author Organization [facility] Address [address] [place] [address] Care Team Providers Care Mission Analyst Name Role Phone Dipak Barrientos MD Primary Care Provider + [phone] Reason for Visit * Reason Comments Med Refill Encounter Details Date Type Department Care Team (Late st Contact Info) Description 05/09/2025 Refill [facility] [address] [place] [address] Cyndee Wright P, EGGS INSPECTOR [address] [facility] [address] [place] [address] Type 2 diabetes mellitus with other specified complication, without long-term current use of insulin (CMS/HCC) Social History Tobacco Use Types Packs/Day Years Used Date Smoking Tobacco: Former Cigarettes Q uit: 2015 Smokeless Tobacco: Never Alcohol Use Standard Drinks/Week Comments No 0 (1 standard drink = 0.6 oz pur e alcohol) Sex and Gender Information Value Date Recorded Sex Assigned at Not on file Legal Sex Male 8:00 PM EDT Gender Identity Not on file Sexual Orientation Not on file documented as of this encounter Plan of Treatment Not on file documented as of this encounter Visit Diagnoses Diagnosis Type 2 diabetes mellitus with other specified complication, without long-term current use of insulin (CMS/HCC) documented in this encounter Additional Health Concerns Assessment Noted Time A fall risk assessment has been complete d for the patient 12/15/2022 3:05 PM EST A Body Mass Index follow-up plan has been documented for the patient 03/29/2024 8:41 AM EDT documented as of this encounter Care Teams Mission Analyst Relationship Specialty Start Date End Date Dipak Barrientos MD [address] [facility] [address] [place] [id number] PCP - General 04/10/21 documented as of this encounter
--- OUTSIDE RECORDS SUMMARY | 2025-07-05 09:59 | XMS_ITS | Clinical Summary ---
Author Organization [facility] Address [address] [place] [address] Care Team Providers Care Director [facility] Name Role Phone Dipak Barrientos MD Primary Care Provider [phone] Allergies Active Allergy Reactions Criticality Noted Date Comments Metoprolol Unknown - Patient st ates they do not know rxn details Low 06/26/2018 Oxycodone Itching Medium 08/04/2022 Medications Continuous Blood Gluc Bottled Beverage Inspector (Dexcom G6 unit assembler) device As directed. 01/07/20 21 Active lisinopril 20 MG tablet Take by mouth. 10/11/20 18 Active pregabalin (Lyrica) 100 MG capsule Take by mouth 2 (two) times a day. 01/07/20 21 Active tiZANidine (Zanaflex) 4 MG tablet Take by mouth 3 (three) times a day. 10/11/20 18 Active tamsulosin (Flomax) 0.4 MG 24 hr capsule Take 0.4 mg by mouth every night. 10/02/20 21 Active Xarelto 2.5 MG tablet Take 1 tablet (2.5 mg) by mouth 2 (two) times a day. 05/17/20 21 Active furosemide (Lasix) 40 MG tablet Take 1 tablet (40 mg) by mouth 1 (one) time each day if needed. 09/02/20 21 Active Vitamin D3 1.25 MG (78342 UT) capsule Take 1 capsule (50,000 Units) by mouth 1 (one) time per week. 09/18/20 21 Active ergocalciferol 1.25 MG (56049 UT) capsule Take 1 capsule by mouth 1 (one) time per week. 11/23/20 21 Active testosterone cypionate (Depo-Testosteron e) 200 MG/ML injection INJECT 2 ML (400 MG) INTRAMUSCULARLY EVERY MONTH 06/29/20 22 Active promethazine (Phenergan) 25 MG tablet TAKE TWO TABLETS BY MOUTH EVERY 4 TO 6 HOURS NEEDED FOR NAUSEA 06/28/20 22 Active nitroglycerin (Nitrodur) 0.2 MG/HR patch apply 1 PATCH topically EVERY DAY allow FOR nitrate-free interval of approximately 10-12 hours PER 24 hour period 06/28/20 22 Active losartan-hydroCHL OROthiazide (Hyzaar) 50-12.5 MG tablet Take 1 tablet by mouth 1 (one) time each day. 06/24/20 22 Active HYDROcodone-aceta minophen (Ellinger) 10-325 MG tablet TAKE ONE TABLET BY MOUTH EVERY 4 TO 6 HOURS NEEDED FOR PAIN MAY CAUSE DROWSINESS 06/28/20 22 Active Trulicity 1.5 MG/0.5ML solution pen-injector inj. pen INJECT 1.5 MG SUBCUTANEOUSLY ONCE A WEEK 06/21/20 22 Active carvedilol (Coreg) 25 MG tablet Take 25 mg by mouth 2 (two) times a day. 06/23/20 22 Active Aspirin Low Dose 81 MG EC tablet Take 81 mg by mouth 1 (one) time each day. 06/24/20 22 Active pen needle, diabetic (B-D UF III MINI PEN NEEDLES) 31G X 5 MM miscIndications:T ype 2 diabetes mellitus without complication, with long-term current use of insulin USE TWICE DAILY 200 each 1 08/22/20 23 Active metFORMIN (Glucophage) 500 MG tablet Take 1 tablet (500 mg) by mouth 2 (two) times a day with meals. 180 tablet 3 03/29/20 24 Active Continuous Blood Gluc Sensor (Dexcom G6 Sensor) miscIndications:T ype 2 diabetes mellitus with other specified complication, without long-term current use of insulin (CMS/HCC) USE DIRECTED TO TEST BLOOD GLUCOSE LEVEL CHANGE SENSOR EVERY 10 DAYS 9 each 3 03/29/20 24 Active Continuous Blood Gluc Transmit (Dexcom G6 transmitter) miscIndications:T ype 2 diabetes mellitus with other specified complication, without long-term current use of insulin (CMS/HCC) Use as instructed change transmitter every 90 days. 1 each 3 03/29/20 24 Active rosuvastatin (Crestor) 40 MG tabletIndications :Type 2 diabetes mellitus without complication, with long-term current use of insulin,Hyperlipi demia, unspecified hyperlipidemia type TAKE ONE TABLET BY MOUTH EVERY DAY 30 tablet 11/03/20 24 Active Active Problems Problem Noted Date Diagnosed Date Type 2 diabetes mellitus with other specified co mplication 10/05/2021 Assessment & Plan (10/05/2021 12:32 PM EST): Continue jardiance, metformin trulicity. Stop glipizide and lantus. Start premix insulin 36 units bid. Advised must check bg bid. Reviewed low tx. Met education to work with titration. rto 2 m, call sooner prn. Would like to see bmp before metformin refill Hyperlipidemia 10/05/2021 Assessment & Plan (10/05/2021 9:18 AM EST): Request lipid from PCP. Advised continue statin. Class 2 severe obesity with serious comorbidity and body mass index (BMI) of 37.0 to 37.9 in adult 10/05/2021 Assessment & Plan (10/05/2021 9:17 AM EST): Impacts insulin resistance. Advise wt loss through caloric restriction. Discussed ways to eat healthier on the road Neuropathy associated with endocrine disorder Assessment & Plan (10/05/2021 9:16 AM EST): Advised daily foot check. On lourdes through pcp. Hypertension 10/05/2021 Assessment & Plan (10/05/2021 9:15 AM EST): bp controlled. A little low end. If experiencing orthostasis he will call. Continue acei Abnormal TSH 10/05/2021 Assessment & Plan (10/05/2021 9:20 AM EST): Working with PCP. Encounters Date Type Department Care Team Description 05/09/2025 Refill [facility] [address] [place] [address] Wright, Cyndee P, TRANSCRIPTION SPECIALIST Type 2 diabetes mellitus with other specified complication, without long-term current use of insulin (CMS/HCC) [facility] [address] [place] [id number] Cyndee Wright Lavern, TRANSCRIPTION SPECIALIST Type 2 diabetes mellitus with other specified complication, without long-term current use of insulin (CMS/HCC) from Last 3 Months Family History Medical History Relation Name Comments Cardiac disorder Other 1 Diabetes Other 2 Hypertension Other 3 Relation Name Status Comments Other 1 Other 2 Other 3 Social History Tobacco Use Types Packs/Day Years Used Date Smoking Tobacco: Former Cigarettes Q uit: 2014 Smokeless Tobacco: Never Tobacco Cessation:Counseling Given: Not Answered Alcohol Use Standard Drinks/Week Comments No 0 (1 standard drink = 0.6 oz pur e alcohol) Sex and Gender Information Value Date Recorded Sex Assigned at Not on file Legal Sex Male 8:00 PM EDT Gender Identity Not on file Sexual Orientation Not on file Last Filed Vital Signs Vital Sign Reading Time Taken Comments Blood Pressure 139/85 03/29/2024 7:51 AM EDT Pulse 79 03/29/2024 7:51 AM EDT Temperature 36.8 C (98.3 F) 01/07/2021 9:27 AM EST Respiratory Rate 16 09/06/2018 1:14 PM EDT Oxygen Saturation - - Inhaled Oxygen Concentration - - Weight 109 kg (240 lb 8.4 oz) 03/29/2024 7:51 AM EDT Height 188 cm (6' 2 ) 03/29/2024 7:51 AM EDT Body Mass Index 30.88 03/29/2024 7:51 AM EDT Plan of Treatment Health Maintenance Due Date Last Done Comments [facility]-Depression Screening 1963 [facility]-HIV Screening 1963 [facility]-Hepatitis C Screening 1963 [facility]-/Child/Adol SDOH Screenings 1963 Diabetes: Dental Exam 1973 [facility]- SDOH Screenings 1981 [facility]-Adult SDOH Screenings 1981 [facility]-Pneumococcal Vaccine: 50+ Years (1 of 2 - PCV) 1982 CT Colonography 2008 Colonoscopy 2008 FIT-DNA 2008 FIT 2008 FOBT 2008 Sigmoidoscopy 2008 [facility]-Colorectal Cancer Screening 2008 [facility]-Zoster Vaccines (1 of 2) 2013 [id number] Vaccine (1 - season) 2024 [facility]-Diabetes: Hemoglobin A1C 09/26/202412/2023, 12/15/2022, 07/13/2022, Additional history exists [facility]-Influenza Vaccine (#1) 2025 08/10/2021 [facility]-DTaP,Tdap,and Td Vaccines (2 - Td or Tdap) 01/23/2030 01/23/2020 [facility]-RSV Vaccine: 60+ Years or (1 - 1-dose 75+ series) 2038 [facility]-Hepatitis A Vaccines Aged Out 12/08/2018 No longer eligible based on patient's age to complete this topic [facility]-Obesity Intervention Completed 024, 01/20/2023, 12/15/2022, Additional history exists HPV Vaccines Aged Out No longer eligi ble based on patient's age to complete this topic [facility]-HIB Vaccines Aged Out No longer e ligible based on patient's age to complete this topic [facility]-IPV Vaccines Aged Out No longer e ligible based on patient's age to complete this topic [facility]-Rotavirus Vaccines Aged Out No lo nger eligible based on patient's age to complete this topic Procedures Procedure Name Priority Date/Time Associated Diagnosis Comments POCT GLYCOSYLATED HEMOGLOBIN (HGB A1C) Routine 03/29/2024 8:05 AM EDT from Last 3 Months or Most Recently Relevant to Health Maintenance Results * POCT glycosylated hemoglobin (Hb A1C) docked device (03/29/2024 8:05 AM EDT) POCT Hemoglobin A1C 6.1 <5.7% Non-Diabet ic [facility] Kit Lot Number [id number] [facility] Kit Expiration Date 12/2025 [facility] Blood Venous blood specimen / Unknown 03/29/2024 8:05 AM EDT Cyndee Lavern Pereiras TRANSCRIPTION SPECIALIST POINT OF CARE TEST ENTER /EDIT ORDERABLES Final Result [facility] [address] [place] [address] from Last 3 Months or Most Recently Relevant to Health Maintenance Insurance [employer] [facility] MEDICAID Care Teams Director [facility] Relationship Specialty Start Date End Date Dipak Barrientos MD [address] [facility] [address] [place] [address] PCP - General 04/10/21
--- NOTE | 2025-07-05 10:15 | CA_ITS ---
APPROVED REPORT EXAM: Comprehensive 2D, Doppler, and color-flow Echocardiogram Lead Painter: Amy Marroquin, LISA, RVS Ht: 6 ft 2 in Wt: 234lbs BSA: 2.32 BP: 131/88 mmHg Indications: SOB, Fatigue, CAD-CABG x 5, DM, Ex-smoker, HTN, HLD, Mild /sclerotic AoV 2D Dimensions IVSd 1.13 cm M: 0.6-1.2 LVEF (Visual) 55.00 % PWd 1.13 cm M: 0.6 - 1.2 LA Volume 65.50 mL LVDd 4.77 cm M: 4.2 - 5.9 LA Volume Index 28.11 mL/m2 (M/F) 16-34 LVDs 3.14 cm M: 2.5 - 4.0 M-Mode Dimensions LA Diam 4.35 cm (1.9-4.0) EPSs 1.26 cm TAPSE 1.11 (<1.7) LV Diastology E Decel Time 203 (160-240 msec) E/A Ratio 0.67 MED A' 7.90 cm/s LAT A' 8.30 cm/s Aortic Valve AoV Peak Derrek. 167.0 (50-130 cm/s) AO Peak GR. 11.20 mmHg AO Mean GR. 6.70 (<5 mmHg) AO VTI 35.9 (18-25 cm) Mitral Valve MV A Velocity 92.0 (40-130 cm/s) E/A Ratio 0.67 Left Ventricle The left ventricle is normal size. Left ventricular systolic function is normal. The left ventricular ejection fraction is within the normal range. There is increased left ventricular wall thickness. There is normal LV segmental wall motion. Transmitral Doppler flow pattern suggests impaired LV relaxation. LVEF is 60% Right Ventricle The right ventricle is normal size. The right ventricular systolic function is normal. Atria The left atrium is mildly dilated. The right atrium is mildly dilated. There is no color Doppler evidence of interatrial shunt. Aortic Valve The aortic valve is mildly thickened, cannot rule out bicuspid aortic valve. Borderline aortic stenoss is present. Peak velocity 2.0 m/s. Mean AV gradient 10 mmHg. Max AV gradient 18 mmHg. No aortic regurgitation is present. Mitral Valve The mitral valve is normal in structure. No evidence of mitral valve stenosis. Trace mitral regurgitation is present. Tricuspid Valve The tricuspid valve leaflets are thin and pliable. Trace tricuspid regurgitation. There is insufficient TR jet to estimate RVSP. Pulmonic Valve The pulmonary valve is grossly normal in structure. Trace pulmonic valve regurgitation is present. Great Vessels The aortic root is normal in size. IVC is normal in size and collapses >50% with inspiration. Pericardium There is no pericardial effusion. Other Information Study Quality: Fair Conclusion Normal biventricular systolic function. Mild biatrial dilation. Borderline (peak velocity 2.0 m/s. Mean AV gradient 10 mmHg. Max AV gradient 18 mmHg). Electronically signed by : Leeann Ram MD 07/05/2025 14:35:59
== END 2025-07-05 23:59 | disposition home or self-care (01) ==
LOC: RT 09:56
PROVIDERS: PCP Family Medicine; Visit Provider Physician Assistant
DX: I35.1 Nonrheumatic aortic (valve) insufficiency (principal); I11.9 Hypertensive heart disease without heart failure; I35.8 Other nonrheumatic aortic valve disorders; I25.10 Atherosclerotic heart disease of native coronary artery without angina pectoris; E78.5 Hyperlipidemia, unspecified; E11.9 Type 2 diabetes mellitus without complications; Z95.1 Presence of aortocoronary bypass graft; Z87.891 Personal history of nicotine dependence
CPT/HCPCS: 93306

== ENCOUNTER 2025-08-06 07:08 | Outpatient (CLI) | payer OTHER, SELFPAY ==
--- OUTSIDE RECORDS SUMMARY | 2024-12-17 10:45 | XMS_ITS ---
Author Organization [facility] Address [address] [phone] Care Team Providers Care Radio Broadcaster Name Role Phone Dipak Barrientos Primary Care Provider Allergies No Known Allergies Reason For Referral Diagnosis 1 Unspecified hearing loss (H91.90) Referral Organization [facility] Referring Provider First Name Dipak Referring Provider Last Name Iliana Referring Provider Speciality Family Pra ctice Referred Provider Specialty Audiologists General Notes Steffi Samuel 12/19/19 25 1:37:03 PM > faxed to [facility] in [place], [place] Referral Priority Routine REASON FOR VISIT Ringing in ear Medications Medication SIG (Take, Route, Frequency, Duration) Notes Start Date End Date Status Pregabalin 150 MG 1 cap(s) orally 2 ti mes a day 12/06/2024 Active Montelukast Sodium 10 mg 1 tablet Orally Once a day; Duration: 30 days Active Vitamin D3 1.25 MG (87514 UT) TAKE ONE CAPSULE BY MOUTH ONCE [...] W/U Status Risk Notes Problem Hearing loss (10792635) Unspecified hearing loss (H91.90) Active confirmed Vital Signs Blood pressure systolic 120 mm Hg 12/17/19 Blood pressure diastolic 70 mm Hg 025 Heart Rate 83 /min 12/17/2024 Height 73 in 12/17/2024 Weight 238.2 lbs 12/17/2024 BMI 31.42 kg/m2 12/17/2024 Encounters Encounter Location Date Provider Diagnosis [facility] [address] [facility] [address] [place] [id number] 12/17/2024 Dipak Barrientos Unspecified hearing loss H91.90 ; Type 2 diabetes mellitus without complication, unspecified whether care home insulin use E11.9 ; Coronary artery disease involving [place] coronary artery of [place] heart without angina pectoris I25.10 and Chronic diarrhea K52.9 Assessments Encounter Date Diagnosis (ICD Code) Assessment Notes Treatment Notes Treatment Clinical Notes Section Notes 12/17/2024 Unspecified hearing loss (ICD-10 - H91.90) 12/17/2024 Type 2 diabetes mellitus without complication, unspecified whether care home insulin use (ICD-10 - E11.9) 12/17/2024 Coronary artery disease involving [place] coronary artery of [place] heart without angina pectoris (ICD-10 - I25.10) [...] rt test results, Reason: Provider Name:Dipak simmons, 01/09/2026 11:45:00 AM, [address] [facility] [address] [facility], [address], [place], [id number], Progress Notes * Ernst JARAOB:1965 (59 yo M)Acc No.[id number]:12/17/2024 Progress Notes Patient: Jewel ESPINO Provider: Hans Barrientos M.D. :1965 A ge:59 Y S ex:Male Date:12/17/2024 Address:[address] [place] [address] [address] , [place], [id number] Subjective: * Chief Complaints: * 1 . [...] - Dr. Fisher 05/2014, Open Heart Surgery- [place] 11/16/2016, Laminectomy, L4-L5, 08/2018, LT TMA Revision 07/14/2022, left BKA 08/19, Bariatric surgey . * Hospitalization/Major Diagno stic Procedure: B ack Pain- [facility] 02/26/2014, Shoulder- [facility] 01/15/2016. * Family History: F ather: [...] day , Taking Vitamin D3 1.25 MG (18034 UT) Capsule TAKE ONE CAPSULE BY MOUTH ONCE A WEEK , Taking Montelukast Sodium 10 mg Tablet 1 tablet Orally Once a day , Taking Pregabalin 150 MG Capsule 1 cap(s) orally 2 times a day , Medication List reviewed and reconciled with the patient * Allergies: N .K.D.A. Objective: * Vitals: W t:238.2, Temp:97.8, BP:120/70, HR:83, Nurse:[facility], Ht: 73, BMI:31.42. * Examination: E NT/Respiratory: General Appearance: N AD. E ars: a uditory canals normal bilaterally, TM's WNL. H eart : R RR. L ungs: c lear to auscultation bilaterally. A bdomen : BS present, soft, nontender. Assessment: * Assessment: 1. U nspecified hearing loss - H91.90 (Primary) 2 . T ype 2 diabetes mellitus without complication, unspecified whether exterminator helper insulin use - E11.9 3 . C oronary artery disease involving [place] coronary artery of [place] heart without angina pectoris - I25.10 4 . C hronic diarrhea - K52.9 Plan: * Treatment: 2. T ype 2 diabetes mellitus without complication, unspecified whether exterminator helper insulin use Stop metFORMIN HCl ER (MOD) Tablet Extended Release 24 Hour, 1000 MG, 1 tab(s), orally, Two times a day; S tart Jardiance Tablet, 25 MG, 1 tablet, Orally, Once a day, 30 day(s), 30, Refills 5.? * Follow Up: v ia phone to report test results * Images: Billing Information: * Visit Code: 30834 Office Visit, Est Pt., Level 3. * Procedure Codes: * Electronic signature of Valentina Barrientos MD on 08/06/2025 at 07:11 AM EDT Sign off status: Pending * Provider: Hans Barrientos M.D. Date: 0 12/17/2024 Generated for Lena canales/Emily/Benyitting on: 0 08/06/2025 07:11 AM EDT History and Physical Notes * [...]
--- OUTSIDE RECORDS SUMMARY | 2025-01-23 07:15 | XMS_ITS ---
Author Organization [facility] Address [address] [facility] [address] [place] [phone] Care Team Providers Care Machine Cementer And Folder Name Role Phone Dipak Barrientos Primary Care [...] 0.1 Performing Lab: Notes/Report: Test performed by [facility] [address] [place] [address] , [address], [place] [address] James Alonso MD, File Clerk Data Entry CLIA: [id number] Protein 7.2 6.0-8.3 g/dL Albumin 4.2 3.5-5.3 [...] day 01/23/2025 Active Vitamin D3 1.25 MG (48451 UT) TAKE ONE CAPSULE BY MOUTH ONCE [...] Encounter Location Date Provider Diagnosis A-Aniyah 1210 [facility] [address], [place] [phone] 01/23/2025 Dipak Barrientos Type 2 diabetes mellitus without complication, unspecified whether mcc insulin use E11.9 ; Onycholysis L60.1 ; Neck muscle spasm M62.838 and snf use of drug Z79.899 Assessments Encounter Date [...] has Rx at home for Flexeril 01/23/2025 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 :1965 A ge:59 Y S ex:Male Date:01/23/2025 Address:[address] [place], [place] [phone] Subjective: * Chief Complaints: * 1 . [...] Hospitalization/Major Diagno stic Procedure: B ack Pain- [facility] 02/26/2014, Shoulder- [facility] 01/15/2016. * Family History: F [...] day , Taking Vitamin D3 1.25 MG (48567 UT) Capsule TAKE ONE CAPSULE BY MOUTH [...] 2 diabetes mellitus without complication, unspecified whether mcc insulin use - E11.9 (Primary) 2 . [...] day.Patient already has Rx at home for Flexeril??4.?termite technician use of drug?LAB: P-Hepatic Function Panel (Collection [...] P rotein 7.2 6.0-8.3 - g/dL * LuisaSravani 01/24/2025 8:44: 46 AM >See phone encounter * Procedure Codes: 8 3036 GLYCATED HEMOGLOBIN TEST, Modifiers: QW , 09565 GLUCOSE TEST, 3044F HG A1C LEVEL LT 7.0%, 3075F SYST BP GE 130 - 139MM HG, 3078F DIAST BP < 80 MM HG * Follow Up: 3 Months fasting * Images: Billing Information: * Visit Code: 32103 Office Visit, Est Pt., Level 4. * Procedure Codes: 73835 GLYCATED HEMOGLOBIN TEST. Modifiers: QW 30835 GLUCOSE TEST. 3044F HG A1C LEVEL LT 7.0%. 3075F SYST BP GE 130 - 139MM HG. 3078F DIAST BP < 80 MM HG. * Electronic signature of Valentina Barrientos MD on 08/06/2025 at 07:11 AM EDT Sign off status: Pending * Provider: Hans Barrientos M.D. Date: 0 01/23/2025 Generated for Lena canales/Emily/Lory on: 0 08/06/2025 07:11 AM EDT History [...]
--- OUTSIDE RECORDS SUMMARY | 2025-02-04 10:00 | XMS_ITS ---
Author Organization [facility] Address [address] [phone] Care Team Providers Care Food Counselor Name Role Phone Enmanuel Barrientosian Primary Care [...] day 12/06/2024 Active Vitamin D3 1.25 MG (19147 UT) TAKE ONE CAPSULE BY MOUTH ONCE [...] 02/04/2025 Encounters Encounter Location Date Provider Diagnosis [facility] [address] [place] [address] [address] [facility] [address] [place] [phone] 02/04/2025 Dipak Barrientos 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 Z02.4 Assessments Encounter Date Diagnosis (ICD Code) Assessment Notes Treatment Notes Treatment Clinical Notes Section Notes 02/04/2025 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 robert license (ICD-10 - Z02.4) Plan Of Treatment Next Appt Details Follow Up: prn, Reason: Provider Name:Dipak Roberto , 01/09/2026 11:45:00 AM, [address] [facility], [address], [place], [id number], Progress Notes * Shantanu JARAneDOB:1965 (59 yo M)Acc No.[id number]:02/04/2025 Physical Patient: Jewel ESPINO Provider: Hans Barrientos M.D. :1965 A ge:59 Y S ex:Male Date:02/04/2025 Address:[address] [place], [place] [phone] Subjective: * Chief Complaints: * 1 . [...] Hospitalization/Major Diagno stic Procedure: B ack Pain- [facility] ER 02/26/2014, Shoulder- [facility] ER 01/15/2016. * Family History: [...] period , Taking Vitamin D3 1.25 MG (96249 UT) Capsule TAKE ONE CAPSULE BY MOUTH [...] * Vitals: W t:235, Temp:98.0, BP:142/94, HR:99, Nurse:kk, Ht: 73, Visual Acuity: Left eye:20/25, Right [...] Procedure Codes: 8 1002 Urinalysis, no micro, 43978 VISUAL ACUITY SCREEN * Follow Up: p rn * Images: Billing Information: * Visit Code: 56947 Preventive Care Est Pt Age 40-64. * Procedure Codes: 41384 Urinalysis, no micro. 29084 VISUAL ACUITY SCREEN. * Electronic signature of Valentina Barrientos MD on 08/06/2025 at 07:12 AM EDT Sign off status: Pending * Provider: Hans Barrientos M.D. Date: 0 02/04/2025 Generated for Shannoni ng/Yasmeeng/eTransmitting on: 0 08/06/2025 07:12 AM EDT History and Physical Notes * [...]
--- OUTSIDE RECORDS SUMMARY | 2025-07-09 05:30 | XMS_ITS ---
Author Organization [facility] Address [address] [facility] [address] [place] [id number] Care Team Providers Care Document Analyst Name Role Phone OxfordEnmanuel ewingian Primary Care Provider [phone] Allergies No Known Allergies Results Component [...] 42 Performing Lab: Notes/Report: Test performed by [facility] , [address], [place] [address] James Alonso MD, Ground Crew Chief CLIA: [id number] Sodium 142 135-145 mmol/L Potassium 4.5 3.5-5.3 [...] Interpretation:Normal Performing Lab: Notes/Report: Test performed by [facility], [address] , [address], [place] [address] James Alonso MD, Ground Crew Chief CLIA: [id number] Cholesterol 90 <200 mg/dL Triglycerides 96 <150 [...] Interpretation:Normal Performing Lab: Notes/Report: Test performed by [facility] [address] [place] [address] , [address], [place] [address] James Alonso MD, Ground Crew Chief CLIA: [id number] PSA 0.57 <4.00 ng/mL Please note this is an ultrasensitive PSA assay with a lower limit of detection of 0.014 ng/mL. This test is performed by the Liliya ECLIA methodology. Values obtained with different assay methods or kits cannot be directly compared. P-TSH reflex to FT4 Reviewed date:07/10/2025 12:41:38 PM Interpretation:Normal Performing Lab: Notes/Report: Test performed by [facility] [address] [place] [address] , [address], [place] [address] James Alonso MD, Ground Crew Chief CLIA: [id number] TSH reflex to FT4 4.58 0.43-5.25 mU/L P-Microalbumin/Creatinine, R andom Urine Sample Reviewed date:07/10/2025 12:41:38 PM Interpretation:a/c 66 Performing Lab: Notes/Report: Test performed by [facility] [address] [place] [address] , [address], [place] [address] James Alonso MD, Ground Crew Chief CLIA: [id number] Albumin/Creatinine Ratio, Urine 66 0-30 ug/m g [...] Duratio n: 30 days Active Dexcom G7 Cleaning Attendant - as directed; Durati on: 90 days Active Nitroglycerin 0.2 MG/HR apply 1 PATCH to pically EVERY DAY allow FOR nitrate-free interval of approximately 10-12 hours PER 24 hour period; Duration: 30 Active Vitamin D3 1.25 MG (85612 UT) TAKE ONE CAPSULE BY MOUTH ONCE [...] 07/09/2025 Encounters Encounter Location Date [facility] [address] [phone] 07/09/2025 Dipak Barrientos DM2 (diabetes mellit , [...] Follow Up: 6 Months, Reason: Provider Name:Dipak Roberto , 01/09/2026 11:45:00 AM, [address] [facility] 36 [facility], [address], [place], [place], [id number], Progress Notes * Shantanu JARAneDOB:1965 (59 yo M)Acc No.[id number]:07/09/2025 Progress Notes Patient: Jewel ESPINO Provider: Hans Barrientos M.D. :1965 A ge:59 Y S ex:Male Date:07/09/2025 Address:[address] [place], [place] [id number] Subjective: * Chief Complaints: * 1 . [...] due to not being able to get [employer] to connect to his phone. c/o [...] - Dr. 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 * Hospitalization/Major Diagno stic Procedure: B ack Pain- [facility] ER 02/26/2014, Shoulder- [facility] ER 01/15/2016. * Family History: F [...] day , Taking Vitamin D3 1.25 MG (43615 UT) Capsule TAKE ONE CAPSULE BY MOUTH ONCE A WEEK , Taking Cetirizine HCl 10 mg Tablet TAKE ONE TABLET BY MOUTH EVERY DAY , Taking Montelukast Sodium 10 mg Tablet TAKE ONE TABLET BY MOUTH EVERY DAY , Taking Dexcom G7 Cleaning Attendant - Device as directed , Taking Dexcom [...] icroalbumin, Urine, Random 4.8 - mg/dL * MaryLatisha chahal 07/10/2025 1 2:41:28 PM EDT > See [...] * Procedure Codes: 8 2950 GLUCOSE TEST, 05668 GLYCATED HEMOGLOBIN TEST, Modifiers: QW , 3051F HG A1C>EQUAL 7.0%<8.0%, 1036F TOBACCO NON-USER, 3074F SYST BP LT 130 MM HG, 3079F DIAST BP 80-89 MM HG * Follow Up: 6 Months * Images: Billing Information: * Visit Code: 82035 Office Visit, Est Pt., Level 4. * Procedure Codes: 88301 GLUCOSE TEST. [address]355 GLYCATED HEMOGLOBIN TEST. Modifiers: QW 3051F HG A1C>EQUAL 7.0%<8.0%. 1036F TOBACCO NON-USER. 3074F SYST BP LT 130 MM HG. 3079F DIAST BP 80-89 MM HG. * Electronic signature of Valentina Barrientos MD on 08/06/2025 at 07:11 AM EDT Sign off status: Pending * Provider: Hans Barrientos M.D. Date: 0 07/09/2025 Generated for Lena canales/Emily/Benyitting on: 0 08/06/2025 07:11 AM EDT History and Physical Notes * HPI (History of Present Illness) Category Sub-Category Detail Notes Category Not es Endocrinology Recent Blood Sugars Pt here to kenny gillisk up on DM 2. Pt states he [...]
--- OUTSIDE RECORDS SUMMARY | 2025-07-16 10:19 | XMS_ITS ---
Author Organization [facility] Address 1210 [facility] 36 [facility] [address] [place] [id number] Care Team Providers Care Vessel Builder Name Role Phone Dipak Barrientos Primary Care Provider [phone] REASON FOR VISIT due col,LDCT Encounters Encounter Location Date Provider Diagnosis [facility] [address] [place] [id number] 07/16/2025 Dipak Barrientos Encounter for screen ing colonoscopy Z12.11 and Encounter for screening for lung cancer Z12.2 Assessments Encounter Date Diagnosis (ICD Code) Assessment Notes Treatment Notes Treatment Clinical Notes Section Notes 07/16/2025 Encounter for screening colonoscopy (ICD-10 - Z12.11) 07/16/2025 Encounter for screening for lung cancer (ICD-10 - Z12.2) Plan Of Treatment Pending Test Test Name Order Date colonoscopy 07/16/2025 CT Scan : Chest, low dose 07/16/2025 Next Appt Details Provider Name:Dipak Roberto ry, 01/09/2026 11:45:00 AM, 1210 [facility] 36 [facility], [address], [place], [id number], Progress Notes * Shantanu JARAneDOB:1965 (59 yo M)Acc No.[id number]:07/16/2025 Patient: Jewel ESPINO :1965 A ge:59 Y S ex:Male Address:[address] , [place], [address] Subjective: * Chief Complaints: * d ue col,LDCT * Medical History: * Surgical History: * Hospitalization/Major Diagno stic Procedure: * Medications: Objective: * Vitals: * Physical Examination: Assessment: * Assessment: 1. E ncounter for screening colonoscopy - Z12.11 (Primary) 2 . E ncounter for screening for lung cancer - Z12.2 Plan: * Treatment: 2.?Encounter for screening for lung cancer?Imaging: CT Scan : Chest, low dose* Linda Jimenez 07/18/2025 11:0 9:11 AM EDT >sent to [facility] for referral to [facility] * Procedure Codes: * true * Date: Generated for Lena canales/Emily/eTransmitting on: 0 08/06/2025 07:11 AM EDT
--- NOTE | 2025-08-06 07:11 | CT_ITS ---
FINAL REPORT TECHNIQUE: Thin section axial images were obtained through the lungs using a low-dose technique per lung cancer screening protocol. Reconstruction images were obtained using the axial data. Exam was performed using dose reduction technique. This study was performed with techniques to keep radiation doses as low as reasonably achievable (ALARA). Individualized dose reduction techniques using automated exposure control or adjustment of mA and/or kV according to the patient's size were employed. CLINICAL HISTORY: SCREENING former smoker, quit 11 years ago. smoked 1.5 ppd x 30 years COMPARISON: None FINDINGS: CTDLvol: 2.90 DLP: 104.20 Former smoker who quit 11 years ago 45 pack year history Lungs: No acute pulmonary abnormality. No suspicious nodules. Lymph nodes: No thoracic lymphadenopathy. Mediastinum: Heart size is normal. Prominent coronary artery calcifications are identified. Pleura/pericardium: No pleural or pericardial effusion. Other: No acute abnormality in the upper abdomen. Postoperative changes of a gastric bypass procedure are present. IMPRESSION: No suspicious pulmonary nodule or mass. Lung RADS: 1S, the S designation for severe coronary artery calcifications. Recommendation: 12-month follow-up LDCT. Reviewed, Interpreted and Dictated by Luzmaria Hicks MD Transcribed by Arlene Fabian Authenticated and [facility]
--- OUTSIDE RECORDS SUMMARY | 2025-08-06 07:12 | XMS_ITS ---
Author Organization [facility] Care Team Providers Care Airport Representative Name Role Phone Dipak Barrientos Unavailable Unavailable Randall Turner Unavailable Unavaila ble Allergies and adverse reactions Code CodeSystem Substance Reaction Severity StartDate Concern Status 7804 RXNORM oxyCODONE Unknown 08/04/2022 active Care Team Name Role Address Phone Organization Dates Dipak Barrientos PCP [address], [place], [address], [place] (Office): [facility] 08/04/2022 - 08/30/2022 Randall Turner [address], [place], [address], [place] (Office): [facility] 08/04/2022 - 08/30/2022 Immunizations Immunization Status Vaccine Details Vaccine Code CodeSystem Date Notes Influenza completed Influenza, high-dose, split virus, quadrivalent, injectable, preservative free lotNumber: [id number] expiry: 05/27/2023 Mfg: concha jacobs Given 0.5 ml Right Deltoid intramuscularly 197 CVX created date: 08/25/2022 consent date: 08/25/2022 administer ed date: 08/25/2022 Influenza completed Influenza, high-dose, split virus, quadrivalent, injectable, preservative free 197 CVX created date: 08/04/2022 administer ed date: 08/10/2021 TB 1 Step Mantoux (PPD) completed tuberculin skin test; unspecified formulation lotNumber: [id number] expiry: 03/19/2023 Mfg: Sandfi-pasteur Given 0.1 ml Right Forearm intradermally 98 CVX created date: 08/04/2022 consent date: 08/04/2022 administer ed date: 08/04/2022 neg TB 2 Step Mantoux Skin Test completed tuberculin skin test; unspecified formulation lotNumber: [id number] expiry: 01/30/2024 Mfg: sanofi pasteur [employer] Given [...] OF LEFT LEG BELOW KNEE 08/04/[address] active 2 ATHEROSCLEROTIC HEART DISEASE OF [place] CORONARY ARTERY WITHOUT ANGINA PECTORIS 08/04/[address] active 3 ENCOUNTER FOR ORTHOPEDIC AFTERCARE FOLLOWING SURGICAL AMPUTATION 08/04/[address] active 4 ESSENTIAL (PRIMARY) HYPERTENSION 08/04/[address] active 5 HYPERLIPIDEMIA, UNSPECIFIED 08/04/[address] active 6 HYPOTENSION, UNSPECIFIED 08/04/[address] active 7 INFECTION FOLLOWING A PROCEDURE, DEEP INCISIONAL SURGICAL SITE, SUBSEQUENT ENCOUNTER 08/04/[address] active 8 OBESITY, UNSPECIFIED 08/04/[address] active 9 OTHER CHRONIC OSTEOMYELITIS, LEFT ANKLE AND FOOT 08/04/[address] active 10 PATIENT'S NONCOMPLIANCE WITH OTHER MEDICAL TREATMENT AND REGIMEN 08/04/[address] active 11 PRESENCE OF AORTOCORONARY BYPASS GRAFT 08/04/[address] active 12 TYPE 2 DIABETES MELLITUS WITH DIABETIC NEUROPATHY, UNSPECIFIED 08/04/[address] active 13 TYPE 2 DIABETES MELLITUS WITH DIABETIC PERIPHERAL ANGIOPATHY WITH GANGRENE 08/04/[address] active 14 TYPE 2 DIABETES MELLITUS WITH FOOT ULCER 08/04/[address] active 15 TYPE 2 DIABETES MELLITUS WITH OTHER DIABETIC NEUROLOGICAL COMPLICATION 08/04/[address] active 16 TYPE 2 DIABETES MELLITUS WITH OTHER SKIN COMPLICATIONS 08/04/[address] active Reason for Referral No Reasons for Referral Entered Social History Social History Observation Description Start Date End Date Code Code System Current Smoking Status Tobacco smoking consumption unknown 764537079 SNOMED CT Sex Assigned At Male 1965 71881-2 [facility] Gender Identity Vital Signs Code Code System Vitals Name Values and Units Timing Information 2339-0 [facility] Blood Sugar Pqowe=769.0 Units=mg/dL 08/30/2022 94332-0 [facility] Pain Level Value=0.0 08/30/2022 8310-5 [facility] Body Temperature Value=97.3 Units= F 08/30/2022 74872-1 [facility] O2 % BldC Oximetry Value=96.0 Units= % 08/30/2022 98632-1 [facility] Weight Omqwc=890.0 Units=Lbs 12/2021 9279-1 [facility] Respiratory Rate Value=20.0 Units=/m in 08/26/2022 8462-4 [facility] Blood Pressure-Diastolic Value=72 Un its=mmHg 08/26/2022 8480-6 [facility] Blood Pressure-Systolic Xyrze=025 Un its=mmHg 08/26/2022 8867-4 [facility] Heart rate Value=82.0 Units=/min 8302-2 [facility] Height Value=74.0 Units=Inches 08/04/2022
--- OUTSIDE RECORDS SUMMARY | 2025-08-06 07:12 | XMS_ITS | Patient Health Record ---
Author Organization [facility] Address [address] [facility] [address] [facility] [address] [place] [id number] Care Team Providers Care Stacker And Sorter Operator Name Role Phone Dipak Barrientos Primary Care Provider [phone] Allergies No Known Allergies Results Component [...] 0.1 Performing Lab: Notes/Report: Test performed by [facility], [facility] [address] [place] [address] , [address], [place] [address] James Alonso MD, Transit Police Officer CLIA: [id number] Protein 7.2 6.0-8.3 g/dL Albumin 4.2 3.5-5.3 g/dL Alkaline Phosphatase 113 40-129 IU/L ALT (SGPT) 26 <5-55 IU/L AST (SGOT) 32 <5-46 IU/L Bilirubin, Total 0.3 <0.2-1.2 mg/dL Bilirubin, Direct 0.2 <0.07-0.2 mg/dL Bilirubin, Indirect 0.1 0.2-1.3 mg/dL Glucose (In-House) Reviewed date:07/09/2025 11:15:46 PM Interpretation: Performing Lab: Notes/Report: blood glucose 143 74 - 106 mg/dL Glycohemoglobin A1c (in hous e) Reviewed date:07/09/2025 11:15:34 PM Interpretation:7.4 Performing Lab: Notes/Report: 7.4 glycohemoglobin 7.4% 5 - 6.5 % P-Comprehensive Metabolic Pa frederic (CMP) Reviewed date:07/10/2025 12:41:38 PM Interpretation:gluc 139, bun 24, Cr 1.8, gfr 42 Performing Lab: Notes/Report: Test performed by [facility] [address] [place] [address] , [address], [place] [address] James Alonso MD, Transit Police Officer CLIA: [id number] Sodium 142 135-145 mmol/L Potassium 4.5 3.5-5.3 [...] Interpretation:Normal Performing Lab: Notes/Report: Test performed by [facility] [address] [place] [address] , [address], [place] [address] James Alonso MD, Transit Police Officer CLIA: [id number] Cholesterol 90 <200 mg/dL Triglycerides 96 <150 [...] Interpretation:Normal Performing Lab: Notes/Report: Test performed by [facility], [address] , [address], [place] [address] James Alonso MD, Transit Police Officer CLIA: [id number] PSA 0.57 <4.00 ng/mL Please note this is an ultrasensitive PSA assay with a lower limit of detection of 0.014 ng/mL. This test is performed by the Lili[employer] ECLIA methodology. Values obtained with different assay methods or kits cannot be directly compared. P-TSH reflex to FT4 Reviewed date:07/10/2025 12:41:38 PM Interpretation:Normal Performing Lab: Notes/Report: Test performed by [facility], [facility] [address] [place] [address] , [address], [place] [address] James Alonso MD, Transit Police Officer CLIA: [id number] TSH reflex to FT4 4.58 0.43-5.25 mU/L P-Microalbumin/Creatinine, R andom Urine Sample Reviewed date:07/10/2025 12:41:38 PM Interpretation:a/c 66 Performing Lab: Notes/Report: Test performed by [facility] [address] [place] [address] , [address], [place] [address] James Alonso MD, Transit Police Officer CLIA: [id number] Albumin/Creatinine Ratio, Urine 66 0-30 ug/mg Microalbumin, Urine, Random 4.8 Creatinine, Urine 72.7 Urinalysis - Inhouse Reviewed date:02/04/2025 03:27:19 PM Interpretation: Performing Lab: Notes/Report: Color/Clarity yellow/clear Leuk Neg Nitrite Neg Urobili 3.2 Protein 1+ pH 5.5 Blood Trace-Lysed Sp. Gr. 1.015 Ketone Neg Bili Neg Gluc 2+ Medications Medication SIG (Take, Route, Frequency, Duration) Notes Start Date End Date Status Nitroglycerin 0.2 MG/HR apply 1 PATCH to pically EVERY DAY allow FOR nitrate-free interval of approximately 10-12 hours PER 24 hour period; Duration: 30 Active Terbinafine HCl 250 MG 1 tablet Orally O nce a day; Duration: 90 days Active Losartan Potassium 25 MG 1 tablet Orally Once a day; Duration: 90 days 07/10/2025 Active Cetirizine HCl 10 mg TAKE ONE TABLET BY MOUTH EVERY DAY; Duration: 90 days Active Rosuvastatin Calcium 40 MG 1 tab(s) oral ly once a day (at bedtime); Duration: 90 days Active Vitamin D3 1.25 MG (44383 UT) TAKE ONE CAPSULE BY MOUTH ONCE A WEEK; Duration: 28 Active Nortriptyline HCl 50 MG 1 cap(s) Orally Two times a day; Duration: 90 days Active Cyclobenzaprine HCl 5 MG 1 tablet as nee ded Orally Three times a day 01/23/2025 Active Metoprolol Succinate ER 50 MG 1 tablet Orally Once a day; Duration: 90 days Active Pregabalin 150 MG 1 cap(s) orally 2 ti mes a day; Duration: 30 days 06/05/2025 Active Dexcom G7 Sensor - as directed; Duratio n: 30 days Active Jardiance 25 MG 1 tablet Orally Once a day; Duration: 90 days Active Dexcom G7 Gas Controller - as directed; Durati on: 90 days Active Montelukast Sodium 10 mg TAKE ONE TABLET BY MOUTH EVERY DAY; Duration: 90 days Active Immunizations Vaccine Route Administration Date Status Comme nts Fluzone Quad (6months&older) IM Intramuscular 08/10/2021 Administered given by Jerry Lala Hepatitis A (adult) IM Intramuscular 12/08/2018 Administered Shingrix IM Intramuscular 12/08/2018 Administered Tetanus Tdap-Adacel (over 7yrs) IM Intramuscular 01/23/2020 Administered Problems Problem Type SNOMED Code ICD Code Onset Dates Problem Status W/U Status Risk Notes Problem Tobacco abuse (6926933623) Tobacco abuse (Z72.0) Active confirmed Problem Hypothyroidism (38694539) Hypothyroidism (acquired) (E03.9) Active confirmed Problem Essential hypertension (84708042) Essential hypertension (I10) Active confirmed Problem Morbid obesity (343962256) Morbid obesity (E66.01) Active confirmed Problem Diabetic neuropathy (379793411) Diabetic neuropathy (E11.40) Active confirmed Problem Sciatica (67227435) Lumbago with sciatica, right side (M54.41) Active confirmed Problem Neurologic disorder associated with type II diabetes mellitus (288435203) Type 2 diabetes mellitus with other diabetic neurological complication (E11.49) Active confirmed Problem Mixed hyperlipidemia (240401464) Mixed hyperlipidemia (E78.2) Active confirmed Problem Hyperlipidemia (70678059) Other hyperlipidemia (E78.4) Active confirmed Problem Primary insomnia (2736273) Primary insomnia (F51.01) Active confirmed Problem Chronic pain (96459952) Other chronic pain (G89.29) Active confirmed Problem Sciatica (55252255) Lumbago with sciatica, left side (M54.42) Active confirmed Problem Chronic osteomyelitis of ankle and/or foot (639564007) Other chronic osteomyelitis, left ankle and foot (M86.672) Active confirmed Problem Encounter for orthopedic aftercare following surgical amputation (Z47.81) Active confirmed Problem Amputated below knee (613614649) Acquired absence of left leg below knee (Z89.512) Active confirmed Problem Degeneration of lumbar intervertebral disc (94314386) Lumbar degenerative disc disease (M51.36) Active confirmed Problem Mood disorder (89149276) Mood disorder (F39) Active confirmed Problem Acquired hypothyroidism (232802144) Acquired hypothyroidism (E03.9) Active confirmed Problem Atherosclerotic heart disease of [place] coronary artery without angina pectoris (078927857046006) Coronary artery disease involving [place] coronary artery of [place] heart without angina pectoris (I25.10) Active confirmed Problem Erectile dysfunction (disorder) (355491106) Erectile dysfunction, unspecified erectile dysfunction type (N52.9) Active confirmed Problem Polyneuropathy due to type 2 diabetes mellitus (927347482) Diabetic polyneuropathy associated with type 2 diabetes mellitus (E11.42) Active confirmed Problem Diabetes mellitus type 2 (disorder) (38284401) DM2 (diabetes mellitus, type 2) (E11.9) Active confirmed Problem Dyslipidemia (233115495) Dyslipidemia (E78.5) Active confirmed Problem Atherosclerotic heart disease of [place] coronary artery without angina pectoris (678409871898715) Arteriosclerosis of coronary artery (I25.10) Active confirmed Problem Allergic rhinitis (89810597) Allergic rhinitis, unspecified allergic rhinitis trigger, unspecified rhinitis seasonality (J30.9) Active confirmed Problem Polyneuropathy due to type 2 diabetes mellitus (644394968) Type 2 diabetes mellitus with diabetic polyneuropathy, without long-term current use of insulin (E11.42) Active confirmed Problem Lower urinary tract symptoms due to benign prostatic hypertrophy (04959323060333) Benign prostatic hyperplasia with lower urinary tract symptoms (N40.1) Active confirmed Problem Sleep apnea (91749809) Sleep apnea in adult (G47.30) Active confirmed Problem History of coronary artery bypass grafting (417238163) History of coronary artery bypass graft (Z95.1) Active confirmed Problem Obesity (008749989) Non morbid obesity (E66.9) Active confirmed Problem Type II diabetes mellitus without complication (984218504) Type 2 diabetes mellitus without complication, unspecified whether half-way insulin use (E11.9) Active confirmed Problem Cellulitis of finger (42898538) Felon of finger (L03.019) Active confirmed Problem Amputated below knee (307186799) 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) Active confirmed Problem Hearing loss (59730817) Unspecified hearing loss (H91.90) Active confirmed Vital Signs Heart Rate 96 /min 07/09/2025 Blood pressure diastolic 84 mm Hg 07/09/2025 Height 73 in 07/09/2025 Blood pressure systolic 122 mm Hg 07/09/2025 Weight 230.2 lbs 07/09/2025 BMI 30.37 kg/m2 07/09/2025 Encounters Encounter Location Date Provider [facility] [facility] [address] [place] [id number] 08/13/2024 Dipak [place] Superficial foreign body of unspecified finger, initial encounter S60.459A [facility] [address] [place] [id number] 12/17/2024 Dipak [place] Unspecified hearing loss H91.90 ; Type 2 diabetes mellitus without complication, unspecified whether half-way insulin use E11.9 ; Coronary artery disease involving [place] coronary artery of [place] heart without angina pectoris I25.10 and Chronic diarrhea K52.9 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 [address] [place] [address] [place] [id number] 07/09/2025 Dipak [place] DM2 (diabetes mellit , type 2) E11.9 ; Type 2 diabetes mellitus with diabetic polyneuropathy, without long-term current use of insulin E11.42 ; Essential hypertension I10 ; Mixed hyperlipidemia E78.2 and Prostate cancer screening Z12.5 [facility] [address] [place], [place] [id number] 07/10/2025 Dipak San [place] [facility] [address] [place], [place] [id number] 09/08/2024 Dipak [place] Diabetic polyneuropa thy associated with type 2 diabetes mellitus E11.42 [facility] [address] [place], [place] [id number] 12/06/2024 Dipak [place] Diabetic polyneuropa thy associated with type 2 diabetes mellitus E11.42 [facility] [address] [place], [place] [id number] 12/18/2024 Dipak [place] [facility] [address] [place], [place] [id number] 01/24/2025 Dipak [place] [facility] [address] [place] [id number] 02/27/2025 Dipak San [place] [facility] [address] [place] [id number] 02/27/2025 Dipak [place] [facility] [address] [place], [place] [id number] 03/04/2025 Dipak [place] Diabetic polyneuropa thy associated with type 2 diabetes mellitus E11.42 [facility] [address] [place], [place] [id number] 06/03/2025 Dipak [place] Diabetic polyneuropa thy associated with type 2 diabetes mellitus E11.42 [facility] [address] [place] [id number] 06/05/2025 Dipak San German [facility] [address] [place], [place] [id number] 07/16/2025 Dipak San German Encounter for screen ing colonoscopy Z12.11 and [...] half-way insulin use (ICD-10 - E11.9) 12/17/2024 Unspecified hearing loss (ICD-10 - H91.90) 01/23/2025 Onycholysis (ICD-10 - L60.1) 01/23/2025 Type 2 diabetes mellitus without complication, unspecified whether intermediate project manager insulin use (ICD-10 - E11.9) 02/04/2025 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 [place] license (ICD-10 - Z02.4) 03/04/2025 Diabetic polyneuropathy associated with type 2 diabetes mellitus (ICD-10 - E11.42) 06/03/2025 Diabetic polyneuropathy associated with type 2 diabetes mellitus (ICD-10 - E11.42) 07/09/2025 DM2 (diabetes mellitus, type 2) (ICD-10 - E11.9) 07/09/2025 Type 2 diabetes mellitus with diabetic polyneuropathy, without long-term current use of insulin (ICD-10 - E11.42) 07/16/2025 Encounter for screening colonoscopy (ICD-10 - Z12.11) 07/16/2025 Encounter for screening for lung cancer (ICD-10 - Z12.2) 07/09/2025 Essential hypertension (ICD-10 - I10) 01/23/2025 Neck muscle spasm (ICD-10 - M62.838) Home exercise program provided to patient, heating pad to affected areas 2 to 3 times a day. 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 use of drug (ICD-10 - Z79.899) 07/09/2025 Mixed hyperlipidemia (ICD-10 - E78.2) 07/09/2025 Prostate cancer screening (ICD-10 - Z12.5) Plan Of Treatment Pending Test Test Name Order Date colonoscopy 07/16/2025 CT Scan : Chest, low dose 07/16/2025 Next Appt Details Provider Name:Dipak Roberto ry, 01/09/2026 11:45:00 AM, [address], [place], [id number], Insurance Providers Payer Name Payer Address Payer Phone Subscriber Number Group Number Insured Name Patient Relationship to Insured Coverage Start Date Coverage End Date [employer] [facility] [address] [place], [place] [id number] Jewel Jara Self - patient is the [...] 07/2022 Bariatric surgey Hospitalization History Reason Date(Month/Year) Shoulder- [facility] 01/15/2016 Back Pain- [facility] 02/26/2014
== END 2025-08-06 23:59 | disposition home or self-care (01) ==
LOC: RAD 07:09
PROVIDERS: PCP Family Medicine; Visit Provider Family Medicine
DX: I25.10 Atherosclerotic heart disease of native coronary artery without angina pectoris (principal); Z12.2 Encounter for screening for malignant neoplasm of respiratory organs; Z87.891 Personal history of nicotine dependence
CPT/HCPCS: 71271

== ENCOUNTER 2025-09-18 07:49 | Day surgery (SDC) | payer OTHER, SELFPAY ==
[2025-09-13 14:44] VITALS: BMI 29.5
--- NOTE | 2025-09-17 17:29 | EXP.HP ---
History of Present Illness *Admission Date: 09/18/25 *History of present illness: Mr. Jara is a 59-year-old gentleman who is here for initial screening colonoscopy. The examination is deemed medically necessary for screening colonoscopy. The patient has been seen, interviewed and examined prior to the procedure by both myself and the anesthesia provider. [facility] Disclaimer: The information contained in this section may have been updated after the patient was seen, as this information can be updated by other users. 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 Contusion of knee, left Head contusion Cervical strain, acute Contusion of rib on left side Surgical History History of left below knee amputation History of lumbar laminectomy H/O heart artery stent History of appendectomy H/O colonoscopy History of transmetatarsal amputation of left foot Hx of CABG Family History Other Family history of diabetes mellitus type II No significant family history Social History Smoking Status: Former smoker tobacco type: cigarettes packs per day: 1 second hand exposure: No alcohol intake: never substance use type: denies use current occupational status: employed and disabled Travel in the last 8 weeks?: None household members: none housing: house lives independently: Yes marital status: education level: high school service: No 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 current occupational exposures/hazards: No caffeine: Yes special marge needs: No agree to transfusion: No do you feel safe at home: Yes victim of physical abuse: No victim of emotional abuse: No victim of sexual abuse: No would you like helpful sources: No Have you lived/traveled outside US in past 30 days?: No Contact w/someone who lives/traveled outside US past 30 days?: No Exposure to someone with infectious disease in past 14 days?: No Do you have a fever (greater than 100.4 F or 38 C)?: No Have you tested positive for COVID-19?: No Exposed to someone with COVID-19 in past 14 days?: No Do you have a sore throat?: No Do you have a cough?: No Do you have any weakness?: No Are you experiencing any nausea/vomitting?: No Do you have any diarrhea?: No Are you experiencing any unusual bleeding?: No Do you have any muscle aches/pain?: No Do you have any abdominal pain?: No Are you experiencing loss of taste or smell?: No Other Medical History Have you received the Flu Vaccine for this season: No Have you received the Pneumonia Vaccine: Yes Review of Systems Review of Systems Review of systems (narrative): Negative *Cardiovascular Comments: Negative *Gastrointestinal Comments: Negative *Genitourinary Comments: Negative *Musculoskeletal Comments: Negative *Neurologic Comments: Negative Meds Home Medications and Allergies Home Medications ?Medication ?Instructions ?Recorded ?Confirmed ?Type cholecalciferol (vitamin D3) 1,250 1,250 mcg PO WEEKLY Supplement 06/07/22 09/18/25 History mcg (50,000 unit) capsule blood-glucose sensor (Dexcom G6 #1 ea 08/13/24 09/18/25 History Sensor device) pregabalin 150 mg capsule 150 mg PO BID 08/13/24 09/18/25 History bisoprolol fumarate 5 mg tablet 5 mg PO DAILY #90 tabs 12/10/24 09/18/25 Rx rosuvastatin 40 mg tablet 40 mg PO HS Cholesterol #90 tabs 12/10/24 09/18/25 Rx rivaroxaban 2.5 mg tablet (Xarelto) 2.5 mg PO BID Blood thinner #180 04/02/25 09/18/25 Rx tabs empagliflozin 25 mg tablet 25 mg PO DAILY 06/26/25 09/18/25 History (Jardiance) New Prescriptions to Start Prescriptions: Allergies Allergy/AdvReac Type Severity Reaction Status Date / Time oxycodone Allergy Mild itching Verified 09/18/25 08:16 Exam *Routine HEENT Exam Head: Present normocephalic Eye: Present EOMI and PERRL ENT: Present mucous membranes moist *Routine Neck Exam Neck: Present supple *Routine Respiratory Exam Respiratory: Present CTA bilaterally *Routine Cardiovascular Exam Cardiovascular: Present RRR *Routine Abdominal Exam Abdominal: Present soft and normoactive bowel sounds; Absent tenderness *Routine Rectal Exam Rectal:: deferred *Routine Genitalia Exam Genitalia:: deferred *Routine Extremities Exam Extremities: Absent cyanosis, clubbing or edema *Routine Skin Exam Skin: Present warm; Absent rash *Routine Neurological Exam Neurological: Present alert and oriented X3 Assessment and Plan *Assessment and plan (1) Screening for colon cancer: Status: Acute Category: Medical Code(s): Z12.11 - Encounter for screening for malignant neoplasm of colon Plan A/P: 1. Screening for colon cancer is the preprocedural diagnosis. The patient will be anesthetized/sedated using MAC sedation. The patient has been seen and examined. Cardiac and lung assessment prior to the examination is stable. Proceed with planned screening colonoscopy.
--- NOTE | 2025-09-18 06:52 | HMH.PROCNOTE ---
[facility] Procedure Note Date: 09/18/25 Time: 09:34 Procedure Note:: Colonoscopy Procedure Report: Colonoscopy with cold snare polypectomy and EMR (endoscopic mucosal resection (submucosal injection of Eleview, snare cautery, soft coagulation and Endo Clip placement)) Endoscopist: Jose Alfredo Ornelas II, MD Referring physician: Dipak Barrientos MD Date of Procedure: September 18, 2025 Equipment: Olympus [id number] adult colonoscope Sedation: MAC sedation Indication: Mr. Jara is a 59-year-old gentleman who is here for initial screening colonoscopy. The patient reports no abdominal pain, weight loss, change in his bowel habits or rectal bleeding. He reports no family history of colon cancer. The examination is deemed medically necessary for screening colonoscopy. Procedure: Prior to the procedure, a history and physical exam was performed, and patient's medications and allergies were reviewed. The risks, benefits and alternatives of the sedation and procedure were discussed with the patient. All questions were answered and informed consent was obtained. The patient was brought to the procedure room. Patient identification and proposed procedure were verified by the physician and the nurse. The patient was placed in a left lateral decubitus position and the scope was passed under direct vision. Throughout the procedure, the patient's blood pressure, pulse, and oxygen saturations were monitored continuously. The colonoscopy was accomplished without difficulty. The patient tolerated the procedure well. Findings: On digital rectal examination there was normal rectal tone. There were no external hemorrhoids. The colonoscope was introduced through the anal canal to the rectum and advanced to the cecum. The ileocecal valve and appendiceal orifice were identified. The scope was advanced a short distance into the ileum which appeared grossly normal. The scope was then withdrawn into the colon. The cecum, ascending and transverse colon and mucosa were grossly normal. There were 2 diminutive polyps in the descending (4 mm) and sigmoid (6 mm) which were both removed via cold snare polypectomy. There was a larger 21 mm polyp in the lower sigmoid/rectosigmoid that was sessile and lobular but not pedunculated. The base of the polyp was injected submucosally with Eleview (10 mm) to lift the polyp. After lifting the polyp, snare cautery was utilized to remove the polyp in its entirety. Next, soft coagulation was utilized to coagulate the polypectomy margin. Lastly, 2 endoclips were placed across the polypectomy site for closure. There were scattered diverticuli throughout the descending and sigmoid colon (LEFT colon). The rectum itself was normal. Upon retroflexion within the rectum there were grade 1-2 internal hemorrhoids. The preparation was excellent throughout with [place] Preparation Score of 9. The cecal time was 18 minutes. Impression: 1. Large 21 mm lower sigmoid/rectosigmoid polyp 2. 2 additional diminutive colon polyps 3. Left-sided diverticulosis 4. Grade 1-2 internal hemorrhoids Plan: I will follow-up the polyp histology and recommend sigmoidoscopy in 6 months to ensure no residual adenoma at the rectosigmoid polypectomy site. I would recommend repeat screening colonoscopy in 3 years.
[2025-09-18 08:22] VITALS: BP 139/101; PULSE 90; RESP 18; TEMP 36.1; O2SAT 98
[2025-09-18 08:24] LABS: POC Glucose,Bedside 101 gm/dL (70-110)
[2025-09-18] MEDS: LACTATED RINGERS 1000ML 1,000 ML 50 ML IV (08:28)
--- NOTE | 2025-09-18 08:34 | P.PNANES_ITS ---
[facility] Disclaimer: The information contained in this section may have been updated after the patient was seen, as this information can be updated by other users. 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 Contusion of knee, left Head contusion Cervical strain, acute Contusion of rib on left side Surgical History History of left below knee amputation History of lumbar laminectomy H/O heart artery stent History of appendectomy H/O colonoscopy History of transmetatarsal amputation of left foot Hx of CABG Family History Other Family history of diabetes mellitus type II No significant family history Social History Smoking Status: Former smoker tobacco type: cigarettes packs per day: 1 second hand exposure: No alcohol intake: never substance use type: denies use current occupational status: employed and disabled Travel in the last 8 weeks?: None household members: none housing: house lives independently: Yes marital status: education level: high school service: No 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 current occupational exposures/hazards: No caffeine: Yes special marge needs: No agree to transfusion: No do you feel safe at home: Yes victim of physical abuse: No victim of emotional abuse: No victim of sexual abuse: No would you like helpful sources: No Have you lived/traveled outside [place] in past 30 days?: No Contact w/someone who lives/traveled outside US past 30 days?: No Exposure to someone with infectious disease in past 14 days?: No Do you have a fever (greater than 100.4 F or 38 C)?: No Have you tested positive for COVID-19?: No Exposed to someone with COVID-19 in past 14 days?: No Do you have a sore throat?: No Do you have a cough?: No Do you have any weakness?: No Are you experiencing any nausea/vomitting?: No Do you have any diarrhea?: No Are you experiencing any unusual bleeding?: No Do you have any muscle aches/pain?: No Do you have any abdominal pain?: No Are you experiencing loss of taste or smell?: No [facility] Anesthesia Checklist Patient Identification Patient Identification: Arm Band and Verbal (Name & ) Structural Data Admitted From: Home Planned Operative Procedure/s: colonscopy Consent for Planned Operative Procedure(s) Verified: Yes Verified Documents: Surgical Consent and History and Physical NPO Status Verified Time NPO: 00:00 Additional verifications Anesthesia Reactions: No Hx Blood Transfusions: No Blood Transfusion Reaction: No Previous Colonoscopy: Yes Airway Assessment Mallampati Score:: Class II Dentition: Good Dentition Neurological Assessment Level of Consciousness: Awake, Alert and Appropriate Hx Seizures: No Numbness or tingling in extremities: No Anesthesia Plan Anesthesia Risk discussed: Yes Anesthesia Plan: Verified ASA Class: III Anesthesia Type: MAC
[2025-09-18 09:38] VITALS: BP 94/70; PULSE 76; RESP 16; TEMP 36.1; O2SAT 97
[2025-09-18 09:48] VITALS: BP 98/72; PULSE 73; RESP 16; TEMP 36.1; O2SAT 96
[2025-09-18 09:58] VITALS: BP 103/71; PULSE 74; RESP 16; TEMP 36.1; O2SAT 97
[2025-09-18 10:08] VITALS: BP 113/79; PULSE 80; RESP 16; TEMP 36.1; O2SAT 98
== END 2025-09-18 10:29 | disposition home or self-care (01) ==
PROVIDERS: PCP Family Medicine; Visit Provider Internal Medicine Gastroenterology
PROC: 0DJD8ZZ Inspection of Lower Intestinal Tract, Via Natural or Artificial Opening Endoscopic (ICD-10-PCS; CPT 45378; principal; 2025-09-18 09:30)
DX: Z12.11 Encounter for screening for malignant neoplasm of colon (principal); D12.5 Benign neoplasm of sigmoid colon; D12.7 Benign neoplasm of rectosigmoid junction; K63.5 Polyp of colon; K64.0 First degree hemorrhoids; K64.1 Second degree hemorrhoids; K57.30 Diverticulosis of large intestine without perforation or abscess without bleeding; I10 Essential (primary) hypertension; I35.0 Nonrheumatic aortic (valve) stenosis; I25.119 Atherosclerotic heart disease of native coronary artery with unspecified angina pectoris; E11.621 Type 2 diabetes mellitus with foot ulcer; L97.529 Non-pressure chronic ulcer of other part of left foot with unspecified severity; E78.5 Hyperlipidemia, unspecified; Z87.891 Personal history of nicotine dependence; Z79.01 Long term (current) use of anticoagulants; Z79.84 Long term (current) use of oral hypoglycemic drugs; Z88.5 Allergy status to narcotic agent
CPT/HCPCS: 45385; 82962; J2003; J2704; J7120

== ENCOUNTER 2025-11-20 11:06 | Outpatient (CLI) | payer OTHER, SELFPAY ==
--- OUTSIDE RECORDS SUMMARY | 2024-08-03 05:45 | XMS_ITS ---
Author Organization [facility] Address [address] [place] [id number] Care Team Providers Care Drawer In Dobby Loom Name Role Phone Dipak Barrientos Primary Care Provider Allergies No Known Allergies Results Component Value Reference Range Notes Glucose (In-House) Reviewed date:08/06/2024 03:07:18 PM Interpretation:111 Performing Lab: Notes/Report: 111 blood glucose 111 74 - 106 mg/dL Glycohemoglobin A1c (in hous e) Reviewed date:08/06/2024 03:07:18 PM Interpretation:5.8 Performing Lab: Notes/Report: 5.8 glycohemoglobin 5.8% 5 - 6.5 % REASON FOR VISIT refill; check up; paperwork Medications Medication SIG (Take, Route, Frequency, Duration) Notes Start Date End Date Status tiZANidine HCl 4 MG 2 tab(s) orally ever y 8 hours; Duration: 30 day(s) Activ e Fluticasone Propionate 50 MCG/ACT 1 spray in each nostril Nasally Once a day 08/03/2024 Active Cetirizine HCl 10 mg TAKE ONE TABLET BY MOUTH EVERY DAY Active Rosuvastatin Calcium 40 MG 1 tab(s) oral ly once a day (at bedtime) Active Wheelchair - as directed Activ e Nitroglycerin 0.2 MG/HR apply 1 PATCH to pically EVERY DAY allow FOR nitrate-free interval of approximately 10-12 hours PER 24 hour period; Duration: 30 Active Pregabalin 150 MG 1 cap(s) orally 2 ti mes a day 06/06/2024 Active metFORMIN HCl ER (MOD) 1000 MG 1 tab(s) orally Two times a day Active Vitamin D3 1.25 MG (69597 UT) TAKE ONE CAPSULE BY MOUTH ONCE A WEEK; Duration: 28 days Active Montelukast Sodium 10 mg TAKE ONE TABLET BY MOUTH EVERY DAY Active Mupirocin 2 % 1 application Bulk Loader ally Twice a day 06/10/2023 Active Problems Problem Type SNOMED Code ICD Code Onset Dates Problem Status W/U Status Risk Notes Problem Amputated below knee ([id number]) 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) Active confirmed Vital Signs Blood pressure systolic 142 mm Hg 08/03/20 24 Blood pressure diastolic 84 mm Hg 024 Heart Rate 96 /min 08/03/2024 Height 73 in 08/03/2024 Weight 225.8 lbs 08/03/2024 BMI 29.79 kg/m2 08/03/2024 Encounters Encounter Location Date Provider Diagnosis [facility] [address] [facility] [address] [place], [place] [id number] 08/03/2024 Dipak Iliana Type 2 diabetes mellitus with diabetic polyneuropathy, without long-term current use of insulin E11.42 ; Allergic rhinitis, unspecified allergic rhinitis trigger, unspecified rhinitis seasonality J30.9 and Status post below-knee amputation of left lower extremity Z89.512 Assessments Encounter Date Diagnosis (ICD Code) Assessment Notes Treatment Notes Treatment Clinical Notes Section Notes 08/03/2024 Type 2 diabetes mellitus with diabetic polyneuropathy, without long-term current use of insulin (ICD-10 - E11.42) 08/03/2024 Allergic rhinitis, unspecified allergic rhinitis trigger, unspecified rhinitis seasonality (ICD-10 - J30.9) 08/03/2024 Status post below-knee amputation of left lower extremity (ICD-10 - Z89.512) Patient continues to ambulate at a K3 level in home and community. Since his original prosthesis was supplied, patients residual limb has undergone significant anatomical changes resulting in a poorly fitting socket. Patient has lost 32 lbs since delivery of his current socket, wears in excess of 10 ply socks and is developing a callus at the distal tibia. Multiple attempts have been made to adjust the current socket, however the socket is unable to be further modified to improve pain or socket fit. Patient will require a new alignable system due to alignment, limb length, and component height changes that cannot be accounted for with previous system. Patient is indicated for Left Transtibial Replacement Socket and supplies to return to independent function and improved quality of life. Plan Of Treatment Medication Medication Name Sig Start Date Stop Date Notes Fluticasone Propionate 50 MCG/ACT 1 spray in each nostril Nasally Once a day 08/03/2024 Cetirizine HCl 10 mg TAKE ONE TABLET BY MOUTH EVERY DAY metFORMIN HCl ER (MOD) 1000 MG 1 tab(s) orally Two times a day Montelukast Sodium 10 mg TAKE ONE TABLET BY MOUTH EVERY DAY Treatment Notes Assessment Notes Status post below-knee amput ation of left lower extremity Patient continues to ambulate at a K3 le sandrita in home and community. Since his original prosthesis was supplied, patients residual limb has undergone significant anatomical changes resulting in a poorly fitting socket. Patient has lost 32 lbs since delivery of his current socket, wears in excess of 10 ply socks and is developing a callus at the distal tibia. Multiple attempts have been made to adjust the current socket, however the socket is unable to be further modified to improve pain or socket fit. Patient will require a new alignable system due to alignment, limb length, and component height changes that cannot be accounted for with previous system. Patient is indicated for Left Transtibial Replacement Socket and supplies to return to independent function and improved quality of life. Next Appt Details Follow Up: 6 Months, Reason: Provider Name:Dipak simmons, 11/20/2025 10:45:00 AM, [address] [place] [address], [address], [place], [place], [phone], Provider Name:Dipak simmons, 01/09/2026 11:45:00 AM, [address] [place] [address], [facility] [address], [place], [place], [phone], Progress Notes * Shantanu JARAneDOB:1965 (59 yo M)Acc No.[id number]:08/03/2024 Progress Notes Patient: Jewel ESPINO Provider: Hans Barrientos M.D. :1965 A ge:58 Y S ex:Male Date:08/03/2024 Address:[address] [place] [address] [id number] Subjective: * Chief Complaints: * 1 . Refill; check up; paperwork. * HPI: C ardiology: 58 year old male presents with c/o Blood Pressure Elevated P t here to f/u on hypertension, states he is doing well and does not have any concerns. c/o Hyperlipidemia P t is fasting today. E ndocrinology: c/o Recent Blood Sugars P t here to f/u on DM 2. * ROS: D ERMATOLOGY: no R kady. n o H vidal. G ASTROENTEROLOGY: no N ausea. n o V omiting. U ROLOGY: no D ifficulty urinating. n o B lood in urine. * Medical History: C oronary Artery Disease, CABG, 10/2016, Myocardial Infarction s/p Stenting x 4 Vessels, 03/2016, Type 2 Diabetes, Hypertension, Allergic Rhinitis, Cardiac Stress Test EF = 46%, 03/06/2018, Diabetic Neuropathy. * Surgical History: S tents x4 06/2008, Appendectomy , Heart Cath 09/13/2013, Lumbar Laminectomy - Dr. Fisher 05/2014, Open Heart Surgery- [facility] 11/16/2016, Laminectomy, L4-L5, 08/2018, LT TMA Revision 07/14/2022, left BKA 08/19, Bariatric surgey . * Hospitalization/Major Diagno stic Procedure: B ack Pain- [facility] 02/26/2014, Shoulder- [facility] ER 01/15/2016. * Family History: F ather: . M other: alive, heart disease, hypertension, diabetes. S iblings: diabetes. C hildren: diabetes. 4 sister(s) . 1 son(s) , 2 daughter(s) . . * Social History: C URRENT TOBACCO USE S moking Status: P atient does NOT smoke, F ormer Smoker:?Yes Pt states that he smoked 1/2 to 3/4 a pack a day for 20 years, Q uit smokin 01/11/16. C affeine: yes, frequency:4-6 pops. Past smoking status: yes, PPD: , years: ,determination:, 1 ppd. Alcohol: No. * Medications: T aking Wheelchair - Miscellaneous as directed , Taking metFORMIN HCl ER (MOD) 1000 MG Tablet Extended Release 24 Hour 1 tab(s) orally Two times a day , Taking Rosuvastatin Calcium 40 MG Tablet 1 tab(s) orally once a day (at bedtime) , Taking tiZANidine HCl 4 MG Tablet 2 tab(s) orally every 8 hours , Taking Mupirocin 2 % Ointment 1 application Externally Twice a day , Taking Nitroglycerin 0.2 MG/HR Patch 24 Hour apply 1 PATCH topically EVERY DAY allow FOR nitrate-free interval of approximately 10-12 hours PER 24 hour period , Taking Pregabalin 150 MG Capsule 1 cap(s) orally 2 times a day , Taking Vitamin D3 1.25 MG (60606 UT) Capsule TAKE ONE CAPSULE BY MOUTH ONCE A WEEK , Taking Cetirizine HCl 10 mg Tablet TAKE ONE TABLET BY MOUTH EVERY DAY , Taking Montelukast Sodium 10 mg Tablet TAKE ONE TABLET BY MOUTH EVERY DAY , Medication List reviewed and reconciled with the patient * Allergies: N .K.D.A. Objective: * Vitals: W t:225.8, Temp:97.9, BP:142/84, HR:96, Nurse:marsha, Ht: 73, BMI:29.79. * Examination: E ndocrinology: General Appearance: N AD. H eart: R SR. L ungs:?clear to auscultation. E xtremities: l eft leg prosthesis in place. ? Assessment: * Assessment: 1. T ype 2 diabetes mellitus with diabetic polyneuropathy, without long-term current use of insulin - E11.42 (Primary) 2 . A llergic rhinitis, unspecified allergic rhinitis trigger, unspecified rhinitis seasonality - J30.9 3 . S tatus post below-knee amputation of left lower extremity - Z89.512 Plan: * Treatment: Value Reference Range b lood glucose 111 74 - 106 mg/dL * Jessica Gan 08/03/2024 11:28:36 AM > , Provider reviewed results while patient in office. ?LAB: Glycohemoglobin A1c (in house) (Collection Date & Time - 08/03/2024)? 5.8* Value Reference Range g lycohemoglobin 5.8% 5 - 6.5 % * Jessica Gan 08/03/2024 11:38:16 AM > , Provider reviewed results while patient in office. 2.?Allergic rhinitis, unspecified allergic rhinitis trigger, unspecified rhinitis seasonality? Start Fluticasone Propionate Suspension, 50 MCG/ACT, 1 spray in each nostril, Nasally, Once a day, 1, Refills 2;?Continue Montelukast Sodium Tablet, 10 mg, TAKE ONE TABLET BY MOUTH EVERY DAY; Continue Cetirizine HCl Tablet, 10 mg, TAKE ONE TABLET BY MOUTH EVERY DAY.??3.?Status post below-knee amputation of left lower extremity? Notes: Patient continues to ambulate at a K3 level in home and community. Since his original prosthesis was supplied, patients residual limb has undergone significant anatomical changes resulting in a poorly fitting socket. Patient has lost 32 lbs since delivery of his current socket, wears in excess of 10 ply socks and is developing a callus at the distal tibia. Multiple attempts have been made to adjust the current socket, however the socket is unable to be further modified to improve pain orsocket fit. Patient will require a new alignable system due to alignment, limb length, and component height changes that cannot be accounted for with previous system. Patient is indicated for Left Transtibial Replacement Socket and supplies to return to independent function and improved quality of life.?? * Procedure Codes: 3 6416 CAPILLARY BLOOD DRAW, 73527 GLUCOSE TEST, 91736 GLYCATED HEMOGLOBIN TEST, Modifiers: QW * Follow Up: 6 Months * Images: Billing Information: * Visit Code: 57997 Office Visit, Est Pt., Level 4. * Procedure Codes: 58190 CAPILLARY BLOOD DRAW. 66447 GLUCOSE TEST. 34213 GLYCATED HEMOGLOBIN TEST. Modifiers: QW * Electronic signature of Valentina Barrientos MD on 11/20/2025 at 11:10 AM EST Sign off status: Pending * Provider: Hans Barrientos M.D. Date: 0 08/03/2024 Generated for Lena canales/Emily/Lory on: 1 01/21/2025 11:10 AM EST History and Physical Notes * HPI (History of Present Illness) Category Sub-Category Detail Notes Category Not es Endocrinology Recent Blood Sugars Pt here to f/u on DM 2 Cardiology Blood Pressure Elevated Pt here to f/u on hypertension, states he is doing well and does not have any concerns Hyperlipidemia Pt is fasting today Examination Category Sub-Category Detail Notes Category Not es Endocrinology Heart: RSR Lungs: clear to auscultatio n Extremities: left leg prosthesis in place General Appearance: NAD
--- OUTSIDE RECORDS SUMMARY | 2024-08-13 07:30 | XMS_ITS ---
Author [facility] Address [address] [id number] Care Team Providers Care Community Administrator Name Role Phone Dipak Barrientos Primary Care Provider Allergies No Known Allergies REASON FOR VISIT something in his finger Medications Medication SIG (Take, Route, Frequency, Duration) Notes Start Date End Date Status Wheelchair - as directed Activ e Cetirizine HCl 10 mg TAKE ONE TABLET BY MOUTH EVERY DAY Active Mupirocin 2 % 1 application Music Composition Teacher ally Twice a day 06/10/2023 Active tiZANidine HCl 4 MG 2 tab(s) orally ever y 8 hours; Duration: 30 day(s) Activ e Rosuvastatin Calcium 40 MG 1 tab(s) oral ly once a day (at bedtime) Active Montelukast Sodium 10 mg TAKE ONE TABLET BY MOUTH EVERY DAY Active metFORMIN HCl ER (MOD) 1000 MG 1 tab(s) orally Two times a day Active Fluticasone Propionate 50 MCG/ACT 1 spray in each nostril Nasally Once a day 08/03/2024 Active Vitamin D3 1.25 MG (06194 UT) TAKE ONE CAPSULE BY MOUTH ONCE A WEEK; Duration: 28 days Active Pregabalin 150 MG 1 cap(s) orally 2 ti mes a day 06/06/2024 Active Nitroglycerin 0.2 MG/HR apply 1 PATCH to pically EVERY DAY allow FOR nitrate-free interval of approximately 10-12 hours PER 24 hour period; Duration: 30 Active Vital Signs Blood pressure systolic 138 mm Hg 08/13/20 24 Blood pressure diastolic 80 mm Hg 024 Heart Rate 88 /min 08/13/2024 Height 73 in 08/13/2024 Weight 223.2 lbs 08/13/2024 BMI 29.44 kg/m2 08/13/2024 Encounters Encounter Location Date Provider Diagnosis [facility] [address] [place] [id number] 08/13/2024 Dipak Barrientos Superficial foreign body of unspecified finger, initial encounter S60.459A Assessments Encounter Date Diagnosis (ICD Code) Assessment Notes Treatment Notes Treatment Clinical Notes Section Notes 08/13/2024 Superficial foreign body of unspecified finger, initial encounter (ICD-10 - S60.459A) Area prepped with alcohol, #11 blade and fine tweezers used to remove the metal Plan Of Treatment Treatment Notes Assessment Notes Superficial foreign body of unspecified finger, initial encounter Area prepped with alcohol, #11 blade and fine tweezers used to remove the metal Next Appt Details Follow Up: prn, Reason: Provider Name:Dipak Burdick Christinehonorio troy, 11/20/2025 10:45:00 AM, [address], [address], [place], [id number], Provider Name:Dipak T Pardeep simmons, 01/09/2026 11:45:00 AM, [address] [facility], [address], [place], [place], [phone], Progress Notes * PASTOR ErnstOB:1965 (59 yo M)Acc No.[id number]:08/13/2024 Progress Notes Patient: Jewel ESPINO Provider: Hans Barrientos M.D. :1965 A ge:58 Y S ex:Male Date:08/13/2024 Address:[address] [place] [address] [address] , [place], [id number] Subjective: * Chief Complaints: * 1 . Something in his finger. * HPI: D ermatology: 58 year old male presents with c/o requests removal P t complains of something in his lt index finger. States he is unsure what it is but would like assistance with removing it. * ROS: D ERMATOLOGY: no R kady. [...] - Dr. Fisher 05/2014, Open Heart Surgery- [facility] 11/16/2016, Laminectomy, L4-L5, [place] 08/2018, LT TMA Revision 07/14/2022, left BKA 08/19, Bariatric surgey . * Hospitalization/Major Diagno stic Procedure: B ack Pain- [facility] ER 02/26/2014, Shoulder- [facility] 01/15/2016. * Family History: F [...] Wheelchair - Miscellaneous as directed , Taking Rosuvastatin Calcium 40 MG Tablet [...] day , Taking Vitamin D3 1.25 MG (18073 UT) Capsule TAKE ONE CAPSULE BY MOUTH ONCE A WEEK , Taking Fluticasone Propionate 50 MCG/ACT Suspension 1 spray in each nostril Nasally Once a day , Taking metFORMIN HCl ER (MOD) 1000 MG Tablet Extended Release 24 Hour 1 tab(s) orally Two times a day , Taking Montelukast Sodium 10 mg Tablet TAKE ONE TABLET BY MOUTH EVERY DAY , Taking Cetirizine HCl 10 mg Tablet TAKE ONE TABLET BY MOUTH EVERY DAY , Medication List reviewed and reconciled with the patient * Allergies: N .K.D.A. Objective: * Vitals: W t:223.2, Temp:97.8, BP:138/80, HR:88, Nurse:marsha, Ht: 73, BMI:29.44. * Examination: G eneral Examination: General Appearance: N AD. S kin: p almar surface of left index finger distal phalanx with a small sliver of medial in the skin. Assessment: * Assessment: 1. S uperficial foreign body of unspecified finger, initial encounter - S60.459A (Primary) Plan: * Treatment: * Procedure Codes: 1 0120 REMOVAL OF FOREIGN BODY, SKIN, SIMPLE * Follow Up: p rn * Images: Billing Information: * Visit Code: * Procedure Codes: 49613 REMOVAL OF FOREIGN BODY, SKIN, SIMPLE. * Electronic signature of Valentina Barrientos MD on 11/20/2025 at 11:09 AM EST Sign off status: Pending * Provider: Hans Barrientos M.D. Date: 0 08/13/2024 Generated for Lena canales/Emily/Benyitting on: 01/21/2025 11:09 AM EST History and Physical Notes * HPI (History of Present Illness) Category Sub-Category Detail Notes Category Not es Dermatology requests removal Pt complains of something in his lt index finger. States he is unsure what it is but would like assistance with removing it Examination Category Sub-Category Detail Notes Category Not es General Examination General Appearance: NAD Skin: palmar surface of le ft index finger distal phalanx with a small sliver of medial in the skin
--- OUTSIDE RECORDS SUMMARY | 2024-12-17 09:45 | XMS_ITS ---
Author Organization [facility] Address [address] [id number] Care Team Providers Care Wood Boatbuilder Apprentice Name Role Phone Dipak Barrientos Primary Care Provider Allergies No Known Allergies Reason For Referral Diagnosis 1 Unspecified hearing loss (H91.90) Referral Organization [facility] Referring Provider First Name Dipak Referring Provider Last Name Iliana Referring Provider Speciality Family Pra ctice Referred Provider Specialty Audiologists General Notes Steffi Samuel 12/19/19 25 1:37:03 PM > faxed to [facility] in [place], [place] Referral Priority Routine REASON FOR VISIT Ringing in ear Medications Medication SIG (Take, Route, Frequency, Duration) Notes Start Date End Date Status Pregabalin 150 MG 1 cap(s) orally 2 ti mes a day 12/06/2024 Active Montelukast Sodium 10 mg 1 tablet Orally Once a day; Duration: 30 days Active Vitamin D3 1.25 MG (50255 UT) TAKE ONE CAPSULE BY MOUTH ONCE A WEEK; Duration: 28 days Active Fluticasone Propionate 50 MCG/ACT 1 spray in each nostril Nasally Once a day 08/03/2024 Active Nitroglycerin 0.2 MG/HR apply 1 PATCH to pically EVERY DAY allow FOR nitrate-free interval of approximately 10-12 hours PER 24 hour period; Duration: 30 Active Wheelchair - as directed Activ e Nortriptyline HCl 50 MG 1 cap(s) Orally Two times a day Active Metoprolol Succinate ER 50 MG 1 tablet Orally Once a day; Duration: 30 day(s) Active Jardiance 25 MG 1 tablet Orally Once a day; Duration: 30 day(s) 12/17/2024 Active Rosuvastatin Calcium 40 MG 1 tab(s) oral ly once a day (at bedtime) Active Problems Problem Type SNOMED Code ICD Code Onset Dates Problem Status W/U Status Risk Notes Problem Hearing loss (16763086) Unspecified hearing loss (H91.90) Active confirmed Vital Signs Blood pressure systolic 120 mm Hg 12/17/19 25 Blood pressure diastolic 70 mm Hg 025 Heart Rate 83 /min 12/17/2024 Height 73 in 12/17/2024 Weight 238.2 lbs 12/17/2024 BMI 31.42 kg/m2 12/17/2024 Encounters Encounter Location Date Provider Diagnosis [facility] [address] [facility] [address] [place] [id number] 12/17/2024 Dipak Barrientos Unspecified hearing loss H91.90 ; Type 2 diabetes mellitus without complication, unspecified whether half-way insulin use E11.9 ; Coronary artery disease involving [place] coronary artery of [place] heart without angina pectoris I25.10 and Chronic diarrhea K52.9 Assessments Encounter Date Diagnosis (ICD Code) Assessment Notes Treatment Notes Treatment Clinical Notes Section Notes 12/17/2024 Unspecified hearing loss (ICD-10 - H91.90) 12/17/2024 Type 2 diabetes mellitus without complication, unspecified whether half-way insulin use (ICD-10 - E11.9) 12/17/2024 Coronary artery disease involving [place] coronary artery of [place] heart without angina pectoris (ICD-10 - I25.10) 12/17/2024 Chronic diarrhea (ICD-10 - K52.9) Plan Of Treatment Medication Medication Name Sig Start Date Stop Date Notes Jardiance 25 MG 1 tablet Orally Once a day; Duration: 30 day(s) 12/17/2024 metFORMIN HCl ER (MOD) 1000 MG 1 tab(s) orally Two times a day Referrals Referral Date Details 12/17/2024 12/17/2024 Next Appt Details Follow Up: via phone to repo rt test results, Reason: Provider Name:Dipak simmons, 11/20/2025 10:45:00 AM, [address] [facility], [address], [place], [phone], Provider Name:Dipak simmons, 01/09/2026 11:45:00 AM, [address] [facility], [address], [place], [phone], Progress Notes * Shantanu JARAneDOB:1965 (59 yo M)Acc No.[id number]:12/17/2024 Progress Notes Patient: Jewel ESPINO Provider: Hans Barrientos M.D. :1965 A ge:59 Y S ex:Male Date:12/17/2024 Address:[address] [place] [address] [place] , [id number] Subjective: * Chief Complaints: * 1 . Ringing in ear. * HPI: E NT/respiratory: 59 year old male presents with c/o ear pain f or 1 month P t is here today for ringing in the ear. Pt sts he thinks he may have tinnitus, pt sts the ringing is in both ears. Pt sts the ringing has been going on for a month or two now or longer. * ROS: D ERMATOLOGY: no R kady. n o H vidal. G ASTROENTEROLOGY: no N ausea. n o V omiting. D iarrhea y es.? U ROLOGY: no D ifficulty urinating. n [...] - Dr. Fisher 05/2014, Open Heart Surgery- [place] 11/16/2016, Laminectomy, L4-L5, 08/2018, LT TMA Revision 07/14/2022, left BKA 08/19, Bariatric surgey . * Hospitalization/Major Diagno stic Procedure: B ack Pain- [facility] ER 02/26/2014, Shoulder- [facility] ER 01/15/2016. * Family History: F [...] ppd. Alcohol: No. * Medications: T aking Metoprolol Succinate ER 50 MG Tablet Extended Release 24 Hour 1 tablet Orally Once a day , Taking Nortriptyline HCl 50 MG Capsule 1 cap(s) Orally Two times a day , Taking Wheelchair - Miscellaneous as directed , Taking Rosuvastatin Calcium 40 MG Tablet 1 tab(s) orally once a day (at bedtime) , Taking Nitroglycerin 0.2 MG/HR Patch 24 Hour apply 1 PATCH topically EVERY DAY allow FOR nitrate-free interval of approximately 10-12 hours PER 24 hour period , Taking Fluticasone Propionate 50 MCG/ACT Suspension 1 spray in each nostril Nasally Once a day , Taking metFORMIN HCl ER (MOD) 1000 MG Tablet Extended Release 24 Hour 1 tab(s) orally Two times a day , Taking Vitamin D3 1.25 MG (35694 UT) Capsule TAKE ONE CAPSULE BY MOUTH ONCE A WEEK , Taking Montelukast Sodium 10 mg Tablet 1 tablet Orally Once a day , Taking Pregabalin 150 MG Capsule 1 cap(s) orally 2 times a day , Medication List reviewed and reconciled with the patient * Allergies: N .K.D.A. Objective: * Vitals: W t:238.2, Temp:97.8, BP:120/70, HR:83, Nurse:MM, Ht: 73, BMI:31.42. * Examination: E NT/Respiratory: General Appearance: N AD. E ars: a uditory canals normal bilaterally, TM's WNL. H eart : R RR. L ungs: c lear to auscultation bilaterally. A bdomen : BS present, soft, nontender. Assessment: * Assessment: 1. U nspecified hearing loss - H91.90 (Primary) 2 . T ype 2 diabetes mellitus without complication, unspecified whether half-way insulin use - E11.9 3 . C oronary artery disease involving [place] coronary artery of [place] heart without angina pectoris - I25.10 4 . C hronic diarrhea - K52.9 Plan: * Treatment: 2. T ype 2 diabetes mellitus without complication, unspecified whether meat butcher insulin use Stop metFORMIN HCl ER (MOD) Tablet Extended Release 24 Hour, 1000 MG, 1 tab(s), orally, Two times a day; S tart Jardiance Tablet, 25 MG, 1 tablet, Orally, Once a day, 30 day(s), 30, Refills 5.? * Follow Up: v ia phone to report test results * Images: Billing Information: * Visit Code: 48333 Office Visit, Est Pt., Level 3. * Procedure Codes: * Electronic signature of Valentina Barrientos MD on 11/20/2025 at 11:09 AM EST Sign off status: Pending * Provider: Hans Barrientos M.D. Date: 0 12/17/2024 Generated for Shannoni ally/Emily/eTransmitting on: 01/21/2025 11:09 AM EST History and Physical Notes * HPI (History of Present Illness) Category Sub-Category Detail Notes Category Not es ENT/respiratory ear pain Pt is here today for ringing in the ear. Pt sts he thinks he may have tinnitus, pt sts the ringing is in both ears. Pt sts the ringing has been going on for a month or two now or longer Examination Category Sub-Category Detail Notes Category Not es ENT/Respiratory Ears: auditory canals normal bilaterally, TM's WNL Heart : RRR Lungs: clear to auscultatio n bilaterally Abdomen : BS present, soft, no ntender General Appearance: NAD Consultation Request Notes Referral Date Referring Provider Referred Provider Not es 12/17/2024 Dipak Barrientos
--- OUTSIDE RECORDS SUMMARY | 2025-01-23 06:15 | XMS_ITS ---
Author Organization [facility] Address [address] [facility] [address] [place] [id number] Care Team Providers Care Weaver Tire Cord Name Role Phone Enmanuel Barrientosian Primary Care Provider [phone] Allergies No Known Allergies Results Component Value Reference Range Notes Glucose (In-House) Reviewed date:01/23/2025 12:56:36 PM Interpretation: Performing Lab: Notes/Report: blood glucose 157 74 - 106 mg/dL Glycohemoglobin A1c (in hous e) Reviewed date:01/24/2025 08:44:56 AM Interpretation:6.7 Performing Lab: Notes/Report: 6.7 glycohemoglobin 6.7% 5 - 6.5 % P-Hepatic Function Panel Reviewed date:01/24/2025 08:44:56 AM Interpretation:bili indirect 0.1 Performing Lab: Notes/Report: Test performed by [facility] [address] [place] [address] , [address], [place] [address] James Alonso MD, Floor Tiling Professional CLIA: [id number] Protein 7.2 6.0-8.3 g/dL Albumin 4.2 3.5-5.3 g/dL Alkaline Phosphatase 113 40-129 IU/L ALT (SGPT) 26 <5-55 IU/L AST (SGOT) 32 <5-46 IU/L Bilirubin, Total 0.3 <0.2-1.2 mg/dL Bilirubin, Direct 0.2 <0.07-0.2 mg/dL Bilirubin, Indirect 0.1 0.2-1.3 mg/dL REASON FOR VISIT Stiff Neck Medications Medication SIG (Take, Route, Frequency, Duration) Notes Start Date End Date Status Metoprolol Succinate ER 50 MG 1 tablet Orally Once a day; Duration: 30 day(s) Active Wheelchair - as directed Activ e Nortriptyline HCl 50 MG 1 cap(s) Orally Two times a day Active Rosuvastatin Calcium 40 MG 1 tab(s) oral ly once a day (at bedtime) Active Terbinafine HCl 250 MG 1 tablet Orally O nce a day 01/23/2025 Active Pregabalin 150 MG 1 cap(s) orally 2 ti mes a day 12/06/2024 Active Cetirizine HCl 10 mg TAKE ONE TABLET BY MOUTH EVERY DAY; Duration: 30 Active Montelukast Sodium 10 mg TAKE ONE TABLET BY MOUTH EVERY DAY; Duration: 30 Active Jardiance 25 MG 1 tablet Orally Once a day 12/17/2024 Active Cyclobenzaprine HCl 5 MG 1 tablet as nee ded Orally Three times a day 01/23/2025 Active Vitamin D3 1.25 MG (41908 UT) TAKE ONE CAPSULE BY MOUTH ONCE A WEEK; Duration: 28 days Active Nitroglycerin 0.2 MG/HR apply 1 PATCH to pically EVERY DAY allow FOR nitrate-free interval of approximately 10-12 hours PER 24 hour period; Duration: 30 Active Fluticasone Propionate 50 MCG/ACT 1 spray in each nostril Nasally Once a day 08/03/2024 Active Vital Signs Blood pressure systolic 130 mm Hg 01/23/20 25 Blood pressure diastolic 70 mm Hg 025 Heart Rate 99 /min 01/23/2025 Height 73 in 01/23/2025 Weight 237 lbs 01/23/2025 BMI 31.26 kg/m2 01/23/2025 Encounters Encounter Location Date Provider Diagnosis [facility] [address]10 [facility] [place] [address], [place] [phone] 01/23/2025 Dipak Barrientos Type 2 diabetes mellitus without complication, unspecified whether halfway insulin use E11.9 ; Onycholysis L60.1 ; Neck muscle spasm M62.838 and FPC use of drug Z79.899 Assessments Encounter Date Diagnosis (ICD Code) Assessment Notes Treatment Notes Treatment Clinical Notes Section Notes 01/23/2025 Type 2 diabetes mellitus without complication, unspecified whether ferry terminal supervisor insulin use (ICD-10 - E11.9) 01/23/2025 Onycholysis (ICD-10 - L60.1) 01/23/2025 Neck muscle spasm (ICD-10 - M62.838) Home exercise program provided to patient, heating pad to affected areas 2 to 3 times a day. 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 Patient already has Rx at home for Flexeril Next Appt Details Follow Up: 3 Months fasting, Reason: Provider Name:Dipak simmons, 11/20/2025 10:45:00 AM, [address], [place], [place], [id number], Provider Name:Dipak simmons, 01/09/2026 11:45:00 AM, [address], [place], [place], [id number], Progress Notes * Shantanu JARAValentinOB:1965 (59 yo M)Acc No.[id number]:01/23/2025 Progress Notes Patient: Jewel ESPINO Provider: Hans Barrientos M.D. :1965 A ge:59 Y S ex:Male Date:01/23/2025 Address:[address] [place] [address] [place] , [id number] Subjective: * Chief Complaints: * 1 . Stiff Neck. * HPI: N marlee: 59 year old male presents with c/o pain f or 4 weeks?Pt complains of neck pain for about a month. Pt states pain and stiffness is so bad that it is causing his rt ear to ache . * ROS: D ERMATOLOGY: no R kady. [...] - Dr. Fisher 05/2014, Open Heart Surgery- [place] 11/16/2016, Laminectomy, L4-L5, [facility] 08/2018, LT TMA Revision 07/14/2022, left BKA 07/2022, Bariatric surgey . * Hospitalization/Major Diagno stic Procedure: B ack Pain- [facility] 02/26/2014, Shoulder- [facility] ER 01/15/2016. * Family History: F [...] ppd. Alcohol: No. * Medications: T aking Jardiance 25 MG Tablet 1 tablet Orally Once a day , Taking Metoprolol Succinate ER 50 MG Tablet Extended [...] nostril Nasally Once a day , Taking Vitamin D3 1.25 MG (95057 UT) Capsule TAKE ONE CAPSULE BY MOUTH ONCE A WEEK , Taking Pregabalin 150 MG Capsule 1 cap(s) orally 2 times a day , Taking Montelukast Sodium 10 mg Tablet TAKE ONE TABLET BY MOUTH EVERY DAY , Taking Cetirizine HCl 10 mg Tablet TAKE ONE TABLET BY MOUTH EVERY DAY , Medication List reviewed and reconciled with the patient * Allergies: N .K.D.A. Objective: * Vitals: W t:237, Temp:97.8, BP:130/70, HR:99, Nurse:marsha, Ht: 73, BMI:31.26. * Examination: E ndocrinology: General Appearance: N AD. H eart: R SR. L ungs:?clear to auscultation. E xtremities: l eft leg prosthesis in place. S kin: r ight 4 th and 5 th finger nails are thickened and discolored yellow distally. N marlee: Vertebral spine tenderness: a bsent. P araspinal muscle spasm: present bilaterally. T rapezius tenderness: present bilaterally. ? Assessment: * Assessment: 1. T ype 2 diabetes mellitus without complication, unspecified whether ferry terminal supervisor insulin use - E11.9 (Primary) 2 . O nycholysis - L60.1 3 . N marlee muscle spasm - M62.838 4 . L olayinka term use of drug - Z79.899 Plan: * Treatment: Value Reference Range b lood glucose 157 74 - 106 mg/dL * Jessica Gan 01/23/2025 11:38:0 0 AM > , Provider reviewed results while patient in office. ?LAB: Glycohemoglobin A1c (in house) (Collection Date & Time - 01/23/2025)? 6.7* Value Reference Range g lycohemoglobin 6.7% 5 - 6.5 % * Jessica Gan 01/23/2025 11:40:1 7 AM > Sravani Moran 01/24/2025 8:44:46 AM >See phone encounter 2.?Onycholysis? Start Terbinafine HCl Tablet, 250 MG, 1 tablet, Orally, Once a day, 42, Refills 0.??3.?Neck muscle spasm? Start Cyclobenzaprine HCl Tablet, 5 MG, 1 tablet as needed, Orally, Three times a day.?? 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?LAB: P-Hepatic Function Panel (Collection Date & Time - 01/23/2025 10:49 AM)?bili indirect 0.1* Value Reference Range A lbumin 4.2 3.5-5.3 - g/dL * A lkaline Phosphatase 113 40-129 - IU/L * A LT (SGPT) 26 <5-55 - IU/L * A ST (SGOT) 32 <5-46 - IU/L * B ilirubin, Direct 0.2 <0.07-0.2 - mg/dL * B ilirubin, Indirect 0.1 L 0.2-1.3 - mg/dL * B ilirubin, Total 0.3 <0.2-1.2 - mg/dL * P rotein 7.2 6.0-8.3 - g/dL * Sravani Moran 01/24/2025 8:44: 46 AM >See phone encounter * Procedure Codes: 8 3036 GLYCATED HEMOGLOBIN TEST, Modifiers: QW , 67112 GLUCOSE TEST, 3044F HG A1C LEVEL LT 7.0%, 3075F SYST BP GE 130 - 139MM HG, 3078F DIAST BP < 80 MM HG * Follow Up: 3 Months fasting * Images: Billing Information: * Visit Code: 75291 Office Visit, Est Pt., Level 4. * Procedure Codes: 60997 GLYCATED HEMOGLOBIN TEST. Modifiers: QW 11157 GLUCOSE TEST. 3044F HG A1C LEVEL LT 7.0%. 3075F SYST BP GE 130 - 139MM HG. 3078F DIAST BP < 80 MM HG. * Electronic signature of Valentina Barrientos MD on 11/20/2025 at 11:09 AM EST Sign off status: Pending * Provider: Hans Barrientos M.D. Date: 0 01/23/2025 Generated for Lena canales/Emily/Lory on: 1 01/21/2025 11:09 AM EST History and Physical Notes * HPI (History of Present Illness) Category Sub-Category Detail Notes Category Not es Neck pain Pt complains of neck pain for about a month. Pt states pain and stiffness is so bad that it is causing his rt ear to ache Examination Category Sub-Category Detail Notes Category Not es Neck Vertebral spine tenderness: absent Paraspinal muscle spasm: present bilater ally Trapezius tenderness: present bilaterall y Endocrinology Heart: RSR Lungs: clear to auscultatio n Extremities: left leg prosthesis in place General Appearance: NAD Skin: right 4 th and 5 th finger nails are thickened and discolored yellow distally
--- OUTSIDE RECORDS SUMMARY | 2025-02-04 09:00 | XMS_ITS ---
Author Organization [facility] Address [address] [phone] Care Team Providers Care Air Surveillance Operator Name Role Phone Enmanuel Barrientosian Primary Care Provider Allergies No Known Allergies Results Component Value Reference Range Notes Urinalysis - Inhouse Reviewed date:02/04/2025 03:27:19 PM Interpretation: Performing Lab: Notes/Report: Color/Clarity yellow/clear Leuk Neg Nitrite Neg Urobili 3.2 Protein 1+ pH 5.5 Blood Trace-Lysed Sp. Gr. 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 Medication SIG (Take, Route, Frequency, Duration) Notes Start Date End Date Status Jardiance 25 MG 1 tablet Orally Once a day 12/17/2024 Active Terbinafine HCl 250 MG 1 tablet Orally O nce a day 01/23/2025 Active Cyclobenzaprine HCl 5 MG 1 tablet as nee ded Orally Three times a day 01/23/2025 Active Cetirizine HCl 10 mg TAKE ONE TABLET BY MOUTH EVERY DAY; Duration: 30 Active Montelukast Sodium 10 mg TAKE ONE TABLET BY MOUTH EVERY DAY; Duration: 30 Active Pregabalin 150 MG 1 cap(s) orally 2 ti mes a day 12/06/2024 Active Vitamin D3 1.25 MG (55544 UT) TAKE ONE CAPSULE BY MOUTH ONCE A WEEK; Duration: 28 days Active Nitroglycerin 0.2 MG/HR apply 1 PATCH to pically EVERY DAY allow FOR nitrate-free interval of approximately 10-12 hours PER 24 hour period; Duration: 30 Active Rosuvastatin Calcium 40 MG 1 tab(s) oral ly once a day (at bedtime) Active Nortriptyline HCl 50 MG 1 cap(s) Orally Two times a day Active Metoprolol Succinate ER 50 MG 1 tablet Orally Once a day; Duration: 30 day(s) Active Vital Signs Blood pressure systolic 142 mm Hg 02/05/20 25 Blood pressure diastolic 94 mm Hg 025 Heart Rate 99 /min 02/04/2025 Height 73 in 02/04/2025 Weight 235 lbs 02/04/2025 BMI 31.00 kg/m2 02/04/2025 Encounters Encounter Location Date Provider Diagnosis [facility] 12[address] [facility] [address] [facility] [address] [place] [phone] 02/04/2025 Dipak Barrientos 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 Z02.4 Assessments Encounter Date Diagnosis (ICD Code) Assessment Notes Treatment Notes Treatment Clinical Notes Section Notes 02/04/2025 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 robert license (ICD-10 - Z02.4) Plan Of Treatment Next Appt Details Follow Up: prn, Reason: Provider Name:Dipak simmons, 11/20/2025 10:45:00 AM, [address] [facility] [address] [facility], [address], [place], [phone], Provider Name:Dipak simmons, 01/09/2026 11:45:00 AM, [address] [facility] [address] [facility], [address], [place], [phone], Progress Notes * Ernst JARAOB:1965 (59 yo M)Acc No.[id number]:02/04/2025 Physical Patient: Charissa Jewel CANNON Provider: Hans Barrientos M.D. 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 * ROS: D ERMATOLOGY: no R kady. [...] - Dr. Fisher 05/2014, Open Heart Surgery- [place] 11/16/2016, Laminectomy, L4-L5, [facility] 08/2018, LT TMA Revision 07/14/2022, left BKA 07/2022, Bariatric surgey . * Hospitalization/Major Diagno stic Procedure: B ack Pain- [facility] ER 02/26/2014, Shoulder- [facility] ER 01/15/2016. * Family [...] Orally Two times a day , Taking Rosuvastatin Calcium 40 MG Tablet 1 tab(s) orally once a day (at bedtime) , Taking Nitroglycerin 0.2 MG/HR Patch 24 Hour apply 1 PATCH topically EVERY DAY allow FOR nitrate-free interval of approximately 10-12 hours PER 24 hour period , Taking Vitamin D3 1.25 MG (58785 UT) Capsule TAKE ONE CAPSULE BY MOUTH ONCE A WEEK , Taking Pregabalin 150 MG Capsule 1 cap(s) orally 2 times a day , Taking Montelukast Sodium 10 mg Tablet TAKE ONE TABLET BY MOUTH EVERY DAY , Taking Cetirizine HCl 10 mg Tablet TAKE ONE TABLET BY MOUTH EVERY DAY , Taking Terbinafine HCl 250 MG Tablet 1 tablet Orally Once a day , Taking Jardiance 25 MG Tablet 1 tablet Orally Once a day , Taking Cyclobenzaprine HCl 5 MG Tablet 1 tablet as needed Orally Three times a day , Discontinued Fluticasone Propionate 50 MCG/ACT Suspension 1 spray in each nostril Nasally Once a day , Discontinued Wheelchair - Miscellaneous as directed , Medication List reviewed and reconciled with the patient * Allergies: N .K.D.A. Objective: * Vitals: W t:235, Temp:98.0, BP:142/94, HR:99, Nurse:marsha, Ht: 73, Visual Acuity: Left eye:20/25, Right eye:20/30, Both eyes:20/25, Color:Pass, BMI:31.00. * Examination: G eneral Examination: General Appearance: N AD. H EENT: u nremarkable.?Oral cavity: n o lesions, mucosa moist and WNL, no erythema. N marlee: s upple, no lymphadenopathy. C hest: n ormal shape and expansion. H eart: R SR. L ungs: c lear to auscultation. A bdomen: bowel sounds present, soft and nontender. N eurologic Exam: I ntact, gait normal. S kin: n ormal, no rash. P eripheral pulses: n ormal (2+) bilaterally. E xtremities: n o right leg edema, left leg with BKA. ? Assessment: * Assessment: 1. E ncounter for Department of Transportation (DOT) examination for [place] license - Z02.4 (Primary) Plan: * Treatment: Value Reference Range C olor/Clarity yellow/clear * L euk Neg * N itrite Neg * U robili 3.2 * P rotein 1+ * p H 5.5 * B lood Trace-Lysed * S p. Gr. 1.015 * K etone Neg * B gerald Neg * G so 2+ * Jessica Gan 02/04/2025 2:03:12 PM > , Provider reviewed results while patient in office.Dipak Barrientos 02/04/2025 3:27:15 PM > * Procedure Codes: 8 1002 Urinalysis, no micro, 30442 VISUAL ACUITY SCREEN * Follow Up: p rn * Images: Billing Information: * Visit Code: 19293 Preventive Care Est Pt Age 40-64. * Procedure Codes: 69155 Urinalysis, [place] micro. [address]161 VISUAL ACUITY SCREEN. * Electronic signature of Valentina Barrientos MD on 11/20/2025 at 11:09 AM EST Sign off status: Pending * Provider: Hans Barrientos M.D. 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
--- OUTSIDE RECORDS SUMMARY | 2025-07-09 04:30 | XMS_ITS ---
Author Organization [facility] Address [address] [facility] [address] [place] [id number] Care Team Providers Care Owner Operator Tanker Truck Driver Name Role Phone BethelEnmanuel ewingian Primary Care Provider [phone] Allergies No Known Allergies Results Component Value Reference Range Notes Glucose (In-House) Reviewed date:07/09/2025 11:15:46 PM Interpretation: Performing Lab: Notes/Report: blood glucose 143 74 - 106 mg/dL Glycohemoglobin A1c (in hous e) Reviewed date:07/09/2025 11:15:34 PM Interpretation:7.4 Performing Lab: Notes/Report: 7.4 glycohemoglobin 7.4% 5 - 6.5 % P-Comprehensive Metabolic Pa frederic (CMP) Reviewed date:07/10/2025 12:41:38 PM Interpretation:gluc 139, bun 24, Cr 1.8, gfr 42 Performing Lab: Notes/Report: Test performed by [facility] , [address], [place] [address] James Alonso MD, Social Human Services Assistants CLIA: [id number] Sodium 142 135-145 mmol/L Potassium 4.5 3.5-5.3 mmol/L Chloride 106 97-108 mmol/L CO2 24 20-32 mmol/L Glucose 139 65-99 mg/dL BUN 24 8-23 mg/dL Creatinine 1.80 0.70-1.30 mg/dL Calcium 9.2 8.6-10.4 mg/dL eGFR by Creatinine 42 >59 mL/min/1.73m2 Protein 7.0 6.0-8.3 g/dL Albumin 4.3 3.5-5.3 g/dL Alkaline Phosphatase 100 40-129 IU/L ALT (SGPT) 31 <5-55 IU/L AST (SGOT) 35 <5-46 IU/L Bilirubin, Total 0.4 <0.2-1.2 mg/dL A/G Ratio 1.6 1.1-2.5 P-Lipid Panel Reviewed date:07/10/2025 12:41:38 PM Interpretation:Normal Performing Lab: Notes/Report: Test performed by [facility], [address] , [address], [place] [address] James Alonso MD, Social Human Services Assistants CLIA: [id number] Cholesterol 90 <200 mg/dL Triglycerides 96 <150 mg/dL HDL Cholesterol 42 >39 mg/dL Cholesterol / HDL Ratio 2.14 0.00-4.99 Ratio Non-HDL Cholesterol 48 <130 mg/dL LDL Cholesterol (Calculation) 29 <130 mg/dL LDL Cholesterol Levels* Less than 100 mg/dL Optimal 100 to 129 mg/dL Near Optimal/ Above Optimal 130 to 159 mg/dL Borderline High 160 to 189 mg/dL High 190 mg/dL and above Very High * Categories as recommended by the 2004 ATPIII guidelines LDL/HDL Ratio 0.7 <3.3 Ratio LDL Cholesterol Patient History Test Date: 02/03/2023 LDL Results: 19 Units: mg/dL % Change: - Test Date: 07/09/2025 LDL Results: 29 Units: mg/dL % Change: +52% P-PSA Reviewed date:07/10/2025 12:41:38 PM Interpretation:Normal Performing Lab: Notes/Report: Test performed by [facility] [address] [place] [address] , [address], [place] [address] James Alonso MD, Social Human Services Assistants CLIA: [id number] PSA 0.57 <4.00 ng/mL Please note this is an ultrasensitive PSA assay with a lower limit of detection of 0.014 ng/mL. This test is performed by the Liliya ECLIA methodology. Values obtained with different assay methods or kits cannot be directly compared. P-TSH reflex to FT4 Reviewed date:07/10/2025 12:41:38 PM Interpretation:Normal Performing Lab: Notes/Report: Test performed by [facility] [address] [place] [address] , [address], [place] [address] James Alonso MD, Social Human Services Assistants CLIA: [id number] TSH reflex to FT4 4.58 0.43-5.25 mU/L P-Microalbumin/Creatinine, R andom Urine Sample Reviewed date:07/10/2025 12:41:38 PM Interpretation:a/c 66 Performing Lab: Notes/Report: Test performed by [facility] [address] [place] [address] , [address], [place] [address] James Alonso MD, Social Human Services Assistants CLIA: [id number] Albumin/Creatinine Ratio, Urine 66 0-30 ug/m g Microalbumin, Urine, Random 4.8 Creatinine, Urine 72.7 REASON FOR VISIT check up with fasting labs Medications Medication SIG (Take, Route, Frequency, Duration) Notes Start Date End Date Status Terbinafine HCl 250 MG 1 tablet Orally O nce a day; Duration: 90 days Active Cetirizine HCl 10 mg TAKE ONE TABLET BY MOUTH EVERY DAY; Duration: 90 days Active Rosuvastatin Calcium 40 MG 1 tab(s) oral ly once a day (at bedtime); Duration: 90 days Active Jardiance 25 MG 1 tablet Orally Once a day; Duration: 90 days Active Montelukast Sodium 10 mg TAKE ONE TABLET BY MOUTH EVERY DAY; Duration: 90 days Active Nortriptyline HCl 50 MG 1 cap(s) Orally Two times a day; Duration: 90 days Active Metoprolol Succinate ER 50 MG 1 tablet Orally Once a day; Duration: 90 days Active Pregabalin 150 MG 1 cap(s) orally 2 ti mes a day; Duration: 30 days 06/05/2025 Active Dexcom G7 Sensor - as directed; Duratio n: 30 days Active Dexcom G7 Recruiting Team Lead - as directed; Durati on: 90 days Active Nitroglycerin 0.2 MG/HR apply 1 PATCH to pically EVERY DAY allow FOR nitrate-free interval of approximately 10-12 hours PER 24 hour period; Duration: 30 Active Vitamin D3 1.25 MG (72066 UT) TAKE ONE CAPSULE BY MOUTH ONCE A WEEK; Duration: 28 Active Cyclobenzaprine HCl 5 MG 1 tablet as nee ded Orally Three times a day 01/23/2025 Active Vital Signs Blood pressure systolic 122 mm Hg 07/09/20 25 Blood pressure diastolic 84 mm Hg 025 Heart Rate 96 /min 07/09/2025 Height 73 in 07/09/2025 Weight 230.2 lbs 07/09/2025 BMI 30.37 kg/m2 07/09/2025 Encounters Encounter [facility] Date [facility] [address] [phone] 07/09/2025 Dipak Barrientos DM2 (diabetes mellit , type 2) E11.9 ; Type 2 diabetes mellitus with diabetic polyneuropathy, without long-term current use of insulin E11.42 ; Essential hypertension I10 ; Mixed hyperlipidemia E78.2 and Prostate cancer screening Z12.5 Assessments Encounter Date Diagnosis (ICD Code) Assessment Notes Treatment Notes Treatment Clinical Notes Section Notes 07/09/2025 DM2 (diabetes mellitus, type 2) (ICD-10 - E11.9) 07/09/2025 Type 2 diabetes mellitus with diabetic polyneuropathy, without long-term current use of insulin (ICD-10 - E11.42) 07/09/2025 Essential hypertension (ICD-10 - I10) 07/09/2025 Mixed hyperlipidemia (ICD-10 - E78.2) 07/09/2025 Prostate cancer screening (ICD-10 - Z12.5) Plan Of Treatment Medication Medication Name Sig Start Date Stop Date Notes Cetirizine HCl 10 mg TAKE ONE TABLET BY MOUTH EVERY DAY; Duration: 90 days Rosuvastatin Calcium 40 MG 1 tab(s) oral ly once a day (at bedtime); Duration: 90 days Jardiance 25 MG 1 tablet Orally Once a day; Duration: 90 days Montelukast Sodium 10 mg TAKE ONE TABLET BY MOUTH EVERY DAY; Duration: 90 days Nortriptyline HCl 50 MG 1 cap(s) Orally Two times a day; Duration: 90 days Metoprolol Succinate ER 50 MG 1 tablet O rally Once a day; Duration: 90 days Next Appt Details Follow Up: 6 Months, Reason: Provider Name:Dipak simmons, 11/20/2025 10:45:00 AM, [facility] 36 [facility], [facility] [address], [place], [place], [phone], Provider Name:Dipak simmons, 01/09/2026 11:45:00 AM, 1210 [facility] 36 [facility], [address], [place], [place], [phone], Progress Notes * Ernst JARAOB:1965 (59 yo M)Acc No.[id number]:07/09/2025 Progress Notes Patient: Charissa FrancaShantanu SARABIAne Provider: Hans Barrientos M.D. :1965 A ge:59 Y S ex:Male Date:07/09/2025 Address:[address] [place] [address] [address] , [place], [id number] Subjective: * Chief Complaints: * 1 . Check up with fasting labs. * HPI: C ardiology: 59 year old male presents with c/o Blood Pressure Elevated P t here for check up on hypertension. Pt states he is doing well and does not have any concerns.? E ndocrinology: c/o Recent Blood Sugars P t here to check up on DM 2. Pt states he does not check blood sugar at home due to not being able to get [employer] 7 to connect to his phone. c/o Hypothyroidism P t here to f/u. * ROS: D ERMATOLOGY: no R kady. [...] - Dr. 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 * Hospitalization/Major Diagno stic Procedure: B ack Pain- [facility] ER 02/26/2014, Shoulder- [facility] ER 01/15/2016. * Family History: F [...] hours PER 24 hour period , Taking Cyclobenzaprine HCl 5 MG Tablet 1 tablet as needed Orally Three times a day , Taking Vitamin D3 1.25 MG (40656 UT) Capsule TAKE ONE CAPSULE BY MOUTH ONCE A WEEK , Taking Cetirizine HCl 10 mg Tablet TAKE ONE TABLET BY MOUTH EVERY DAY , Taking Montelukast Sodium 10 mg Tablet TAKE ONE TABLET BY MOUTH EVERY DAY , Taking Dexcom G7 Recruiting Team Lead - Device as directed , Taking Dexcom G7 Sensor - Miscellaneous as directed , Taking Pregabalin 150 MG Capsule 1 cap(s) orally 2 times a day , Taking Terbinafine HCl 250 MG Tablet 1 tablet Orally Once a day , Taking Jardiance 25 MG Tablet 1 tablet Orally Once a day , Medication List reviewed and reconciled with the patient * Allergies: N .K.D.A. Objective: * Vitals: W t: 230.2, Temp: 98.0, BP: 122/84, HR: 96, Nurse: marsha, Ht: 73, BMI:30.37. * Examination: E ndocrinology: General Appearance: N AD. H eart: R SR. L ungs:?clear to auscultation. E xtremities: l eft leg prosthesis in place. ? Assessment: * Assessment: 1. D M2 (diabetes mellitus, type 2) - E11.9 (Primary) 2 . T ype 2 diabetes mellitus with diabetic polyneuropathy, without long-term current use of insulin - E11.42 ?3. E ssential hypertension - I10 4 . M ixed hyperlipidemia - E78.2 5. P rostate cancer screening - Z12.5 Plan: * Treatment: Value Reference Range A /G Ratio 1.6 1.1-2.5 - * A lbumin 4.3 3.5-5.3 - g/dL * A lkaline Phosphatase 100 40-129 - IU/L * A LT (SGPT) 31 <5-55 - IU/L * A ST (SGOT) 35 <5-46 - IU/L * B ilirubin, Total 0.4 <0.2-1.2 - mg/dL * B UN 24 H 8-23 - mg/dL * C alcium 9.2 8.6-10.4 - mg/dL * C hloride 106 97-108 - mmol/L * C O2 24 20-32 - mmol/L * C reatinine 1.80 H 0.70-1.30 - mg/dL * G lucose 139 H 65-99 - mg/dL * P otassium 4.5 3.5-5.3 - mmol/L * S odium 142 135-145 - mmol/L * P rotein 7.0 6.0-8.3 - g/dL * e GFR by Creatinine 42 L >59 - mL/min/1.73m2 * Latisha Hernandez 07/10/2025 1 2:41:28 PM EDT > See phone encounter ?LAB: P-TSH reflex to FT4 (Collection Date & Time - 07/09/2025 08:55 AM)? Normal* Value Reference Range T SH reflex to FT4 4.58 0.43-5.25 - mU/L * Latisha Hernandez 07/10/2025 1 2:41:28 PM EDT > See phone encounter ?LAB: P-Microalbumin/Creatinine, Random Urine Sample (Collection Date & Time - 07/09/2025 08:55 AM)?a/c 66* Value Reference Range A lbumin/Creatinine Ratio, Urine 66 H 0-30 - ug /mg * C reatinine, Urine 72.7 - mg/dL * M icroalbumin, Urine, Random 4.8 - mg/dL * Latisha Hernandez 07/10/2025 1 2:41:28 PM EDT > See phone encounter ?LAB: Glucose (In-House) (Collection Date & Time - 07/09/2025)* Value Reference Range b lood glucose 143 74 - 106 mg/dL * Jessica Gan 07/09/2025 10:12: 11 AM EDT > Provider reviewed results while patient in office.Dipak Barrientos 07/09/2025 11:15:40 PM EDT > ?LAB: Glycohemoglobin A1c (in house) (Collection Date & Time - 07/09/2025)? 7.4* Value Reference Range g lycohemoglobin 7.4% 5 - 6.5 % * Jessica Gan 07/09/2025 10:11: 45 AM EDT > Provider reviewed results while patient in office.Dipak Barrientos 07/09/2025 11:15:30 PM EDT > 2.?Essential hypertension? Refill Metoprolol Succinate ER Tablet Extended Release 24 Hour, 50 MG, 1 tablet, Orally, Once a day, 90 days, 90, Refills 1.?LAB: P-Comprehensive Metabolic Panel (CMP) (Collection Date & Time - 07/09/2025 08:55 AM)?gluc 139, bun 24, Cr 1.8, gfr 42* Value Reference Range A /G Ratio 1.6 1.1-2.5 - * A lbumin 4.3 3.5-5.3 - g/dL * A lkaline Phosphatase 100 40-129 - IU/L * A LT (SGPT) 31 <5-55 - IU/L * A ST (SGOT) 35 <5-46 - IU/L * B ilirubin, Total 0.4 <0.2-1.2 - mg/dL * B UN 24 H 8-23 - mg/dL * C alcium 9.2 8.6-10.4 - mg/dL * C hloride 106 97-108 - mmol/L * C O2 24 20-32 - mmol/L * C reatinine 1.80 H 0.70-1.30 - mg/dL * G lucose 139 H 65-99 - mg/dL * P otassium 4.5 3.5-5.3 - mmol/L * S odium 142 135-145 - mmol/L * P rotein 7.0 6.0-8.3 - g/dL * e GFR by Creatinine 42 L >59 - mL/min/1.73m2 * Latisha Hernandez 07/10/2025 1 2:41:28 PM EDT > See phone encounter 3.?Mixed hyperlipidemia? Refill Rosuvastatin Calcium Tablet, 40 MG, 1 tab(s), orally, once a day (at bedtime), 90 days, 90, Refills 1.?LAB: P-Comprehensive Metabolic Panel (CMP) (Collection Date & Time - 07/09/2025 08:55 AM)?gluc 139, bun 24, Cr 1.8, gfr 42* Value Reference Range A /G Ratio 1.6 1.1-2.5 - * A lbumin 4.3 3.5-5.3 - g/dL * A lkaline Phosphatase 100 40-129 - IU/L * A LT (SGPT) 31 <5-55 - IU/L * A ST (SGOT) 35 <5-46 - IU/L * B ilirubin, Total 0.4 <0.2-1.2 - mg/dL * B UN 24 H 8-23 - mg/dL * C alcium 9.2 8.6-10.4 - mg/dL * C hloride 106 97-108 - mmol/L * C O2 24 20-32 - mmol/L * C reatinine 1.80 H 0.70-1.30 - mg/dL * G lucose 139 H 65-99 - mg/dL * P otassium 4.5 3.5-5.3 - mmol/L * S odium 142 135-145 - mmol/L * P rotein 7.0 6.0-8.3 - g/dL * e GFR by Creatinine 42 L >59 - mL/min/1.73m2 * Latisha Hernandez 07/10/2025 1 2:41:28 PM EDT > See phone encounter ?LAB: P-Lipid Panel (Collection Date & Time - 07/09/2025 08:55 AM)?Normal* Value Reference Range C holesterol / HDL Ratio 2.14 0.00-4.99 - Ratio * C holesterol 90 <200 - mg/dL * H DL Cholesterol 42 >39 - mg/dL * L DL Cholesterol (Calculation) 29 <130 - mg/d L * L DL/HDL Ratio 0.7 <3.3 - Ratio * N on-HDL Cholesterol 48 <130 - mg/dL * T riglycerides 96 <150 - mg/dL * Latisha Hernandez 07/10/2025 1 2:41:28 PM EDT > See phone encounter 4.?Prostate cancer screening?LAB: P-PSA (Collection Date & Time - 07/09/2025 08:55 AM)?Normal* Value Reference Range P SA 0.57 <4.00 - ng/mL * Latisha Hernandez 07/10/2025 1 2:41:28 PM EDT > See phone encounter 5.?Others? Refill Nortriptyline HCl Capsule, 50 MG, 1 cap(s), Orally, Two times a day, 90 days, 180, Refills 1;?Refill Cetirizine HCl Tablet, 10 mg, TAKE ONE TABLET BY MOUTH EVERY DAY, 90 days, 90, Refills1;?Refill Montelukast Sodium Tablet, 10 mg, TAKE ONE TABLET BY MOUTH EVERY DAY, 90 days, 90, Refills 1.?? * Procedure Codes: 8 2950 GLUCOSE TEST, 42745 GLYCATED HEMOGLOBIN TEST, Modifiers: QW , 3051F HG A1C>EQUAL 7.0%<8.0%, 1036F TOBACCO NON-USER, 3074F SYST BP LT 130 MM HG, 3079F DIAST BP 80-89 MM HG * Follow Up: 6 Months * Images: Billing Information: * Visit Code: 12263 Office Visit, Est Pt., Level 4. * Procedure Codes: 98074 GLUCOSE TEST. 02847 GLYCATED HEMOGLOBIN TEST. Modifiers: QW 3051F HG A1C>EQUAL 7.0%<8.0%. 1036F TOBACCO NON-USER. 3074F SYST BP LT 130 MM HG. 3079F DIAST BP 80-89 MM HG. * Electronic signature of Valentina Barrientos MD on 11/20/2025 at 11:09 AM EST Sign off status: Pending * Provider: Hans Barrinetos M.D. Date: 0 07/09/2025 Generated for Lena canales/Emily/eTandreysmitting on: 1 01/21/2025 11:09 AM EST History and Physical Notes * HPI (History of Present Illness) Category Sub-Category Detail Notes Category Not es Endocrinology Recent Blood Sugars Pt here to kenny gillsik up on DM 2. Pt states he does not check blood sugar at home due to not being able to get [employer] 7 to connect to his phone Hypothyroidism Pt here to f/u Cardiology Blood Pressure Elevated Pt here for check up on hypertension. Pt states he is doing well and does not have any concerns Examination Category Sub-Category Detail Notes Category Not es Endocrinology Heart: RSR Lungs: clear to auscultatio n Extremities: left leg prosthesis in place General Appearance: NAD
--- OUTSIDE RECORDS SUMMARY | 2025-11-20 11:10 | XMS_ITS | Encounter Summary ---
Author Organization [facility] Address [address] [place] [address] Care Team Providers Care Herpetology Teacher Name Role Phone Dipak Barrientos MD Primary Care Provider [phone] Reason for Visit * Reason Comments Med Refill Encounter Details Date Type Department Care Team (Late st Contact Info) Description 05/01/2024 [facility] [address] [place] [address] Mabel Chapman, TIRE TRIMMER HAND [address] [facility] [address] [place] [address] Social History Tobacco Use Types Packs/Day Years Used Date Smoking Tobacco: Former Cigarettes 0 Q uit: 2014 Smokeless Tobacco: Never Alcohol [...] documented as of this encounter Care Teams Herpetology Teacher Relationship Specialty [place] [id number] PCP - General 04/10/21 documented as of this encounter
--- OUTSIDE RECORDS SUMMARY | 2025-11-20 11:10 | XMS_ITS | Patient Health Record ---
Author Organization [facility] Address [address] [facility] [address] [facility] [address] [place] [id number] Care Team Providers Care Mandate Retail Service Merchandiser Name Role Phone Dipak Barrientos Primary Care [...] 0.1 Performing Lab: Notes/Report: Test performed by [employer], [facility] [address] [place] [address] , [address], [place] [address] James Alonso MD, Plant Buyer CLIA: [id number] Protein 7.2 6.0-8.3 g/dL Albumin 4.2 3.5-5.3 [...] 1.015 Ketone Neg Bili Neg Gluc 2+ Glucose (In-House) Reviewed date:07/09/2025 11:15:46 PM Interpretation: Performing Lab: Notes/Report: blood glucose 143 74 - 106 mg/dL Glycohemoglobin A1c (in hous e) Reviewed date:07/09/2025 11:15:34 PM Interpretation:7.4 Performing Lab: Notes/Report: 7.4 glycohemoglobin 7.4% 5 - 6.5 % P-Comprehensive Metabolic Pa frederic (CMP) Reviewed date:07/10/2025 12:41:38 PM Interpretation:gluc 139, bun 24, Cr 1.8, gfr 42 Performing Lab: Notes/Report: Test performed by [facility] [address] [place], [place] [address] [address] , [address], [place] [address] James Alonso MD, Plant Buyer CLIA: [id number] Sodium 142 135-145 mmol/L Potassium 4.5 3.5-5.3 [...] Interpretation:Normal Performing Lab: Notes/Report: Test performed by [facility] [address] [place], [place] [address] [address] , [address], [place] [address] James Alonso MD, Plant Buyer CLIA: [id number] Cholesterol 90 <200 mg/dL Triglycerides 96 <150 [...] Interpretation:Normal Performing Lab: Notes/Report: Test performed by [facility], [address] , [address], [place] [address] James Alonso MD, Plant Buyer CLIA: [id number] PSA 0.57 <4.00 ng/mL Please note this is an ultrasensitive PSA assay with a lower limit of detection of 0.014 ng/mL. This test is performed by the [employer] ECLIA methodology. Values obtained with different assay methods or kits cannot be directly compared. P-TSH reflex to FT4 Reviewed date:07/10/2025 12:41:38 PM Interpretation:Normal Performing Lab: Notes/Report: Test performed by [facility] [employer] [facility] [address] , [address], [place] [address] James Alonso MD, Plant Buyer CLIA: [id number] TSH reflex to FT4 4.58 0.43-5.25 mU/L P-Microalbumin/Creatinine, R andom Urine Sample Reviewed date:07/10/2025 12:41:38 PM Interpretation:a/c 66 Performing Lab: Notes/Report: Test performed by [facility] [address] [place] [address] , [address], [place] [address] James Alonso MD, Plant Buyer CLIA: [id number] Albumin/Creatinine Ratio, Urine 66 0-30 ug/mg Microalbumin, Urine, Random 4.8 Creatinine, Urine 72.7 Glucose (In-House) (Not yet reviewed by provider) Interpretation: Performing Lab: Notes/Report: blood glucose 97 74 - 106 mg/dL CBC Fingerstick (in house) ( Not yet reviewed by provider) Interpretation: Performing Lab: Notes/Report: wbc 9.2 3.5 - 10 lym 26.5% 15 - 50 mid 6.2% 2 - 15 gran 67.3% 35 - 80 rbc 6.38 3.5 - 5.5 hgb 18.6 11.5 - 16.5 hct 57.0 35 - 55 mcv 89.2 75 - 100 mch 29.2 25 - 35 mchc 32.7 31 - 38 plat 102 100 - 400 Glycohemoglobin A1c (in hous e) (Not yet reviewed by provider) Interpretation: Performing Lab: Notes/Report: glycohemoglobin 7.2% 5 - 6.5 % colonoscopy Reviewed date:11/11/2025 04:03:56 PM Interpretation: Performing Lab: Notes/Report: CT Scan : Chest, low dose Reviewed date:08/07/2025 03:38:12 PM Interpretation:nothing suspicious, annual f/u Performing Lab: Notes/Report: nothing suspicious, annual f/u Medications Medication SIG (Take, Route, Frequency, Duration) Notes Start Date End Date Status Terbinafine HCl 250 MG 1 tablet Orally O nce a day; Duration: 90 days Active Pregabalin 150 MG 1 cap(s) orally 2 ti mes a day; Duration: 30 days 09/03/2025 Active Jardiance 25 MG 1 tablet Orally Once a day Active Vitamin D3 1.25 MG (62084 UT) TAKE ONE CAPSULE BY MOUTH ONCE A WEEK; Duration: 28 Active Cephalexin 500 MG 1 capsule Orally twi ce a day; Duration: 7 days 11/20/2025 Active Losartan Potassium 25 MG 1 tablet Orally Once a day; Duration: 90 days 07/10/2025 Active Montelukast Sodium 10 mg TAKE ONE TABLET BY MOUTH EVERY DAY; Duration: 90 days Active Cetirizine HCl 10 mg TAKE ONE TABLET BY MOUTH EVERY DAY; Duration: 90 days Active Rosuvastatin Calcium 40 MG 1 tab(s) oral ly once a day (at bedtime); Duration: 90 days Active Nortriptyline HCl 50 MG 1 cap(s) Orally Two times a day; Duration: 90 days Active Metoprolol Succinate ER 50 MG 1 tablet Orally Once a day; Duration: 90 days Active Dexcom G7 Sensor - as directed; Duratio n: 30 days Active Dexcom G7 Foundry Laborer Coreroom - as directed; Durati on: 90 days Active Cyclobenzaprine HCl 5 MG [...] W/U Status Risk Notes Problem Tobacco abuse (3650960692) Tobacco abuse (Z72.0) Active confirmed Problem Hypothyroidism (52225698) Hypothyroidism (acquired) (E03.9) Active confirmed Problem Essential hypertension (15603290) Essential hypertension (I10) Active confirmed Problem Morbid obesity (473616218) Morbid obesity (E66.01) Active confirmed Problem Diabetic neuropathy (672344441) Diabetic neuropathy (E11.40) Active confirmed Problem Sciatica (53285862) Lumbago with sciatica, right side (M54.41) Active confirmed Problem Neurologic disorder associated with type II diabetes mellitus (006281967) Type 2 diabetes mellitus with other diabetic neurological complication (E11.49) Active confirmed Problem Mixed hyperlipidemia (429974411) Mixed hyperlipidemia (E78.2) Active confirmed Problem Hyperlipidemia (99050920) Other hyperlipidemia (E78.4) Active confirmed Problem Primary insomnia (2459501) Primary insomnia (F51.01) Active confirmed Problem Chronic pain (36707049) Other chronic pain (G89.29) Active confirmed Problem Sciatica (69271628) Lumbago with sciatica, left side (M54.42) Active confirmed Problem Chronic osteomyelitis of ankle and/or foot (603466914) Other chronic osteomyelitis, left ankle and foot (M86.672) Active confirmed Problem Encounter for orthopedic aftercare following surgical amputation (Z47.81) Active confirmed Problem Amputated below knee (307956523) Acquired absence of left leg below knee (Z89.512) Active confirmed Problem Degeneration of lumbar intervertebral disc (01692761) Lumbar degenerative disc disease (M51.36) Active confirmed Problem Mood disorder (31061671) Mood disorder (F39) Active confirmed Problem Acquired hypothyroidism (188778797) Acquired hypothyroidism (E03.9) Active confirmed Problem Atherosclerotic heart disease of duckwater coronary artery without angina pectoris (184993648568478) Coronary artery disease involving duckwater coronary artery of duckwater heart without angina pectoris (I25.10) Active confirmed Problem Erectile dysfunction (disorder) (188598211) Erectile dysfunction, unspecified erectile dysfunction type (N52.9) Active confirmed Problem Polyneuropathy due to type 2 diabetes mellitus (073069773) Diabetic polyneuropathy associated with type 2 diabetes mellitus (E11.42) Active confirmed Problem Diabetes mellitus type 2 (disorder) (21560974) DM2 (diabetes mellitus, type 2) (E11.9) Active confirmed Problem Dyslipidemia (196995731) Dyslipidemia (E78.5) Active confirmed Problem Atherosclerotic heart disease of duckwater coronary artery without angina pectoris (472904808212928) Arteriosclerosis of coronary artery (I25.10) Active confirmed Problem Allergic rhinitis (46728877) Allergic rhinitis, unspecified allergic rhinitis trigger, unspecified rhinitis seasonality (J30.9) Active confirmed Problem Polyneuropathy due to type 2 diabetes mellitus (450855202) Type 2 diabetes mellitus with diabetic polyneuropathy, without long-term current use of insulin (E11.42) Active confirmed Problem Lower urinary tract symptoms due to benign prostatic hypertrophy (57016059812238) Benign prostatic hyperplasia with lower urinary tract symptoms (N40.1) Active confirmed Problem Sleep apnea (69514038) Sleep apnea in adult (G47.30) Active confirmed Problem History of coronary artery bypass grafting (699277465) History of coronary artery bypass graft (Z95.1) Active confirmed Problem Obesity (510914806) Non morbid obesity (E66.9) Active confirmed Problem Type II diabetes mellitus without complication (859890915) Type 2 diabetes mellitus without complication, unspecified whether superintendent terminal insulin use (E11.9) Active confirmed Problem Cellulitis of finger (59625938) Felon of finger (L03.019) Active confirmed Problem Amputated below knee (358970509) 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) Active confirmed Problem Hearing loss (22966609) Unspecified hearing loss (H91.90) Active confirmed Vital Signs Heart Rate 90 /min 11/20/2025 Blood pressure diastolic 78 mm Hg 11/20/2025 Height 73 in 11/20/2025 Blood pressure systolic 118 mm Hg 11/20/2025 Weight 233.8 lbs 11/20/2025 BMI 30.84 kg/m2 11/20/2025 Encounters Encounter Location Date Provider Diagnosis [facility] [address] [facility] [address] [place] [id number] 12/17/2024 Dipak Barrientos Unspecified hearing loss H91.90 ; Type 2 diabetes mellitus without complication, unspecified whether skilled nursing insulin use E11.9 ; Coronary artery disease involving duckwater coronary artery of duckwater heart without angina pectoris I25.10 and Chronic diarrhea K52.9 [facility] [address] [facility] [address] [place], [place] [id number] 01/23/2025 Dipak Matlock Type 2 diabetes lizeth itus without complication, unspecified whether superintendent terminal insulin use E11.9 ; Onycholysis L60.1 ; Neck muscle spasm M62.838 and alf use of drug Z79.899 [facility] [address] [place], [place] [id number] 02/04/2025 Dipak Matlock 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 Z02.4 [facility] [address] [place], [place] [id number] 07/09/2025 Dipak Matlock DM2 (diabetes mellit , type 2) E11.9 ; Type 2 diabetes mellitus with diabetic polyneuropathy, without long-term current use of insulin E11.42 ; Essential hypertension I10 ; Mixed hyperlipidemia E78.2 and Prostate cancer screening Z12.5 [facility] [address] [place], [place] [id number] 11/20/2025 Dipak Matlock Acute foreign body o f finger, initial encounter S60.459A and DM2 (diabetes mellitus, type 2) E11.9 [facility] [address] [place], [place] [id number] 11/11/2025 Dipak Matlock [facility] [address] [place], [place] [id number] 12/06/2024 Dipak Matlock Diabetic polyneuropa thy associated with type 2 diabetes mellitus E11.42 [facility] [address] [place], [place] [id number] 12/18/2024 Dipak Matlock [facility] [address] [place], [place] [id number] 01/24/2025 Dipak Matlock [facility] [address] [place], [place] [id number] 02/27/2025 Dipak Matlock [facility] [address] [place], [place] [id number] 02/27/2025 Dipak Matlock [facility] [address] [place], [place] [id number] 03/04/2025 Dipak Matlock Diabetic polyneuropa thy associated with type 2 diabetes mellitus E11.42 [facility] [address] [place], [place] [id number] 06/03/2025 Dipak Matlock Diabetic polyneuropa thy associated with type 2 diabetes mellitus E11.42 [facility] [address] [place], [place] [id number] 06/05/2025 Dipak Matlock [facility] [address] [place], [place] [id number] 07/10/2025 Dipak Matlock [facility] [address] [place], [place] [id number] 07/16/2025 Dipak Matlock Encounter for screen ing colonoscopy Z12.11 and Encounter for screening for lung cancer Z12.2 [facility] [address] [place], [place] [id number] 09/02/2025 Dipak Matlock Diabetic polyneuropa thy associated with type 2 diabetes mellitus E11.42 Assessments Encounter Date Diagnosis (ICD Code) Assessment Notes Treatment Notes Treatment Clinical Notes Section Notes 12/06/2024 Diabetic polyneuropathy associated with type 2 diabetes mellitus (ICD-10 - E11.42) 12/17/2024 Type 2 diabetes mellitus without complication, unspecified whether skilled nursing insulin use (ICD-10 - E11.9) 12/17/2024 Unspecified hearing loss (ICD-10 - H91.90) 01/23/2025 Onycholysis (ICD-10 - L60.1) 01/23/2025 Type 2 diabetes mellitus without complication, unspecified whether superintendent terminal insulin use (ICD-10 - E11.9) 02/04/2025 Encounter [...] screening for lung cancer (ICD-10 - Z12.2) 09/02/2025 Diabetic polyneuropathy associated with type 2 diabetes mellitus (ICD-10 - E11.42) 11/20/2025 DM2 (diabetes mellitus, type 2) (ICD-10 - E11.9) 11/20/2025 Acute foreign body of finger, initial encounter (ICD-10 - S60.459A) 07/09/2025 Essential hypertension (ICD-10 - I10) 01/23/2025 Neck muscle spasm (ICD-10 - M62.838) Home exercise program provided to patient, heating pad to affected areas 2 to 3 times a day. Patient already has Rx at home for Flexeril 12/17/2024 Coronary artery disease involving duckwater coronary artery of duckwater heart without angina pectoris (ICD-10 - I25.10) 12/17/2024 Chronic diarrhea (ICD-10 - K52.9) 01/23/2025 alf use of drug (ICD-10 - Z79.899) 07/09/2025 Mixed hyperlipidemia (ICD-10 - E78.2) 07/09/2025 Prostate cancer screening (ICD-10 - Z12.5) Plan Of Treatment Pending Test Test Name Order Date Glucose (In-House) 11/20/2025 CBC Fingerstick (in house) 11/20/2025 Glycohemoglobin A1c (in house) X ray : 3rd digit, right hand 11/20/2025 Next Appt Details Provider Name:Dipak simmons, 11/20/2025 10:45:00 AM, [address], [place], [phone], Provider Name:Dipak simmons, 01/09/2026 11:45:00 AM, [address], [place], [id number], Insurance Providers Payer Name Payer Address Payer Phone Subscriber Number Group Number Insured Name Patient Relationship to Insured Coverage Start Date Coverage End Date [employer] [facility] [id number] [place], [place] [id number] [phone] [id number] Jewel Jara Self - patient is the [...] Bariatric surgey Hospitalization History Reason Date(Month/Year) Shoulder- [facility] ER 01/15/2016 Back Pain- [facility] ER 02/26/2014
--- OUTSIDE RECORDS SUMMARY | 2025-11-20 11:11 | XMS_ITS | Clinical Summary ---
Author Organization [facility] Address [address] 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 01/07/20 21 Active lisinopril [...] 09/02/20 21 Active Vitamin D3 1.25 MG (61892 UT) capsule Take 1 capsule (50,000 Units) by mouth 1 (one) time per week. 09/18/20 21 Active ergocalciferol 1.25 MG (38564 UT) capsule Take 1 capsule by mouth [...] each day. 06/24/20 22 Active HYDROcodone-aceta minophen ([place]) 10-325 MG tablet TAKE ONE TABLET BY [...] complication, without long-term current use of insulin USE DIRECTED TO TEST BLOOD GLUCOSE LEVEL CHANGE SENSOR EVERY 10 DAYS 9 each 3 03/29/20 24 Active Continuous Blood Gluc Transmit (Dexcom G6 transmitter) miscIndications:T ype 2 diabetes mellitus with other specified complication, without long-term current use of insulin Use as instructed change transmitter every 90 [...] (10/05/2021 9:20 AM EST): Working with PCP. Family History Medical History Relation Name Comments Cardiac disorder Other 1 Diabetes Other 2 Hypertension Other 3 Relation Name Status Comments Other 1 Other 2 Other 3 Social History Tobacco Use Types Packs/Day Years Used Date Smoking Tobacco: Former Cigarettes 0 Q uit: 2015 Smokeless Tobacco: Never Tobacco Cessation:Counseling Given: Not [...] [facility]-HIV Screening 1963 [facility]-Hepatitis C Screening 1963 [facility]-Infant/Child/Adol SDOH Screenings 1963 Diabetes: Dental Exam 1973 [facility]- SDOH Screenings 1981 [facility]-Adult SDOH Screenings 1981 [facility]-Pneumococcal Vaccine: 50+ Years (1 of 2 - PCV) 1982 CT Colonography 2008 Colonoscopy 2008 FIT-DNA 2008 FIT 2008 FOBT 2008 Sigmoidoscopy 2008 [facility]-Colorectal Cancer Screening 2008 [facility]-Zoster Vaccines (1 of 2) 2013 [facility]-Diabetes: Hemoglobin A1C 09/26/202412/2023, 12/15/2022, 07/13/2022, Additional history exists [id number] Vaccine (1 - season) 2025 [facility]-Influenza Vaccine (#1) 2025 08/10/2021 [facility]-DTaP,Tdap,and Td Vaccines (2 - Td or Tdap) 01/23/2030 01/23/2020 [facility]-RSV Vaccine: 60+ Years or (1 - 1-dose 75+ series) 2038 [facility]-Hepatitis A Vaccines Aged Out 12/08/2018 No longer eligible based on patient's age to complete this topic [facility]-Obesity Intervention Completed 024, 01/20/2023, 12/15/2022, Additional history exists HPV Vaccines (No Doses Required) Completed [facility]-HIB Vaccines Aged Out No longer e [...] POCT Hemoglobin A1C 6.1 <5.7% Non-Diabet ic [facility] Kit Lot Number [id number] [facility] Kit Expiration Date 12/2025 [facility] Blood Venous blood specimen / Unknown 03/29/2024 8:05 AM EDT Cyndee Wright ANIMAL HERDER POINT OF CARE TEST ENTER /EDIT ORDERABLES Final Result Performing Organization Address City/State/[facility] Co de Phone Number [facility] [address] [place] [phone] from Last 3 Months or Most Recently Relevant to Health Maintenance Insurance [employer] [facility] MEDICAID Care Teams Treasury Analyst Relationship Specialty Start Date End Date Dipak Barrientos MD [phone] PCP - General 04/10/21
--- NOTE | 2025-11-20 11:15 | XR_ITS ---
FINAL REPORT CLINICAL HISTORY: POSSIBLE FOREIGN BODY FINDINGS: RIGHT MIDDLE FINGER Two views were obtained. There is no fracture or dislocation. There is a curvilinear needlelike foreign body measuring 4 mm in the finger pad soft tissues of the third digit anterior/medial to the distal phalanx. The joint is intact. IMPRESSION: Metallic foreign body in the finger pad soft tissues of the third digit. Reviewed, Interpreted and Dictated by Ry Ramirez MD Transcribed by Cortney Mobley Authenticated and [facility]
== END 2025-11-20 23:59 | disposition home or self-care (01) ==
LOC: RAD 11:07
PROVIDERS: PCP Family Medicine; Visit Provider Family Medicine
DX: S60.452A Superficial foreign body of right middle finger, initial encounter (principal); X58.XXXA Exposure to other specified factors, initial encounter
CPT/HCPCS: 73140